=== PATIENT | female | born 1940 | race Caucasian/White ===

== ENCOUNTER 2018-01-19 18:09 | Emergency (ER) | payer MEDICARE, MEDICAID, SELFPAY ==
[2018-01-19 18:11] VITALS: BP 146/46; PULSE 94; RESP 20; TEMP 39.3; O2SAT 91; BMI 27.8
[2018-01-19 19:09] VITALS: TEMP 38.7
[2018-01-19 19:36] LABS: Microscopic, Urine URINE MICROSCOPIC (MICROSCOPIC)
[2018-01-19 19:40] LABS: Appearance,Urine CLEAR (Clear); Bilirubin,Urine Negative (Negative); Blood, Urine Negative (Negative); Color,Urine YELLOW (Yellow); Glucose,Urine (UA) Negative (Negative); Ketones,Urine Negative (Negative); Leukocyte Esterase,Urine 2+ (Negative); Nitrate,Urine Negative (Negative); Protein,Urine Negative (Negative); Urobilinogen,Urine 0.2 EU/dl (0.2)
[2018-01-19 19:50] VITALS: BP 121/64; PULSE 68; RESP 18; TEMP 37.6; O2SAT 96
[2018-01-19 19:53] LABS: Bacteria,Urine 3+ /lpf; Hyaline Casts,Urine Occasional #/lpf (0); Squamous Epithelial Cell,Urine 20-50 #/hpf (0-5); WBC,Urine 20-50 #/hpf (0-3)
--- NOTE | 2018-01-19 19:57 | HMH.EDFEV ---
ED Disposition Clinical Impression: Acute bronchitis, Breast cancer, HTN (hypertension), CAD (coronary artery disease) Disposition: Home, Self-Care Condition on Discharge: Fair Additional Instructions: 1- drink plenty of gotrade. 2- temp check po bid. 3- start abx 4- return if not better in 2 days. Prescriptions: Azithromycin [Zithromax 250mg tab] 250 mg PO DIRECTED #4 tab cefUROXime axetil [Ceftin 250mg Tablet] 250 mg PO BID #20 tab - Critical Care Critical Care Time: No Attestation: On 01/19/18, the high probability of a clinically significant, sudden or life threatening deterioration of the following system(s) required my full and direct attention, intervention and personal management. The time I documented below is in addition to time spent performing reported procedures but includes the following listed in this critical care notation. Medical Decision Making - Medical Records Medical records reviewed: Yes: I reviewed the patient's medical records. Vital Signs: 01/19/18 18:11 01/19/18 19:09 01/19/18 19:50 Temperature 102.8 F H 101.6 F H 99.6 F Temperature Source Oral Oral Oral Pulse Rate [Left Radial] 94 H 68 Respiratory Rate 20 18 Blood Pressure [Right Arm] 146/46 121/64 Blood Pressure Mean [Right Arm] 79 83 Blood Pressure Source [Right Arm] Automatic Cuff Automatic Cuff Blood Pressure Position [Right Arm] Sitting Sitting 02 Sat by Pulse Oximetry 91 L 96 Oxygen Delivery Method Room Air Room Air - Lab Data Lab results reviewed: Yes: I reviewed the patient's lab results. Lab Results 01/19/18 18:15: Influenza Type A Ag Negative, Influenza Type B Ag Negative 01/19/18 19:10: Urine Color Yellow, Urine Appearance Clear, Urine pH 5.0, Ur Specific [place] 1.020, Urine Protein Negative, Urine Glucose (UA) Negative, Urine Ketones Negative, Urine Blood Negative, Urine Nitrate Negative, Urine Bilirubin Negative, Urine Urobilinogen 0.2, Ur Leukocyte Esterase 2+ A, Urine RBC None, Urine WBC 20-50, Ur Squamous Epith Cells 20-50, Ur Transition Epith Cell 3-5, Urine Bacteria 3+, Hyaline Casts Occasional Orders (Tests/Meds): ORDERS Category Date Time Status Urine Culture Stat Micro 03/01/18 19:10 Received - Bryn Inquiry Pt receiving controlled substance: No Bryn was queried for this patient: No Medical Decision Making Narrative: I discussed with the patient starting abx and check temp bid x 2 days, drink plenty of fluids and alternat motrin and tylenol, she is to return if not better. Fever HPI - General Chief Complaint: Fever Stated Complaint: fever, body aches Mode of Arrival: Wheelchair Limitations: No Limitations Description of Symptoms (Recalled from ER Triage Doc. by RN): Fever, chills - History of Present Illness HPI Narrative: This is a 77 years old wf with hx of CAD, HTN and breast cancer survival, she was cleaning two days ago when she developed unproductive cough and fever, she called her pcp but was unable to make it on time so she came to the ED. she had 101 temp and underwent negative influenza screen. MD complaint: fever Onset (ago): day(s) (one day) Temperature Source: oral Associated symptoms: cough Relieving factors: acetaminophen Exacerbating factors: nothing Treatments prior to arrival fever: none - Related Data Home Medications Medication Instructions Recorded Confirmed Aspirin [Aspir 81] 81 mg PO DAILY 01/19/18 01/19/18 Miscellaneous [Unknown Home 0 each NOTAPPLIC CONSULT PHARMACY 01/19/18 01/19/18 Medication] Miscellaneous [Unknown Home 1 each PO DAILY 01/19/18 01/19/18 Medication] Previous Rx's Medication Instructions Recorded Azithromycin [Zithromax 250mg 250 mg PO DIRECTED #4 tab 01/19/18 tab] cefUROXime axetil [Ceftin 250mg 250 mg PO BID #20 tab 01/19/18 Tablet] Allergies Allergy/AdvReac Type Severity Reaction Status Date / Time aspirin [ASPIRIN] Allergy Unknown NA-NAUSEA
--- NOTE | 2018-01-19 20:00 | ED_ITS ---
ED Disposition Clinical Impression: Acute bronchitis, Breast cancer, HTN (hypertension), CAD (coronary artery disease) Disposition: Home, Self-Care Condition on Discharge: Fair Additional Instructions: 1- drink plenty of gotrade. 2- temp check po bid. 3- start abx 4- return if not better in 2 days. Prescriptions: Azithromycin [Zithromax 250mg tab] 250 mg PO DIRECTED #4 tab cefUROXime axetil [Ceftin 250mg Tablet] 250 mg PO BID #20 tab - Critical Care Critical Care Time: No Attestation: On 01/19/18, the high probability of a clinically significant, sudden or life threatening deterioration of the following system(s) required my full and direct attention, intervention and personal management. The time I documented below is in addition to time spent performing reported procedures but includes the following listed in this critical care notation. Medical Decision Making - Medical Records Medical records reviewed: Yes: I reviewed the patient's medical records. Vital Signs: 01/19/18 18:11 01/19/18 19:09 01/19/18 19:50 Temperature 102.8 F H 101.6 F H 99.6 F Temperature Source Oral Oral Oral Pulse Rate [Left Radial] 94 H 68 Respiratory Rate 20 18 Blood Pressure [Right Arm] 146/46 121/64 Blood Pressure Mean [Right Arm] 79 83 Blood Pressure Source [Right Arm] Automatic Cuff Automatic Cuff Blood Pressure Position [Right Arm] Sitting Sitting 02 Sat by Pulse Oximetry 91 L 96 Oxygen Delivery Method Room Air Room Air - Lab Data Lab results reviewed: Yes: I reviewed the patient's lab results. Lab Results 01/19/18 18:15: Influenza Type A Ag Negative, Influenza Type B Ag Negative 01/19/18 19:10: Urine Color Yellow, Urine Appearance Clear, Urine pH 5.0, Ur Specific [place] 1.020, Urine Protein Negative, Urine Glucose (UA) Negative, Urine Ketones Negative, Urine Blood Negative, Urine Nitrate Negative, Urine Bilirubin Negative, Urine Urobilinogen 0.2, Ur Leukocyte Esterase 2+ A, Urine RBC None, Urine WBC 20-50, Ur Squamous Epith Cells 20-50, Ur Transition Epith Cell 3-5, Urine Bacteria 3+, Hyaline Casts Occasional Orders (Tests/Meds): ORDERS Category Date Time Status Urine Culture Stat Micro 03/01/18 19:10 Received - Bryn Inquiry Pt receiving controlled substance: No Bryn was queried for this patient: No Medical Decision Making Narrative: I discussed with the patient starting abx and check temp bid x 2 days, drink plenty of fluids and alternat motrin and tylenol, she is to return if not better. Fever HPI - General Chief Complaint: Fever Stated Complaint: fever, body aches Mode of Arrival: Wheelchair Limitations: No Limitations Description of Symptoms (Recalled from ER Triage Doc. by RN): Fever, chills - History of Present Illness HPI Narrative: This is a 77 years old wf with hx of CAD, HTN and breast cancer survival, she was cleaning two days ago when she developed unproductive cough and fever, she called her pcp but was unable to make it on time so she came to the ED. she had 101 temp and underwent negative influenza screen. complaint: fever Onset (ago): day(s) (one day) Temperature Source: oral Associated symptoms: cough Relieving factors: acetaminophen Exacerbating factors: nothing Treatments prior to arrival fever: none - Related Data Home Medications
[2018-01-19 20:16] VITALS: BP 125/50; PULSE 68; RESP 20; TEMP 37.1; O2SAT 99
== END 2018-01-19 20:19 | disposition home or self-care (01) ==
PROVIDERS: Emergency Provider Emergency Medicine
DX: J20.9 Acute bronchitis, unspecified (principal); I10 Essential (primary) hypertension; I25.10 Atherosclerotic heart disease of native coronary artery without angina pectoris; Z88.1 Allergy status to other antibiotic agents; Z87.891 Personal history of nicotine dependence
CPT/HCPCS: 81001; 87086; 87275; 87276; 99283

== ENCOUNTER 2018-01-22 21:17 | Inpatient (IN) | payer MEDICARE, MEDICAID, SELFPAY ==
[2018-01-22 21:24] VITALS: BP 138/70; PULSE 124; RESP 20; TEMP 37.2; O2SAT 97; BMI 28.3
--- NOTE | 2018-01-22 21:32 | XR_ITS ---
XR chest 2V HISTORY: ITS.REASON: dyspnea ORDERING PHYSICIAN: Cristian Blake MD PATIENT AGE: 77 years COMPARISON: 09/18/2017 FINDINGS: Mild cardiomegaly without failure. Suture line is present in the right suprahilar region. There is emphysema with chronic change. There is pneumonia in the left lower lobe. Patchy density is present in the right midlung and may be due to pneumonia as well. IMPRESSION: Postsurgical change with COPD/emphysema. Left lower lobe and right midlung pneumonia.
[2018-01-22 22:31] LABS: Basophils % 0.2 % (0.1-2.0); Eosinophils # 0.1 K/mm3 (0.0-0.4); Eosinophils % 1.4 % (0.1-12.0); Hemoglobin 9.5 g/dL (12.2-16.2); Lymphocytes # 0.8 K/mm3 (0.7-4.5); Lymphocytes % 7.8 K/mm3 (10-50); Mean Corpuscular HGB Conc 32.4 g/dL (31.8-35.4); Mean Corpuscular Hemoglobin 30.3 pg (27.0-31.2); Mean Corpuscular Volume 93.5 fl (81-99); Mean Platelet Volume 8.3 fl (7.4-10.4); Monocytes # 0.6 K/mm3 (0.1-1.0); Monocytes % 5.7 % (1.7-9.3); Neutrophils # 8.5 K/mm3 (1.8-7.8); Neutrophils % 84.9 % (37.0-80.0); Platelet Count 247 K/mm3 (142-424); Red Blood Count 3.13 M/mm3 (4.20-5.40); Red Cell Distribution Width 12.3 % (11.5-17.5)
[2018-01-22 22:51] LABS: Hematocrit 29.3 % (37.0-47.0)
[2018-01-22 23:39] LABS: Alanine Aminotransferase 46 U/L (12-78); Albumin Level 3.1 gm/dL (3.4-5.0); Albumin/Globulin Ratio 0.9 (1.1-1.8); Alkaline Phosphatase 180 U/L (46-116); Anion Gap 15.6 mEq/L (5-15); Aspartate Amino Transferase 34 U/L (15-37); Bilirubin,Total 0.8 mg/dL (0.2-1.0); Blood Urea Nitrogen 19 mg/dL (7-18); Calcium 8.3 mg/dL (8.5-10.1); Carbon Dioxide 25 mmol/L (21.0-32.0); Chloride 95 mmol/L (98-107); Creatinine Clearance Estimated 40 mL/min (0-300); Creatinine,Serum 1.41 mg/dL (0.55-1.02); Estimated Glomerular Filt Rate 36 ml/min (>60); GFR (African American) 44 ML/MIN (>60); Globulin 3.3 gm/dl (1.3-3.2); Glucose 146 mg/dL (74-106); Potassium 3.6 mmoL/L (3.5-5.1); Sodium 132 mmol/L (136-145); Total Protein,Serum 6.4 gm/dL (6.4-8.2)
[2018-01-22 23:42] LABS: CKMB Relative Index 0.5 U/L (0-4.0); Creatine Kinase 91 U/L (26-192); Creatine Kinase MB < 0.5 mg/ml (0.0-3.6); Troponin I < 0.02 ng/ml (0.00-0.06)
--- NOTE | 2018-01-22 23:52 | HMH.EDSOB ---
ED Disposition Clinical Impression: Influenza Pneumonia Qualifiers: Pneumonia type: due to unspecified organism Laterality: bilateral Lung location: unspecified part of lung Qualified Code(s): J18.9 - Pneumonia, unspecified organism Anemia Qualifiers: Anemia type: unspecified type Qualified Code(s): D64.9 - Anemia, unspecified Disposition: Admitted As Inpatient Condition on Discharge: Fair Time of Disposition: 00:01 - Critical Care Critical Care Time: No Attestation: On 01/22/18, the high probability of a clinically significant, sudden or life threatening deterioration of the following system(s) required my full and direct attention, intervention and personal management. The time I documented below is in addition to time spent performing reported procedures but includes the following listed in this critical care notation. Medical Decision Making - Medical Records Medical records reviewed: Yes: I reviewed the patient's medical records. Vital Signs: 01/22/18 21:24 01/23/18 00:15 Temperature 99.0 F 99.2 F Temperature Source Tympanic Oral Pulse Rate 68 Pulse Rate [Right Radial] 124 H Respiratory Rate 20 20 Blood Pressure 134/70 Blood Pressure [Right Arm] 138/70 Blood Pressure Mean [Right Arm] 92 02 Sat by Pulse Oximetry 97 Oxygen Delivery Method Nasal Cannula - Lab Data Lab results reviewed: Yes: I reviewed the patient's lab results. Lab Results 01/22/18 22:15: WBC 10.0, RBC 3.13 L, Hgb 9.5 L, Hct 29.3 L, MCV 93.5, MCH 30.3, MCHC 32.4, RDW 12.3, Plt Count 247, MPV 8.3, Neut % (Auto) 84.9 H, Lymph % (Auto) 7.8 L, [place] % (Auto) 5.7, Eos % (Auto) 1.4, Baso % (Auto) 0.2, Neut # (Auto) 8.5 H, Lymph # (Auto) 0.8, [place] # (Auto) 0.6, Eos # (Auto) 0.1, Baso # (Auto) 0.0 01/22/18 22:15: Sodium 132 L, Potassium 3.6, Chloride 95 L, Carbon Dioxide 25, Anion Gap 15.6 H, BUN 19 H, Creatinine 1.41 H, Estimated Creat Clear 40, Estimated GFR 36 L, Est GFR ( Amer) 44 L, Glucose 146 H, Calcium 8.3 L, Total Bilirubin 0.8, AST 34, ALT 46, Alkaline Phosphatase 180 H, Total Protein 6.4, Albumin 3.1 L, Globulin 3.3 H, Albumin/Globulin Ratio 0.9 L 01/22/18 22:15: Total Creatine Kinase 91, CK-MB (CK-2) < 0.5, CK-MB (CK-2) Rel Index 0.5, Troponin I < 0.02 01/22/18 22:15: Lactic Acid 1.0 Result diagrams: 01/22/18 22:15 01/22/18 22:15 Orders (Tests/Meds): ED MEDICATIONS Generic Name Dose Route Start Last Admin Trade Name Freq PRN Reason Stop Dose Admin Albuterol/Ipratropium 3 ml 01/23/18 00:43 Duoneb 3ml Neb 02/22/18 00:28 Q4HP PRN Shortness Of Breath Sodium Chloride 1,000 mls @ 75 mls/hr 01/23/18 00:43 01/23/18 01:29 Sod Chlor 0.9% 1000ml Bag IV 02/22/18 00:29 75 mls/hr .[id number] JOSLYN Administration Azithromycin 500 mg/ Sodium 250 mls @ 250 mls/hr 01/23/18 23:45 Chloride IV 02/05/18 23:44 Q24H JOSLYN Protocol Ceftriaxone Sodium 1 gm/ 50 mls @ 100 mls/hr 01/23/18 23:45 Sodium Chloride IV 02/05/18 23:44 Q24H JOSLYN Oseltamivir Phosphate 75 mg 01/23/18 09:00 Tamiflu 75mg Capsule PO 02/06/18 08:59 BID JOSLYN Sodium Chloride 10 ml 01/23/18 00:43 Saline Flush 10ml Syringe IV 02/22/18 00:28 NEEDED PRN Maintain IV Site Discontinued Medications Generic Name Dose Route Start Last Admin Trade Name Freq PRN Reason Stop Dose Admin Albuterol/Ipratropium 3 ml 01/23/18 00:29 Duoneb 3ml Neb 02/22/18 00:28 Q4HP PRN Shortness Of Breath Ceftriaxone Sodium 1 gm/ 50 mls @ 100 mls/hr 01/22/18 23:45 01/23/18 00:06 Sodium Chloride IV 02/05/18 23:44 100 mls/hr Q24H JOSLYN Administration Azithromycin 500 mg/ Sodium 250 mls @ 250 mls/hr 01/22/18 23:45 01/23/18 01:28 Chloride IV 02/05/18 23:44 250 mls/hr Q24H JOSLYN Administration Protocol Sodium Chloride 1,000 mls @ 75 mls/hr 01/23/18 00:30 Sod Chlor 0.9% 1000ml Bag IV 02/22/18 00:29 .[id number] JOSLYN Sodium Chloride
[2018-01-23] VITALS (17 sets, daily range): BP systolic 105–134; BP diastolic 35–70; PULSE 60–80; RESP 14–20; TEMP 36.7–38.4; O2SAT 2–99; BMI 28.2
--- NOTE | 2018-01-23 05:03 | PC.NURSE ---
PT LYING IN BED RESTING. PT REPORTS THAT SHE HASN'T SLEPT WELL THAT LAST WEEK DUE TO BEING ILL WITH THE FLU. BREATH SOUNDS CLEAR RUL, RML, RLL AND DIMINISHED [place]RY[place], LLL. O2 @ 2L NC IN PLACE, SAT 100%. PT REPORTS SHORTNESS OF BREATH WITH EXERTION AND DRY, NON PRODUCTIVE COUGH. IV SITE PATENT, NO REDNESS OR EDEMA NOTED. DRG SECURE AND INTACT. IV FLUIDS INFUSING ORDERED. NO C/O OF PAIN OR DISCOMFORT. PT HAS BEEN EDUCATED ON POC, MEDICATION AND SIDE EFFECTS, TESTS, EQUIPMENT, DISEASE PROCESS, PAIN AND INTERVENTIONS, SAFETY AND CALL LIGHT.
--- NOTE | 2018-01-23 07:11 | HMH.HP ---
*Admission Date: 01/23/18 *Chief complaint: Shortness of breath and fever *History of present illness: 77-year-old female with COPD and history of carcinoma of the lung ?2 with subsequent lobectomy ?2 presented to the emergency department with continued fevers to 103 and worsening shortness of breath. Patient been seen in the emergency department on January 20 and diagnosed with bronchitis. Follow-up in my office the next day and the patient had persistent fevers to 102 and 103. She was empirically started on Tamiflu. She continued to have fever throughout the weekend with shortness of breath. On Tuesday she presented to the ER. Patient was found to have bilateral pneumonia and was admitted and placed on Rocephin and azithromycin. Since admission she has not had any further fevers. [facility] History Medical History: Reports:: Cancer (lung), Hypertension, Palpitations Denies:: Diabetes Mellitus Type 1, Diabetes Mellitus Type 2, MRSA Other Medical History: Reports: Arthritis Laterality Cases: Left: Other Other Surgeries: Yes: Angiogram, Angioplasty Amputation: No Fractures: No - *Social History Educational Level: Attended High School Smoking Status: Current every day smoker Tobacco Type: e-cigarettes # Packs/Day (cigarettes): 0 Alcohol Intake: never Occupational Status: retired Housing: house Household Members: other - Psychiatric History Expresses thoughts of harming self/others: None Suicide Plan Description: No Plan *Family Hx:: Cancer, Heart Attack, Hypertension Review of Systems - Review of Systems Review of systems:: pertinent systems reviewed and negative unless documented below Meds Home Medications Medication Instructions Recorded Confirmed Type Aspirin [Aspir 81] 81 mg PO DAILY 01/19/18 01/19/18 History Miscellaneous [Unknown Home 0 each NOTAPPLIC CONSULT PHARMACY 01/19/18 01/19/18 History Medication] Miscellaneous [Unknown Home 1 each PO DAILY 01/19/18 01/19/18 History Medication] Oseltamivir Phosphate 75 mg PO BID 01/23/18 01/23/18 History diazePAM [Valium] 0 tab PO HSP PRN 01/23/18 01/23/18 History Allergies Allergy/AdvReac Type Severity Reaction Status Date / Time aspirin [ASPIRIN] Allergy Unknown NA-NAUSEA/VOMITING--- Verified 01/19/18 18:24 STATES COATED PILLS ARE OKAY levofloxacin [From LEVAQUIN] Allergy Unknown MAKES SICK Verified 01/19/18 18:24 tetracycline [TETRACYCLINE] Allergy Unknown SWELLING, Verified 01/19/18 18:24 ITCHING Exam Vital signs and Labs for Last 24 Hours: Temp Pulse Resp BP Pulse Ox 98.1 F 60 20 107/54 99 01/23/18 03:30 01/23/18 04:00 01/23/18 03:30 01/23/18 03:30 01/23/18 03:30 I & O for Last 24 hours: Intake & Output 01/20/18 01/21/18 01/22/18 01/23/18 11:59 11:59 11:59 11:59 Intake Total 1200 / 1200 Balance 1200 / 1200 Weight 164 lb 7 oz Narrative: This morning she does not appear ill. She is resting comfortably in bed with nasal cannula in place. Oropharynx is moist. Neck is without lymphadenopathy or carotid bruits. Lungs have left basilar rales. Heart has a regular rate and rhythm. Abdomen is soft and nontender. Patient can move arms and legs. She is awake, alert and oriented ?3. Assessment and Plan (1) Pneumonia Current visit: Yes Status: Acute Qualifiers: Pneumonia type: due to unspecified organism Laterality: bilateral Lung location: unspecified part of lung Qualified Code(s): J18.9 - Pneumonia, unspecified organism Category: Medical Code(s): J18.9 - Pneumonia, unspecified organism (2) CAD (coronary artery disease) Current visit: No Status: Acute Category: Medical Code(s): I25.10 - Atherosclerotic heart disease of [place] coronary artery without angina pectoris (3) HTN (hypertension) Current visit: No Status: Acute Category: Medical Code(s): I10 - Essential (primary) hypertension - Assessment and plan all Dx Assessment and Plan for all
--- NOTE | 2018-01-23 07:14 | P.HP_ITS ---
*Admission Date: 01/23/18 *Chief complaint: Shortness of breath and fever *History of present illness: 77-year-old female with COPD and history of carcinoma of the lung ?2 with subsequent lobectomy ?2 presented to the emergency department with continued fevers to 103 and worsening shortness of breath. Patient been seen in the emergency department on January 20 and diagnosed with bronchitis. Follow-up in my office the next day and the patient had persistent fevers to 102 and 103. She was empirically started on Tamiflu. She continued to have fever throughout the weekend with shortness of breath. On Tuesday she presented to the ER. Patient was found to have bilateral pneumonia and was admitted and placed on Rocephin and azithromycin. Since admission she has not had any further fevers. [facility] History Medical History: Reports:: Cancer (lung), Hypertension, Palpitations Denies:: Diabetes Mellitus Type 1, Diabetes Mellitus Type 2, MRSA Other Medical History: Reports: Arthritis Laterality Cases: Left: Other Other Surgeries: Yes: Angiogram, Angioplasty Amputation: No Fractures: No - *Social History Educational Level: Attended High School Smoking Status: Current every day smoker Tobacco Type: e-cigarettes # Packs/Day (cigarettes): 0 Alcohol Intake: never Occupational Status: retired Housing: house Household Members: other - Psychiatric History Expresses thoughts of harming self/others: None Suicide Plan Description: No Plan *Family Hx:: Cancer, Heart Attack, Hypertension Review of Systems - Review of Systems Review of systems:: pertinent systems reviewed and negative unless documented below Meds Home Medications Medication Instructions Recorded Confirmed Type Aspirin [Aspir 81] 81 mg PO DAILY 01/19/18 01/19/18 History Miscellaneous [Unknown Home 0 each NOTAPPLIC CONSULT PHARMACY 01/19/18 01/19/18 History Medication] Miscellaneous [Unknown Home 1 each PO DAILY 01/19/18 01/19/18 History Medication] Oseltamivir Phosphate 75 mg PO BID 01/23/18 01/23/18 History diazePAM [Valium] 0 tab PO HSP PRN 01/23/18 01/23/18 History Allergies Allergy/AdvReac Type Severity Reaction Status Date / Time aspirin [ASPIRIN] Allergy Unknown NA-NAUSEA/VOMITING--- Verified 01/19/18 18:24 STATES COATED PILLS ARE OKAY levofloxacin [From LEVAQUIN] Allergy Unknown MAKES SICK Verified 01/19/18 18:24 tetracycline [TETRACYCLINE] Allergy Unknown SWELLING, Verified 01/19/18 18:24 ITCHING Exam Vital signs and Labs for Last 24 Hours: Temp Pulse Resp BP Pulse Ox 98.1 F 60 20 107/54 99 01/23/18 03:30 01/23/18 04:00 01/23/18 03:30 01/23/18 03:30 01/23/18 03:30 I & O for Last 24 hours: Intake & Output 01/20/18 01/21/18 01/22/18 01/23/18 11:59 11:59 11:59 11:59 Intake Total 1200 / 1200 Balance 1200 / 1200 Weight 164 lb 7 oz Narrative: This morning she does not appear ill. She is resting comfortably in bed with nasal cannula in place. Oropharynx is moist. Neck is without lymphadenopathy or carotid bruits. Lungs have left basilar rales. Heart has a regular rate and rhythm. Abdomen is soft and nontender. Patient can move arms and legs. She is awake, alert and oriented ?3. Assessment and Plan (1) Pneumonia Current visit: Yes Status: Acute Qualifiers: Pneumonia type
--- NOTE | 2018-01-23 07:25 | PC.NURSE ---
HANDOFF REPORT GIVEN TO Gal SHANNON RN
--- NOTE | 2018-01-23 07:31 | PC.NURSE ---
REPORT GIVEN TO Valdez GREENE W/C
--- NOTE | 2018-01-23 07:46 | P.CONPHA_ITS ---
[facility] Pharmacy VTE Monitoring - Patient Demographics Admission date: 01/23/18 Report Date: 01/23/18 Time: 07:45 Allergies/Adverse Reactions: Patient Allergies aspirin [ASPIRIN] Allergy (Unknown, Verified 01/19/18 18:24) NA-NAUSEA/VOMITING--- STATES COATED PILLS ARE OKAY levofloxacin [From LEVAQUIN] Allergy (Unknown, Verified 01/19/18 18:24) MAKES SICK tetracycline [TETRACYCLINE] Allergy (Unknown, Verified 01/19/18 18:24) SWELLING, ITCHING Height: 1.63 m Weight: 74.588 kg Patient Problems: Current Active Problems Pneumonia (Acute) Influenza (Acute) Anemia (Acute) - VTE Risk Labs: VTE Related Lab Results Hgb 9.5 g/dL (12.2-16.2) L 01/22/18 22:15 Hct 29.3 % (37.0-47.0) L 01/22/18 22:15 Plt Count 247 K/mm3 (142-424) 01/22/18 22:15 BUN 19 mg/dL (7-18) H 01/22/18 22:15 Creatinine 1.41 mg/dL (0.55-1.02) H 01/22/18 22:15 Estimated Creat Clear 40 mL/min (0-300) 01/22/18 22:15 Was VTE Risk Assessment Performed: Yes VTE Score: 3 VTE Risk Level: Low Risk - Prophylaxis VTE Prophylaxis Ordered?: Yes Types of VTE Prophylaxis: TEDS Knee High Location of Applied Device: Bilateral Lower Extremeties - VTE Diagnosis Confirmed Treatment or plan recommended: Continue Current Treatment
[2018-01-23 08:45] LABS: Adenovirus,PCR Not Detected (NotDetected); Bordetella Pertussis Not Detected (NotDetected); Chlamydophila Pneumoniae, PCR Not Detected (NotDetected); Coronavirus 229E Not Detected (NotDetected); Coronavirus NL63 Not Detected (NotDetected); Coronavirus OC43 Not Detected (NotDetected); Coronovirus HKU1,PCR Not Detected (NotDetected); Human Metapneumovirus Not Detected (NotDetected); Influenza A, PCR Not Detected (NotDetected); Influenza AH1, 2009 Not Detected (NotDetected); Influenza AH1, PCR Not Detected (NotDetected); Influenza AH3,PCR Not Detected (NotDetected); Influenza B, PCR Not Detected (NotDetected); Mycoplasma Pneumoniae, PCR Not Detected (NotDected); Parainfluenza 1, PCR Not Detected (NotDetected); Parainfluenza 2, PCR Not Detected (NotDetected); Parainfluenza 3, PCR Not Detected (NotDetected); Parainfluenza 4, PCR Not Detected (NotDetected); Respiratory Syncytial Virus Not Detected (NotDetected); Rhinovirus/Enterovirus Not Detected (NotDetected)
--- NOTE | 2018-01-23 18:54 | PC.NURSE ---
PATIENT SITTING UP IN BED VISITING WITH FAMILY. LUNGS ARE DIMINISHED T/O. DENIES PAIN AT THIS TIME. PATIENT HAS A PERSISTENT DRY HACKY COUGH WHICH GETS HER SOA AT TIMES. SHE IS ON 2LNC WITH O2 SATS 93-95%. CALL LIGHT WITHIN REACH WILL CONTINUE TO MONITOR
[2018-01-24] VITALS (12 sets, daily range): BP systolic 110–142; BP diastolic 41–63; PULSE 60–83; RESP 16–20; TEMP 36.5–37.3; O2SAT 90–100
--- NOTE | 2018-01-24 02:24 | PC.NURSE ---
Patient laying in bed resting at this time. Has not request any prn meds this shift. A/O x 4. Resp are even and non labored. Lungs are diminished in lower lobes.Denies soa at this time. Has been up to restroom with standby assist, tolerated well. IV is patent. Bed locked in low position, side rails up x 2, call light within reach. Encouraged to notify staff of any needs. Bed locked in low position, side rails up x 2. Call light within reach. Will continue to monitor.
--- NOTE | 2018-01-24 07:17 | HMH.ACPN2 ---
Internal Medicine - PN: Subj *Date: 01/24/18 *Time: 07:17 Interval history: Patient reports frequent cough that has kept her awake most of the night. Cough remains nonproductive. Exam Vital signs and Labs for Last 24 Hours: Temp Pulse Resp BP Pulse Ox 99.2 F 75 20 142/56 96 01/24/18 04:00 01/24/18 05:08 01/24/18 04:00 01/24/18 04:00 01/24/18 05:08 Laboratory Results - last 24 hr 01/23/18 08:30: Chlamy pneumoniae PCR Not detected, Adenovirus (PCR) Not detected, B.parapertussis DNA PCR Not detected, Coronavirus OC43 (PCR) Not detected, Coronavirus HKU1 (PCR) Not detected, Coronavirus 229E (PCR) Not detected, Coronavirus NL63 (PCR) Not detected, Human Metapneumovir PCR Not detected, Influenza A (H1) PCR Not detected, Influ A (H1N1/09) PCR Not detected, Influenza A (H3) PCR Not detected, Influenza Type A (PCR) Not detected, Influenza Type B (PCR) Not detected, M. pneumoniae (PCR) Not detected, Parainfluenza 1 (PCR) Not detected, Parainfluenza 2 (PCR) Not detected, Parainfluenza 3 (PCR) Not detected, Parainfluenza 4 (PCR) Not detected, RSV (PCR) Not detected, Entero/Rhino (PCR) Not detected I & O for Last 24 hours: Intake & Output 01/21/18 01/22/18 01/23/18 01/24/18 11:59 11:59 11:59 11:59 Intake Total 2025 2737 / 2737 Output Total 600 / 600 Balance 2025 2137 / 2137 Weight 164 lb 7 oz Narrative: Lung examination reveals some left-sided rhonchi along with expiratory wheezes heard at the bases posteriorly. Heart has a regular rate and rhythm Assessment and Plan (1) Pneumonia Current visit: Yes Status: Acute Qualifiers: Pneumonia type: due to unspecified organism Laterality: bilateral Lung location: unspecified part of lung Qualified Code(s): J18.9 - Pneumonia, unspecified organism Category: Medical Code(s): J18.9 - Pneumonia, unspecified organism (2) CAD (coronary artery disease) Current visit: Yes Status: Acute Category: Medical Code(s): I25.10 - Atherosclerotic heart disease of [place] coronary artery without angina pectoris (3) HTN (hypertension) Current visit: Yes Status: Acute Category: Medical Code(s): I10 - Essential (primary) hypertension (4) COPD (chronic obstructive pulmonary disease) Current visit: Yes Status: Acute Category: Medical Code(s): J44.9 - Chronic obstructive pulmonary disease, unspecified - Assessment and plan all Dx Assessment and Plan for all problems:: No change to care. Add expectorant. Monitor for fevers.
--- NOTE | 2018-01-24 07:52 | PC.NURSE ---
0715 - Report received from Farida Haile RN
--- NOTE | 2018-01-24 08:32 | PC.NURSE ---
0825 - Sputum specimen obtained and sent to lab.
--- NOTE | 2018-01-24 18:14 | PC.NURSE ---
Pt has remained A&Ox3 this shift in NAD. VSS. Afebrile. O2 @ 2lpm via NC in place. Lungs /c rhonchi throughout LLL. Pt denies c/o this shift. Bed in low position, call lopez within reach. IV (R) AC infusing 0.9%NaCl @ 75ml/hr /s difficulty. Pt refused BLE PAUL hose. Will continue to monitor.
--- NOTE | 2018-01-24 19:22 | PC.NURSE ---
Report given to Farida Haile RN
[2018-01-25] VITALS: PULSE 60
--- NOTE | 2018-01-25 02:30 | PC.NURSE ---
Laying in bed resting at this time. Has slept only a couple hours this shift. Stated also has a hard time sleeping at home. Has been up to bsc without difficulty.Still some soa noted with over exertion.Lungs Diminished in left lobes. Resp even and non labored at this time. Has no needs at this time. IV is patent, bed locked in low position, side rails up x 2, call light within reach. Encouraged to call out if any needs. Will continue to monitor.
[2018-01-25 04:00] VITALS: BP 107/56; PULSE 55; PULSE 59; RESP 20; TEMP 36.6; O2SAT 99
[2018-01-25 05:45] VITALS: PULSE 66; PULSE 72; O2SAT 91
--- NOTE | 2018-01-25 07:35 | HMH.DCSUM ---
General - General Admission date: 01/23/18 Discharge date: 01/25/18 HPI HPI: 77-year-old female with COPD and history of carcinoma of the lung ?2 with subsequent lobectomy ?2 presented to the emergency department with continued fevers to 103 and worsening shortness of breath. Patient been seen in the emergency department on January 20 and diagnosed with bronchitis. Follow-up in my office the next day and the patient had persistent fevers to 102 and 103. She was empirically started on Tamiflu. She continued to have fever throughout the weekend with shortness of breath. On Tuesday she presented to the ER. Patient was found to have bilateral pneumonia and was admitted and placed on Rocephin and azithromycin. Since admission she has not had any further fevers. Hospital Course Hospital Course: She was admitted and diagnosed with left lower lobe and right middle lobe pneumonia. She was placed on Rocephin and azithromycin. Patient had fever on the first day of admission and afterwards fevers resolved. She never developed a oxygen requirement. Her biggest complaint during hospitalization was frequency of cough for which she was given Robitussin. Patient was able to perform ADLs while hospitalized. Once fevers had resolved for over 24 hours and patient was clinically improving with improvement of breath sounds she was discharged home. Patient has multiple medication intolerances and allergies. She will be discharged home on Augmentin and azithromycin. Patient will follow-up in my office in 2 days for reassessment Objective Vital signs: Temp Pulse Resp BP Pulse Ox 97.9 F 72 20 107/56 91 L 01/25/18 04:00 01/25/18 05:45 01/25/18 04:00 01/25/18 04:00 01/25/18 05:45 DS: Diagnosis - Discharge Diagnosis (1) Pneumonia Status: Acute Problem details: Lower lobe and right middle lobe (2) CAD (coronary artery disease) Status: Chronic (3) HTN (hypertension) Status: Chronic (4) COPD (chronic obstructive pulmonary disease) Status: Chronic Discharge Plan - Patient Discharge Instructions ACTIVITY: Continue current activity DIET: continue same diet - Follow up Plan Follow up with: Tacho Lee MD [Primary Care Provider] - 01/27/18 Disposition: Home, Self-Correction Medications: Home Medications Medication Instructions Recorded Confirmed Type Aspirin [Aspir 81] 81 mg PO DAILY 01/19/18 01/23/18 History Albuterol Sulfate [Albuterol HFA 2 puffs IH Q4HP PRN 01/23/18 01/24/18 History Inhaler] Lisinopril [Lisinopril 20mg Tab] 20 mg PO DAILY 01/23/18 01/24/18 History Oseltamivir Phosphate 75 mg PO BID 01/23/18 01/23/18 History diazePAM [Valium] 2 mg PO BIDP PRN 01/23/18 01/23/18 History hydroCHLOROthiazide [HCTZ 25mg 25 mg PO DAILY PRN 01/23/18 01/24/18 History tab] Prescriptions/Medication Reconciliation: New Azithromycin [Z-Christian 250mg Tab] 250 mg PO UD DOSE PK #6 tab predniSONE [Deltasone 20mg tablet] 20 mg PO DAILY #5 tab Amoxicillin/Potassium Clav [Augmentin 875-125 Tablet] 1 tab PO Q12H #14 tab Continue diazePAM [Valium] 2 mg PO BIDP PRN PRN Reason: Sleep Lisinopril [Lisinopril 20mg Tab] 20 mg PO DAILY Albuterol Sulfate [Albuterol HFA Inhaler] 2 puffs IH Q4HP PRN PRN Reason: Shortness Of Breath Or Wheezing Aspirin [Aspir 81] 81 mg PO DAILY hydroCHLOROthiazide [HCTZ 25mg tab] 25 mg PO DAILY PRN PRN Reason: Blood Pressure - High Discontinued Oseltamivir Phosphate 75 mg PO BID
[2018-01-25 08:00] VITALS: BP 129/45; PULSE 77; RESP 18; TEMP 36.5; O2SAT 98
== END 2018-01-25 08:40 | disposition home or self-care (01) | DRG 194 ==
LOC: ER 01-23 00:02 → 2ND 01-23 00:18
PROVIDERS: Admitting Provider Family Medicine; Emergency Provider Emergency Medicine; PCP Family Medicine; Visit Provider Family Medicine
DX: J18.9 Pneumonia, unspecified organism (principal); C34.90 Malignant neoplasm of unspecified part of unspecified bronchus or lung; J44.9 Chronic obstructive pulmonary disease, unspecified; I10 Essential (primary) hypertension; Z72.0 Tobacco use; I25.10 Atherosclerotic heart disease of native coronary artery without angina pectoris; Z90.2 Acquired absence of lung [part of]
CPT/HCPCS: 71046; 80053; 82550; 82553; 83605; 84484; 85025; 87040; 87070; 87205; 87486; 87581; 87633; 87798; 93005; 94640; 94761; 96374; 99284; J0456

== ENCOUNTER 2018-01-27 08:26 | Inpatient (IN) | payer MEDICARE, MEDICAID, SELFPAY ==
[2018-01-27] VITALS (24 sets, daily range): BP systolic 101–151; BP diastolic 37–86; PULSE 50–83; RESP 16–21; TEMP 36.5–37; O2SAT 87–99; BMI 28.3
--- NOTE | 2018-01-27 | IR_ITS ---
CARDIAC CATHETERIZATION DATE OF CATHETERIZATION:01/27/2018 2:13 PM PROCEDURES: 1. Left heart catheterization 2. Left ventriculogram 3. Selective coronary angiogram 4. Drug-eluting stent deployment to the ostial proximal left main artery INDICATION FOR TEST: 1. Acute coronary syndrome/non-ST elevation myocardial infarction 2. Coronary artery disease 3. Systolic congestive heart failure Informed consent was obtained prior to the procedure. COMPLICATIONS: None ESTIMATED BLOOD LOSS: Less than 10 ml. TECHNIQUE: One percent lidocaine used to anesthetize the right anterior aspect of the wrist. The right radial artery was accessed via the Seldinger technique. A 6 Cameroonian sheath was placed in the right radial artery. 2.5 mg of verapamil, 800 mcg of nitroglycerin and 5000 U Heparin were given through the arterial sheath. The trap catheter was also used to perform left heart catheterization left ventriculogram and selective coronary angiogram. At the end of the procedure an additional 3000 units of heparin was administered intravenously and Brilinta 180 mg orally was given. An Room left guide catheter was used intubate the left main artery and a BMW wire was placed in the LAD. A 4 mm x 12 mm resolute Yvon stent was deployed at 20 kanika reducing the severe stenosis to 0% excellent angiographic results were obtained before and after the procedure with BETH-3 flow before and after the procedure. The ACT 293 seconds therefore an additional 1000 units of heparin was administered. At the end of the procedure the apparatus was removed the sheath was removed good hemostasis was achieved using TR banding patient was transferred to the postop holding area in stable condition. ANGIOGRAPHIC RESULTS: 1. The left main artery has an ostial 70% stenosis with significant dampening and ventricularization upon guide catheter insertion 2. The left anterior descending artery has proximal 10-20% stenoses with remaining vessel normal 3. The circumflex artery is nondominant yet still large and has proximal mid vessel 20% stenoses 4. The right coronary artery is a dominant vessel and has proximal 30% stenoses mid vessel 20-30% stenoses and distal 20% stenoses 5. The RIDLEY ventriculogram reveals moderate left ventricular dilatation anterior apical hypokinesis with an estimated ejection fraction 20% 6. The left ventricular end-diastolic pressure 25 mmHg IMPRESSION: 1. Severe ostial left main disease 2. Successful drug-eluting stenting of the ostial left main severe disease reduced to 0% with 1 drug-eluting stent 3. Severely reduced ejection fraction which is hopefully stunned 4. Moderately elevated LVEDP PLAN: 1. Brilinta and aspirin for one year 2. Standard therapy for systolic heart failure 3. LDL less than 55 4. Avoidance of tobacco products 5. Cardiac rehabilitation 6. A should must go home with a lifevest due to her severely reduced ejection fraction
--- NOTE | 2018-01-27 08:38 | HMH.EDGENADL ---
ED Disposition Clinical Impression: Chest pain, precordial, Palpitations, Elevated troponin Disposition: Still a Patient Condition on Discharge: Good Referrals: Tacho Lee MD [Primary Care Provider] - - Critical Care Critical Care Time: No Attestation: On 01/27/18, the high probability of a clinically significant, sudden or life threatening deterioration of the following system(s) required my full and direct attention, intervention and personal management. The time I documented below is in addition to time spent performing reported procedures but includes the following listed in this critical care notation. Medical Decision Making Vital Signs: 01/27/18 08:29 01/27/18 08:56 01/27/18 09:56 Temperature 98.1 F 98.3 F 98.4 F Temperature Source Oral Oral Oral Pulse Rate [Right Brachial] 75 73 73 Respiratory Rate 18 18 16 Blood Pressure [Right Arm] 141/83 131/67 137/67 Blood Pressure Mean [Right Arm] 102 88 90 Blood Pressure Source [Right Arm] Automatic Cuff Automatic Cuff Automatic Cuff Blood Pressure Position [Right Arm] Supine Sitting Sitting 02 Sat by Pulse Oximetry 87 L 97 98 Oxygen Delivery Method Room Air Nasal Cannula Nasal Cannula Oxygen Flow Rate (LPM) 2 3 - Lab Data Lab Results 01/27/18 08:45: WBC 8.3, RBC 3.23 L, Hgb 9.7 L, Hct 30.6 L, MCV 95.0, MCH 30.2, MCHC 31.8, RDW 12.5, Plt Count 436 H, MPV 7.2 L, Neut % (Auto) 77.9, Lymph % (Auto) 16.9, [place] % (Auto) 3.5, Eos % (Auto) 1.2, Baso % (Auto) 0.4, Neut # (Auto) 6.4, Lymph # (Auto) 1.4, [place] # (Auto) 0.3, Eos # (Auto) 0.1, Baso # (Auto) 0.0 01/27/18 08:45: Sodium 139, Potassium 3.8, Chloride 104, Carbon Dioxide 29, Anion Gap 9.8, BUN 9, Creatinine 1.10 H, Estimated Creat Clear 51, Estimated GFR 48 L, Est GFR ( Amer) 58 L, Glucose 131 H, Calcium 9.1, Total Bilirubin 0.2, AST 40 H, ALT 85 H, Alkaline Phosphatase 158 H, Total Creatine Kinase 74, CK-MB (CK-2) 1.2 D, CK-MB (CK-2) Rel Index 1.6, Troponin I 0.10 H, Total Protein 6.8, Albumin 3.0 L, Globulin 3.8 H, Albumin/Globulin Ratio 0.8 L 01/27/18 08:45: Lactic Acid 1.2 Result diagrams: 01/27/18 08:45 01/27/18 08:45 Orders (Tests/Meds): ORDERS Category Date Time Status Blood Culture Stat Micro 01/27/18 08:40 Received 12-lead EKG Request [ECG Request by /Dmitry] Stat Y 01/27/18 08:39 Ordered - ECG Data Tracing #1 EKG interpreted by Ryland Paniagua MD: Rhythm: sinus Rate: 87 [place]: normal Ectopy: none Conduction: normal ST Segment Changes: none T Wave Changes: none Q Waves: none No evidence of acute ischemia or injury Baseline artifact and wander present, but I consider the EKG adequate for accurate interpretation. - Bryn Inquiry Pt receiving controlled substance: No Medical Decision Making Narrative: 9:48 AM: I have discussed the case with Dr. Lee who agrees to admit the patient to the hospital. We discussed the patient's clinical information, including history, exam, laboratory and radiology results and ED course. Per hospital procedure, I will write temporary bridge inpatient orders on the patient. Specific orders requested by the admitting physician: Echocardiogram, cardiology consult 10:05 AM: Case discussed with ANGELICA Banuelos, for Dr. Hollingsworth. He will see the patient. General Adult HPI - General Chief complaint: Chest Pain Stated complaint: cp Mode of Arrival: EMS Limitations: No Limitations Description of Symptoms (Recalled from ER Triage Doc. by RN): Reports CP and fluttering . EMS EKG showed Afib. Hx of afib, reports being taken off all meds about a year ago. Pt dc from hospital on Tuesday with pneumonia - History of Present Illness HPI narrative: The patient is brought in by ambulance for chest pain and rapid heartbeat, trouble breathing. She was released from this hospital 2 days ago, treated for pneumonia. She says that she thought she could walk from the bedroom to the bathroom this morning but when doing so she felt
--- NOTE | 2018-01-27 08:39 | XR_ITS ---
XR chest portable COMPARISON: PA and lateral chest 01/22/2018 HISTORY: Chest pain TECHNIQUE: Portable upright chest FINDINGS: The lung nunes are well expanded. Patchy ill-defined opacities again seen in the left perihilar region partially silhouetting the left heart border. The questionable infiltrate seen in right perihilar region on the previous study has resolved. Right lung field is clear and the left upper lung field are clear. Cardiac size is normal and the vascularity is normal. Again noted are surgical clips projecting over both marilee. IMPRESSION: Persistent lingular pneumonia versus post inflammatory scarring or combination of the 2.
[2018-01-27 09:04] LABS: Basophils % 0.4 % (0.1-2.0); Eosinophils # 0.1 K/mm3 (0.0-0.4); Eosinophils % 1.2 % (0.1-12.0); Hematocrit 30.6 % (37.0-47.0); Hemoglobin 9.7 g/dL (12.2-16.2); Lymphocytes # 1.4 K/mm3 (0.7-4.5); Lymphocytes % 16.9 K/mm3 (10-50); Mean Corpuscular HGB Conc 31.8 g/dL (31.8-35.4); Mean Corpuscular Hemoglobin 30.2 pg (27.0-31.2); Mean Platelet Volume 7.2 fl (7.4-10.4); Monocytes # 0.3 K/mm3 (0.1-1.0); Monocytes % 3.5 % (1.7-9.3); Neutrophils # 6.4 K/mm3 (1.8-7.8); Neutrophils % 77.9 % (37.0-80.0); Platelet Count 436 K/mm3 (142-424); Red Blood Count 3.23 M/mm3 (4.20-5.40); Red Cell Distribution Width 12.5 % (11.5-17.5); White Blood Count 8.3 K/mm3 (4.8-10.8)
[2018-01-27 09:27] LABS: Lactic Acid 1.2 mmol/L (0.4-2.0)
[2018-01-27 09:35] LABS: Alanine Aminotransferase 85 U/L (12-78); Albumin/Globulin Ratio 0.8 (1.1-1.8); Alkaline Phosphatase 158 U/L (46-116); Anion Gap 9.8 mEq/L (5-15); Aspartate Amino Transferase 40 U/L (15-37); Bilirubin,Total 0.2 mg/dL (0.2-1.0); Blood Urea Nitrogen 9 mg/dL (7-18); CKMB Relative Index 1.6 U/L (0-4.0); Calcium 9.1 mg/dL (8.5-10.1); Carbon Dioxide 29 mmol/L (21.0-32.0); Chloride 104 mmol/L (98-107); Creatine Kinase 74 U/L (26-192); Creatine Kinase MB 1.2 mg/ml (0.0-3.6); Creatinine Clearance Estimated 51 mL/min (0-300); Estimated Glomerular Filt Rate 48 ml/min (>60); GFR (African American) 58 ML/MIN (>60); Globulin 3.8 gm/dl (1.3-3.2); Glucose 131 mg/dL (74-106); Potassium 3.8 mmoL/L (3.5-5.1); Sodium 139 mmol/L (136-145); Total Protein,Serum 6.8 gm/dL (6.4-8.2)
--- NOTE | 2018-01-27 09:43 | PC.NURSE ---
0845 - pt received 324 mg asa and 0.4mg sl nitro in route to hospital from [facility]
--- NOTE | 2018-01-27 09:47 | PC.NURSE ---
speaking with dr wong at this time
--- NOTE | 2018-01-27 09:49 | PC.NURSE ---
dr pedraza paged at this time
--- NOTE | 2018-01-27 09:55 | PC.NURSE ---
speaking with patient at this time regarding lab work
--- NOTE | 2018-01-27 10:03 | PC.NURSE ---
speaking with Primo Cardoso at this time
--- NOTE | 2018-01-27 10:05 | PC.NURSE ---
Primo Cardoso stated he would come down to ED and assess patient
--- NOTE | 2018-01-27 10:23 | PC.NURSE ---
Cardiology at bedside at this time
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
--- NOTE | 2018-01-27 10:43 | CA_ITS ---
PROCEDURE: 2-D M-mode and color Doppler study INDICATIONS FOR THE TEST: Chest pain X COPDX Heart Murmur Tobacco Smoking Palpitations Fatigue Syncope Edema HypertensionXDiabetes Mellitus Rheumatic Fever SOBXDOE ObesityXHyperlipidemia Family History HD Additional History ELEVATED TROP PATIENT INFORMATION HEIGHT: 64 WEIGHT:165 GENDER: Female B/P:145/80 2-D/M-MODE INTERPRETATION: 2-D MEASUREMENTS OBSERVED VALUES IN CMS Right Ventricular Dimension (RVDd) 3.0 Interventricular Septum (Thickness)(IVsd) 1.0 Left Ventricular Internal Dimensions(LVIDd) 5.6 Left Ventricular Posterior Wall (Thickness)(LVPWd) .9 Aortic Root 3.3 Aortic Cusp Separation 2.0 Left Atrial Dimensions (LAD) 3.6 2D 1. Left atrium is mildly enlarged, left ventricle is normal size, visually estimated ejection fraction approximately 40-45%, there appears to be moderate hypokinesis involving mid to distal septum and inferior wall. 2. The right atrium and right ventricle are mildly enlarged with normal contractility. 3. The aortic valve is minimally thickened and fibrosed. 4. The mitral and tricuspid valve leaflets are minimally thickened 5. The pulmonic valve is poorly visualized 6. No significant pericardial effusion noted. DOPPLER INTERROGATION: Doppler interrogation of the aortic, mitral and tricuspid valve reveals presence of mild mitral and tricuspid regurgitation, tricuspid and jet velocity insufficient for calculation of the right ventricular systolic pressure, diastolic parameters are inconclusive. CONCLUSION: 1. Mildly enlarged left atrium, normal left ventricular size, visually estimated ejection fraction of 40-45% with multiple segmental wall motion abnormalities as described above 2. Mildly enlarged right atrium and right ventricle, contractility of the right ventricle is normal 3. Mild mitral and tricuspid regurgitation 4. No significant pericardial effusion noted.
--- NOTE | 2018-01-27 10:45 | PC.NURSE ---
Samantha called to say they were going to come down to ed to do the echo prior to patient being admitted
[2018-01-27 11:34] LABS: Troponin I 0.86 ng/ml (0.00-0.06)
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
[2018-01-27 14:30] LABS: Troponin I 1.66 ng/ml (0.00-0.06)
[2018-01-27 14:54] LABS: CATHL Activated Clotting Time 293 SEC (74-125)
[2018-01-27 17:41] LABS: Troponin I 2.99 ng/ml (0.00-0.06)
[2018-01-27 23:20] LABS: Troponin I 1.38 ng/ml (0.00-0.06)
[2018-01-28] VITALS (14 sets, daily range): BP systolic 92–144; BP diastolic 47–77; PULSE 56–82; RESP 18–22; TEMP 36.5–36.8; O2SAT 94–97
--- NOTE | 2018-01-28 04:20 | PC.NURSE ---
PT HAS RESTED WELL THIS SHIFT. C/O DISCOMFORT TO CHEST EARLY IN SHIFT. 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 CATH SITE TO (R) RADIAL. DSG OF 2X2 AND TEGADERM IS C/D/I. NO HEMATOMA NOTED TO AREA. SOME DRIED BLOOD NOTED TO SKIN UNDER TEGADERM. PT HAS BEEN NSR AND SINUS FABRICIO ON TELEMETRY WITH INVERTED T WAVES. PT AMBULATED TO BATHROOM AND BECAME SOA UPON RETURNING TO BED. PT RECOVERED WITHOUT DIFFICULTY. SHE REMAINS ON 2L NC @ THIS TIME. VSS @ THIS TIME. MEDICATION ADMIN PER JAN. NO OTHER CONCERNS AT THIS TIME. WILL CONTINUE TO MONITOR.
--- NOTE | 2018-01-28 07:07 | HMH.ACPN2 ---
Internal Medicine - PN: Subj *Date: 01/28/18 *Time: 07:07 Interval history: Patient is awake and alert this morning and admits to shortness of breath with activity. Nursing staff confirms this. At rest patient's O2 sats remained in the mid to high 90s. With ambulation O2 sats will decrease and patient will become short of breath. This includes a distance of walking from the bed to the bathroom and back. Left heart catheterization resulted in a single cardiac stent for which dual antiplatelet therapy will be required. Patient's EF on catheterization was estimated at 20% and LifeVest has been recommended. EF on echocardiogram was estimated at 40%. Patient has been started on carvedilol and was already taking lisinopril. Heart rate yesterday evening did decrease down to 50. Exam Vital signs and Labs for Last 24 Hours: Temp Pulse Resp BP Pulse Ox 98.0 F 73 22 119/62 94 L 01/28/18 04:32 01/28/18 06:01 01/28/18 06:01 01/28/18 06:01 01/28/18 06:01 Laboratory Results - last 24 hr 01/27/18 13:30: Troponin I 1.66 H 01/27/18 14:20: Activated Clotting Time 293 H* 01/27/18 16:35: Troponin I 2.99 H 01/27/18 22:25: Troponin I 1.38 H I & O for Last 24 hours: Intake & Output 01/25/18 01/26/18 01/27/18 01/28/18 11:59 11:59 11:59 11:59 Intake Total 240 / 240 Output Total 400 / 400 Balance -160 / -160 Weight 168 lb 5 oz 168 lb 8 oz Narrative: She sitting up in bed and pleasant. Oropharynx is moist. Neck is without lymphadenopathy. Lungs have left basilar rales. Heart has a regular rate and rhythm. Abdomen is soft and nontender. Assessment and Plan (1) Non-ST elevation [place] (NSTEMI) Current visit: Yes Status: Acute Category: Medical Code(s): I21.4 - Non-ST elevation (NSTEMI) myocardial infarction (2) Paroxysmal atrial fibrillation Current visit: Yes Status: Acute Category: Medical Code(s): I48.0 - Paroxysmal atrial fibrillation (3) Pneumonia Problem details: Lower lobe and right middle lobe Current visit: No Status: Acute Qualifiers: Pneumonia type: due to unspecified organism Laterality: bilateral Lung location: unspecified part of lung Qualified Code(s): J18.9 - Pneumonia, unspecified organism Category: Medical Code(s): J18.9 - Pneumonia, unspecified organism (4) CAD (coronary artery disease) Current visit: No Status: Chronic Category: Medical Code(s): I25.10 - Atherosclerotic heart disease of [place] coronary artery without angina pectoris (5) COPD (chronic obstructive pulmonary disease) Current visit: No Status: Chronic Category: Medical Code(s): J44.9 - Chronic obstructive pulmonary disease, unspecified (6) HTN (hypertension) Current visit: No Status: Chronic Category: Medical Code(s): I10 - Essential (primary) hypertension (7) Acute systolic heart failure Current visit: Yes Status: Acute Category: Medical Code(s): I50.21 - Acute systolic (congestive) heart failure - Assessment and plan all Dx Assessment and Plan for all problems:: 1. Low dose of IV Lasix, 20 mg today. Monitor I's and O's 2. Continue carvedilol and lisinopril. Increased dose of carvedilol to 6.25 mg twice daily with close monitoring of pulse
--- NOTE | 2018-01-28 07:11 | P.PN_ITS ---
Internal Medicine - PN: Subj *Date: 01/28/18 *Time: 07:07 Interval history: Patient is awake and alert this morning and admits to shortness of breath with activity. Nursing staff confirms this. At rest patient's O2 sats remained in the mid to high 90s. With ambulation O2 sats will decrease and patient will become short of breath. This includes a distance of walking from the bed to the bathroom and back. Left heart catheterization resulted in a single cardiac stent for which dual antiplatelet therapy will be required. Patient's EF on catheterization was estimated at 20% and LifeVest has been recommended. EF on echocardiogram was estimated at 40%. Patient has been started on carvedilol and was already taking lisinopril. Heart rate yesterday evening did decrease down to 50. Exam Vital signs and Labs for Last 24 Hours: Temp Pulse Resp BP Pulse Ox 98.0 F 73 22 119/62 94 L 01/28/18 04:32 01/28/18 06:01 01/28/18 06:01 01/28/18 06:01 01/28/18 06:01 Laboratory Results - last 24 hr 01/27/18 13:30: Troponin I 1.66 H 01/27/18 14:20: Activated Clotting Time 293 H* 01/27/18 16:35: Troponin I 2.99 H 01/27/18 22:25: Troponin I 1.38 H I & O for Last 24 hours: Intake & Output 01/25/18 01/26/18 01/27/18 01/28/18 11:59 11:59 11:59 11:59 Intake Total 240 / 240 Output Total 400 / 400 Balance -160 / -160 Weight 168 lb 5 oz 168 lb 8 oz Narrative: She sitting up in bed and pleasant. Oropharynx is moist. Neck is without lymphadenopathy. Lungs have left basilar rales. Heart has a regular rate and rhythm. Abdomen is soft and nontender. Assessment and Plan (1) Non-ST elevation [place] (NSTEMI) Current visit: Yes Status: Acute Category: Medical Code(s): I21.4 - Non- ST elevation (NSTEMI) myocardial infarction (2) Paroxysmal atrial fibrillation Current visit: Yes Status: Acute Category: Medical Code(s): I48.0 - Paroxysmal atrial fibrillation (3) Pneumonia Problem details: Lower lobe and right middle lobe Current visit: No Status: Acute Qualifiers: Pneumonia type: due to unspecified organism Laterality: bilateral Lung location: unspecified part of lung Qualified Code(s): J18.9 - Pneumonia, unspecified organism Category: Medical Code(s): J18.9 - Pneumonia, unspecified organism (4) CAD (coronary artery disease) Current visit: No Status: Chronic Category: Medical Code(s): I25.10 - Atherosclerotic heart disease of [place] coronary artery without angina pectoris (5) COPD (chronic obstructive pulmonary disease) Current visit: No Status: Chronic Category: Medical Code(s): J44.9 - Chronic obstructive pulmonary disease, unspecified (6) HTN (hypertension) Current visit: No Status: Chronic Category: Medical Code(s): I10 - Essential (primary) hypertension (7) Acute systolic heart failure Current visit: Yes Status: Acute Category: Medical Code(s): I50.21 - Acute systolic (congestive) heart failure - Assessment and plan all Dx Assessment and Plan for all problems:: 1. Low dose of IV Lasix, 20 mg today. Monitor I's and O's 2. Continue carvedilol and lisinopril. Increased dose of carvedilol to 6.25 mg twice daily with close monitoring of pulse
[2018-01-28 07:43] LABS: Basophils % 0.4 % (0.1-2.0); Eosinophils # 0.2 K/mm3 (0.0-0.4); Hemoglobin 9.9 g/dL (12.2-16.2); Lymphocytes # 2.4 K/mm3 (0.7-4.5); Lymphocytes % 23.6 K/mm3 (10-50); Mean Corpuscular HGB Conc 31.8 g/dL (31.8-35.4); Mean Corpuscular Hemoglobin 30.1 pg (27.0-31.2); Mean Corpuscular Volume 94.6 fl (81-99); Mean Platelet Volume 7.2 fl (7.4-10.4); Monocytes # 0.4 K/mm3 (0.1-1.0); Monocytes % 3.9 % (1.7-9.3); Neutrophils # 7.2 K/mm3 (1.8-7.8); Neutrophils % 70.1 % (37.0-80.0); Platelet Count 470 K/mm3 (142-424); Red Blood Count 3.27 M/mm3 (4.20-5.40); Red Cell Distribution Width 12.7 % (11.5-17.5); White Blood Count 10.3 K/mm3 (4.8-10.8)
[2018-01-28 07:48] LABS: Anion Gap 10.1 mEq/L (5-15); Blood Urea Nitrogen 14 mg/dL (7-18); Carbon Dioxide 29 mmol/L (21.0-32.0); Chloride 105 mmol/L (98-107); Creatinine Clearance Estimated 56 mL/min (0-300); Creatinine,Serum 1.03 mg/dL (0.55-1.02); Estimated Glomerular Filt Rate 52 ml/min (>60); GFR (African American) 63 ML/MIN (>60); Glucose 92 mg/dL (74-106); Potassium 4.1 mmoL/L (3.5-5.1); Sodium 140 mmol/L (136-145)
--- NOTE | 2018-01-28 11:45 | P.CONPHA_ITS ---
[facility] Pharmacy VTE Monitoring - Patient Demographics Admission date: 01/27/18 Report Date: 01/28/18 Time: 11:45 Allergies/Adverse Reactions: Patient Allergies aspirin [ASPIRIN] Allergy (Unknown, Verified 01/19/18 18:24) NA-NAUSEA/VOMITING--- STATES COATED PILLS ARE OKAY levofloxacin [From LEVAQUIN] Allergy (Unknown, Verified 01/19/18 18:24) MAKES SICK tetracycline [TETRACYCLINE] Allergy (Unknown, Verified 01/19/18 18:24) SWELLING, ITCHING Height: 1.63 m Weight: 76.43 kg Patient Problems: Current Active Problems Chest pain, precordial (Acute) Palpitations (Acute) Elevated troponin (Acute) Non-ST elevation [place] (NSTEMI) (Acute) Paroxysmal atrial fibrillation (Acute) Acute systolic heart failure (Acute) - VTE Risk Labs: VTE Related Lab Results Hgb 9.9 g/dL (12.2-16.2) L 01/28/18 07:28 Hct 31.0 % (37.0-47.0) L 01/28/18 07:28 Plt Count 470 K/mm3 (142-424) H 01/28/18 07:28 BUN 14 mg/dL (7-18) D 01/28/18 07:28 Creatinine 1.03 mg/dL (0.55-1.02) H 01/28/18 07:28 Estimated Creat Clear 56 mL/min (0-300) 01/28/18 07:28 Was VTE Risk Assessment Performed: Yes VTE Score: 2 VTE Risk Level: Very Low Risk - Prophylaxis VTE Prophylaxis Ordered?: Yes Types of VTE Prophylaxis: TEDS Knee High Location of Applied Device: Bilateral Lower Extremeties
[2018-01-29] VITALS (12 sets, daily range): BP systolic 106–134; BP diastolic 55–90; PULSE 50–81; RESP 18–20; TEMP 36.5–36.9; O2SAT 89–99; BMI 28.7
--- NOTE | 2018-01-29 05:12 | PC.NURSE ---
0200 PT CHECK IS CHARTED UNDER 0300, D/T TIME CHANGE. Kelly PAN, SRNA
--- NOTE | 2018-01-29 05:44 | PC.NURSE ---
PT HAS RESTED WELL THIS SHIFT. SHE IS CURRENTLY ON 2L NC. LUNGS NOTED TO HAVE FINE CRACKLES IN BILATERAL BASES. TOTAL URINE OUTPUT IS 1150. V/S HAVE REMAINED STABLE. PT IS NSR WITH INVERTED T WAVES WITH PERIODS OF BRADYCARDIA. PT HAS DENIED ANY DISCOMFORT THIS SHIFT. (R) RADIAL CATH SITE. DRESSING C/D/I. NO HEMATOMA NOTED. NO OTHER CONCERNS AT THIS TIME. WILL CONTINUE TO MONITOR.
[2018-01-29 06:18] LABS: Anion Gap 8.8 mEq/L (5-15); Blood Urea Nitrogen 15 mg/dL (7-18); Carbon Dioxide 31 mmol/L (21.0-32.0); Chloride 104 mmol/L (98-107); Creatinine Clearance Estimated 54 mL/min (0-300); Creatinine,Serum 1.07 mg/dL (0.55-1.02); Estimated Glomerular Filt Rate 50 ml/min (>60); GFR (African American) 60 ML/MIN (>60); Glucose 92 mg/dL (74-106); Potassium 3.8 mmoL/L (3.5-5.1); Sodium 140 mmol/L (136-145)
--- NOTE | 2018-01-29 09:01 | P.PN_ITS ---
Internal Medicine - PN: Subj *Date: 01/29/18 *Time: 09:01 Interval history: Patient ate a good breakfast, and appears comfortable but notes that she is short of air with activity and has some wheezing. Exam Vital signs and Labs for Last 24 Hours: Temp Pulse Resp BP Pulse Ox 98.3 F 76 18 134/90 96 01/29/18 07:35 01/29/18 07:35 01/29/18 07:35 01/29/18 07:35 01/29/18 07:35 Laboratory Results - last 24 hr 01/29/18 05:36: Sodium 140, Potassium 3.8, Chloride 104, Carbon Dioxide 31, Anion Gap 8.8, BUN 15, Creatinine 1.07 H, Estimated Creat Clear 54, Estimated GFR 50 L, Est GFR ( Amer) 60, Glucose 92 I & O for Last 24 hours: Intake & Output 01/26/18 01/27/18 01/28/18 01/29/18 11:59 11:59 11:59 12:59 Intake Total 240 / 240 1160 / 1160 Output Total 400 / 400 400 / 400 Balance -160 / -160 760 / 760 Weight 168 lb 8 oz Narrative: Patient is sitting in bed. Some expiratory wheezing in both lower lung nunes and some rhonchi. Heart rate regular. Heart rate noted. No edema noted. Abdomen soft. Assessment and Plan (1) Non-ST elevation [place] (NSTEMI) Current visit: Yes Status: Acute Category: Medical Code(s): I21.4 - Non- ST elevation (NSTEMI) myocardial infarction (2) Paroxysmal atrial fibrillation Current visit: Yes Status: Acute Category: Medical Code(s): I48.0 - Paroxysmal atrial fibrillation (3) Pneumonia Problem details: Lower lobe and right middle lobe Current visit: No Status: Acute Qualifiers: Pneumonia type: due to unspecified organism Laterality: bilateral Lung location: unspecified part of lung Qualified Code(s): J18.9 - Pneumonia, unspecified organism Category: Medical Code(s): J18.9 - Pneumonia, unspecified organism (4) CAD (coronary artery disease) Current visit: No Status: Chronic Category: Medical Code(s): I25.10 - Atherosclerotic heart disease of [place] coronary artery without angina pectoris (5) COPD (chronic obstructive pulmonary disease) Current visit: No Status: Chronic Category: Medical Code(s): J44.9 - Chronic obstructive pulmonary disease, unspecified (6) HTN (hypertension) Current visit: No Status: Chronic Category: Medical Code(s): I10 - Essential (primary) hypertension (7) Acute systolic heart failure Current visit: Yes Status: Acute Category: Medical Code(s): I50.21 - Acute systolic (congestive) heart failure - Assessment and plan all Dx Assessment and Plan for all problems:: Continue current blood pressure medications, await LifeVest placement. Add Xopenex today for wheezing. Patient has been using albuterol inhaler without much effectiveness.
[2018-01-29 18:00] LABS: Adenovirus F 40/41, stool Not Detected (NotDetected); Astrovirus Not Detected (NotDetected); Campylobacter Not Detected (NotDetected); Clostridium Difficile A/B, PCR Not Detected (NotDetected); Cryptosporidium Not Detected (NotDetected); Cyclospora Cayetanesis Not Detected (NotDetected); Entamoeba histolytica Not Detected (NotDetected); Enteroaggregative E coli Not Detected (NotDetected); Enteropathogenic E coli Not Detected (NotDetected); Enterotoxigenic E coli Not Detected (NotDetected); Giardia lamblia Not Detected (NotDetected); Norovirus Not Detected (NotDetected); Plesimonas Shigalloides, PCR Not Detected (NotDetected); Rotavirus A Not Detected (NotDetected); Salmonella, PCR Not Detected (NotDetected); Sapovirus Not Detected (NotDetected); Shiga-like toxin E coli Not Detected (NotDetected); Shigella Enterovasive E coli Not Detected (NotDetected); Vibrio Cholerae Not Detected (NotDetected); Vibrio, PCR Not Detected (NotDetected); Yersinia Entercolitica, PCR Not Detected (NotDetected)
[2018-01-30] VITALS (10 sets, daily range): BP systolic 108–126; BP diastolic 48–72; PULSE 60–90; RESP 16–20; TEMP 36.4–36.8; O2SAT 86–98
--- NOTE | 2018-01-30 04:38 | PC.NURSE ---
PT SLEPT WELL THIS SHIFT. PT RAN NS WITH INVERTED T WAVES ON BLADE OPERATOR. NO C/O OF PAIN. MEDS ADMIN PER JAN. NO OTHER CONCERNS AT THIS TIME. WILL CONT. TO MONITOR.
[2018-01-30 05:42] LABS: Basophils % 0.2 % (0.1-2.0); Eosinophils # 0.1 K/mm3 (0.0-0.4); Eosinophils % 0.9 % (0.1-12.0); Hemoglobin 9.2 g/dL (12.2-16.2); Lymphocytes # 2.4 K/mm3 (0.7-4.5); Mean Corpuscular HGB Conc 31.4 g/dL (31.8-35.4); Mean Corpuscular Volume 95.7 fl (81-99); Mean Platelet Volume 6.9 fl (7.4-10.4); Monocytes # 0.4 K/mm3 (0.1-1.0); Monocytes % 3.8 % (1.7-9.3); Neutrophils # 8.5 K/mm3 (1.8-7.8); Neutrophils % 74.1 % (37.0-80.0); Platelet Count 449 K/mm3 (142-424); Red Blood Count 3.08 M/mm3 (4.20-5.40); White Blood Count 11.5 K/mm3 (4.8-10.8)
[2018-01-30 05:48] LABS: Hematocrit 29.4 % (37.0-47.0)
[2018-01-30 05:54] LABS: Anion Gap 11.1 mEq/L (5-15); Blood Urea Nitrogen 17 mg/dL (7-18); Carbon Dioxide 30 mmol/L (21.0-32.0); Chloride 106 mmol/L (98-107); Creatinine Clearance Estimated 54 mL/min (0-300); Creatinine,Serum 1.06 mg/dL (0.55-1.02); Estimated Glomerular Filt Rate 50 ml/min (>60); GFR (African American) 61 ML/MIN (>60); Glucose 83 mg/dL (74-106); Potassium 4.1 mmoL/L (3.5-5.1); Sodium 143 mmol/L (136-145)
--- NOTE | 2018-01-30 07:16 | HMH.ACPN2 ---
Internal Medicine - PN: Subj *Date: 01/30/18 *Time: 07:16 Interval history: Patient has no complaints today. She tells me she was unable to tolerate wearing the LifeVest due to pain. She continues to have dyspnea on exertion. She has also developed diarrhea. Stool sample was sent for testing. Exam Vital signs and Labs for Last 24 Hours: Temp Pulse Resp BP Pulse Ox 97.6 F 71 18 118/57 95 01/30/18 04:00 01/30/18 06:01 01/30/18 04:00 01/30/18 04:00 01/30/18 06:01 Laboratory Results - last 24 hr 01/29/18 17:30: Stl Aeromonas (PCR) Not detected, Stl C. cayetanensis PCR Not detected, Stool Rotavirus (PCR) Not detected, Stl Adenov F 40/41 PCR Not detected, Stool Astrovirus (PCR) Not detected, Stool Campylobacter PCR Not detected, Stl C.difficile Tox PCR Not detected, Stool Cryptosporidium PCR Not detected, Stl E.coli Shiga Tox PCR Not detected, Stool E coli O157 PCR Not detected, Stl Enterotoxigenic E PCR Not detected, Stool EPEC (PCR) Not detected, Stool EAEC (PCR) Not detected, Stl E. histolytica PCR Not detected, Stool Giardia Lamblia PCR Not detected, Stool Salmonella PCR Not detected, Stool Sapovirus (PCR) Not detected, Stl P. shigelloides PCR Not detected, Stl Shigella/EIEC PCR Not detected, St Y.enterocolitica PCR Not detected, Stool Vibrio (PCR) Not detected, Stl Vibrio cholerae PCR Not detected, Stl Norovirus GI/GII PCR Not detected 01/30/18 05:00: WBC 11.5 H, RBC 3.08 L, Hgb 9.2 L, Hct 29.4 L, MCV 95.7, MCH 30.0, MCHC 31.4 L, RDW 13.0, Plt Count 449 H, MPV 6.9 L, Neut % (Auto) 74.1, Lymph % (Auto) 21.0, [place] % (Auto) 3.8, Eos % (Auto) 0.9, Baso % (Auto) 0.2, Neut # (Auto) 8.5 H, Lymph # (Auto) 2.4, [place] # (Auto) 0.4, Eos # (Auto) 0.1, Baso # (Auto) 0.0 01/30/18 05:00: Sodium 143, Potassium 4.1, Chloride 106, Carbon Dioxide 30, Anion Gap 11.1, BUN 17, Creatinine 1.06 H, Estimated Creat Clear 54, Estimated GFR 50 L, Est GFR ( Amer) 61, Glucose 83 I & O for Last 24 hours: Intake & Output 01/27/18 01/28/18 01/29/18 01/30/18 10:59 10:59 11:59 11:59 Intake Total 1200 / 1200 Output Total 1650 / 1650 Balance -450 / -450 Weight 168 lb 4.814 oz Narrative: She appears comfortable and is awake and alert. Lung examination reveals left basilar rales. Heart has a regular rate and rhythm. Abdomen is soft. Extremities are without edema. Assessment and Plan (1) Non-ST elevation [place] (NSTEMI) Current visit: Yes Status: Acute Category: Medical Code(s): I21.4 - Non-ST elevation (NSTEMI) myocardial infarction (2) Paroxysmal atrial fibrillation Current visit: Yes Status: Acute Category: Medical Code(s): I48.0 - Paroxysmal atrial fibrillation (3) Pneumonia Problem details: Lower lobe and right middle lobe Current visit: No Status: Acute Qualifiers: Pneumonia type: due to unspecified organism Laterality: bilateral Lung location: unspecified part of lung Qualified Code(s): J18.9 - Pneumonia, unspecified organism Category: Medical Code(s): J18.9 - Pneumonia, unspecified organism (4) CAD (coronary artery disease) Current visit: No Status: Chronic Category: Medical Code(s): I25.10 - Atherosclerotic heart disease of [place] coronary artery without angina pectoris (5) COPD (chronic obstructive pulmonary disease) Current visit: No Status: Chronic Category: Medical Code(s): J44.9 - Chronic obstructive pulmonary disease, unspecified (6) HTN (hypertension) Current visit: No Status: Chronic Category: Medical Code(s): I10 - Essential (primary) hypertension (7) Acute systolic heart failure Current visit: Yes Status: Acute Category: Medical Code(s): I50.21 - Acute systolic (congestive) heart failure - Assessment and plan all Dx Assessment and Plan for all problems:: 1. Increase carvedilol to 12.5 mg twice daily and monitor for bradycardia patient has not had any bradycardia in the last 24 hours 2. Discontinue lisinopril and will sta
--- NOTE | 2018-01-30 07:19 | P.PN_ITS ---
Internal Medicine - PN: Subj *Date: 01/30/18 *Time: 07:16 Interval history: Patient has no complaints today. She tells me she was unable to tolerate wearing the LifeVest due to pain. She continues to have dyspnea on exertion. She has also developed diarrhea. Stool sample was sent for testing. Exam Vital signs and Labs for Last 24 Hours: Temp Pulse Resp BP Pulse Ox 97.6 F 71 18 118/57 95 01/30/18 04:00 01/30/18 06:01 01/30/18 04:00 01/30/18 04:00 01/30/18 06:01 Laboratory Results - last 24 hr 01/29/18 17:30: Stl Aeromonas (PCR) Not detected, Stl C. cayetanensis PCR Not detected, Stool Rotavirus (PCR) Not detected, Stl Adenov F 40/41 PCR Not detected, Stool Astrovirus (PCR) Not detected, Stool Campylobacter PCR Not detected, Stl C.difficile Tox PCR Not detected, Stool Cryptosporidium PCR Not detected, Stl E.coli Shiga Tox PCR Not detected, Stool E coli O157 PCR Not detected, Stl Enterotoxigenic E PCR Not detected, Stool EPEC (PCR) Not detected , Stool EAEC (PCR) Not detected, Stl E. histolytica PCR Not detected, Stool Giardia Lamblia PCR Not detected, Stool Salmonella PCR Not detected, Stool Sapovirus (PCR) Not detected, Stl P. shigelloides PCR Not detected, Stl Shigella /EIEC PCR Not detected, St Y.enterocolitica PCR Not detected, Stool Vibrio (PCR ) Not detected, Stl Vibrio cholerae PCR Not detected, Stl Norovirus GI/GII PCR Not detected 01/30/18 05:00: WBC 11.5 H, RBC 3.08 L, Hgb 9.2 L, Hct 29.4 L, MCV 95.7, MCH 30.0, MCHC 31.4 L, RDW 13.0, Plt Count 449 H, MPV 6.9 L, Neut % (Auto) 74.1, Lymph % (Auto) 21.0, [place] % (Auto) 3.8, Eos % (Auto) 0.9, Baso % (Auto) 0.2, Neut # (Auto) 8.5 H, Lymph # (Auto) 2.4, [place] # (Auto) 0.4, Eos # (Auto) 0.1, Baso # (Auto) 0.0 01/30/18 05:00: Sodium 143, Potassium 4.1, Chloride 106, Carbon Dioxide 30, Anion Gap 11.1, BUN 17, Creatinine 1.06 H, Estimated Creat Clear 54, Estimated GFR 50 L, Est GFR ( Amer) 61, Glucose 83 I & O for Last 24 hours: Intake & Output 01/27/18 01/28/18 01/29/18 01/30/18 10:59 10:59 11:59 11:59 Intake Total 1200 / 1200 Output Total 1650 / 1650 Balance -450 / -450 Weight 168 lb 4.814 oz Narrative: She appears comfortable and is awake and alert. Lung examination reveals left basilar rales. Heart has a regular rate and rhythm. Abdomen is soft. Extremities are without edema. Assessment and Plan (1) Non-ST elevation [place] (NSTEMI) Current visit: Yes Status: Acute Category: Medical Code(s): I21.4 - Non- ST elevation (NSTEMI) myocardial infarction (2) Paroxysmal atrial fibrillation Current visit: Yes Status: Acute Category: Medical Code(s): I48.0 - Paroxysmal atrial fibrillation (3) Pneumonia Problem details: Lower lobe and right middle lobe Current visit: No Status: Acute Qualifiers: Pneumonia type: due to unspecified organism Laterality: bilateral Lung location: unspecified part of lung Qualified Code(s): J18.9 - Pneumonia, unspecified organism Category: Medical Code(s): J18.9 - Pneumonia, unspecified organism (4) CAD (coronary artery disease) Current visit: No Status: Chronic Category: Medical Code(s): I25.10 - Atherosclerotic heart disease of [place] coronary artery without angina pectoris (5) COPD (chronic obstructive pulmonary disease) Current visit: No Status: Chronic Category: Medical Code(s): J44.9 - Chronic obstructive pulmonary disease, unspecified (6) HTN (hypertension) Current visit: No Status: Chronic Category: Medical Code(s): I10 - E
--- NOTE | 2018-01-30 07:24 | PC.NURSE ---
REPORT GIVEN TO Donte DARNELL RN
--- NOTE | 2018-01-30 08:24 | HMH.PNCARD ---
Subjective Date: 01/30/18 Time: 08:25 Principal diagnosis: CAD, CM Interval history: No chest pain over the weekend. Patient has had some diarrhea with check for Clostridium difficile has returned negative. She is anxious to go home. At the time of the cardiac catheterization her left ventricular ejection fraction on LV gram was thought to be about 20%. LifeVest was ordered however due to patient's history of surgery for her lung cancer she was unable to tolerate wearing the vest. Echocardiogram performed showed ejection fraction in the 40-45% range. Blood pressures controlled on current medications. Telemetry shows no arrhythmias. She feels that she is ready to go home. Exam Vital signs and Labs for Last 24 Hours: Temp Pulse Resp BP Pulse Ox 97.6 F 71 18 118/57 95 01/30/18 04:00 01/30/18 06:01 01/30/18 04:00 01/30/18 04:00 01/30/18 06:01 Laboratory Results - last 24 hr 01/29/18 17:30: Stl Aeromonas (PCR) Not detected, Stl C. cayetanensis PCR Not detected, Stool Rotavirus (PCR) Not detected, Stl Adenov F 40/41 PCR Not detected, Stool Astrovirus (PCR) Not detected, Stool Campylobacter PCR Not detected, Stl C.difficile Tox PCR Not detected, Stool Cryptosporidium PCR Not detected, Stl E.coli Shiga Tox PCR Not detected, Stool E coli O157 PCR Not detected, Stl Enterotoxigenic E PCR Not detected, Stool EPEC (PCR) Not detected, Stool EAEC (PCR) Not detected, Stl E. histolytica PCR Not detected, Stool Giardia Lamblia PCR Not detected, Stool Salmonella PCR Not detected, Stool Sapovirus (PCR) Not detected, Stl P. shigelloides PCR Not detected, Stl Shigella/EIEC PCR Not detected, St Y.enterocolitica PCR Not detected, Stool Vibrio (PCR) Not detected, Stl Vibrio cholerae PCR Not detected, Stl Norovirus GI/GII PCR Not detected 01/30/18 05:00: WBC 11.5 H, RBC 3.08 L, Hgb 9.2 L, Hct 29.4 L, MCV 95.7, MCH 30.0, MCHC 31.4 L, RDW 13.0, Plt Count 449 H, MPV 6.9 L, Neut % (Auto) 74.1, Lymph % (Auto) 21.0, [place] % (Auto) 3.8, Eos % (Auto) 0.9, Baso % (Auto) 0.2, Neut # (Auto) 8.5 H, Lymph # (Auto) 2.4, [place] # (Auto) 0.4, Eos # (Auto) 0.1, Baso # (Auto) 0.0 01/30/18 05:00: Sodium 143, Potassium 4.1, Chloride 106, Carbon Dioxide 30, Anion Gap 11.1, BUN 17, Creatinine 1.06 H, Estimated Creat Clear 54, Estimated GFR 50 L, Est GFR ( Amer) 61, Glucose 83 I & O for Last 24 hours: Intake & Output 01/27/18 01/28/18 01/29/18 01/30/18 10:59 10:59 11:59 11:59 Intake Total 1200 / 1200 Output Total 1950 / 1950 Balance -750 / -750 Weight 168 lb 4.814 oz - *Routine Respiratory Exam Present: rales - *Routine Cardiovascular Exam Present: RRR Progress Note: A&P (1) Non-ST elevation IN (NSTEMI) Status: Acute Assessment and plan: Uli post coronary artery stenting of the left main. Patient will go home on Brilinta therapy she has been taken off of aspirin in the past due to recurrent GI bleed. Okay from cardiology standpoint for discharge home without LifeVest as echocardiogram shows ejection fraction greater than 40%. We would like to see her back in 1 week for follow-up. Current Visit: Yes (2) Paroxysmal atrial fibrillation Status: Acute Assessment and plan: Maintaining sinus rhythm at this time. She has previously been on Xarelto but due to recurrent GI bleeds this has been discontinued. Was referred to for evaluation for the watchman device and the left atrial appendage occluder patient declined the device and was not a candidate for the occluder. Current Visit: Yes (3) Pneumonia Problem details: Lower lobe and right middle lobe Status: Acute Current Visit: No (4) CAD (coronary artery disease) Status: Chronic Current Visit: No (5) COPD (chronic obstructive pulmonary disease) Status: Chronic Current Visit: No (6) HTN (hypertension) Status: Chronic Current Visit: No
--- NOTE | 2018-01-30 08:28 | P.PN_ITS ---
Subjective Date: 01/30/18 Time: 08:25 Principal diagnosis: CAD, CM Interval history: No chest pain over the weekend. Patient has had some diarrhea with check for Clostridium difficile has returned negative. She is anxious to go home. At the time of the cardiac catheterization her left ventricular ejection fraction on LV gram was thought to be about 20%. LifeVest was ordered however due to patient's history of surgery for her lung cancer she was unable to tolerate wearing the vest. Echocardiogram performed showed ejection fraction in the 40- 45% range. Blood pressures controlled on current medications. Telemetry shows no arrhythmias. She feels that she is ready to go home. Exam Vital signs and Labs for Last 24 Hours: Temp Pulse Resp BP Pulse Ox 97.6 F 71 18 118/57 95 01/30/18 04:00 01/30/18 06:01 01/30/18 04:00 01/30/18 04:00 01/30/18 06:01 Laboratory Results - last 24 hr 01/29/18 17:30: Stl Aeromonas (PCR) Not detected, Stl C. cayetanensis PCR Not detected, Stool Rotavirus (PCR) Not detected, Stl Adenov F 40/41 PCR Not detected, Stool Astrovirus (PCR) Not detected, Stool Campylobacter PCR Not detected, Stl C.difficile Tox PCR Not detected, Stool Cryptosporidium PCR Not detected, Stl E.coli Shiga Tox PCR Not detected, Stool E coli O157 PCR Not detected, Stl Enterotoxigenic E PCR Not detected, Stool EPEC (PCR) Not detected , Stool EAEC (PCR) Not detected, Stl E. histolytica PCR Not detected, Stool Giardia Lamblia PCR Not detected, Stool Salmonella PCR Not detected, Stool Sapovirus (PCR) Not detected, Stl P. shigelloides PCR Not detected, Stl Shigella /EIEC PCR Not detected, St Y.enterocolitica PCR Not detected, Stool Vibrio (PCR ) Not detected, Stl Vibrio cholerae PCR Not detected, Stl Norovirus GI/GII PCR Not detected 01/30/18 05:00: WBC 11.5 H, RBC 3.08 L, Hgb 9.2 L, Hct 29.4 L, MCV 95.7, MCH 30.0, MCHC 31.4 L, RDW 13.0, Plt Count 449 H, MPV 6.9 L, Neut % (Auto) 74.1, Lymph % (Auto) 21.0, [place] % (Auto) 3.8, Eos % (Auto) 0.9, Baso % (Auto) 0.2, Neut # (Auto) 8.5 H, Lymph # (Auto) 2.4, [place] # (Auto) 0.4, Eos # (Auto) 0.1, Baso # (Auto) 0.0 01/30/18 05:00: Sodium 143, Potassium 4.1, Chloride 106, Carbon Dioxide 30, Anion Gap 11.1, BUN 17, Creatinine 1.06 H, Estimated Creat Clear 54, Estimated GFR 50 L, Est GFR ( Amer) 61, Glucose 83 I & O for Last 24 hours: Intake & Output 01/27/18 01/28/18 01/29/18 01/30/18 10:59 10:59 11:59 11:59 Intake Total 1200 / 1200 Output Total 1950 / 1950 Balance -750 / -750 Weight 168 lb 4.814 oz - *Routine Respiratory Exam Present: rales - *Routine Cardiovascular Exam Present: RRR Progress Note: A&P (1) Non-ST elevation [place] (NSTEMI) Status: Acute Assessment and plan: Uli post coronary artery stenting of the left main. Patient will go home on Brilinta therapy she has been taken off of aspirin in the past due to recurrent GI bleed. Okay from cardiology standpoint for discharge home without LifeVest as echocardiogram shows ejection fraction greater than 40%. We would like to see her back in 1 week for follow-up. Current Visit: Yes (2) Paroxysmal atrial fibrillation Status: Acute Assessment and plan: Maintaining sinus rhythm at this time. She has previously been on Xarelto but due to recurrent GI bleeds this has been discontinued. Was referred to [facility] for evaluation for the watchman device and the left atrial appendage occluder patient declined the device and was not a candidate for the occluder. Current Visit: Yes (3) Pneumonia Problem det
--- NOTE | 2018-01-30 09:38 | HMH.ACPN ---
Internal Medicine - PN: Subj *Date: 01/30/18 *Time: 09:38 Exam Vital signs and Labs for Last 24 Hours: Temp Pulse Resp BP Pulse Ox 97.9 F 75 18 118/48 97 01/30/18 08:00 01/30/18 08:00 01/30/18 08:00 01/30/18 08:00 01/30/18 08:00 Laboratory Results - last 24 hr 01/29/18 17:30: Stl Aeromonas (PCR) Not detected, Stl C. cayetanensis PCR Not detected, Stool Rotavirus (PCR) Not detected, Stl Adenov F 40/41 PCR Not detected, Stool Astrovirus (PCR) Not detected, Stool Campylobacter PCR Not detected, Stl C.difficile Tox PCR Not detected, Stool Cryptosporidium PCR Not detected, Stl E.coli Shiga Tox PCR Not detected, Stool E coli O157 PCR Not detected, Stl Enterotoxigenic E PCR Not detected, Stool EPEC (PCR) Not detected, Stool EAEC (PCR) Not detected, Stl E. histolytica PCR Not detected, Stool Giardia Lamblia PCR Not detected, Stool Salmonella PCR Not detected, Stool Sapovirus (PCR) Not detected, Stl P. shigelloides PCR Not detected, Stl Shigella/EIEC PCR Not detected, St Y.enterocolitica PCR Not detected, Stool Vibrio (PCR) Not detected, Stl Vibrio cholerae PCR Not detected, Stl Norovirus GI/GII PCR Not detected 01/30/18 05:00: WBC 11.5 H, RBC 3.08 L, Hgb 9.2 L, Hct 29.4 L, MCV 95.7, MCH 30.0, MCHC 31.4 L, RDW 13.0, Plt Count 449 H, MPV 6.9 L, Neut % (Auto) 74.1, Lymph % (Auto) 21.0, [place] % (Auto) 3.8, Eos % (Auto) 0.9, Baso % (Auto) 0.2, Neut # (Auto) 8.5 H, Lymph # (Auto) 2.4, [place] # (Auto) 0.4, Eos # (Auto) 0.1, Baso # (Auto) 0.0 01/30/18 05:00: Sodium 143, Potassium 4.1, Chloride 106, Carbon Dioxide 30, Anion Gap 11.1, BUN 17, Creatinine 1.06 H, Estimated Creat Clear 54, Estimated GFR 50 L, Est GFR ( Amer) 61, Glucose 83 I & O for Last 24 hours: Intake & Output 01/27/18 01/28/18 01/29/18 01/30/18 22:59 22:59 23:59 23:59 Intake Total 240 / 240 Output Total 600 / 600 Balance -360 / -360 Weight Assessment and Plan (1) Non-ST elevation IN (NSTEMI) Current visit: Yes Status: Acute Category: Medical Code(s): I21.4 - Non-ST elevation (NSTEMI) myocardial infarction (2) Paroxysmal atrial fibrillation Current visit: Yes Status: Acute Category: Medical Code(s): I48.0 - Paroxysmal atrial fibrillation (3) Pneumonia Problem details: Lower lobe and right middle lobe Current visit: No Status: Acute Qualifiers: Pneumonia type: due to unspecified organism Laterality: bilateral Lung location: unspecified part of lung Qualified Code(s): J18.9 - Pneumonia, unspecified organism Category: Medical Code(s): J18.9 - Pneumonia, unspecified organism (4) CAD (coronary artery disease) Current visit: No Status: Chronic Category: Medical Code(s): I25.10 - Atherosclerotic heart disease of [place] coronary artery without angina pectoris (5) COPD (chronic obstructive pulmonary disease) Current visit: No Status: Chronic Category: Medical Code(s): J44.9 - Chronic obstructive pulmonary disease, unspecified (6) HTN (hypertension) Current visit: No Status: Chronic Category: Medical Code(s): I10 - Essential (primary) hypertension (7) Acute systolic heart failure Current visit: Yes Status: Acute Category: Medical Code(s): I50.21 - Acute systolic (congestive) heart failure The patient's infection will respond to the chosen ABx?: Yes Is the patient receiving the right drug, dose, and route?: Yes Could a more targeted ABx be ordered?: No
--- NOTE | 2018-01-30 10:12 | SW/DCPLANNER ---
RECEIVED REFERRAL FOR HOME 02 FOR THIS PATIENT: PATIENT HAD AN 02 SAT THAT QUALIFIED HER FOR OXYGEN..... SPOKE WITH PATIENT AND SHE REQUESTED HOME 02 WITH [facility].. PATIENT MAY DISCHARGE HOME LATER TODAY ONCE SHE GETS FITTED FOR HER LIFEVEST.... A PORTABLE TANK WILL BE DELIVERED TO HER ROOM PRIOR TO HER DISCHARGING...
--- NOTE | 2018-01-30 10:24 | PC.NURSE ---
ROOM AIR SATURATION WAS OBTAINED AT THIS TIME PATIENT WAS UP TO THE BEDSIDE COMMODE, GO VERY SHORT OF BREATH, AND LIGHTHEADED, ROOM AIR SATURATION WAS 86% AT THIS TIME, O2 WAS REAPPLIED AND SATS IMMEDIATELY CAME BACK UP TO 93% ON 2l/NC. AND SOB SYMPTOMS SUBSIDED.
--- NOTE | 2018-01-30 15:14 | PC.NURSE ---
PUT A CALL INTO DR. GREWAL OFFICE. PATIENT ASKING WHEN SHE WILL BE DISCHARGED TO HOME, STEPHANIE HAS BROUGHT HER PORTABLE O2 TANK AND NOW SHE IS READY TO GO HOME. WILL SEE WHAT HE WANTS TO DO, I EXPLAINED TO THE PATIENT THAT THERE WASNT A NOTE IN THE CO[facility]PUTER FOR HER DISCHARGE.
--- NOTE | 2018-01-30 16:26 | HMH.DCSUM ---
General - General Admission date: 01/27/18 Discharge date: 01/30/18 HPI HPI: 37-year-old female with recent hospitalization at this facility for pneumonia with discharge on 01/25/2018 return to the emergency department this morning after an episode of dyspnea with exertion and onset of chest tightness with sensation of racing heart. Patient tells me she has been having brief episodes similar to what led to her visit to the ER since discharge from the hospital. O2 sat was 88% when she arrived in the emergency department. In route an EKG had been performed which apparently showed atrial fibrillation. By the time she arrived to the emergency department she was in a sinus rhythm. Initial troponin was indeterminate with high suspicion of acute coronary syndrome and patient has been admitted. Since admission she has been evaluated by cardiology service and will undergo left heart catheterization today. Echocardiogram is also been performed with results pending. Oddly enough when patient was hospitalized with pneumonia she did not have any hypoxia during her 3 day hospital stay. Patient was discharged home on azithromycin and Augmentin. Patient has a history of atrial fibrillation in the past which occurred one day postoperatively after lobectomy of the lung for cancer. Patient returned to sinus rhythm after that bout of atrial fibrillation and was placed on Xarelto. For a period of time she was on triple antiplatelet/anticoagulant therapy with aspirin, Plavix, Xarelto. She developed GI bleeding and consideration was given to implantation of the watchman device. Patient was evaluated at [facility] for this procedure and declined and claims she was told that she did not need to do anything further. She currently takes an aspirin a day Hospital Course Hospital Course: Patient was admitted due to high suspicion of acute coronary syndrome. Patient ruled in for non-ST elevation CA. Cardiology was consulted and patient was taken to the [facility] where she underwent left heart catheterization with subsequent placement of a single stent as indicated below: 1. Severe ostial left main disease 2. Successful drug-eluting stenting of the ostial left main severe disease reduced to 0% with 1 drug-eluting stent 3. Severely reduced ejection fraction which is hopefully stunned 4. Moderately elevated LVEDP Patient ejection fraction on echocardiogram was 40-45%. Patient was monitored over several days and given diuretics as needed with careful up titration of her carvedilol. Because of the patient's impaired systolic function prior to discharge her lisinopril was held for 36 hours and patient was started on Entresto. Patient will follow-up in the office in 3 days. Objective Vital signs: Temp Pulse Resp BP Pulse Ox 98.2 F 64 18 126/70 98 01/30/18 16:00 01/30/18 16:00 01/30/18 16:00 01/30/18 16:00 01/30/18 16:00 Results Labs on day of discharge: Labs from last 24 hours 01/30/18 01/30/18 01/29/18 05:00 05:00 17:30 WBC 11.5 H RBC 3.08 L Hgb 9.2 L Hct 29.4 L MCV 95.7 MCH 30.0 MCHC 31.4 L RDW 13.0 Plt Count 449 H MPV 6.9 L Neut % (Auto) 74.1 Lymph % (Auto) 21.0 [place] % (Auto) 3.8 Eos % (Auto) 0.9 Baso % (Auto) 0.2 Neut # (Auto) 8.5 H Lymph # (Auto) 2.4 [place] # (Auto) 0.4 Eos # (Auto) 0.1 Baso # (Auto) 0.0 Sodium 143 Potassium 4.1 Chloride 106 Carbon Dioxide 30 Anion Gap 11.1 BUN 17 Creatinine 1.06 H Estimated Creat Clear 54 Estimated GFR 50 L Est GFR ( Amer) 61 Glucose 83 Stl Aeromonas (PCR) Not detected Stl C. cayetanensis PCR Not detected Stool Rotavirus (PCR) Not detected Stl Adenov F 40/41 PCR Not detected Stool Astrovirus (PCR) Not detected Stool Campylobacter PCR Not detected Stl C.difficile Tox PCR Not detected Stool Cryptosporidium PCR Not detected Stl E.co
== END 2018-01-30 17:30 | disposition home or self-care (01) | DRG 246 ==
LOC: ER 10:07 → 2ND 10:29
PROVIDERS: Internal Medicine; Internal Medicine Adolescent Medicine; Admitting Provider Family Medicine; Emergency Provider Emergency Medicine; PCP Family Medicine; Visit Provider Family Medicine
DX: I21.4 Non-ST elevation (NSTEMI) myocardial infarction (principal); I50.21 Acute systolic (congestive) heart failure; I25.10 Atherosclerotic heart disease of native coronary artery without angina pectoris; J44.9 Chronic obstructive pulmonary disease, unspecified; I10 Essential (primary) hypertension; Z72.0 Tobacco use; I48.0 Paroxysmal atrial fibrillation; Z85.118 Personal history of other malignant neoplasm of bronchus and lung; Z90.2 Acquired absence of lung [part of]
CPT/HCPCS: 36415; 71045; 80048; 80053; 82550; 82553; 83605; 84484; 85025; 85347; 87040; 87507; 92928; 93005; 93041; 93306; 93458; 94640; 94761; 99152; 99285; C1725; C1769; C1876; C9600; J1644; Q9967

== ENCOUNTER → 2018-02-09 11:38 | Outpatient (CLI) | payer MEDICARE, MEDICAID, SELFPAY ==
[2018-02-09 12:20] LABS: Anion Gap 10.4 mEq/L (5-15); Blood Urea Nitrogen 11 mg/dL (7-18); Carbon Dioxide 29 mmol/L (21.0-32.0); Chloride 108 mmol/L (98-107); Creatinine,Serum 1.02 mg/dL (0.55-1.02); Estimated Glomerular Filt Rate 53 ml/min (>60); GFR (African American) 64 ML/MIN (>60); Glucose 126 mg/dL (74-106); Potassium 4.4 mmoL/L (3.5-5.1); Sodium 143 mmol/L (136-145)
== END ==
PROVIDERS: Visit Provider Internal Medicine
DX: R06.02 Shortness of breath (principal); J44.9 Chronic obstructive pulmonary disease, unspecified; I25.10 Atherosclerotic heart disease of native coronary artery without angina pectoris; I42.9 Cardiomyopathy, unspecified
CPT/HCPCS: 36415; 80048; 83880

== ENCOUNTER 2018-02-23 07:54 | Outpatient (RCR) | payer MEDICARE, MEDICAID, SELFPAY | END 2018-04-20 15:00 | disposition home or self-care (01) | LOC: PT 07:54 | PROVIDERS: Visit Provider Internal Medicine | DX: Z95.5 Presence of coronary angioplasty implant and graft (principal) | CPT/HCPCS: 93798 ==

== ENCOUNTER → 2018-02-27 14:01 | Outpatient (CLI) | payer MEDICARE, MEDICAID, SELFPAY ==
--- NOTE | 2018-02-27 14:08 | CA_ITS ---
PROCEDURE: 2-D M-mode and color Doppler study INDICATIONS FOR THE TEST: Chest pain COPD Heart Murmur Tobacco Smoking Palpitations Fatigue Syncope Edema Hypertension Diabetes Mellitus Rheumatic Fever SOB GOMEZ Obesity Hyperlipidemia Family History HD Additional History ABN EKG/SOA WHILE IN CARDIAC REHAB ECHO TO CHECK EF EF ON 01/27/18 40-45% PATIENT INFORMATION HEIGHT: 64 WEIGHT:165 GENDER: Female B/P:145/80 2-D/M-MODE INTERPRETATION: 2-D MEASUREMENTS OBSERVED VALUES IN CMS Right Ventricular Dimension (RVDd) 2.2 Interventricular Septum (Thickness)(IVsd) .8 Left Ventricular Internal Dimensions(LVIDd) 5.0 Left Ventricular Posterior Wall (Thickness)(LVPWd) .8 Aortic Root 3.8 Aortic Cusp Separation 1.9 Left Atrial Dimensions (LAD) 3.0 2D 1. Left atrium is qualitatively mildly enlarged, left ventricle is normal size, visually estimated ejection fraction is 45% with no obvious regional wall motion abnormality. 2. The right atrium and right ventricle are normal size and contractility. 3. The aortic valve is minimally thickened and fibrosed. 4. The mitral and tricuspid valve leaflets are minimally thickened. 5. The pulmonic valve is poorly visualized. 6. No significant pericardial effusion noted. DOPPLER INTERROGATION: Doppler interrogation of the aortic, mitral and tricuspid valvular presence of mild mitral and tricuspid regurgitation, tricuspid and jet velocity insufficient for calculation of the right ventricular systolic pressure, diastolic parameters are inconclusive. CONCLUSION: 1. Mildly enlarged left atrium, left ventricular size, visually estimated ejection fraction 45% with no obvious regional wall motion abnormality. 2. Mild mitral and tricuspid addition 3. No significant pericardial effusion noted.
== END ==
PROVIDERS: PCP Family Medicine; Visit Provider Physician Assistant
DX: R06.02 Shortness of breath (principal); R94.31 Abnormal electrocardiogram [ECG] [EKG]; R53.1 Weakness
CPT/HCPCS: 93005; 93308

== ENCOUNTER 2018-04-30 14:15 | Observation (INO) ==
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
[2018-04-30 14:44] LABS: Basophils % 0.5 % (0.1-2.0); Eosinophils # 0.1 K/mm3 (0.0-0.4); Eosinophils % 1.5 % (0.1-12.0); Hematocrit 29.6 % (37.0-47.0); Hemoglobin 10.4 g/dL (12.2-16.2); Lymphocytes # 1.8 K/mm3 (0.7-4.5); Lymphocytes % 32.1 K/mm3 (10-50); Mean Corpuscular Hemoglobin 33.1 pg (27.0-31.2); Mean Corpuscular Volume 94.4 fl (81-99); Mean Platelet Volume 7.4 fl (7.4-10.4); Monocytes # 0.3 K/mm3 (0.1-1.0); Monocytes % 5.3 % (1.7-9.3); Neutrophils # 3.4 K/mm3 (1.8-7.8); Neutrophils % 60.6 % (37.0-80.0); Platelet Count 219 K/mm3 (142-424); Red Blood Count 3.14 M/mm3 (4.20-5.40); Red Cell Distribution Width 13.7 % (11.5-17.5); White Blood Count 5.6 K/mm3 (4.8-10.8)
[2018-04-30 14:59] LABS: Alanine Aminotransferase 19 U/L (12-78); Albumin/Globulin Ratio 1.3 (1.1-1.8); Alkaline Phosphatase 89 U/L (46-116); Anion Gap 8.7 mEq/L (5-15); Aspartate Amino Transferase 17 U/L (15-37); Bilirubin,Total 0.5 mg/dL (0.2-1.0); Blood Urea Nitrogen 21 mg/dL (7-18); Carbon Dioxide 27 mmol/L (21.0-32.0); Chloride 105 mmol/L (98-107); Creatine Kinase 91 U/L (26-192); Glucose 137 mg/dL (74-106); Potassium 4.2 mmoL/L (3.5-5.1); Sodium 141 mmol/L (136-145)
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
--- NOTE | 2018-05-01 07:22 | Pharmacy Consult Notes ---
[facility] VTE Monitoring - Patient Demographics Admission date: 04/30/18 Report Date: 05/01/18 Time: 07:22 Allergies/Adverse Reactions: Patient Allergies levofloxacin [From LEVAQUIN] Allergy (Unknown, Verified 04/30/18 14:20) MAKES SICK tetracycline [TETRACYCLINE] Allergy (Unknown, Verified 04/30/18 14:20) SWELLING, ITCHING Height: 1.63 m Weight: 73.142 kg Patient Problems: Current Active Problems Diaphoresis (Acute) Chest pain (Acute) - VTE Risk Labs: VTE Related Lab Results Hgb 10.4 g/dL (12.2-16.2) L 04/30/18 14:20 Hct 29.6 % (37.0-47.0) L 04/30/18 14:20 Plt Count 219 K/mm3 (142-424) 04/30/18 14:20 BUN 21 mg/dL (7-18) H 04/30/18 14:20 Creatinine 1.09 mg/dL (0.55-1.02) H 04/30/18 14:20 Estimated Creat Clear 50 mL/min (0-300) 04/30/18 14:20 Was VTE Risk Assessment Performed: Yes VTE Score: 5 VTE Risk Level: Low Risk - Prophylaxis VTE Prophylaxis Ordered?: Yes Types of VTE Prophylaxis: TEDS Knee High, Pharmacological Location of Applied Device: Bilateral Lower Extremeties Pharmacologic Type: Other (BRILINTA) - VTE Diagnosis Confirmed Treatment or plan recommended: Continue Current Treatment
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
[2018-05-01 08:46] LABS: Basophils % 0.3 % (0.1-2.0); Eosinophils # 0.1 K/mm3 (0.0-0.4); Eosinophils % 2.2 % (0.1-12.0); Hemoglobin 9.9 g/dL (12.2-16.2); Lymphocytes # 1.4 K/mm3 (0.7-4.5); Lymphocytes % 30.3 K/mm3 (10-50); Mean Corpuscular HGB Conc 30.9 g/dL (31.8-35.4); Mean Corpuscular Hemoglobin 29.1 pg (27.0-31.2); Mean Corpuscular Volume 94.1 fl (81-99); Mean Platelet Volume 7.5 fl (7.4-10.4); Monocytes # 0.3 K/mm3 (0.1-1.0); Monocytes % 6.2 % (1.7-9.3); Neutrophils # 2.7 K/mm3 (1.8-7.8); Platelet Count 239 K/mm3 (142-424); Red Cell Distribution Width 13.6 % (11.5-17.5); White Blood Count 4.5 K/mm3 (4.8-10.8)
[2018-05-01 08:51] LABS: Anion Gap 10.2 mEq/L (5-15); Potassium 4.2 mmoL/L (3.5-5.1)
--- NOTE | 2018-05-01 13:16 | Discharge Summary ---
General - General Admission date:: 04/30/18 Discharge date: 05/01/18 HPI HPI: 77-year-old female presented to the emergency department after a prolonged diaphoretic episode that occurred after she had been working in her garden. She had an associated "less than a second" episode of left sided chest pain while diaphoretic. She had recently seen Dr. Hollingsworth who had planned for stress testing as an outpatient and she became concerned because of these symptoms. She presented to the ER. Initial troponin was negative. ER physician spoke with Dr. Hollingsworth who recommended admission and repeat left heart catheterization. Hospital Course Hospital Course: Pat[place] was admitted and ruled out for DE. Patient underwent LHC by which showed patent stents, normal EF and vascularization. After routine post- cath monitoring period patient was discharged to home. Objective Vital signs: Temp Pulse Resp BP Pulse Ox 97.8 F 40 L 20 115/52 100 05/01/18 07:28 05/01/18 12:45 05/01/18 12:45 05/01/18 12:45 05/01/18 12:45 Results Labs on day of discharge: Labs from last 24 hours 05/01/18 05/01/18 04/30/18 08:30 08:30 22:00 WBC 4.5 L RBC 3.40 L Hgb 9.9 L Hct 32.0 L MCV 94.1 MCH 29.1 MCHC 30.9 L RDW 13.6 Plt Count 239 MPV 7.5 Neut % (Auto) 61.0 Lymph % (Auto) 30.3 [place] % (Auto) 6.2 Eos % (Auto) 2.2 Baso % (Auto) 0.3 Neut # (Auto) 2.7 Lymph # (Auto) 1.4 [place] # (Auto) 0.3 Eos # (Auto) 0.1 Baso # (Auto) 0.0 Sodium 142 Potassium 4.2 Chloride 108 H Carbon Dioxide 28 Anion Gap 10.2 BUN 17 Creatinine 0.94 Estimated Creat Clear 55 Estimated GFR 58 L Est GFR ( Amer) 70 Glucose 95 D Calcium 9.0 Total Bilirubin AST ALT Alkaline Phosphatase Total Creatine Kinase CK-MB (CK-2) CK-MB (CK-2) Rel Index Troponin I < 0.02 Total Protein Albumin Globulin Albumin/Globulin Ratio 04/30/18 04/30/18 04/30/18 19:40 16:20 14:20 WBC RBC Hgb Hct MCV MCH MCHC RDW Plt Count MPV Neut % (Auto) Lymph % (Auto) [place] % (Auto) Eos % (Auto) Baso % (Auto) Neut # (Auto) Lymph # (Auto) [place] # (Auto) Eos # (Auto) Baso # (Auto) Sodium 141 Potassium 4.2 Chloride 105 Carbon Dioxide 27 Anion Gap 8.7 BUN 21 H Creatinine 1.09 H Estimated Creat Clear 50 Estimated GFR 49 L Est GFR ( Amer) 59 Glucose 137 H Calcium 9.0 Total Bilirubin 0.5 AST 17 ALT 19 Alkaline Phosphatase 89 Total Creatine Kinase 91 CK-MB (CK-2) 0.9 CK-MB (CK-2) Rel Index 1.0 Troponin I < 0.02 < 0.02 < 0.02 Total Protein 7.0 Albumin 4.0 Globulin 3.0 Albumin/Globulin Ratio 1.3 04/30/18 14:20 WBC 5.6 RBC 3.14 L Hgb 10.4 L Hct 29.6 L MCV 94.4 MCH 33.1 H MCHC 35.0 RDW 13.7 Plt Count 219 MPV 7.4 Neut % (Auto) 60.6 Lymph % (Auto) 32.1 [place] % (Auto) 5.3 Eos % (Auto) 1.5 Baso % (Auto) 0.5 Neut # (Auto) 3.4 Lymph # (Auto) 1.8 [place] # (Auto) 0.3 Eos # (Auto) 0.1 Baso # (Auto) 0.0 Sodium Potassium Chloride Carbon Dioxide Anion Gap BUN Creatinine Estimated Creat Clear Estimated GFR Est GFR ( Amer) Glucose Calcium Total Bilirubin AST ALT Alkaline Phosphatase Total Creatine Kinase CK-MB (CK-2) CK-MB (CK-2) Rel Index Troponin I Total Protein Albumin Globulin Albumin/Globulin Ratio DS: Diagnosis - Discharge Diagnosis (1) Chest pain Status: Acute (2) Diaphoresis Status: Acute (3) Ischemic cardiomyopathy Status: Acute (4) Paroxysmal atrial fibrillation Status: Acute (5) CAD (coronary artery disease) Status: Chronic (6) HTN (hypertension) Status: Chronic (7) Anemia Status: Acute Discharge Plan - Patient Discharge Instructions ACTIVITY: Continue current activity DIET: continue same diet - Follow up Plan Follow up with: Tacho Lee MD [Primary Care Provider] - 08/18/18 Disposition: Home, Self-Fpc Medications: Home Medications Medication Instructions Recorded Confirmed Type Aspirin [Aspir 81] 81 mg PO DAILY 01/19/18 04/30/18 History Albuterol Sulfate [Albuterol HFA 2 puffs IH Q4HP PRN 01/23/18 04/30/18 History Inhaler] diazePAM [Valium] 2 mg PO BIDP PRN 01/23/18 04/30/18 History sacubitril 97 mg-valsartan 103 mg 1 tab PO BID 02/23/18 04/30/18 History tablet Carvedilol [Carvedilol 25mg Tab] 25 mg PO BID 04/30/18 04/30/18 History Ticagrelor [Brilinta 90mg Tablet] 90 mg PO BID 04/30/18 04/30/18 History Prescriptions/Medication Reconciliation: Continue sacubitril 97 mg-valsartan 103 mg tablet 1 tab PO BID diazePAM [Valium] 2 mg PO BIDP PRN PRN Reason: ANXIETY/SLEEP Albuterol Sulfate [Albuterol HFA Inhaler] 2 puffs IH Q4HP PRN PRN Reason: Shortness Of Breath Or Wheezing Carvedilol [Carvedilol 25mg Tab] 25 mg PO BID Aspirin [Aspir 81] 81 mg PO DAILY Ticagrelor [Brilinta 90mg Tablet] 90 mg PO BID
== END 2018-05-01 21:21 | disposition home or self-care (01) ==
LOC: 2ND 14:15 → ER 14:15 → 2ND 16:28
PROVIDERS: ADMIT Family Medicine; ATTEND Family Medicine

== ENCOUNTER → 2018-08-07 12:37 | Outpatient (CLI) | payer MEDICARE, MEDICAID, SELFPAY ==
--- NOTE | 2018-08-07 13:06 | CT_ITS ---
CT chest wo con HISTORY: ITS.REASON: CHRONIC PNEUMONIA, HX LUNG CA, ABNORMAL CXR ORDERING PHYSICIAN: Tacho Lee MD PATIENT AGE: 78 years COMPARISON: 09/18/2017 Technique: Axial images obtained with sagittal and coronal reformats. All CT scans at the facility use one or more dose reduction, viz: automated exposure control, ma/kV adjustment per patient size (including targeted exams where dose is matched to indication, i.e. head), or iterative reconstruction technique. FINDINGS: There is heterogeneous enlargement of the right lobe of the thyroid gland similar to the previous exam. No mediastinal or hilar mass or adenopathy. There is extensive coronary artery calcification with stents with calcific plaque noted at the ostia of the left main coronary artery. Normal heart size. There is a small hiatal hernia. There are centrilobular emphysematous changes. There is been a prior right upper and right middle lobectomy with hyperexpansion of the right lower lobe. There are fibrotic changes in the right midlung laterally and right midlung anteriorly as well as the right lung base laterally appears stable. Clips are present in the right mid upper lung zone posteriorly as before. No new lesions are evident. Prominent pericardial fat pad is present on the left and there are mild fibrotic changes in the left lung base. There are postsurgical changes on the left as well with clips in the left hilum. There is a small hiatal hernia. There are old left-sided rib fractures. There is mild wedge compression changes of T12 which appear chronic. IMPRESSION: 1. Overall stable CT appearance of the chest. No evidence of recurrent neoplasm. 2. There are bilateral postsurgical changes with centrilobular emphysema and scattered areas of fibrosis. 3. Coronary artery disease
[2018-08-07 13:11] LABS: Blood Urea Nitrogen 25 mg/dL (7-18); Creatinine,Serum 1.12 mg/dL (0.55-1.02); Estimated Glomerular Filt Rate 47 ml/min (>60); GFR (African American) 57 ML/MIN (>60)
== END ==
PROVIDERS: PCP Family Medicine; Visit Provider Family Medicine
DX: R93.8 Abnormal findings on diagnostic imaging of other specified body structures (principal); J18.9 Pneumonia, unspecified organism; Z85.118 Personal history of other malignant neoplasm of bronchus and lung
CPT/HCPCS: 36415; 71250; 82565; 84520

== ENCOUNTER → 2018-09-12 09:43 | Outpatient (CLI) | payer MEDICARE, MEDICAID, SELFPAY ==
[2018-09-12 12:02] LABS: Alanine Aminotransferase 17 U/L (12-78); Albumin Level 3.7 gm/dL (3.4-5.0); Alkaline Phosphatase 78 U/L (46-116); Anion Gap 11.4 mEq/L (5-15); Aspartate Amino Transferase 14 U/L (15-37); Bilirubin,Direct 0.1 mg/dL (0.0-0.2); Bilirubin,Indirect 0.4 mg/dL (0.0-0.9); Bilirubin,Total 0.5 mg/dL (0.2-1.0); Blood Urea Nitrogen 17 mg/dL (7-18); Calcium 8.6 mg/dL (8.5-10.1); Carbon Dioxide 29 mmol/L (21.0-32.0); Chloride 108 mmol/L (98-107); Chol/HDL Ratio 2.4 (1-3.5); Cholesterol 188 mg/dL (140-200); Creatinine,Serum 0.85 mg/dL (0.55-1.02); Estimated Glomerular Filt Rate 65 ml/min (>60); GFR (African American) 78 ML/MIN (>60); Glucose 111 mg/dL (74-106); HDL Cholesterol 79 mg/dL (29-89); LDL Cholesterol 100 mg/dL (0-130); Potassium 4.4 mmoL/L (3.5-5.1); Sodium 144 mmol/L (136-145); Total Protein,Serum 6.3 gm/dL (6.4-8.2); Triglycerides 45 mg/dL (30-200); VLDL Cholesterol 9 mg/dL (0-40)
== END ==
PROVIDERS: PCP Family Medicine; Visit Provider Physician Assistant
DX: I10 Essential (primary) hypertension (principal); C50.919 Malignant neoplasm of unspecified site of unspecified female breast; I25.10 Atherosclerotic heart disease of native coronary artery without angina pectoris; I25.5 Ischemic cardiomyopathy; R94.31 Abnormal electrocardiogram [ECG] [EKG]; Z95.5 Presence of coronary angioplasty implant and graft
CPT/HCPCS: 36415; 80048; 80061; 80076

== ENCOUNTER 2018-11-06 20:26 | Observation (INO) ==
[2018-11-06 20:45] LABS: Basophils % 0.6 % (0.1-2.0); Eosinophils # 0.2 K/mm3 (0.0-0.4); Eosinophils % 3.1 % (0.1-12.0); Hematocrit 32.5 % (37.0-47.0); Hemoglobin 10.2 g/dL (12.2-16.2); Lymphocytes # 1.8 K/mm3 (0.7-4.5); Lymphocytes % 29.5 % (10-50); Mean Corpuscular HGB Conc 31.4 g/dL (31.8-35.4); Mean Corpuscular Hemoglobin 29.5 pg (27.0-31.2); Mean Corpuscular Volume 93.9 fl (81-99); Mean Platelet Volume 7.3 fl (7.4-10.4); Monocytes # 0.4 K/mm3 (0.1-1.0); Monocytes % 6.9 % (1.7-9.3); Neutrophils # 3.7 K/mm3 (1.8-7.8); Neutrophils % 59.9 % (37.0-80.0); Platelet Count 273 K/mm3 (142-424); Red Blood Count 3.47 M/mm3 (4.20-5.40); Red Cell Distribution Width 13.5 % (11.5-17.5); White Blood Count 6.1 K/mm3 (4.8-10.8)
[2018-11-06 20:57] LABS: Anion Gap 12.5 mEq/L (5-15); Blood Urea Nitrogen 23 mg/dL (7-18); Calcium 8.7 mg/dL (8.5-10.1); Carbon Dioxide 27 mmol/L (21.0-32.0); Chloride 106 mmol/L (98-107); Glucose 129 mg/dL (74-106); Potassium 3.5 mmoL/L (3.5-5.1); Sodium 142 mmol/L (136-145)
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
[2018-11-07 07:20] LABS: Anion Gap 13.7 mEq/L (5-15); Blood Urea Nitrogen 17 mg/dL (7-18); Calcium 8.3 mg/dL (8.5-10.1); Carbon Dioxide 25 mmol/L (21.0-32.0); Chloride 109 mmol/L (98-107); Chol/HDL Ratio 2.5 (1-3.5); Cholesterol 158 mg/dL (140-200); Glucose 95 mg/dL (74-106); HDL Cholesterol 63 mg/dL (29-89); LDL Cholesterol 85 mg/dL (0-130); Potassium 3.7 mmoL/L (3.5-5.1); Sodium 144 mmol/L (136-145); Triglycerides 52 mg/dL (30-200); VLDL Cholesterol 10 mg/dL (0-40)
[2018-11-07 07:26] LABS: Basophils % 0.5 % (0.1-2.0); Eosinophils # 0.2 K/mm3 (0.0-0.4); Eosinophils % 3.4 % (0.1-12.0); Hematocrit 28.4 % (37.0-47.0); Hemoglobin 9.6 g/dL (12.2-16.2); Lymphocytes # 1.8 K/mm3 (0.7-4.5); Lymphocytes % 30.9 % (10-50); Mean Corpuscular HGB Conc 33.9 g/dL (31.8-35.4); Mean Corpuscular Hemoglobin 31.1 pg (27.0-31.2); Mean Platelet Volume 7.3 fl (7.4-10.4); Monocytes # 0.4 K/mm3 (0.1-1.0); Monocytes % 6.1 % (1.7-9.3); Neutrophils # 3.4 K/mm3 (1.8-7.8); Neutrophils % 59.1 % (37.0-80.0); Platelet Count 237 K/mm3 (142-424); Red Blood Count 3.09 M/mm3 (4.20-5.40); Red Cell Distribution Width 13.5 % (11.5-17.5); White Blood Count 5.8 K/mm3 (4.8-10.8)
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
--- NOTE | 2018-11-07 07:29 | Discharge Summary ---
General - General Admission date:: 11/07/18 Discharge date: 11/07/18 HPI HPI: 78-year-old female that presented to the emergency department late yesterday evening with complaint of left-sided chest pain primarily in the pectoral area that occurred while she was playing bingo. She has a difficult time describing the pain but at least is able to communicate that it does not feel similar to her prior anginal pain. She denied a change in her baseline level of dyspnea from COPD. Discomfort was nonradiating. He had a tendency to come and go before resolving completely. Patient was admitted for rule out of [place] just like she was 6 months ago. Echocardiogram is in process. 6 months ago but was admitted for a similar presentation and underwent cardiac catheterization which showed patent stents and recommendation by cardiology service for searching for a noncardiac source of chest pain. So far troponins are negative. Hospital Course Hospital Course: Is admitted. She ruled out for [place] with serial troponins. Echocardiogram was performed the next morning which at the time of this dictation preliminary interpretation was an ejection fraction of 45% which is consistent with patient's last echocardiogram January. Patient was discharged home. Objective Vital signs: Temp Pulse Resp BP Pulse Ox 98.4 F 58 L 18 116/45 L 94 L 11/07/18 04:00 11/07/18 04:00 11/07/18 04:00 11/07/18 04:00 11/07/18 04:00 Results Labs on day of discharge: Labs from last 24 hours 11/07/18 11/07/18 11/06/18 06:45 03:20 20:30 WBC RBC Hgb Hct MCV MCH MCHC RDW Plt Count MPV Neut % (Auto) Lymph % (Auto) [place] % (Auto) Eos % (Auto) Baso % (Auto) Neut # (Auto) Lymph # (Auto) [place] # (Auto) Eos # (Auto) Baso # (Auto) Sodium 144 142 Potassium 3.7 3.5 Chloride 109 H 106 Carbon Dioxide 25 27 Anion Gap 13.7 12.5 BUN 17 D 23 H Creatinine 0.99 D 1.29 H Estimated Creat Clear 57 43 Estimated GFR 54 L 40 L Est GFR ( Amer) 66 D 48 L Glucose 95 D 129 H Calcium 8.3 L 8.7 Magnesium 2.0 Troponin I < 0.02 < 0.02 < 0.02 Triglycerides 52 Cholesterol 158 LDL Cholesterol 85 VLDL Cholesterol 10 HDL Cholesterol 63 Cholesterol/HDL Ratio 2.5 11/06/18 20:30 WBC 6.1 RBC 3.47 L Hgb 10.2 L Hct 32.5 L MCV 93.9 MCH 29.5 MCHC 31.4 L RDW 13.5 Plt Count 273 MPV 7.3 L Neut % (Auto) 59.9 Lymph % (Auto) 29.5 [place] % (Auto) 6.9 Eos % (Auto) 3.1 Baso % (Auto) 0.6 Neut # (Auto) 3.7 Lymph # (Auto) 1.8 [place] # (Auto) 0.4 Eos # (Auto) 0.2 Baso # (Auto) 0.0 Sodium Potassium Chloride Carbon Dioxide Anion Gap BUN Creatinine Estimated Creat Clear Estimated GFR Est GFR ( Amer) Glucose Calcium Magnesium Troponin I Triglycerides Cholesterol LDL Cholesterol VLDL Cholesterol HDL Cholesterol Cholesterol/HDL Ratio DS: Diagnosis - Discharge Diagnosis (1) Atypical chest pain Status: Acute (2) Anemia Status: Chronic Discharge Plan - Patient Discharge Instructions ACTIVITY: Continue current activity DIET: continue same diet - Follow up Plan Disposition: Home, Self-Retirement Medications: Home Medications Medication Instructions Recorded Confirmed Type Aspirin [Aspir 81] 81 mg PO DAILY 01/19/18 11/06/18 History Albuterol Sulfate [Albuterol HFA 2 puffs IH Q4HP PRN 01/23/18 11/06/18 History Inhaler] diazePAM [Valium] 2 mg PO BIDP PRN 01/23/18 11/06/18 History sacubitril 97 mg-valsartan 103 mg 1 tab PO BID 02/23/18 11/06/18 History tablet Carvedilol [Carvedilol 25mg Tab] 25 mg PO BID 04/30/18 11/06/18 History Ticagrelor [Brilinta 90mg Tablet] 90 mg PO BID 04/30/18 11/06/18 History Amlodipine Besylate [Norvasc 5mg 5 mg PO DAILY 11/06/18 11/06/18 History tablet] Prescriptions/Medication Reconciliation: Continue sacubitril 97 mg-valsartan 103 mg tablet 1 tab PO BID diazePAM [Valium] 2 mg PO BIDP PRN PRN Reason: ANXIETY/SLEEP Albuterol Sulfate [Albuterol HFA Inhaler] 2 puffs IH Q4HP PRN PRN Reason: Shortness Of Breath Or Wheezing Carvedilol [Carvedilol 25mg Tab] 25 mg PO BID Amlodipine Besylate [Norvasc 5mg tablet] 5 mg PO DAILY Aspirin [Aspir 81] 81 mg PO DAILY Ticagrelor [Brilinta 90mg Tablet] 90 mg PO BID
--- NOTE | 2018-11-07 07:37 | Pharmacy Consult Notes ---
[facility] Pharmacy VTE Monitoring - Patient Demographics Admission date: 11/07/18 Report Date: 11/07/18 Time: 07:37 Allergies/Adverse Reactions: Patient Allergies levofloxacin [From LEVAQUIN] Allergy (Unknown, Verified 08/29/18 10:10) MAKES SICK tetracycline [TETRACYCLINE] Allergy (Unknown, Verified 08/29/18 10:10) SWELLING, ITCHING aspirin Adverse Reaction (Intermediate, Verified 08/29/18 10:11) Height: 1.63 m Weight: 77.196 kg Patient Problems: Current Active Problems Renal insufficiency (Acute) Angina at rest (Acute) Atypical chest pain (Acute) Anemia (Chronic) - VTE Risk Labs: VTE Related Lab Results Hgb 9.6 g/dL (12.2-16.2) L 11/07/18 06:45 Hct 28.4 % (37.0-47.0) L 11/07/18 06:45 Plt Count 237 K/mm3 (142-424) 11/07/18 06:45 BUN 17 mg/dL (7-18) D 11/07/18 06:45 Creatinine 0.99 mg/dL (0.55-1.02) D 11/07/18 06:45 Estimated Creat Clear 57 mL/min (50-200) 11/07/18 06:45 Was VTE Risk Assessment Performed: Yes VTE Score: 7 VTE Risk Level: Moderate Risk - Prophylaxis VTE Prophylaxis Ordered?: Yes Types of VTE Prophylaxis: TEDS Knee High, Pharmacological Location of Applied Device: Bilateral Lower Extremeties Pharmacologic Type: Other ([place]IL[place]) - VTE Diagnosis Confirmed Treatment or plan recommended: Continue Current Treatment
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
== END 2018-11-07 08:45 | disposition home or self-care (01) ==
LOC: ER 20:26 → 2ND 20:26
PROVIDERS: ADMIT Internal Medicine Adolescent Medicine; ATTEND Family Medicine
CPT/HCPCS: 36415; 71020; 71046; 80048; 80061; 83735; 84484; 85025; 93005; 93306; 99284; G0378

== ENCOUNTER → 2018-12-12 09:48 | Outpatient (CLI) | payer MEDICARE, MEDICAID, SELFPAY ==
[2018-12-12 10:29] LABS: Basophils % 0.4 % (0.1-2.0); Eosinophils # 0.2 K/mm3 (0.0-0.4); Eosinophils % 2.1 % (0.1-12.0); Hematocrit 32.4 % (37.0-47.0); Hemoglobin 10.2 g/dL (12.2-16.2); Mean Corpuscular HGB Conc 31.7 g/dL (31.8-35.4); Mean Corpuscular Hemoglobin 29.8 pg (27.0-31.2); Mean Corpuscular Volume 94.2 fl (81-99); Mean Platelet Volume 6.8 fl (7.4-10.4); Monocytes # 0.4 K/mm3 (0.1-1.0); Monocytes % 4.7 % (1.7-9.3); Neutrophils # 4.8 K/mm3 (1.8-7.8); Neutrophils % 65.8 % (37.0-80.0); Platelet Count 229 K/mm3 (142-424); Red Blood Count 3.44 M/mm3 (4.20-5.40); White Blood Count 7.3 K/mm3 (4.8-10.8)
[2018-12-12 14:01] LABS: Anion Gap 11.6 mEq/L (5-15); Blood Urea Nitrogen 20 mg/dL (7-18); Calcium 8.6 mg/dL (8.5-10.1); Carbon Dioxide 28 mmol/L (21.0-32.0); Chloride 108 mmol/L (98-107); Creatinine,Serum 0.89 mg/dL (0.55-1.02); Estimated Glomerular Filt Rate 62 ml/min (>60); Free T4 (Free Thyroxine) 1.18 ng/dl (0.76-1.46); GFR (African American) 74 ML/MIN (>60); Glucose 105 mg/dL (74-106); Potassium 4.6 mmoL/L (3.5-5.1); Sodium 143 mmol/L (136-145); Thyroid Stimulating Hormone 0.29 uIU/ml (0.358-3.740)
== END ==
PROVIDERS: Visit Provider Nurse Practitioner Family
DX: J42 Unspecified chronic bronchitis (principal); I10 Essential (primary) hypertension; I25.10 Atherosclerotic heart disease of native coronary artery without angina pectoris; I25.5 Ischemic cardiomyopathy; I48.0 Paroxysmal atrial fibrillation; R00.1 Bradycardia, unspecified; Z95.5 Presence of coronary angioplasty implant and graft
CPT/HCPCS: 36415; 80048; 84439; 84443; 85025

== ENCOUNTER → 2019-01-01 12:35 | Outpatient (CLI) | payer MEDICARE, MEDICAID, SELFPAY ==
--- NOTE | 2019-01-01 13:00 | US_ITS ---
US thyroid HISTORY: ITS.REASON: THYROIDITIS ORDERING PHYSICIAN: Tacho Lee MD PATIENT AGE: 78 years Comparison: None FINDINGS: The right lobe is 4.4 x 2 x 1.3 cm. There is a dominant 2.8 x 2 cm spongiform-appearing nodule in the lower pole on the right. A 1.4 x 0.9 cm mixed cystic and solid nodule noted in the upper pole. The left lobe is 3.5 x 1.6 x 2 cm. There are 2 small cysts in the upper pole medially. A hypoechoic 5 mm nodule present in the interpolar region. A 5 mm cysts present in the mid polar region. A complex cystic lesion is present in the lower pole posteriorly at 13 x 11 mm. The isthmus has an unremarkable appearance. IMPRESSION: Multiple bilateral mostly cystic thyroid nodules largest the in the lower pole on the right at 2.8 x 2 cm having spongiform appearance. Ultrasound-guided fine-needle aspiration may be of further value for the dominant nodule
== END ==
PROVIDERS: PCP Family Medicine; Visit Provider Family Medicine
DX: E06.9 Thyroiditis, unspecified (principal)
CPT/HCPCS: 76536

== ENCOUNTER → 2019-06-28 13:05 | Outpatient (CLI) | payer MEDICARE, MEDICAID, SELFPAY ==
--- NOTE | 2019-06-28 13:07 | US_ITS ---
US thyroid HISTORY: Follow-up thyroid nodules ITS.REASON: MULTIPLE THYROID NODULES ORDERING PHYSICIAN: Tacho Lee MD PATIENT AGE: 79 years Comparison: 01/01/2019 FINDINGS: Right lobe is 4.4 x 2.0 x 2.0 cm. A complex cystic and solid nodules present in the upper pole at 1.6 x 1 cm not significant changed. An additional complex cystic and solid nodule present in the midpole at 3 x 2 cm unchanged The left lobe is 3.3 x 1.9 x 1.1 cm. 5 x 2 mm isoechoic nodule is present in the upper pole not significant change. Small cyst is present in the upper pole at 3 mm. A mixed nodule is present in the lower pole at 1.3 x 0.9 cm unchanged. The isthmus is slightly thickened at 4 mm. IMPRESSION: Stable bilateral thyroid nodules
== END ==
PROVIDERS: PCP Family Medicine; Visit Provider Family Medicine
DX: E04.2 Nontoxic multinodular goiter (principal)
CPT/HCPCS: 76536

== ENCOUNTER 2019-08-28 16:01 | Observation (INO) ==
[2019-08-28 16:44] LABS: Basophils % 0.4 % (0.1-2.0); Eosinophils # 0.1 K/mm3 (0.0-0.4); Eosinophils % 2.2 % (0.1-12.0); Hematocrit 35.7 % (37.0-47.0); Hemoglobin 10.9 g/dL (12.2-16.2); Lymphocytes # 1.6 K/mm3 (0.7-4.5); Mean Corpuscular HGB Conc 30.5 g/dL (31.8-35.4); Mean Corpuscular Volume 97.1 fl (81-99); Mean Platelet Volume 8.8 fl (7.4-10.4); Monocytes # 0.3 K/mm3 (0.1-1.0); Monocytes % 5.5 % (1.7-9.3); Neutrophils # 3.3 K/mm3 (1.8-7.8); Neutrophils % 61.9 % (37.0-80.0); Platelet Count 234 K/mm3 (142-424); Red Blood Count 3.68 M/mm3 (4.20-5.40); Red Cell Distribution Width 14.4 % (11.5-17.5); White Blood Count 5.3 K/mm3 (4.8-10.8)
[2019-08-28 17:15] LABS: Albumin Level 3.8 gm/dL (3.4-5.0); Albumin/Globulin Ratio 1.2 (1.1-1.8); Anion Gap 10.9 mEq/L (5-15); Bilirubin,Total 0.5 mg/dL (0.2-1.0); Calcium 8.7 mg/dL (8.5-10.1); Globulin 3.2 gm/dl (1.3-3.2)
--- NOTE | 2019-08-28 18:31 | Electrocardiograph Report ---
APPROVED REPORT Exam: Resting ECG HR:55 bpm ECG Measurements Heart Rate 55 AXES IL 190 P 83 QRSd 88 QRS 31 QT 480 T60 QTc 459 <Conclusion> Sinus bradycardia,Incomplete RBBB Otherwise normal ECG Electronically signed by : Ismael Jack, 08/28/2019 18:30:16
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
--- NOTE | 2019-08-29 07:33 | Pharmacy Consult Notes ---
[facility] Pharmacy VTE Monitoring - Patient Demographics Admission date: 08/29/19 Report Date: 08/29/19 Time: 07:33 Allergies/Adverse Reactions: Patient Allergies levofloxacin [From LEVAQUIN] Allergy (Unknown, Verified 08/28/19 20:24) MAKES SICK tetracycline [TETRACYCLINE] Allergy (Unknown, Verified 08/28/19 20:24) SWELLING, ITCHING aspirin Adverse Reaction (Intermediate, Verified 08/28/19 20:24) Height: 1.63 m Weight: 77.763 kg Patient Problems: Current Active Problems COPD (chronic obstructive pulmonary disease) (Chronic) Chest tightness (Acute) CAD (coronary artery disease) (Chronic) - VTE Risk Labs: VTE Related Lab Results Hgb 10.9 g/dL (12.2-16.2) L 08/28/19 16:33 Hct 35.7 % (37.0-47.0) L 08/28/19 16:33 Plt Count 234 K/mm3 (142-424) 08/28/19 16:33 BUN 21 mg/dL (7-18) H 08/28/19 16:33 Creatinine 1.15 mg/dL (0.55-1.02) H 08/28/19 16:33 Estimated Creat Clear 49 mL/min (50-200) 08/28/19 16:33 Was VTE Risk Assessment Performed: Yes VTE Score: 7 VTE Risk Level: Moderate Risk Clinical Trial Participant: No - Prophylaxis VTE Prophylaxis Ordered?: Yes Types of VTE Prophylaxis: TEDS Knee High
--- NOTE | 2019-08-29 07:51 | H&P/Discharge Summary ---
General - General Admission date:: 08/28/19 Discharge date: 08/29/19 *Admission Date: 08/28/19 *Chief complaint: Chest tightness *History of present illness: 79-year-old female with history of coronary artery disease, ischemic cardiomyopathy, atrial fibrillation status post left atrial appendage ligation, COPD and lung cancer presented to the emergency department with chest heaviness that began yesterday afternoon. Chest heaviness was in the middle of the chest and nonradiating. She denies associated shortness of breath. Patient decided to come to the emergency department for evaluation but admits this morning she did not believe she was having a cardiac event. Her pain resolved in the ER although she is not sure if this was due to nitroglycerin or a DuoNeb. ER physician was concerned because of her history of left main disease with stenting and she was admitted for observation with serial enzymes. Patient ruled out for NE overnight. Her chest pain had resolved while she was in the emergency department. Her EKG did not show any ischemic changes but did show sinus bradycardia [facility] History I have reviewed the patient's past medical history: Yes Medical History: Reports:: Arrhythmia, Atrial Fibrillation, Cancer (lung cancer), Chronic Obstructive Pulmonary Disease (COPD), Coronary Artery Disease, Hypertension, Myocardial Infarction, Palpitations Denies:: Diabetes Mellitus Type 1, Diabetes Mellitus Type 2, Internal Pacemaker, MRSA *Have you ever received a pneumonia vaccine?: Yes *Have you received a flu vaccine this season?: Yes Other Medical History: Reports: Anemia, Arthritis Laterality Cases: Left: Other Other Surgeries: Yes: Angiogram, Angioplasty, Cardiac Catheterization, Cholecystectomy. No: Pacemaker Amputation: No Fractures: Yes (accident years ago - right sided fx, plate in left wrist) - *Social History Educational Level: Attended High School Smoking Status: Former smoker Tobacco Type: cigarettes # Packs/Day (cigarettes): 0 #Yrs smoked (if former smoker): 30 Smoking End Date: 2015 Alcohol Intake: never Alcohol Intake Frequency:: holidays/special occasions only Substance Use Type: denies use *Occupational Status:: retired Housing: house Household Members: significant other, other *Travel in the last 8 weeks: None Family Hx:: Asthma, Heart Attack, Hypertension Review of Systems - Review of Systems Review of systems:: pertinent systems reviewed and negative unless documented below - Constitutional Denies body ache(s), Denies chills, Denies lack of energy - *Cardiovascular Denies chest pain, Denies chest pain with activity, Denies shortness of breath, Denies shortness of breath with activity, Denies generalized swelling, Denies leg swelling, Denies lightheadedness, Denies shortness of breath causing sudden awakening, Denies radiating jaw, neck or arm pain, Denies fast heart rate - *Respiratory Reports chest congestion, Denies change in phlegm color, Denies shortness of breath, Denies shortness of breath with activity - *Gastrointestinal Denies abdominal pain, Denies belching, Denies bloating Exam Vital signs and Labs for Last 24 Hours: Temp Pulse Resp BP Pulse Ox 97.7 F 52 L 17 126/55 L 100 08/29/19 04:00 08/29/19 05:41 08/29/19 04:00 08/29/19 04:00 08/29/19 04:00 Laboratory Results - last 24 hr 08/28/19 16:33: WBC 5.3, RBC 3.68 L, Hgb 10.9 L, Hct 35.7 L, MCV 97.1, MCH 29.7, MCHC 30.5 L, RDW 14.4, Plt Count 234, MPV 8.8, Neut % (Auto) 61.9, Lymph % (Auto) 30.0, [place] % (Auto) 5.5, Eos % (Auto) 2.2, Baso % (Auto) 0.4, Neut # (Auto) 3.3, Lymph # (Auto) 1.6, [place] # (Auto) 0.3, Eos # (Auto) 0.1, Baso # (Auto) 0.0 08/28/19 16:33: Sodium 142, Potassium 3.9, Chloride 107, Carbon Dioxide 28, Anion Gap 10.9, BUN 21 H, Creatinine 1.15 H, Estimated Creat Clear 49, Estimated GFR 46 L, Est GFR ( Amer) 55 L, Glucose 103, Calcium 8.7, Total Bilirubin 0.5, AST 11 L, ALT 12, Alkaline Phosphatase 82, Total Protein 7.0, Albumin 3.8, Globulin 3.2, Albumin/Globulin Ratio 1.2 08/28/19 16:33: Troponin I < 0.02 08/28/19 22:00: Troponin I < 0.02 08/29/19 00:48: Troponin I < 0.02 I & O for Last 24 hours: Intake & Output 08/26/19 08/27/19 08/28/19 08/29/19 11:59 11:59 11:59 11:59 Intake Total 447 / 447 Balance 447 / 447 Weight 171 lb 7 oz Narrative: Patient is awake and alert sitting up in bed and appears in her usual state of health. ENT exam is grossly normal. Oropharynx is moist. Neck has no carotid bruits. Lungs are distant but clear without wheezes, rhonchi, rales. Heart has a regular rate and rhythm. Abdomen is soft. Extremities have no edema. Hospital Course Hospital Course: Patient was admitted and ruled out for NE. The following morning echocardiogram was performed which showed slight increase in patient's ejection fraction. Cardiology was consulted to maintain continuity. Patient was given duo nebs as well as Solu-Medrol during her brief hospitalization for apparent wheezing heard in the emergency department. This had resolved by the morning of August 29. Patient was discharged home later in the day. Results Labs on day of discharge: Labs from last 24 hours 08/29/19 08/28/19 08/28/19 00:48 22:00 16:33 WBC RBC Hgb Hct MCV MCH MCHC RDW Plt Count MPV Neut % (Auto) Lymph % (Auto) [place] % (Auto) Eos % (Auto) Baso % (Auto) Neut # (Auto) Lymph # (Auto) [place] # (Auto) Eos # (Auto) Baso # (Auto) Sodium Potassium Chloride Carbon Dioxide Anion Gap BUN Creatinine Estimated Creat Clear Estimated GFR Est GFR ( Amer) Glucose Calcium Total Bilirubin AST ALT Alkaline Phosphatase Troponin I < 0.02 < 0.02 < 0.02 Total Protein Albumin Globulin Albumin/Globulin Ratio 08/28/19 08/28/19 16:33 16:33 WBC 5.3 RBC 3.68 L Hgb 10.9 L Hct 35.7 L MCV 97.1 MCH 29.7 MCHC 30.5 L RDW 14.4 Plt Count 234 MPV 8.8 Neut % (Auto) 61.9 Lymph % (Auto) 30.0 [place] % (Auto) 5.5 Eos % (Auto) 2.2 Baso % (Auto) 0.4 Neut # (Auto) 3.3 Lymph # (Auto) 1.6 [place] # (Auto) 0.3 Eos # (Auto) 0.1 Baso # (Auto) 0.0 Sodium 142 Potassium 3.9 Chloride 107 Carbon Dioxide 28 Anion Gap 10.9 BUN 21 H Creatinine 1.15 H Estimated Creat Clear 49 Estimated GFR 46 L Est GFR ( Amer) 55 L Glucose 103 Calcium 8.7 Total Bilirubin 0.5 AST 11 L ALT 12 Alkaline Phosphatase 82 Troponin I Total Protein 7.0 Albumin 3.8 Globulin 3.2 Albumin/Globulin Ratio 1.2 DS: Diagnosis - Discharge Diagnosis (1) Chest tightness Status: Acute (2) CAD (coronary artery disease) Status: Chronic (3) COPD (chronic obstructive pulmonary disease) Status: Chronic Discharge Plan - Patient Discharge Instructions ACTIVITY: Continue current activity DIET: continue same diet Patient Instructions: Chronic Obstructive Pulmonary Disease, Coronary Artery Disease, DI for Chronic Obstructive Pulmonary Disease, DI for Coronary Artery Disease - Follow up Plan Follow up with: Tacho Lee MD [Primary Care Provider] - 09/07/19 8:00 am Disposition: Home, Self-Senior Care Medications: Home Medications Medication Instructions Recorded Confirmed Type Amlodipine Besylate [Amlodipine 5 mg PO DAILY 08/28/19 08/28/19 History 5mg tab] Aspirin [Aspir 81] 81 mg PO DAILY 08/28/19 08/28/19 History Carvedilol [Carvedilol 25mg Tab] 25 mg PO BID 08/28/19 08/28/19 History Sacubitril/Valsartan [Entresto 97 1 tab PO BID 08/28/19 08/29/19 History mg-103 mg Tablet] Ticagrelor [Brilinta 90mg Tablet] 90 mg PO BID 08/28/19 08/28/19 History diazePAM [diazePAM 5mg Tablet] 5 mg PO BIDP PRN 08/29/19 08/29/19 History Prescriptions/Medication Reconciliation: Continued Ticagrelor [Brilinta 90mg Tablet] 90 mg PO BID Sacubitril/Valsartan [Entresto 97 mg-103 mg Tablet] 1 tab PO BID Carvedilol [Carvedilol 25mg Tab] 25 mg PO BID Aspirin [Aspir 81] 81 mg PO DAILY Amlodipine Besylate [Amlodipine 5mg tab] 5 mg PO DAILY diazePAM [diazePAM 5mg Tablet] 5 mg PO BIDP PRN PRN Reason: Anxiety - Problem Reconciliation Problems Reviewed?: Yes
--- NOTE | 2019-08-29 10:02 | Consult Report ---
History of Present Illness Consult date: 08/29/19 Requesting physician: Tacho Lee Consult reason: chest pain Chief complaint: Chest pain Additional Medical History:: 1. CAD 2. CHF 3. AFIB 4. HTN 5. COPD History of present illness: This is a 79-year-old white female who was admitted to the hospital with chest pain. She describes it as a heaviness and tightness in the midsternal region of her chest. This did not radiate. It was not associated with shortness of breath, nausea or diaphoresis. The patient states that this was at least moderate in intensity. The patient came into the emergency department because of these complaints. Her pain resolved in the ER with nitroglycerin. At this point the patient's chest pain has resolved. She does have a history of left main stenting in January 2018. In April 2018 her cath showed patent coronary artery disease. She has ruled out for an IA. She denies any chest pain or pressure this morning. She denies any shortness of breath or edema. She denies any fever, chills, nausea, vomiting, diarrhea, PND or orthopnea. [facility] History I have reviewed the patient's past medical history: Yes Medical History: Reports:: Arrhythmia, Atrial Fibrillation, Cancer (lung cancer), Chronic Obstructive Pulmonary Disease (COPD), Coronary Artery Disease, Hypertension, Myocardial Infarction, Palpitations Denies:: Diabetes Mellitus Type 1, Diabetes Mellitus Type 2, Internal Pacemaker, MRSA *Have you ever received a pneumonia vaccine?: Yes *Have you received a flu vaccine this season?: Yes Other Medical History: Reports: Anemia, Arthritis Laterality Cases: Left: Other Other Surgeries: Yes: Angiogram, Angioplasty, Cardiac Catheterization, Cholecystectomy. No: Pacemaker Amputation: No Fractures: Yes (accident years ago - right sided fx, plate in left wrist) - *Social History Educational Level: Attended High School Smoking Status: Former smoker Tobacco Type: cigarettes # Packs/Day (cigarettes): 0 #Yrs smoked (if former smoker): 30 Smoking End Date: 2015 Alcohol Intake: never Alcohol Intake Frequency:: holidays/special occasions only Substance Use Type: denies use *Occupational Status:: retired Housing: house Household Members: significant other, other *Travel in the last 8 weeks: None Family Hx:: Asthma, Heart Attack, Hypertension Meds Home Medications Medication Instructions Recorded Confirmed Type Amlodipine Besylate [Amlodipine 5 mg PO DAILY 08/28/19 08/28/19 History 5mg tab] Aspirin [Aspir 81] 81 mg PO DAILY 08/28/19 08/28/19 History Carvedilol [Carvedilol 25mg Tab] 25 mg PO BID 08/28/19 08/28/19 History Sacubitril/Valsartan [Entresto 97 1 tab PO BID 08/28/19 08/29/19 History mg-103 mg Tablet] Ticagrelor [Brilinta 90mg Tablet] 90 mg PO BID 08/28/19 08/28/19 History diazePAM [diazePAM 5mg Tablet] 5 mg PO BIDP PRN 08/29/19 08/29/19 History Allergies Allergy/AdvReac Type Severity Reaction Status Date / Time levofloxacin [From LEVAQUIN] Allergy Unknown MAKES SICK Verified 08/28/19 20:24 tetracycline [TETRACYCLINE] Allergy Unknown SWELLING, Verified 08/28/19 20:24 ITCHING aspirin AdvReac Intermediate Verified 08/28/19 20:24 Review of Systems - Review of Systems Review of systems:: pertinent systems reviewed and negative unless documented below - *Cardiovascular Reports chest pain, Reports chest pain at rest, Reports chest pain with activity Exam Vital signs and Labs for Last 24 Hours: Temp Pulse Resp BP Pulse Ox 98.4 F 58 L 17 128/54 L 98 08/29/19 08:00 08/29/19 09:12 08/29/19 08:00 08/29/19 08:00 08/29/19 08:00 Laboratory Results - last 24 hr 08/28/19 16:33: WBC 5.3, RBC 3.68 L, Hgb 10.9 L, Hct 35.7 L, MCV 97.1, MCH 29.7, MCHC 30.5 L, RDW 14.4, Plt Count 234, MPV 8.8, Neut % (Auto) 61.9, Lymph % (Auto) 30.0, [place] % (Auto) 5.5, Eos % (Auto) 2.2, Baso % (Auto) 0.4, Neut # (Auto) 3.3, Lymph # (Auto) 1.6, [place] # (Auto) 0.3, Eos # (Auto) 0.1, Baso # (Auto) 0.0 08/28/19 16:33: Sodium 142, Potassium 3.9, Chloride 107, Carbon Dioxide 28, Anion Gap 10.9, BUN 21 H, Creatinine 1.15 H, Estimated Creat Clear 49, Estimated GFR 46 L, Est GFR ( Amer) 55 L, Glucose 103, Calcium 8.7, Total Biliru bin 0.5, AST 11 L, ALT 12, Alkaline Phosphatase 82, Total Protein 7.0, Albumin 3.8, Globulin 3.2, Albumin/Globulin Ratio 1.2 08/28/19 16:33: Troponin I < 0.02 08/28/19 22:00: Troponin I < 0.02 08/29/19 00:48: Troponin I < 0.02 I & O for Last 24 hours: Intake & Output 08/26/19 08/27/19 08/28/19 08/29/19 23:59 23:59 23:59 23:59 Intake Total 447 / 447 Balance 447 / 447 Weight 169 lb 8 oz 171 lb 7 oz Narrative: Her telemetry strip shows sinus rhythm with a rate of 59. - *Routine HEENT Exam Head: Present: normocephalic, atraumatic Eye: Present: EOMI, PERRL ENT: Present: mucous membranes moist - *Routine Neck Exam Present: supple, full ROM, normal carotid upstroke. Absent: JVD, carotid bruit, lymphadenopathy - *Routine Respiratory Exam Present: CTA bilaterally - *Routine Cardiovascular Exam Present: RRR, Normal S1, Normal S2, bradycardia. Absent: murmur - *Routine Abdominal Exam Present: soft, normoactive bowel sounds. Absent: tenderness - *Routine Extremities Exam Present: full ROM, pulses intact, normal capillary refill. Absent: cyanosis, clubbing, edema - *Routine Skin Exam Present: intact, warm. Absent: erythema, rash - *Routine Neurological Exam Present: alert, oriented X3, CN II-XII intact. Absent: sensory deficit, motor deficit - Routine Psychiatric Exam Present: normal affect, normal thought process - Detailed Eye Exam Eyelids: Left normal inspection Assessment and Plan (1) Chest tightness Current visit: Yes Status: Acute Category: Medical Code(s): R07.89 - Other chest pain (2) CAD (coronary artery disease) Current visit: Yes Status: Chronic Qualifiers: Category: Medical Code(s): I25.10 - Atherosclerotic heart disease of [place] coronary artery without angina pectoris (3) COPD (chronic obstructive pulmonary disease) Current visit: Yes Status: Chronic Qualifiers: Category: Medical Code(s): J44.9 - Chronic obstructive pulmonary disease, unspecified (4) Bradycardia Current visit: Yes Status: Acute Category: Medical Code(s): R00.1 - Johnny cardia, unspecified (5) Hypertensive heart disease Current visit: Yes Status: Chronic Category: Medical Code(s): I11.9 - Hypertensive heart disease without heart failure (6) Paroxysmal atrial fibrillation Current visit: No Status: Chronic Category: Medical Code(s): I48.0 - Paroxysmal atrial fibrillation (7) Stented coronary artery Current visit: No Status: Chronic Category: Surgical Code(s): Z95.5 - Presence of coronary angioplasty implant and graft - Assessment and plan all Dx Assessment and Plan for all problems:: Plan: 1. The patient was admitted to the hospital with chest pain and tightness. Her chest pain has resolved at this point with nitroglycerin. She has ruled out for an IA. No plans for invasive cardiac testing at this time. 2. The patient will be started on isosorbide mononitrate 30 mg daily due to her angina. 3. The patient does have a history of coronary artery disease with left main stenting in January 2018. In April 2018 the patient had patent coronary artery disease. As mentioned above we will get her started on isosorbide mononitrate 30 mg daily as an antianginal. 4. The patient will follow-up in our outpatient clinic in 1 week. At that point we can set her up for a Myoview stress testing to rule out ischemia. She has ruled out for an IA so testing does not need to be completed on an inpatient basis at this time and her chest pain has resolved. 5. Her blood pressure is acceptable. 6. Her LDL goal is less than 55. 7. The patient does have paroxysmal atrial fibrillation. She is in sinus rhythm. 8. The patient does have some sinus bradycardia. She states that she is really fatigued and has no energy because her heart rate is so low. We will decrease her carvedilol back down to 12.5 mg twice daily. 9. No further recommendations at this time from a cardiovascular standpoint. The patient is to follow-up in 1 week on an outpatient basis at which time she will be set up for a Myoview stress test. Thank you for the opportunity to help participate in the care of this patient.
--- NOTE | 2019-08-29 20:33 | Cardiology Report ---
APPROVED REPORT EXAM: Comprehensive 2D, Doppler, and color-flow Echocardiogram Composite Technician: Samantha Zhang RDCS Ht: 5 ft 4 in Wt: 168lbs BSA: 1.82 BP: 140/76 mmHg Indications: COPD, CAD, Cardiomyopathy, Hypertension/HDD 2D Dimensions LVOT 2.10 cm (M/F) 1.5-2.5 M-Mode Dimensions RVDd 3.00 cm (0.9-2.6)LA Diam 3.30 cm (1.9-4.0) LVDd 5.60 cm (3.5-5.7)Ao Diam 3.00 cm (2.0-3.7) LVDs 3.70 cm (3.5-5.7)AV Cusp 1.70 cm (1.5-2.6) IVSd 0.90 cm (0.6-1.1)PWd 0.90 cm (0.6-1.1) EF (Teich) 62.30% FS 33.90% EDV (Teich) 154.00 mLESV (Teich) 58.10 mL LV Diastology E/A Ratio 1.2MED E' 6.92 (< 7 cm/sec) E'/MED E' Ratio13.70 (>14)LAT E' 12.80 (<10 cm/sec) E/LAT E' Ratio 7.40 (>14) Mitral Valve MV E Max Hema. 94.80 (40-130 cm/s)MV A Velocity 79.00 (40-130 cm/s) E/A Ratio 1.20 Left Ventricle Left atrium is mildly enlarged, left ventricle is normal size, mild concentric left ventricular hypertrophy, visually estimated ejection fraction 55% with no regional wall motion abnormality. Diastolic parameters are inconclusive. Right Ventricle Right atrium and right ventricle mildly enlarged with normal contractility. Aortic Valve Aortic valve is thickened and calcified leaflet continue to display good mobility, there is no aortic stenosis or aortic insufficiency. Mitral Valve Mitral valve leaflets are minimally thickened, there is mild mitral regurgitation. Tricuspid Valve Tricuspid valve is grossly normal, there is no tricuspid stenosis, there is mild tricuspid regurgitation. Tricuspid regurgitation jet velocity is inadequate for calculation of the right ventricular systolic pressure. Pulmonic Valve Pulmonic valve is poorly visualized. Great Vessels Aortic root is normal size. Pericardium No significant pericardial effusion noted. Conclusion 1. Mild biatrial enlargement, normal left ventricular size, mild concentric left ventricular hypertrophy, visually estimated ejection fraction 55% with no regional wall motion abnormality, diastolic parameters are inconclusive. 2. Thickened and calcified aortic valve without aortic stenosis aortic insufficiency. 3. Mild mitral and tricuspid regurgitation 4. No significant pericardial effusion noted. Electronically signed by : Eben Wiley, 08/29/2019 20:32:31
== END 2019-08-29 14:35 | disposition home or self-care (01) ==
LOC: ER 16:01 → 2ND 16:01
PROVIDERS: ADMIT Family Medicine; ATTEND Family Medicine
CPT/HCPCS: 36415; 71010; 71045; 80053; 84484; 85025; 93005; 93306; 94640; 96374; 99284; G0378

== ENCOUNTER → 2019-09-13 06:06 | Outpatient (CLI) | payer MEDICARE, MEDICAID, SELFPAY | PROVIDERS: PCP Family Medicine; Visit Provider Urology | DX: R06.09 Other forms of dyspnea; R07.9 Chest pain, unspecified ==

== ENCOUNTER → 2019-09-20 06:56 | Outpatient (CLI) | payer MEDICARE, MEDICAID, SELFPAY ==
--- NOTE | 2019-09-20 06:59 | NM_ITS ---
APPROVED REPORT Exam: Nuclear Stress Test Indication: chest pain, fatigue, short of breath Patient Location: Outpatient Stress Tech: Ariadna HERNANDEZ Tech:Arabella CortezAURELIA RT(R)(N) Ht: 5 ft 4 in Wt: 170 lbs Bra Size: 3b b HR: 48 bpm BP: 142/49 mmHg BSA: 1.83 m2 BMI: 29.1 History: chest pain, fatigue, short of breath Procedure: Patient received a 0.4 mg of intravenous Lexiscan, resting heart rate 48 bpm, resting blood pressure 142/49 mmHg, with Lexiscan maximum heart rate achived was 63 bpm which is % of the maximum predicted heart rate and blood pressure was 156/47 mmHg. With Lexiscan, patient denied any complaint of chest pain. Cardiac Stress and Resting SPECT Images: Cardiac Stress and Resting SPECT images were obtained using technetium 99m Myoview 30.0 mCi stress and 10.25 mCi at rest. Normal EF at 61% with no wall motion abnormalities Decrease activity in inferior wall more prominent on delayed images which may be due to diaphragmatic attenuation. No reversible defects. Conclusion: Normal EF at 61% with no wall motion abnormalities Decrease activity in inferior wall more prominent on delayed images which may be due to diaphragmatic attenuation. No reversible defects. Electronically signed by : Thad Lara MD 09/21/2019 17:15:09
--- NOTE | 2019-09-20 06:59 | CA_ITS ---
APPROVED REPORT Exam: Pharmacologic Technologist: Diane Hawkins, Ht: 5 ft 4 in Wt: 170 lbs BSA: 1.83 m2 HR: 48 bpm BP: 142/49 mmHg Rhythm: MARKED SINUS BRADYCARDIA OTHERWISE NORMAL Medical History Medical History: HTN Medications: Amlodipine,,,,, Carvedilol,,,,, BRILINTA,,,,, EnTRESTO,,,,, Isosorb-MONO,,,,, Allergies: No known drug allergies Cardiac Risk Factors: HTN, FHX of CAD Previous Cardiac Procedures: STENT Stress Test Details Test: LEXISCAN HR Resting HR: 52 bpm Max Heart Rate (APMHR): 142 bpm Max HR Achieved: 71 bpm Target HR (85% APMHR): 120 bpm % of APMHR: 50 Recovery HR: 59 bpm BP Resting BP: 142.0/49.0 mmHg Max BP: 156.0/47.0 mmHg Recovery BP: 109.0/44.0 mmHg ECG Resting ECG: MARKED SINUS BRADYCARDIA Clinical Exercise duration: 04:32 min Highest Stage Achieved: Stress ECG Conclusion DURING INFUSION OF LEXISCAN PATIENT HAD MALAISE,SOA AND NAUSEA. NO CHEST PAIN. RARE PVC. NO SIGNIFICANT ST-T CHANGES. UNREMARKABLE LEXISCAN STRESS. MYOVIEW IMAGES REPORTED SEPARATELY. Electronically signed by : Lonnie Hollingsworth, 09/21/2019 14:41:18
== END ==
PROVIDERS: PCP Family Medicine; Visit Provider Urology
DX: I10 Essential (primary) hypertension (principal); I25.10 Atherosclerotic heart disease of native coronary artery without angina pectoris; I25.5 Ischemic cardiomyopathy; R07.2 Precordial pain
CPT/HCPCS: 78452; 93017; A9502; J2785

== ENCOUNTER → 2020-03-28 09:15 | Outpatient (CLI) | payer MEDICARE, MEDICAID, SELFPAY ==
--- NOTE | 2020-03-28 09:16 | CA_ITS ---
APPROVED REPORT Paediatric Surgeon: CT Laterality: Bilateral Indications: dizziness Doppler Spectral Velocity Analysis ECA (R) 101.60/1.10 cm/s ECA (L) 90.50/0.00 cm/s dICA (R) 95.40/29.90 cm/s dICA (L) 60.60/21.00 cm/s Emily (R) 137.90/24.60 cm/s Emily (L) 76.10/21.20 cm/s pICA (R) 81.30/17.10 cm/s pICA (L) 90.50/18.30 cm/s dCCA (R) 79.70/17.10 cm/s dCCA (L) 88.60/20.20 cm/s pCCA (R) 71.10/14.60 cm/s pCCA (L) 102.10/17.30 cm/s Vert (R) 66.00/14.60 cm/s Vert (L) 77.10/21.20 cm/s ICA/CCA 1.70 ICA/CCA 1.00 Conclusion Duplex evaluation demonstrates stenosis of the right proximal internal carotid artery in the range of 20-49% with PSV <140 cm/sec, EDV <100 cm/sec, and IC/CC Ratio <4.0, lower end of scale. Duplex evaluation demonstrates stenosis of the left proximal internal carotid artery in the range of 20-49% with PSV <140 cm/sec, EDV <100 cm/sec, and IC/CC Ratio <4.0, lower end of scale. Duplex evaluation demonstrates antegrade flow of the bilateral Vertebral Arteries. Left thyroid cysts. Electronically signed by : Thad Lara MD 03/28/2020 17:09:14
== END ==
PROVIDERS: PCP Family Medicine; Visit Provider Urology
DX: R42 Dizziness and giddiness (principal); R55 Syncope and collapse
CPT/HCPCS: 93880

== ENCOUNTER 2020-05-07 06:50 | Emergency (ER) | payer MEDICARE, MEDICAID, SELFPAY ==
--- NOTE | 2020-05-07 06:57 | ECG_ITS ---
APPROVED REPORT Exam: Resting ECG HR:112 bpm ECG Measurements Heart Rate 112 AXES QRSd 78 QRS 52 QT 314 T 55 QTc 428 <Conclusion> Atrial fibrillation with rapid ventricular response ST & T wave abnormality, consider anterior ischemia or digitalis effect Abnormal ECG Electronically signed by : Tacho Arreguin, 05/07/2020 17:08:40
[2020-05-07 07:02] VITALS: BP 136/74; PULSE 110; RESP 16; TEMP 36.7; O2SAT 97; BMI 28.6
--- NOTE | 2020-05-07 07:08 | XR_ITS ---
PROCEDURE: XR CHEST 2V CLINICAL HISTORY: new onset A-fib Heart disease, COPD COMPARISON: No exams were available for comparison FINDINGS: Borderline cardiomegaly without failure. COPD with chronic changes and postsurgical changes of the mar[place] on both sides. No lobar consolidation or collapse. There are multiple old left-sided rib fractures. The lungs are clear without infiltrates, suspicious nodules, or pleural effusions. No acute bony abnormalities. IMPRESSION: COPD with chronic changes, no acute finding Dictated by: Thad Lara MD 05/07/2020 08:06 Electronically signed by Thad Lara MD in [place] 05/07/2020 08:06
--- NOTE | 2020-05-07 07:10 | PC.NURSE ---
Dr Renae consulted with Dr Lee
--- NOTE | 2020-05-07 07:12 | HMH.EDARPALP ---
ED Disposition Clinical Impression: Atrial fibrillation Qualifiers: Atrial fibrillation type: paroxysmal Qualified Code(s): I48.0 - Paroxysmal atrial fibrillation Disposition: Home, Self-Care Condition on Discharge: Good Prescriptions: bisoproloL fumarate [Bisoprolol 10mg Tablet] 10 mg PO BID #60 tab Transmission Status: Pending to [facility] Referrals: Tacho Lee MD [Primary Care Provider] - - Critical Care Critical Care Time: No Attestation: On 05/07/20, the high probability of a clinically significant, sudden or life threatening deterioration of the following system(s) required my full and direct attention, intervention and personal management. The time I documented below is in addition to time spent performing reported procedures but includes the following listed in this critical care notation. Medical Decision Making - Medical Records Medical records reviewed: Yes: I reviewed the patient's medical records. - Bryn Inquiry Pt receiving controlled substance: No Vital Signs: 05/07/20 07:02 Temperature 98.1 F Temperature Source Oral Pulse Rate [Right] 110 H Respiratory Rate 16 Blood Pressure [Right Arm] 136/74 Blood Pressure Mean [Right Arm] 94 Blood Pressure Source [Right Arm] Automatic Cuff Blood Pressure Position [Right Arm] Sitting 02 Sat by Pulse Oximetry 97 Oxygen Delivery Method Room Air - Lab Data Lab results reviewed: Yes: I reviewed the patient's lab results. Lab Results 05/07/20 07:06: WBC 6.4, RBC 4.04 L, Hgb 12.8, Hct 39.2, MCV 97.1, MCH 31.6 H, MCHC 32.5, RDW 13.6, Plt Count 220, MPV 7.9, Neut % (Auto) 59.6, Lymph % (Auto) 33.3, Wheeler % (Auto) 5.0, Eos % (Auto) 1.7, Baso % (Auto) 0.5, Neut # (Auto) 3.8, Lymph # (Auto) 2.1, Wheeler # (Auto) 0.3, Eos # (Auto) 0.1, Baso # (Auto) 0.0 05/07/20 07:06: Sodium 142, Potassium 3.9, Chloride 107, Carbon Dioxide 29, Anion Gap 9.9, BUN 18 H, Creatinine 1.00, Estimated Creat Clear 55, Estimated GFR 54 L, Est GFR ( Amer) 65, Glucose 126 H, Calcium 9.6, Troponin I < 0.01 05/07/20 07:06: NT-Pro-B Natriuret Pep 605 H Result diagrams: 05/07/20 07:06 05/07/20 07:06 Orders (Tests/Meds): ORDERS Category Date Time Status Troponin I Q3H Lab 05/07/20 10:15 Ordered Troponin I Q3H Lab 05/07/20 13:15 Ordered - ECG Data Tracing #1 Arrhythmias present: afib Ischemic changes: non-specific ST-T wave changes - Physician Consults Physician Consulted: judith Reason -: Pt condition Additional Consult: milo Reason -: Pt condition - Reevaluation(s) Time: 09:36 Reevaluation #1: converted to nsr Arrhythmia/Palpitations HPI - General Chief Complaint: Arrhythmia/Palpitations Stated Complaint: Rapid heart beat Time Seen by Provider: 05/07/20 07:10 Mode of Arrival: Ambulatory Source of Information: Patient, Spouse, Medical Record Limitations: No Limitations - History of Present Illness HPI narrative: episode of increased hr this am w/o chest pain with hx of a fib -pt has been compliant with meds MD complaint: rapid heart beat Onset (ago): hour(s) Duration: intermittent Severity: moderate Context: occurred during rest Arrhythmia history: atrial fibrillation Associated symptoms: denies other symptoms - Related Data Home Medications Medication Instructions Recorded Confirmed Aspirin [Aspir 81] 81 mg PO DAILY 08/28/19 05/07/20 Sacubitril/Valsartan [Entresto 97 1 tab PO BID 08/28/19 05/07/20 mg-103 mg Tablet] Ticagrelor [Brilinta 90mg 90 mg PO BID 08/28/19 05/07/20 Tablet] diazePAM [diazePAM 5mg Tablet] 5 mg PO BIDP PRN 08/29/19 05/07/20 Isosorbide Mononitrate [Imdur 30mg 30 mg PO DAILY 05/07/20 05/07/20 ER tablet] carvediloL [Carvedilol 12.5mg Tab] 12.5 mg PO BID 05/07/20 05/07/20 Previous Rx's Medication Instructions Recorded bisoproloL fumarate [Bisoprolol 10 mg PO BID #60 tab 05/07/20 10mg Tablet] Allergies Allergy/AdvReac Type Severity Reaction Status Date / Time levo
[2020-05-07 07:19] LABS: Chloride 107 mmol/L (98-107)
[2020-05-07 07:20] LABS: Potassium 3.9 mmoL/L (3.5-5.1); Sodium 142 mmol/L (136-145)
[2020-05-07 07:22] LABS: Blood Urea Nitrogen 18 mg/dl (7-17); Creatinine Clearance Estimated 55 mL/min (50-200); Estimated Glomerular Filt Rate 54 ml/min (>60); GFR (African American) 65 ML/MIN (>60)
[2020-05-07 07:23] LABS: Anion Gap 9.9 mEq/L (5-15); Calcium 9.6 mg/dl (8.4-10.2); Carbon Dioxide 29 mmol/L (22.0-30.0); Glucose 126 mg/dl (74-100)
[2020-05-07 07:27] LABS: Basophils % 0.5 % (0.1-2.0); Eosinophils # 0.1 K/mm3 (0.0-0.4); Eosinophils % 1.7 % (0.1-12.0); Hematocrit 39.2 % (37.0-47.0); Hemoglobin 12.8 g/dL (12.2-16.2); Lymphocytes # 2.1 K/mm3 (0.7-4.5); Lymphocytes % 33.3 % (10-50); Mean Corpuscular HGB Conc 32.5 g/dL (31.8-35.4); Mean Corpuscular Hemoglobin 31.6 pg (27.0-31.2); Mean Corpuscular Volume 97.1 fl (81-99); Mean Platelet Volume 7.9 fl (7.4-10.4); Monocytes # 0.3 K/mm3 (0.1-1.0); Neutrophils # 3.8 K/mm3 (1.8-7.8); Neutrophils % 59.6 % (37.0-80.0); Platelet Count 220 K/mm3 (142-424); Red Blood Count 4.04 M/mm3 (4.20-5.40); Red Cell Distribution Width 13.6 % (11.5-17.5); White Blood Count 6.4 K/mm3 (4.8-10.8)
[2020-05-07 07:38] LABS: Troponin I < 0.01 ng/ml (0.00-0.034)
[2020-05-07 07:42] LABS: NT Pro Brain Natriuretic Pep. 605 pg/mL (0-450)
--- NOTE | 2020-05-07 07:49 | PC.NURSE ---
PT AMBULATING TO BATHROOM WITH STAFF ASSISTANCE AT THIS TIME.
--- NOTE | 2020-05-07 08:54 | PC.NURSE ---
DR NICHOLSON SPOKE WITH CARDIOLOGY AND THEY ARE GOING TO COME TO THE ED AND CONSULT WITH PT
--- NOTE | 2020-05-07 09:42 | PC.NURSE ---
AUBREY SHANKS IS PRESENT AT THIS TIME
--- NOTE | 2020-05-07 10:06 | HMH.CNCARD ---
History of Present Illness Consult date: 05/07/20 Requesting physician: Tacho Lee Consult reason: atrial fibrillation Chief complaint: palpitations Additional Medical History:: 1. Coronary disease A. History of drug-eluting stent placed to RIGHT coronary artery, 03/03/2016, on Brilinta only due to Xarelto for atrial fibrillation (now stopped) and reported allergy to ASA. B. Cardiac cath, 01/27/2018, WOOD to Left Main. On ASA and Brilinta. Mild remaining Prox LAD, mid Cx and diffuse RCA disease. LVEF 20% with LVEDP 25 mm Hg. Recommend LifeVest unless echo shows otherwise. C. Echo, 01/27/2018, LVEF 40-45% D. Echo, 02/27/18, LVEF 45%, mild LAE, mild MR/TR. No effusion. E. Echo 08/29/19, LVEF 55%, mild biatrial enlargement, mild MR/TR F. Myoview 09/20/19, Decrease activity in inferior wall more prominent on delayed images which may be due to diaphragmatic attenuation. No reversible defects. 2. History of paroxysmal atrial fibrillation. A. Referred for Left atrial appendage occluder as outpatient but patient declined. Amiodarone stopped 04/2017. B. Pt declined Watchman's device C. Xarelto stopped due to recurrent GI bleed requiring 4 units of blood, 01/2018, with EGD showing gastritis and duodenitis along with hernia. SBFT negative. 3. Hypertension 4. Hyperlipidemia 5. Lung cancer A. History of LEFT upper lobectomy in the remote past. B. Recurrent cancer with RIGHT upper lobe nodule for which RIGHT upper lobectomy performed 2015. 6. Chronic obstructive pulmonary disease/asthma with history of tobacco use discontinued last year. A. Home oxygen therapy. 7. Chronic anemia A. Xarelto stopped due to recurrent GI bleed requiring 4 units of blood, 01/2018, with EGD showing gastritis and duodenitis along with hernia. SBFT negative. Capsule endoscopy planned. History of present illness: This is a 79-year-old white female who presented to the emergency department with complaints of palpitations and racing of the heart. The patient states that she woke up with her heart racing and checked her heart rate and it was high. She states her heart was racing and nothing was helping to improve her heart rate so she came into the emergency department. The patient was found to be in atrial fibrillation with a rate of 112. She has since converted to sinus bradycardia with a rate of 56. The patient denies any chest pain or pressure. She denies any shortness of breath or edema. She denies any fever, chills, nausea, vomiting, diarrhea, PND or orthopnea. The patient does have a history of paroxysmal atrial fibrillation. She has been referred in the past for left atrial appendage clip/occluder device which she did refuse to have completed. She was also evaluated for a watchman's device and refused to have this procedure completed as well. She has been on Xarelto in the past which did cause her to bleed. [facility] History I have reviewed the patient's past medical history: Yes Medical History: Reports:: Arrhythmia, Atrial Fibrillation, Cancer, Chronic Obstructive Pulmonary Disease (COPD), Coronary Artery Disease, Gastrointestinal Bleed, Hypertension, Myocardial Infarction, Palpitations Denies:: Diabetes Mellitus Type 1, Diabetes Mellitus Type 2, Internal Pacemaker, MRSA *Have you ever received a pneumonia vaccine?: Yes *Have you received a flu vaccine this season?: Yes Other Medical History: Reports: Anemia, Arthritis Laterality Cases: Left: Other Other Surgeries: Yes: Angiogram, Angioplasty, Cardiac Catheterization, Cholecystectomy. No: Pacemaker Amputation: No Fractures: Yes (accident years ago - right sided fx, plate in left wrist) - *Social History Smoking Status: Former smoker Tobacco Type: cigarettes # Packs/Day (cigarettes): 0 #Yrs smoked (if former smoker): 30 Alcohol Intake: former Alcohol Intake Frequency:: holidays/special occasions only Substance Use Type: denies use *Occupational Status:: disabled Housing: house Household Members: si
[2020-05-07 10:20] VITALS: BP 132/76; PULSE 58; RESP 14; TEMP 36.7; O2SAT 98
== END 2020-05-07 10:20 | disposition home or self-care (01) ==
PROVIDERS: Emergency Provider Emergency Medicine; PCP Family Medicine
DX: I48.0 Paroxysmal atrial fibrillation (principal); J44.9 Chronic obstructive pulmonary disease, unspecified; I25.10 Atherosclerotic heart disease of native coronary artery without angina pectoris; I10 Essential (primary) hypertension; I25.2 Old myocardial infarction; Z79.899 Other long term (current) drug therapy; Z87.891 Personal history of nicotine dependence; R06.02 Shortness of breath
CPT/HCPCS: 71046; 80048; 83880; 84484; 85025; 93005; 99283

== ENCOUNTER → 2020-05-20 09:25 | Outpatient (CLI) | payer MEDICARE, MEDICAID, SELFPAY ==
[2020-05-20 09:53] LABS: Basophils % 0.5 % (0.1-2.0); Eosinophils # 0.1 K/mm3 (0.0-0.4); Hematocrit 33.9 % (37.0-47.0); Hemoglobin 10.9 g/dL (12.2-16.2); Lymphocytes # 2.1 K/mm3 (0.7-4.5); Mean Corpuscular HGB Conc 32.2 g/dL (31.8-35.4); Mean Corpuscular Hemoglobin 31.5 pg (27.0-31.2); Mean Corpuscular Volume 98.1 fl (81-99); Mean Platelet Volume 8.4 fl (7.4-10.4); Monocytes # 0.4 K/mm3 (0.1-1.0); Monocytes % 5.7 % (1.7-9.3); Neutrophils % 59.9 % (37.0-80.0); Platelet Count 219 K/mm3 (142-424); Red Blood Count 3.46 M/mm3 (4.20-5.40); Red Cell Distribution Width 13.7 % (11.5-17.5); White Blood Count 6.7 K/mm3 (4.8-10.8)
[2020-05-20 10:22] LABS: Chloride 108 mmol/L (98-107); Potassium 4.7 mmoL/L (3.5-5.1); Sodium 139 mmol/L (136-145)
[2020-05-20 10:25] LABS: Anion Gap 7.7 mEq/L (5-15); Blood Urea Nitrogen 20 mg/dl (7-17); Carbon Dioxide 28 mmol/L (22.0-30.0); Estimated Glomerular Filt Rate 54 ml/min (>60); GFR (African American) 65 ML/MIN (>60)
[2020-05-20 10:26] LABS: Calcium 9.1 mg/dl (8.4-10.2); Glucose 104 mg/dl (74-100)
== END ==
PROVIDERS: Visit Provider Nurse Practitioner Family
DX: D64.9 Anemia, unspecified (principal); I48.91 Unspecified atrial fibrillation; R00.2 Palpitations
CPT/HCPCS: 36415; 80048; 85025

== ENCOUNTER → 2020-05-22 14:45 | Outpatient (CLI) | payer MEDICARE, MEDICAID, SELFPAY | PROVIDERS: PCP Family Medicine; Visit Provider Urology | DX: I10 Essential (primary) hypertension (principal); I11.9 Hypertensive heart disease without heart failure; I25.10 Atherosclerotic heart disease of native coronary artery without angina pectoris; I25.5 Ischemic cardiomyopathy; I48.0 Paroxysmal atrial fibrillation; J44.9 Chronic obstructive pulmonary disease, unspecified; R00.1 Bradycardia, unspecified; R06.00 Dyspnea, unspecified | CPT/HCPCS: 93306 ==

== ENCOUNTER → 2020-08-13 13:28 | Outpatient (CLI) | payer MEDICARE, MEDICAID, SELFPAY ==
--- NOTE | 2020-08-13 13:40 | XR_ITS ---
PROCEDURE: XR KNEE RT 4V CLINICAL INDICATION: right knee pain; weightbearing COMPARISON: CR KNEE3R KNEE-3 VIEWS-RT from 10/27/2015 CR KNEE3L KNEE-3 VIEWS-LT from 05/27/2017 FINDINGS: No fracture or dislocation. No lytic or blastic change. There is normal mineralization. There are moderate to severe osteoarthritic changes of the medial compartment with decrease in joint space osteosclerosis and osteophyte formation. A loose body is present in the interspinous region of the proximal tibia measuring 7 mm. There is mild lateral translation of the tibia by 5 mm. The there are mild degenerative changes at the patellofemoral joint with suprapatellar effusion. There is mild genu varum. There is a 7 mm calcification also noted medial to the medial tibial plateau and could represent an old injury or a loose body. Other findings:None. IMPRESSION: Moderate to severe osteoarthritis of the right knee with genu varum and possible loose body Dictated by: Thad Lara MD 08/13/2020 16:23 Thad Lara MD in OV 08/13/2020 16:23
== END ==
PROVIDERS: PCP Family Medicine; Visit Provider Orthopaedic Surgery
DX: M25.561 Pain in right knee (principal)
CPT/HCPCS: 73564

== ENCOUNTER → 2021-03-20 07:58 | Outpatient (CLI) | payer MEDICARE, MEDICAID, SELFPAY ==
--- NOTE | 2021-03-20 07:59 | CA_ITS ---
APPROVED REPORT Agitator Operator: CT Laterality: Bilateral Indications: wendie Doppler Spectral Velocity Analysis ECA (R) 82.00/ cm/s ECA (L) 100.00/ cm/s dICA (R) 121.10/35.30 cm/s dICA (L) 73.20/26.30 cm/s Emily (R) 104.00/22.20 cm/s Emily (L) 79.00/19.90 cm/s pICA (R) 64.90/12.80 cm/s pICA (L) 86.80/18.00 cm/s dCCA (R) 44.90/13.30 cm/s dCCA (L) 100.30/13.50 cm/s pCCA (R) 65.90/15.40 cm/s pCCA (L) 71.60/16.00 cm/s Vert (R) 54.30/ cm/s Vert (L) 32.10/ cm/s ICA/CCA 2.70 ICA/CCA 0.90 Findings Duplex evaluation demonstrates stenosis of the right proximal internal carotid artery in the range of 20-49% with PSV <140 cm/sec, EDV <100 cm/sec, and IC/CC Ratio <4.0. Duplex evaluation demonstrates stenosis of the left proximal internal carotid artery in the range of 20-49% with PSV <140 cm/sec, EDV <100 cm/sec, and IC/CC Ratio <4.0. Duplex evaluation demonstrates antegrade flow of the bilateral Vertebral Arteries. Electronically signed by : Thad Lara MD 03/20/2021 15:48:22
== END ==
PROVIDERS: PCP Family Medicine; Visit Provider Urology
DX: I11.9 Hypertensive heart disease without heart failure; I25.10 Atherosclerotic heart disease of native coronary artery without angina pectoris; I25.5 Ischemic cardiomyopathy; I48.0 Paroxysmal atrial fibrillation; R42 Dizziness and giddiness; Z95.5 Presence of coronary angioplasty implant and graft; I65.23 Occlusion and stenosis of bilateral carotid arteries
CPT/HCPCS: 93880

== ENCOUNTER 2021-10-11 13:48 | Emergency (ER) | payer MEDICARE, MEDICAID, SELFPAY ==
[2021-10-11] VITALS (7 sets, daily range): BP systolic 110–126; BP diastolic 52–99; PULSE 47–116; RESP 12–22; TEMP 36.8–36.9; O2SAT 93–97
--- NOTE | 2021-10-11 14:04 | ECG_ITS ---
APPROVED REPORT Exam: Resting ECG HR:60 bpm ECG Measurements Heart Rate 60 AXES AK 172 P 86 QRSd 80 QRS 65 QT 438 T 85 QTc 438 Conclusion Normal sinus rhythm Normal ECG Electronically signed by : Tacho Arreguin MD 10/13/2021 12:20:45
--- NOTE | 2021-10-11 14:15 | XR_ITS ---
PROCEDURE INFORMATION: Exam: XR Chest Exam date and time: 10/11/2021 2:15 PM Age: 81 years old Clinical indication: Tachypnea; Additional info: Palpitations TECHNIQUE: Imaging protocol: XR of the chest. Views: 2 views. COMPARISON: CR XR CHEST 2V 05/07/2020 7:24 AM FINDINGS: Lungs: Interstitial prominence within the lung parenchyma. Scarring versus emphysema. No focal consolidation. Pleural spaces: Unremarkable. No pleural effusion. No pneumothorax. Heart/Mediastinum: Unremarkable. No cardiomegaly. Bones/joints: Unremarkable. IMPRESSION: Interstitial prominence within the lung parenchyma. Scarring versus emphysema. No focal consolidation.
[2021-10-11 14:24] LABS: Basophils # 0.1 K/mm3 (0-0.2); Eosinophils # 0.1 K/mm3 (0.0-0.4); Eosinophils % 1.6 % (0.1-12.0); Hematocrit 33.5 % (37.0-47.0); Hemoglobin 10.8 g/dL (12.2-16.2); Lymphocytes # 2.3 K/mm3 (0.7-4.5); Lymphocytes % 31.6 % (10-50); Mean Corpuscular HGB Conc 32.3 g/dL (31.8-35.4); Mean Corpuscular Hemoglobin 30.8 pg (27.0-31.2); Mean Corpuscular Volume 95.2 fl (81-99); Mean Platelet Volume 8.6 fl (7.4-10.4); Monocytes # 0.3 K/mm3 (0.1-1.0); Monocytes % 4.6 % (1.7-9.3); Neutrophils # 4.4 K/mm3 (1.8-7.8); Neutrophils % 61.2 % (37.0-80.0); Platelet Count 309 K/mm3 (142-424); Red Blood Count 3.52 M/mm3 (4.20-5.40); Red Cell Distribution Width 13.5 % (11.5-17.5); White Blood Count 7.2 K/mm3 (4.8-10.8)
[2021-10-11 14:32] LABS: Anion Gap 13.3 mEq/L (5-15); Blood Urea Nitrogen 21 mg/dl (7-17); Calcium 9.5 mg/dl (8.4-10.2); Carbon Dioxide 25 mmol/L (22.0-30.0); Chloride 106 mmol/L (98-107); Creatinine Clearance Estimated 51 mL/min (50-200); Estimated Glomerular Filt Rate 48 ml/min (>60); GFR (African American) 58 ML/MIN (>60); Glucose 134 mg/dl (74-100); Potassium 4.3 mmoL/L (3.5-5.1); Sodium 140 mmol/L (136-145)
[2021-10-11 14:40] LABS: Coronavirus 19, PCR Not Detected (NotDetected); Influenza A, PCR Not Detected (NotDetected); Influenza B, PCR Not Detected (NotDetected)
[2021-10-11 14:41] LABS: NT Pro Brain Natriuretic Pep. 845 pg/mL (0-450)
[2021-10-11 14:46] LABS: Troponin I < 0.01 ng/ml (0.00-0.034)
--- NOTE | 2021-10-11 15:40 | HMH.EDGENADL ---
ED Disposition Clinical Impression: Paroxysmal atrial fibrillation Disposition: Home, Self-Care Condition on Discharge: Good Instructions: DI for Atrial Fibrillation Additional Instructions: Call Dr. Hollingsworth tomorrow and report your episode of atrial fibrillation and arrange follow-up. Return to the emergency department if your symptoms recur. Referrals: Tacho Lee MD [Primary Care Provider] - - Critical Care Critical Care Time: No Attestation: On 10/11/21, the high probability of a clinically significant, sudden or life threatening deterioration of the following system(s) required my full and direct attention, intervention and personal management. The time I documented below is in addition to time spent performing reported procedures but includes the following listed in this critical care notation. Medical Decision Making - Bryn Inquiry Pt receiving controlled substance: No Vital Signs: 10/11/21 14:22 Temperature 98.5 F Temperature Source Oral Pulse Rate [Left Radial] 116 H Respiratory Rate 22 Blood Pressure [Right Arm] 123/99 H Blood Pressure Mean [Right Arm] 107 Blood Pressure Source [Right Arm] Automatic Cuff Blood Pressure Position [Right Arm] Sitting 02 Sat by Pulse Oximetry 93 L Oxygen Delivery Method Room Air - Lab Data Lab Results 10/11/21 14:12: WBC 7.2, RBC 3.52 L, Hgb 10.8 L, Hct 33.5 L, MCV 95.2, MCH 30.8, MCHC 32.3, RDW 13.5, Plt Count 309, MPV 8.6, Neut % (Auto) 61.2, Lymph % (Auto) 31.6, Putnam % (Auto) 4.6, Eos % (Auto) 1.6, Baso % (Auto) 1.0, Neut # (Auto) 4.4, Lymph # (Auto) 2.3, Putnam # (Auto) 0.3, Eos # (Auto) 0.1, Baso # (Auto) 0.1 10/11/21 14:12: Sodium 140, Potassium 4.3, Chloride 106, Carbon Dioxide 25, Anion Gap 13.3, BUN 21 H, Creatinine 1.10 H, Estimated Creat Clear 51, Estimated GFR 48 L, Est GFR ( Amer) 58 L, Glucose 134 H, Calcium 9.5, Troponin I < 0.01 10/11/21 14:12: NT-Pro-B Natriuret Pep 845 H 10/11/21 14:36: SARS-CoV-2 (PCR) Not detected, Influenza A Untype (PCR) Not detected, Influenza Type B (PCR) Not detected Result diagrams: 10/11/21 14:12 10/11/21 14:12 Orders (Tests/Meds): ORDERS Category Date Time Status XR chest 2V Stat Exams 10/11/21 14:15 Taken Troponin I Q3H Lab 10/11/21 17:30 Ordered Troponin I Q3H Lab 10/11/21 20:30 Ordered - ECG Data Tracing #1 EKG interpreted by Ryland Paniagua MD: Rhythm: sinus Rate: 60 Vest: normal Ectopy: none Conduction: normal ST Segment Changes: none T Wave Changes: none Q Waves: none No evidence of acute ischemia or injury Normal electrocardiogram Medical Decision Narrative: Apparent episode of paroxysmal atrial fibrillation which has now resolved. Has a history of same. Advised to call Dr. Hollingsworth tomorrow to arrange follow-up and return if symptoms recur. General Adult HPI - General Chief complaint: Shortness of Breath/Dyspnea Stated complaint: irregular heart beat Time Seen by Provider: 10/11/21 15:41 Mode of Arrival: Ambulatory Limitations: No Limitations Description of Symptoms (Recalled from ER Triage Doc. by RN): pt to ed per pvt car. pt is c/o shortness of breath and palpitations that started around lunch time today while she was watching tv. pt says it feels like her heart is beating out of her chest. pt denies chest pain. pt desnies n/v. - History of Present Illness HPI narrative: States she had an episode of rapid irregular heartbeat that lasted about an hour and a half and went away after she arrived in the emergency room before she was able to get an EKG done here. Currently feels back to her usual baseline status, which is mildly short of breath from previous COPD and 2 lung operations that removed one third of her left lung and a small part of her right lung. She has a prior history of paroxysmal atrial fibrillation and sees Dr. Hollingsworth. - Related Data Home Medications Medication Instructions Recorded Confirmed Sacubitril/Valsartan [Entresto 97
== END 2021-10-11 16:35 | disposition home or self-care (01) ==
PROVIDERS: Emergency Provider Emergency Medicine; PCP Family Medicine
DX: I48.0 Paroxysmal atrial fibrillation (principal); R00.2 Palpitations; Z87.891 Personal history of nicotine dependence; Z20.822 Contact with and (suspected) exposure to COVID-19
CPT/HCPCS: 71046; 80048; 83880; 84484; 85025; 93005; 99283; 99284; C9803; U0003; U0005

== ENCOUNTER 2021-12-26 01:36 | Emergency (ER) | payer MEDICARE, MEDICAID, SELFPAY ==
[2021-12-26] VITALS (11 sets, daily range): BP systolic 106–156; BP diastolic 47–98; PULSE 43–128; RESP 14–22; TEMP 36.7; O2SAT 94–97; BMI 26.6
--- NOTE | 2021-12-26 01:32 | ECG_ITS ---
APPROVED REPORT Exam: Resting ECG HR:122 bpm ECG Measurements Heart Rate 122 AXES QRSd 85 QRS 64 QT 309 T 83 QTc 382 Conclusion ATRIAL FIBRILLATION WITH RAPID VENTRICULAR RESPONSE POSSIBLE RIGHT VENTRICULAR CONDUCTION DELAY [RSR (QR) IN V1/V2] ST DEPRESSION, CONSIDER SUBENDOCARDIAL INJURY [0.1+ mV ST DEPRESSION] ABNORMAL ECG UNCONFIRMED REPORT Electronically signed by : Tacho Arreguin MD 01/06/2022 21:15:53
[2021-12-26 01:42] LABS: Coronavirus 19, PCR Not Detected (NotDetected); Influenza A, PCR Not Detected (NotDetected); Influenza B, PCR Not Detected (NotDetected)
--- NOTE | 2021-12-26 01:46 | XR_ITS ---
PROCEDURE INFORMATION: Exam: XR Chest Exam date and time: 12/26/2021 1:32 AM Age: 81 years old Clinical indication: Other: A fib; Additional info: Afib TECHNIQUE: Imaging protocol: XR of the chest. Views: 2 views. COMPARISON: CR XR CHEST 2V 10/11/2021 2:35 PM FINDINGS: Tubes, catheters and devices: There are metallic clips projecting over the bilateral hilar regions. Lungs: No dawson consolidation. Pleural spaces: Unremarkable. No pleural effusion. No pneumothorax. Heart/Mediastinum: Cardiomegaly. Bones/joints: Osteopenia. There are degenerative changes involving the shoulders and spine. There are chronic left rib fractures. IMPRESSION: No acute process.
[2021-12-26 01:48] LABS: Basophils # 0.1 K/mm3 (0-0.2); Basophils % 0.6 % (0.1-2.0); Eosinophils # 0.1 K/mm3 (0.0-0.4); Eosinophils % 1.5 % (0.1-12.0); Hematocrit 37.2 % (37.0-47.0); Hemoglobin 11.5 g/dL (12.2-16.2); Lymphocytes # 1.9 K/mm3 (0.7-4.5); Lymphocytes % 23.6 % (10-50); Mean Corpuscular HGB Conc 30.9 g/dL (31.8-35.4); Mean Corpuscular Hemoglobin 29.9 pg (27.0-31.2); Mean Corpuscular Volume 96.7 fl (81-99); Mean Platelet Volume 8.5 fl (7.4-10.4); Monocytes # 0.4 K/mm3 (0.1-1.0); Monocytes % 5.3 % (1.7-9.3); Neutrophils # 5.6 K/mm3 (1.8-7.8); Platelet Count 247 K/mm3 (142-424); Red Blood Count 3.84 M/mm3 (4.20-5.40); White Blood Count 8.1 K/mm3 (4.8-10.8)
[2021-12-26 01:52] LABS: Alanine Aminotransferase 18 U/L (12-78); Albumin Level 4.5 g/dl (3.5-5.0); Albumin/Globulin Ratio 1.7 (1.1-1.8); Alkaline Phosphatase 90 U/L (38-126); Anion Gap 12.4 mEq/L (5-15); Aspartate Amino Transferase 29 U/L (14-36); Bilirubin,Total 0.6 mg/dl (0.2-1.3); Blood Urea Nitrogen 20 mg/dl (7-17); Calcium 9.6 mg/dl (8.4-10.2); Carbon Dioxide 24 mmol/L (22.0-30.0); Chloride 109 mmol/L (98-107); Creatinine Clearance Estimated 47 mL/min (50-200); Estimated Glomerular Filt Rate 48 ml/min (>60); GFR (African American) 58 ML/MIN (>60); Globulin 2.7 g/dL (1.3-3.2); Glucose 117 mg/dl (74-100); Magnesium 1.9 mg/dl (1.6-2.3); Potassium 3.4 mmoL/L (3.5-5.1); Sodium 142 mmol/L (136-145); Total Protein,Serum 7.2 g/dl (6.3-8.2)
[2021-12-26 01:57] LABS: C-Reactive Protein 16.4 mg/L (0-4)
[2021-12-26 02:06] LABS: NT Pro Brain Natriuretic Pep. 657 pg/mL (0-450)
[2021-12-26 02:10] LABS: Procalcitonin 0.056 ng/mL (0.0-2.0)
[2021-12-26 02:11] LABS: Troponin I < 0.01 ng/ml (0.00-0.034)
[2021-12-26 02:25] LABS: Thyroid Stimulating Hormone 1.87 uIU/mL (0.465-4.68)
[2021-12-26 02:26] LABS: Erythrocyte Sedimentation Rate 40 mm/hr (0-30)
--- NOTE | 2021-12-26 03:19 | HMH.EDCP ---
ED Disposition Clinical Impression: Atrial fibrillation with RVR, Elevated troponin Disposition: Home, Self-Care Condition on Discharge: Good Instructions: DI for Atrial Fibrillation Additional Instructions: see card tuesday Referrals: Tacho Lee MD [Primary Care Provider] - Lonnie Hollingsworth MD [Staff Physician] - - Critical Care Critical Care Time: No Attestation: On 12/26/21, the high probability of a clinically significant, sudden or life threatening deterioration of the following system(s) required my full and direct attention, intervention and personal management. The time I documented below is in addition to time spent performing reported procedures but includes the following listed in this critical care notation. Medical Decision Making - Medical Records Medical records reviewed: Yes: I reviewed the patient's medical records. - Bryn Inquiry Pt receiving controlled substance: No Vital Signs: 12/26/21 01:29 12/26/21 01:45 12/26/21 02:01 Temperature 98.1 F Temperature Source Oral Pulse Rate 128 H 49 L Pulse Rate [Right] 122 H Respiratory Rate 18 22 Blood Pressure 120/53 L Blood Pressure [Right Radial Artery] 156/98 H Blood Pressure Mean 83 Blood Pressure Mean [Right Radial Artery] 117 02 Sat by Pulse Oximetry 96 96 96 Oxygen Delivery Method Room Air Room Air Room Air 12/26/21 02:09 12/26/21 02:30 12/26/21 03:00 Temperature Temperature Source Pulse Rate 44 L 44 L 43 L Pulse Rate [Right] Respiratory Rate 19 14 15 Blood Pressure 106/47 L 109/51 L 110/50 L Blood Pressure [Right Radial Artery] Blood Pressure Mean 75 84 82 Blood Pressure Mean [Right Radial Artery] 02 Sat by Pulse Oximetry 95 97 Oxygen Delivery Method Room Air Room Air 12/26/21 03:30 12/26/21 04:00 12/26/21 04:31 Temperature Temperature Source Pulse Rate 44 L 47 L 43 L Pulse Rate [Right] Respiratory Rate 17 15 15 Blood Pressure 121/53 L 125/67 114/57 L Blood Pressure [Right Radial Artery] Blood Pressure Mean 90 86 76 Blood Pressure Mean [Right Radial Artery] 02 Sat by Pulse Oximetry 96 95 96 Oxygen Delivery Method Room Air Room Air Room Air 12/26/21 05:00 Temperature Temperature Source Pulse Rate 45 L Pulse Rate [Right] Respiratory Rate 16 Blood Pressure 132/47 L Blood Pressure [Right Radial Artery] Blood Pressure Mean 75 Blood Pressure Mean [Right Radial Artery] 02 Sat by Pulse Oximetry 94 L Oxygen Delivery Method Room Air - Lab Data Lab results reviewed: Yes: I reviewed the patient's lab results. Lab Results 12/26/21 01:34: WBC 8.1, RBC 3.84 L, Hgb 11.5 L, Hct 37.2, MCV 96.7, MCH 29.9, MCHC 30.9 L, RDW 14.0, Plt Count 247, MPV 8.5, Neut % (Auto) 69.0, Lymph % (Auto) 23.6, Door % (Auto) 5.3, Eos % (Auto) 1.5, Baso % (Auto) 0.6, Neut # (Auto) 5.6, Lymph # (Auto) 1.9, Door # (Auto) 0.4, Eos # (Auto) 0.1, Baso # (Auto) 0.1, ESR 40 H 12/26/21 01:34: Sodium 142, Potassium 3.4 L, Chloride 109 H, Carbon Dioxide 24, Anion Gap 12.4, BUN 20 H, Creatinine 1.10 H, Estimated Creat Clear 47, Estimated GFR 48 L, Est GFR ( Amer) 58 L, Glucose 117 H, Calcium 9.6, Magnesium 1.9, Total Bilirubin 0.6, AST 29, ALT 18, Alkaline Phosphatase 90, Troponin I < 0.01, C-Reactive Protein 16.4 H, NT-Pro-B Natriuret Pep 657 H, Total Protein 7.2, Albumin 4.5, Globulin 2.7, Albumin/Globulin Ratio 1.7, Procalcitonin 0.056 12/26/21 01:34: SARS-CoV-2 (PCR) Not detected, Influenza A Untype (PCR) Not detected, Influenza Type B (PCR) Not detected 12/26/21 01:34: TSH 1.87, Thyroxine (T4) 13.0 H 12/26/21 01:34: Amylase 58, Lipase 103 12/26/21 04:30: Troponin I 0.07 H Result diagrams: 12/26/21 01:34 12/26/21 01:34 Orders (Tests/Meds): ED MEDICATIONS Generic Name Dose Route Start Last Admin Trade Name Freq PRN Reason Stop Dose Admin Diltiazem HCl 100 mg/ Sodium 100 mls @ 10 mls/hr 12/26/21 01:45 12/26/21 01:45 Chloride IV 01/25/22 01:44 10 mls/hr .Q10H JOSLYN Ad
[2021-12-26 04:14] LABS: Amylase 58 U/L (30-110); Lipase 103 U/L (23-300)
[2021-12-26 05:29] LABS: Troponin I 0.07 ng/ml (0.00-0.034)
== END 2021-12-26 06:01 | disposition home or self-care (01) ==
PROVIDERS: Emergency Provider Emergency Medicine; PCP Family Medicine
DX: I48.0 Paroxysmal atrial fibrillation (principal); R77.8 Other specified abnormalities of plasma proteins; I25.2 Old myocardial infarction; J44.9 Chronic obstructive pulmonary disease, unspecified; I10 Essential (primary) hypertension; E78.5 Hyperlipidemia, unspecified; Z87.891 Personal history of nicotine dependence; Z79.899 Other long term (current) drug therapy; R06.02 Shortness of breath
CPT/HCPCS: 71045; 80053; 82150; 83690; 83735; 83880; 84145; 84436; 84443; 84484; 85025; 85651; 86140; 93005; 96365; 96375; 99283; C9803; J2405; U0003; U0005

== ENCOUNTER → 2022-01-01 06:36 | Outpatient (CLI) | payer MEDICARE, MEDICAID, SELFPAY ==
--- NOTE | 2022-01-01 06:38 | CA_ITS ---
APPROVED REPORT Exam: Pharmacologic Technologist: Margaret Bañuelos, Ht: 5 ft 4 in Wt: 177 lbs BSA: 1.86 m2 HR: 63 bpm BP: 144/56 mmHg Medical History Medications: Amlodipine,,,,, Ticagrelor,,,,, Albuterol,,,,, ZYRTEC,,,,, BisOPROLOL Fumarate,,,,, DOxepin,,,,, Imdur,,,,, Apixaban,,,,, EnTRESTO,,,,, Stress Test Details Test: LEXISCAN HR Resting HR: 67 bpm Max Heart Rate (APMHR): 140 bpm Max HR Achieved: 78 bpm Target HR (85% APMHR): 119 bpm % of APMHR: 56 Recovery HR: 61 bpm BP Resting BP: 144.0/56.0 mmHg Max BP: 157.0/60.0 mmHg Recovery BP: 135.0/58.0 mmHg ECG Clinical Exercise duration: 04:01 min Highest Stage Achieved: Exercise capacity: 1.0 METs Stress ECG Conclusion Symptoms: SOA with Lexiscan. No CP. Arrhythmias/Ectopy: PVCs noted ST-T Changes: <1.5mm ST depression Conclusion: The EKG portion of the Lexiscan is nondiagnostic. Test Summary REST . . . . . . . Resting REST 27:17 . . 67 . 144/ 56 . . Stage 1 . . . . . . . Cardiolite injected Stage 1 01:00 . . 75 . . . . Stage 2 01:00 . . 74 . . . . Stage 3 01:00 . . 67 . 132/ 55 . . Stage 4 01:00 . . 65 . 131/ 52 . . Stage 4 01:01 . . 65 . 131/ 52 . Stop exercise at 04:01 RECOVERY 01:00 . . 65 . . . . RECOVERY 02:00 . . 61 . 134/ 56 . . RECOVERY 03:00 . . 62 . 134/ 56 . . RECOVERY 03:12 . . 61 . 135/ 58 . . Electronically signed by : Eben Wiley MD 01/01/2022 10:45:16
--- NOTE | 2022-01-01 06:38 | CA_ITS ---
APPROVED REPORT EXAM: Comprehensive 2D, Doppler, and color-flow Echocardiogram Hull Grinder: Gisela Hardy, RCS, RVS Ht: 5 ft 4 in Wt: 177lbs BSA: 1.86 BP: 141/81 mmHg Indications: SOA,A-FIB,CAD,CM,ABN EKG,COPD,PALPS,HTN,HLD 2D Dimensions Aortic Root 2.84 cm F: 2.7 - 3.3 LA Volume 56.90 mL Left Atrium 3.49 cm F: 2.7 - 3.8 LA Volume Index 30.75 mL/m2 (M/F) 16-34 LVOT 1.86 cm (M/F) 1.5-2.5 M-Mode Dimensions RVDd 2.01 cm (0.9-2.6) LA Diam 3.81 cm (1.9-4.0) LVDd 5.31 cm (3.5-5.7) Ao Diam 3.12 cm (2.0-3.7) LVDs 3.62 cm (3.5-5.7) IVSd 1.26 cm (0.6-1.1) PWd 1.00 cm (0.6-1.1) EF (Teich) 59.40% EPSs 0.68 cm FS 31.80% EDV (Teich) 135.90 mL ESV (Teich) 55.20 mL LV Diastology E Decel Time 240.00 (160-240 msec) E/A Ratio 0.95 MED E' 7.30 (< 7 cm/sec) MED A' 7.10 cm/s E'/MED E' Ratio 10.75 (>14) LAT E' 10.10 (<10 cm/sec) LAT A' 7.00 cm/s E/LAT E' Ratio 7.77 (>14) Aortic Valve LVOT Max 106.00 (70-110 cm/s) LVOT VTI 23.08 cm AoV Peak Hema. 123.00 (50-130 cm/s) AO Peak GR. 6.10 mmHg AO Mean GR. 3.00 (<5 mmHg) AO VTI 28.49 (18-25 cm) SRINI (VTI) 2.20 (2.5-4.5 cm2) Mitral Valve MV A Velocity 82.00 (40-130 cm/s) E/A Ratio 0.95 MV Decel. Time 240.00 (160-240 ms) Pulmonary Valve PV Peak Velocity 106.00 (50-150 cm/s) CO End VMAX 142.00 cm/s Tricuspid Valve TR P. Velocity 271.00 cm/s RAP Estimate 10.00 mmHg RVSP 39.50 mmHg Left Ventricle Left atrium is mildly enlarged, left ventricle is normal size, mild concentric left ventricular hypertrophy, visually estimated ejection fraction 55% with no regional wall motion abnormality, diastolic parameters are inconclusive. Right Ventricle Right atrium and right ventricle are mildly enlarged with normal contractility. Aortic Valve Aortic valve is minimally thickened and calcified without aortic stenosis or aortic insufficiency. Mitral Valve Mitral valve is grossly normal, there is trace mitral regurgitation. Tricuspid Valve Tricuspid valve grossly normal, there is trace tricuspid regurgitation, tricuspid regurgitation jet velocity is inadequate for calculation of the right ventricular systolic pressure. Pulmonic Valve Pulmonic valve is poorly visualized. Great Vessels Aortic root is normal size. Inferior vena cava is normal size normal inspiratory collapse. Pericardium No significant pericardial effusion noted. Conclusion 1. Mildly enlarged left atrium, normal left ventricular size, mild concentric left ventricular hypertrophy, visually estimated ejection fraction 55% with no regional wall motion abnormality, diastolic parameters are inconclusive. 2. Trace mitral and tricuspid regurgitation. 3. No significant pericardial effusion noted. 4. Inferior vena cava normal size normal inspiratory collapse. Electronically signed by : Eben Wiley MD 01/01/2022 15:29:26
--- NOTE | 2022-01-01 06:38 | NM_ITS ---
APPROVED REPORT Exam: Nuclear Stress Test Indication: SOB, HTN, ISCHEMIC CARDIOMYOPATHY, PALPITATION, COPD, SYNCOPE, ABN EKG Patient Location: sob, htn, cardiomyopahty, syncope, abn ekg Stress Tech: Margaret Weber NM Tech:Irene Guevara, ARRT RT (R)(N)(M) Ht: 5 ft 4 in Wt: 177 lbs Bra Size: D HR: 63 bpm BP: 144/56 mmHg BSA: 1.86 m2 BMI: 30.3 History: SOB, HTN, ISCHEMIC CARDIOMYOPATHY, PALPITATION, COPD, SYNCOPE, ABN EKG PT COULD NOT LAY ON STOMACH FOR PRONE IMAGES. Procedure: Patient received a 0.4 mg of intravenous Lexiscan, resting heart rate 63 bpm, resting blood pressure 144/56 mmHg, with Lexiscan maximum heart rate achived was 75 bpm which is Less than 85 % of the maximum predicted heart rate and blood pressure was 157/60 mmHg. With Lexiscan, patient denied any complaint of chest pain. SOA Electrocardiogram Resting electrocardiogram shows sinus rhythm right ventricular conduction delay, nonspecific ST-T changes, with Lexiscan there is less than 1.[address] segment depression noted from the baseline EKG. The EKG portion of the Lexiscan is nondiagnostic. Cardiac Stress and Resting SPECT Images: Cardiac Stress and Resting SPECT images were obtained using technetium 99m Myoview 31.7 mCi stress and 10.98 mCi at rest. Gated SPECT for analysis of segmental wall motion and calculation of the ejection fraction also done. Cardiac stress and resting SPECT images show inferoapical fixed defect with normal contractility on gated SPECT is likely secondary to soft tissue attenuation, no reversible ischemia seen, computer derived ejection fraction is 58% with no regional wall motion abnormality, right ventricle is mildly enlarged with normal contractility. Conclusion: 1. The EKG portion of the Lexiscan is nondiagnostic. 2. No scintigraphic evidence of reversible ischemia seen, fixed defect in the inferior apical wall is likely secondary to soft tissue attenuation, computer derived ejection fraction is 58% with no regional wall motion abnormality, right ventricle is mildly enlarged with normal contractility. 3. Likely normal Lexiscan Myoview study. Electronically signed by : Eben Wliey MD 01/01/2022 10:48:05
== END ==
PROVIDERS: PCP Family Medicine; Visit Provider Urology
DX: I10 Essential (primary) hypertension (principal); I25.10 Atherosclerotic heart disease of native coronary artery without angina pectoris; I25.5 Ischemic cardiomyopathy; I48.0 Paroxysmal atrial fibrillation; J44.9 Chronic obstructive pulmonary disease, unspecified; R06.00 Dyspnea, unspecified; R42 Dizziness and giddiness; R94.31 Abnormal electrocardiogram [ECG] [EKG]
CPT/HCPCS: 78452; 93017; 93306; A9502; J2785

== ENCOUNTER 2022-02-08 16:00 | Emergency (ER) | payer MEDICARE, MEDICAID, SELFPAY ==
[2022-02-08 16:02] VITALS: BP 154/75; PULSE 70; RESP 18; TEMP 36.8; O2SAT 94; BMI 29.5
[2022-02-08 16:43] VITALS: BMI 29.1
--- NOTE | 2022-02-08 16:43 | XR_ITS ---
PROCEDURE INFORMATION: Exam: XR Chest Exam date and time: 02/08/2022 4:59 PM Age: 81 years old Clinical indication: Cough with hemorrhage; Prior surgery; Surgery date: 6+ months; Surgery type: History of lung cancer, lung surgery bilaterally; Additional info: Coughing up blood TECHNIQUE: Imaging protocol: XR of the chest. Views: 1 view. COMPARISON: CR (CHEST, CXR AP LANDSCAPE) 12/26/2021 1:42 AM FINDINGS: Lungs: Lungs are mildly hyperexpanded, compatible chronic obstructive pulmonary physiologic changes. Scattered areas of atelectasis or scarring within the left mid and lower lung zone. Surgical changes along the left hilum. New, moderate ground-glass and consolidative opacities throughout the right upper and mid lung zone, possibly multifocal pneumonia. Alternatively, pulmonary hemorrhage or asymmetric pulmonary edema could have this appearance. Pleural spaces: Unremarkable. No pleural effusion. No pneumothorax. Heart/Mediastinum: Normal. Bones/joints: No acute abnormality. IMPRESSION: New, moderate ground-glass and consolidative opacities throughout the right upper and mid lung zone, possibly multifocal pneumonia. Alternatively, pulmonary hemorrhage or asymmetric pulmonary edema could have this appearance. Recommend further evaluation.
[2022-02-08 16:57] LABS: Basophils # 0.1 K/mm3 (0-0.2); Basophils % 0.7 % (0.1-2.0); Eosinophils # 0.1 K/mm3 (0.0-0.4); Eosinophils % 1.4 % (0.1-12.0); Hematocrit 35.4 % (37.0-47.0); Hemoglobin 11.1 g/dL (12.2-16.2); Lymphocytes # 2.3 K/mm3 (0.7-4.5); Lymphocytes % 32.2 % (10-50); Mean Corpuscular HGB Conc 31.4 g/dL (31.8-35.4); Mean Corpuscular Hemoglobin 30.9 pg (27.0-31.2); Mean Corpuscular Volume 98.4 fl (81-99); Mean Platelet Volume 8.6 fl (7.4-10.4); Monocytes # 0.3 K/mm3 (0.1-1.0); Monocytes % 4.5 % (1.7-9.3); Neutrophils # 4.4 K/mm3 (1.8-7.8); Neutrophils % 61.3 % (37.0-80.0); Platelet Count 263 K/mm3 (142-424); Red Blood Count 3.59 M/mm3 (4.20-5.40); Red Cell Distribution Width 14.3 % (11.5-17.5); White Blood Count 7.2 K/mm3 (4.8-10.8)
--- NOTE | 2022-02-08 17:03 | PC.NURSE ---
Radiology at BS for xray
[2022-02-08 17:08] LABS: Alanine Aminotransferase 16 U/L (12-78); Albumin Level 4.5 g/dl (3.5-5.0); Albumin/Globulin Ratio 1.7 (1.1-1.8); Alkaline Phosphatase 87 U/L (38-126); Aspartate Amino Transferase 28 U/L (14-36); Bilirubin,Total 0.5 mg/dl (0.2-1.3); Blood Urea Nitrogen 26 mg/dl (7-17); Calcium 9.1 mg/dl (8.4-10.2); Carbon Dioxide 25 mmol/L (22.0-30.0); Chloride 108 mmol/L (98-107); Creatinine Clearance Estimated 40 mL/min (50-200); Estimated Glomerular Filt Rate 36 ml/min (>60); GFR (African American) 44 ML/MIN (>60); Globulin 2.7 g/dL (1.3-3.2); Glucose 116 mg/dl (74-100); Sodium 142 mmol/L (136-145); Total Protein,Serum 7.2 g/dl (6.3-8.2)
--- NOTE | 2022-02-08 18:17 | PC.NURSE ---
ED MD at for update on POC
--- NOTE | 2022-02-08 18:19 | CT_ITS ---
PROCEDURE INFORMATION: Exam: CTA Chest With Contrast Exam date and time: 02/08/2022 6:33 PM Age: 81 years old Clinical indication: Shortness of breath; Additional info: Hemoptysis TECHNIQUE: Imaging protocol: Computed tomographic angiography of the chest with contrast. 3D rendering (Not supervised by radiologist): MIP and/or 3D reconstructed images were created by the technologist. Radiation optimization: All CT scans at this facility use at least one of these dose optimization techniques: automated exposure control; mA and/or kV adjustment per patient size (includes targeted exams where dose is matched to clinical indication); or iterative reconstruction. Contrast material: ISOVUE; Contrast volume: 70 ml; Contrast route: INTRAVENOUS (IV); COMPARISON: [facility] CTA-CHEST 09/18/2017 2:34 PM FINDINGS: Pulmonary arteries: See Other arteries finding. Aorta: Unremarkable. No aortic aneurysm. No aortic dissection. Other arteries: Regions of atherosclerotic vascular calcification again demonstrated. No evidence of pulmonary embolus. Thyroid: Incomplete visualization of right thyroid nodule this appears larger in comparison to the previous study. This measures approximately 2 cm in maximum dimensions. Lungs: There are extensive ground-glass regions of opacification mixed with confluent regions of consolidation throughout the right lower lobe, as well as in the apical segment of the right upper lobe. Patchy involvement of the right middle lobe is demonstrated. Lucent changes are present with superimposed subtle ground-glass opacities throughout the left lung. Findings compatible with centrilobular emphysema. Pleural spaces: No pleural effusions are demonstrated. Heart: Unremarkable. No cardiomegaly. No pericardial effusion. Lymph nodes: Unremarkable. No enlarged lymph nodes. Diaphragm: Small hiatal hernia. Gallbladder and bile ducts: Gallbladder surgically absent. Incomplete visualization of splenic and hepatic granulomas. Bones/joints: Unremarkable. No acute fracture. Soft tissues: Postoperative changes right lateral chest wall. Clinically correlate. IMPRESSION: 1. No evidence of pulmonary embolus. 2. Extensive ground-glass regions of opacification interspersed with more confluent regions of consolidation throughout the right lower lobe as well as involving the apical segment of the right upper lobe. Patchy middle lobe involvement. Findings nonspecific and may reflect pneumonia related to influenza. Findings can also be seen with Covid- 19 pneumonia. Clinically correlate. 3. Underlying changes of centrilobular emphysema. COMMENTS: Consistent with the [employer]'s Incidental Findings Committee white paper (J Am Payton Radiol 2015): In patients aged 35 years and older with an incidental thyroid nodule equal to or greater than 1.[address], MRI or extrathyroidal US, further evaluation with dedicated thyroid US is recommended for patients with normal life expectancy and without comorbidities. For smaller nodules without suspicious features, no further evaluation or follow up is recommended.
--- NOTE | 2022-02-08 18:34 | PC.NURSE ---
patient to radiology with technical services assistant
--- NOTE | 2022-02-08 18:38 | HMH.EDGENADL ---
ED Disposition Clinical Impression: Hemoptysis Atrial fibrillation Qualifiers: Atrial fibrillation type: longstanding persistent Qualified Code(s): I48.11 - Longstanding persistent atrial fibrillation Disposition: Home, Self-Care Condition on Discharge: Good Instructions: DI for Gastrointestinal Bleeding Additional Instructions: Please hold her Xarelto for 2 days. Return to the ED for any new or worsening symptoms and follow-up with Dr. Lee as soon as possible. Referrals: Lilly Swain APRN [Primary Care Provider] - - Critical Care Critical Care Time: No Attestation: On 02/08/22, the high probability of a clinically significant, sudden or life threatening deterioration of the following system(s) required my full and direct attention, intervention and personal management. The time I documented below is in addition to time spent performing reported procedures but includes the following listed in this critical care notation. Medical Decision Making - Medical Records Medical records reviewed: Yes: I reviewed the patient's medical records. - Bryn Inquiry Pt receiving controlled substance: No Vital Signs: 02/08/22 16:02 02/08/22 20:31 Temperature 98.2 F 98.6 F Temperature Source Oral Pulse Rate 66 Pulse Rate [Left Radial] 70 Respiratory Rate 18 18 Blood Pressure 148/60 H Blood Pressure [Right Arm] 154/75 H Blood Pressure Mean [Right Arm] 101 Blood Pressure Source [Right Arm] Automatic Cuff Blood Pressure Position [Right Arm] Sitting 02 Sat by Pulse Oximetry 94 L Oxygen Delivery Method Room Air Room Air - Lab Data Lab Results 02/08/22 16:30: WBC 7.2, RBC 3.59 L, Hgb 11.1 L, Hct 35.4 L, MCV 98.4, MCH 30.9, MCHC 31.4 L, RDW 14.3, Plt Count 263, MPV 8.6, Neut % (Auto) 61.3, Lymph % (Auto) 32.2, Todd % (Auto) 4.5, Eos % (Auto) 1.4, Baso % (Auto) 0.7, Neut # (Auto) 4.4, Lymph # (Auto) 2.3, Todd # (Auto) 0.3, Eos # (Auto) 0.1, Baso # (Auto) 0.1 02/08/22 16:30: Sodium 142, Potassium 4.0, Chloride 108 H, Carbon Dioxide 25, Anion Gap 13.0, BUN 26 H, Creatinine 1.40 H, Estimated Creat Clear 40, Estimated GFR 36 L, Est GFR ( Amer) 44 L, Glucose 116 H, Calcium 9.1, Total Bilirubin 0.5, AST 28, ALT 16, Alkaline Phosphatase 87, Total Protein 7.2, Albumin 4.5, Globulin 2.7, Albumin/Globulin Ratio 1.7 Result diagrams: 02/08/22 16:30 02/08/22 16:30 Orders (Tests/Meds): ED MEDICATIONS Discontinued Medications Generic Name Dose Route Start Last Admin Trade Name Freq PRN Reason Stop Dose Admin Iopamidol 70 ml 02/08/22 18:42 02/08/22 18:43 Iopamidol-370 (76%);100ml Bottle IV 02/08/22 18:43 70 ml ONCE ONE Administration Sodium Chloride 10 ml 02/08/22 16:43 Sodium Chloride 0.9% 10ml Flush Syringe IV 03/10/22 16:42 NEEDED PRN Maintain IV Site Sodium Chloride 50 ml 02/08/22 18:42 02/08/22 18:43 0.9 % Sodium Chloride 50 Ml Vial IV 02/08/22 18:43 50 ml ONCE ONE Administration Sodium Chloride 10 ml 02/08/22 18:42 02/08/22 18:43 Sodium Chloride 0.9% 10ml Syr (Rad Only) IV 02/08/22 18:43 10 ml ONCE ONE Administration ORDERS Category Date Time Status CTA Chest [CT angio chest PE protocol] Stat Cat Scan 02/08/22 18:19 Taken Medical Decision Narrative: Patient is an 81-year-old female presents the ED today for hemoptysis after coughing profusely earlier today, states she has not had the symptoms before in the past, this was associated with coughing today, this leaves him to leave this is likely from the acute trauma of respiratory coughing, although other differentials considered include TB, pulmonary embolism, malignancy. Interviewed our system patient has not had a CT scan with us for several years, patient states that she has been otherwise healthy at home, I have low concern for other etiology of her bleeding other than she popped a small blood vessel while coughing and is on Xarelto. We obtained a chest x-ray which shows evidence of
--- NOTE | 2022-02-08 18:42 | PC.NURSE ---
patient back from radiology with seed laboratory technician
--- NOTE | 2022-02-08 19:51 | PC.NURSE ---
call from radiology, her CT is currently being read
[2022-02-08 20:31] VITALS: BP 148/60; PULSE 66; RESP 18; TEMP 37; O2SAT 98
== END 2022-02-08 20:52 | disposition home or self-care (01) ==
PROVIDERS: Emergency Provider Student in an Organized Health Care Education/Training Program; PCP Nurse Practitioner Family
DX: R04.2 Hemoptysis (principal); I48.11 Longstanding persistent atrial fibrillation; R05.9 Cough, unspecified; I25.10 Atherosclerotic heart disease of native coronary artery without angina pectoris; I10 Essential (primary) hypertension; I25.2 Old myocardial infarction; J44.9 Chronic obstructive pulmonary disease, unspecified; E78.5 Hyperlipidemia, unspecified; Z87.891 Personal history of nicotine dependence; Z79.899 Other long term (current) drug therapy
CPT/HCPCS: 71045; 71275; 80053; 85025; 99284; Q9967

== ENCOUNTER 2022-02-10 14:37 | Observation (INO) | payer MEDICARE, MEDICAID, SELFPAY ==
[2022-02-10] VITALS (16 sets, daily range): BP systolic 110–147; BP diastolic 47–67; PULSE 54–74; RESP 15–18; TEMP 36.6–38.1; O2SAT 94–98; BMI 29.7
--- NOTE | 2022-02-10 15:06 | CT_ITS ---
FINAL REPORT TECHNIQUE: Axial images through the abdomen and pelvis were performed without contrast. This study was performed with techniques to keep radiation doses as low as reasonably achievable, (ALARA). Individualized dose reduction techniques using automated exposure control or adjustment of mA and/or kV according to the patient's size were employed. CLINICAL HISTORY: ABD PAIN FINDINGS: Abdomen: There are patchy ground-glass infiltrates in the right lung base probably due to acute pneumonia. The liver parenchyma is homogeneous. The gallbladder is surgically absent. There are calcified granulomas in the spleen. There is a small sliding-type hiatal hernia. There is fatty infiltration of the pancreas. The adrenal glands are unremarkable. There is a benign-appearing cyst in the posterior left kidney. Pelvis: The urinary bladder is unremarkable. The appendix is normal. There is descending and sigmoid colon diverticulosis. There is no pelvic mass or inflammation. IMPRESSION: Sliding-type hiatal hernia. Probable acute right base pneumonia. Diverticulosis without evidence of diverticulitis. Reviewed, Interpreted and Dictated by Oz Meade MD Transcribed by Russ Barone Authenticated by Oz Meade MD on 02/10/2022 04:23:19 PM [facility]
--- NOTE | 2022-02-10 15:06 | XR_ITS ---
FINAL REPORT CLINICAL HISTORY: cough COMPARISON: February 08, 2022 FINDINGS: The heart is mildly enlarged. The mediastinum is normal. There is abnormal airspace opacity in the right upper lobe that has improved in probably due to resolving pneumonia. There is scarring or atelectasis at the right lung base. There is no pneumothorax. There is no osseous abnormality. IMPRESSION: Resolving right upper lobe pneumonia. Reviewed, Interpreted and Dictated by Oz Meade MD Transcribed by Russ Barone Authenticated by Oz Meade MD on 02/10/2022 04:23:17 PM [facility]
--- NOTE | 2022-02-10 15:15 | PC.NURSE ---
Radiology taking pt to CT
[2022-02-10 16:15] LABS: Chloride 108 mmol/L (98-107); Potassium 3.4 mmoL/L (3.5-5.1); Sodium 139 mmol/L (136-145)
[2022-02-10 16:16] LABS: Basophils % 0.1 % (0.1-2.0); Eosinophils % 0.1 % (0.1-12.0); Hematocrit 29.7 % (37.0-47.0); Hemoglobin 9.5 g/dL (12.2-16.2); Lymphocytes # 1.1 K/mm3 (0.7-4.5); Lymphocytes % 12.6 % (10-50); Mean Corpuscular HGB Conc 32.1 g/dL (31.8-35.4); Mean Corpuscular Hemoglobin 30.8 pg (27.0-31.2); Mean Corpuscular Volume 95.9 fl (81-99); Mean Platelet Volume 8.9 fl (7.4-10.4); Monocytes # 0.5 K/mm3 (0.1-1.0); Monocytes % 6.1 % (1.7-9.3); Neutrophils # 6.9 K/mm3 (1.8-7.8); Platelet Count 231 K/mm3 (142-424); Red Cell Distribution Width 14.1 % (11.5-17.5); White Blood Count 8.5 K/mm3 (4.8-10.8)
[2022-02-10 16:17] LABS: Alanine Aminotransferase 15 U/L (12-78); Aspartate Amino Transferase 25 U/L (14-36); Blood Urea Nitrogen 16 mg/dl (7-17); Creatinine Clearance Estimated 56 mL/min (50-200); Estimated Glomerular Filt Rate 53 ml/min (>60); GFR (African American) 65 ML/MIN (>60)
[2022-02-10 16:18] LABS: Albumin Level 3.9 g/dl (3.5-5.0); Albumin/Globulin Ratio 1.5 (1.1-1.8); Alkaline Phosphatase 83 U/L (38-126); Anion Gap 10.4 mEq/L (5-15); Bilirubin,Total 1.3 mg/dl (0.2-1.3); Calcium 8.3 mg/dl (8.4-10.2); Carbon Dioxide 24 mmol/L (22.0-30.0); Globulin 2.6 g/dL (1.3-3.2); Glucose 118 mg/dl (74-100); Total Protein,Serum 6.5 g/dl (6.3-8.2)
[2022-02-10 16:53] LABS: Coronavirus 19, PCR Not Detected (NotDetected); Influenza A, PCR Not Detected (NotDetected); Influenza B, PCR Not Detected (NotDetected)
--- NOTE | 2022-02-10 18:09 | PC.NURSE ---
Updated pt on POC at this time. No new needs.
--- NOTE | 2022-02-10 18:21 | HMH.EDGENADL ---
ED Disposition Clinical Impression: Community acquired pneumonia Qualifiers: Laterality: right Lung location: unspecified part of lung Qualified Code(s): J18.9 - Pneumonia, unspecified organism Respiratory failure with hypoxia Qualifiers: Chronicity: acute on chronic Qualified Code(s): J96.21 - Acute and chronic respiratory failure with hypoxia Disposition: Admitted As Inpatient Condition on Discharge: Fair Referrals: Lilly Swain APRN [Primary Care Provider] - - Critical Care Critical Care Time: No Attestation: On 02/10/22, the high probability of a clinically significant, sudden or life threatening deterioration of the following system(s) required my full and direct attention, intervention and personal management. The time I documented below is in addition to time spent performing reported procedures but includes the following listed in this critical care notation. Medical Decision Making - Medical Records Medical records reviewed: Yes: I reviewed the patient's medical records. MR Comment: Reviewed emergency department note from 02/08/2022. Seen for hemoptysis. Quanah to have ruptured a bronchial blood vessel. Was not treated with antibiotics. - Bryn Inquiry Pt receiving controlled substance: No Vital Signs: 02/10/22 14:47 02/10/22 17:07 02/10/22 17:45 Temperature 100.6 F H Temperature Source Oral Pulse Rate 68 65 Pulse Rate [Left Radial] 57 L Respiratory Rate 17 Blood Pressure 121/60 132/59 L Blood Pressure [Right Arm] 134/56 L Blood Pressure Mean [Right Arm] 82 02 Sat by Pulse Oximetry 95 96 96 Oxygen Delivery Method Room Air - Lab Data Lab Results 02/10/22 15:56: WBC 8.5, RBC 3.10 L, Hgb 9.5 L, Hct 29.7 L, MCV 95.9, MCH 30.8, MCHC 32.1, RDW 14.1, Plt Count 231, MPV 8.9, Neut % (Auto) 81.0 H, Lymph % (Auto) 12.6, Bonner % (Auto) 6.1, Eos % (Auto) 0.1, Baso % (Auto) 0.1, Neut # (Auto) 6.9, Lymph # (Auto) 1.1, Bonner # (Auto) 0.5, Eos # (Auto) 0.0, Baso # (Auto) 0.0 02/10/22 15:56: Sodium 139, Potassium 3.4 L, Chloride 108 H, Carbon Dioxide 24, Anion Gap 10.4, BUN 16 D, Creatinine 1.00 D, Estimated Creat Clear 56, Estimated GFR 53 L, Est GFR ( Amer) 65 D, Glucose 118 H, Calcium 8.3 L, Total Bilirubin 1.3, AST 25, ALT 15, Alkaline Phosphatase 83, Total Protein 6.5, Albumin 3.9, Globulin 2.6, Albumin/Globulin Ratio 1.5 02/10/22 16:45: SARS-CoV-2 (PCR) Not detected, Influenza A Untype (PCR) Not detected, Influenza Type B (PCR) Not detected Result diagrams: 02/10/22 15:56 02/10/22 15:56 Orders (Tests/Meds): ED MEDICATIONS Generic Name Dose Route Start Last Admin Trade Name Freq PRN Reason Stop Dose Admin Albuterol/Ipratropium 3 ml 02/10/22 20:00 Ipratropium/Albuterol 3 Ml Neb IH 03/12/22 19:59 QIDRT JOSLYN Ceftriaxone Sodium 1 gm/ 50 mls @ 100 mls/hr 02/10/22 18:45 Sodium Chloride IV 02/24/22 18:44 Q24H JSOLYN Azithromycin 500 mg/ Sodium 250 mls @ 250 mls/hr 02/10/22 18:45 Chloride IV 02/24/22 18:44 Q24H JOSLYN Methylprednisolone Sodium Succinate 80 mg 02/10/22 18:45 Methylprednisolone Sod Succ 125mg Vial IV 03/12/22 18:44 Q8H JOSLYN Sodium Chloride 10 ml 02/10/22 15:06 Sodium Chloride 0.9% 10ml Flush Syringe IV 03/12/22 15:05 NEEDED PRN Maintain IV Site ORDERS Category Date Time Status Urinalysis and Microscopic Stat Lab 02/10/22 15:06 Ordered - Radiology Data #1 Image(s): Chest Image Reviewed: Yes I reviewed the patient's radiology image, Yes I have reviewed radiologist's interpretation Procedure(s): XR chest portable Accession Number(s): [id number] cc: Lilly Swain APRN; Oz Meade MD~ FINAL REPORT CLINICAL HISTORY: cough COMPARISON: February 08, 2022 FINDINGS: The heart is mildly enlarged. The mediastinum is normal. There is abnormal airspace opacity in the right upper lobe that has improved in probably due to resolving pneumonia. There is scarring or atelectasi
--- NOTE | 2022-02-10 18:32 | PC.NURSE ---
Dr. Kallie bernardo
--- NOTE | 2022-02-10 18:35 | PC.NURSE ---
speaking with Dr. Arreguin
[2022-02-10 19:21] LABS: Lactic Acid 0.6 mmol/L (0.7-2.1)
--- NOTE | 2022-02-10 21:00 | PC.NURSE ---
Called respiratory to notify need for duo-neb tx. She will be down after rounds on .
--- NOTE | 2022-02-10 21:15 | PC.NURSE ---
Pt will be admitted to room 205, when it is cleaned they will call. Stat cleaning requested to EVS staff by word processing supervisor.
--- NOTE | 2022-02-10 23:13 | PC.NURSE ---
Called report to Elvira PERRIN
--- NOTE | 2022-02-10 23:16 | PC.NURSE ---
RT here for duo-laz tx
--- NOTE | 2022-02-10 23:31 | PC.NURSE ---
patient up to the floor via stretcher at this time .
[2022-02-11 00:05] VITALS: O2SAT 95
[2022-02-11 04:46] VITALS: BP 113/54; PULSE 45; RESP 14; TEMP 36.9; O2SAT 91; BMI 29.3
[2022-02-11 06:05] VITALS: PULSE 50; O2SAT 96
--- NOTE | 2022-02-11 07:08 | HMH.PHAVTE ---
[facility] Pharmacy VTE Monitoring - Patient Demographics Admission date: 02/10/22 Report Date: 02/11/22 Time: 07:08 Allergies/Adverse Reactions: Patient Allergies levofloxacin [From LEVAQUIN] Allergy (Unknown, Verified 02/02/22 08:56) MAKES SICK tetracycline [TETRACYCLINE] Allergy (Unknown, Verified 02/02/22 08:56) SWELLING, ITCHING aspirin Adverse Reaction (Intermediate, Verified 02/02/22 08:56) Height: 1.63 m Weight: 78.018 kg Patient Problems: Current Active Problems Community acquired pneumonia (Acute) Respiratory failure with hypoxia (Acute) - VTE Risk Labs: VTE Related Lab Results Hgb 9.5 g/dL (12.2-16.2) L 02/10/22 15:56 Hct 29.7 % (37.0-47.0) L 02/10/22 15:56 Plt Count 231 K/mm3 (142-424) 02/10/22 15:56 BUN 16 mg/dl (7-17) D 02/10/22 15:56 Creatinine 1.00 mg/dl (0.52-1.04) D 02/10/22 15:56 Estimated Creat Clear 56 mL/min (50-200) 02/10/22 15:56 - Prophylaxis VTE Prophylaxis Ordered?: Yes Types of VTE Prophylaxis: TEDS Knee High, Pharmacological Location of Applied Device: Bilateral Lower Extremeties Pharmacologic Type: Other (ELIQUIS)
--- NOTE | 2022-02-11 07:12 | HMH.PHAINT ---
MEDICATION RECONCILIATION COMPLETED ON PATIENT USING EXTERNAL FILL HISTORY FROM PHARMACY. -VINCENT ALEXANDRE, BOBBID
[2022-02-11 08:00] VITALS: BP 109/51; PULSE 71; RESP 18; TEMP 36.6; O2SAT 94
--- NOTE | 2022-02-11 08:09 | HMH.HPDC ---
General - General Admission date:: 02/10/22 Discharge date: 02/11/22 *Admission Date: 02/10/22 *Chief complaint: Cough/dyspnea *History of present illness: 81-year-old white female with history of lung cancer in the remote past status post 2 resections, who apparently achieved cure and has not followed up with any oncology folks for the past several years, who has emphysema and wears oxygen at night. She is also on blood thinners for chronic A. fib. 3 days ago she took a nebulizer treatment at home and coughed and had some hemoptysis. Came to the emergency department where CT scanning and x-rays were really unrevealing except for a possible resolving ruptured blood vessel in a bronchus and she was discharged home with supportive care but no antibiotics were prescribed. Over the next couple of days she felt a little worse, with coughing and congestion and fevers, came back to the emergency department. Chest x-ray showed improving lung infiltrate but given her failure to improve and high likelihood of emphysema exacerbation she was admitted for IV fluids, IV antibiotics and further evaluation. [facility] History I have reviewed the patient's past medical history: Yes Medical History: Reports:: Arrhythmia, Atrial Fibrillation, Cancer, Carotid Stenosis, Congestive Heart Failure, Chronic Obstructive Pulmonary Disease (COPD), Coronary Artery Disease, Gastrointestinal Bleed, Hyperlipidemia, Hypertension, Myocardial Infarction, Palpitations Denies:: Diabetes Mellitus Type 1, Diabetes Mellitus Type 2, Internal Pacemaker, MRSA *Have you ever received a pneumonia vaccine?: No *Have you received a flu vaccine this season?: Yes Other Medical History: Reports: Anemia, Arthritis Laterality Cases: Left: Other Other Surgeries: Yes: Angiogram, Angioplasty, Cardiac Catheterization, Cholecystectomy, Coronary Stent. No: Pacemaker Amputation: No Fractures: Yes (accident years ago - right sided fx, plate in left wrist) - *Social History Smoking Status: Former smoker Tobacco Type: cigarettes # Packs/Day (cigarettes): 1 #Yrs smoked (if former smoker): 30 Alcohol Intake: never Alcohol Intake Frequency:: holidays/special occasions only Substance Use Type: denies use *Occupational Status:: retired Housing: house Household Members: other *Travel in the last 8 weeks: None Family Hx:: Asthma, Heart Attack, Hypertension Review of Systems - Review of Systems Review of systems:: pertinent systems reviewed and negative unless documented below Exam Vital signs and Labs for Last 24 Hours: Temp Pulse Resp BP Pulse Ox 98.5 F 50 L 14 113/54 L 96 02/11/22 04:46 02/11/22 06:05 02/11/22 04:46 02/11/22 04:46 02/11/22 06:05 Laboratory Results - last 24 hr 02/10/22 15:56: WBC 8.5, RBC 3.10 L, Hgb 9.5 L, Hct 29.7 L, MCV 95.9, MCH 30.8, MCHC 32.1, RDW 14.1, Plt Count 231, MPV 8.9, Neut % (Auto) 81.0 H, Lymph % (Auto) 12.6, Rowan % (Auto) 6.1, Eos % (Auto) 0.1, Baso % (Auto) 0.1, Neut # (Auto) 6.9, Lymph # (Auto) 1.1, Rowan # (Auto) 0.5, Eos # (Auto) 0.0, Baso # (Auto) 0.0 02/10/22 15:56: Sodium 139, Potassium 3.4 L, Chloride 108 H, Carbon Dioxide 24, Anion Gap 10.4, BUN 16 D, Creatinine 1.00 D, Estimated Creat Clear 56, Estimated GFR 53 L, Est GFR ( Amer) 65 D, Glucose 118 H, Calcium 8.3 L, Total Bilirubin 1.3, AST 25, ALT 15, Alkaline Phosphatase 83, Total Protein 6.5, Albumin 3.9, Globulin 2.6, Albumin/Globulin Ratio 1.5 02/10/22 16:45: SARS-CoV-2 (PCR) Not detected, Influenza A Untype (PCR) Not detected, Influenza Type B (PCR) Not detected 02/10/22 18:47: Lactate 0.6 L I & O for Last 24 hours: Intake & Output 02/08/22 02/09/22 02/10/22 02/11/22 11:59 11:59 11:59 11:59 Output Total Balance - Weight 172 lb - Constitutional no acute distress - *Routine HEENT Exam Head: Present: normocephalic Eye: Present: EOMI, PERRL ENT: Present: mucous membranes moist - *Routine Neck Exam Present: supple. Absent: lymphade
--- NOTE | 2022-02-11 09:17 | HMH.PHAINT ---
I spoke with Mrs. Alejo today about her medication list. I went over the new medications she is going to take, which pharmacy she can pick those new medications up at, and medications she was to continue taking. When we spoke, she did not have any questions or concerns. Patient was provided with a copy of the medication list for her records.
--- NOTE | 2022-02-12 13:53 | CARE MANAGER ---
Contacted patient related to hospital discharge follow up. She reports that she is taking her antibiotics and steroids. She did have questions if she can take medications at the same time each night. She reports no worsening of symptoms. Denies other questions or concerns. MARYCHUY Suarez
== END 2022-02-11 10:30 | disposition home or self-care (01) ==
LOC: ER 18:50 → 2ND 21:20
PROVIDERS: Admitting Provider Internal Medicine Adolescent Medicine; Emergency Provider Emergency Medicine; PCP Nurse Practitioner Family; Visit Provider Internal Medicine Adolescent Medicine
DX: J18.9 Pneumonia, unspecified organism (principal); J96.21 Acute and chronic respiratory failure with hypoxia; I48.91 Unspecified atrial fibrillation; J44.9 Chronic obstructive pulmonary disease, unspecified; Z20.822 Contact with and (suspected) exposure to COVID-19; Z79.02 Long term (current) use of antithrombotics/antiplatelets; Z79.01 Long term (current) use of anticoagulants; I65.29 Occlusion and stenosis of unspecified carotid artery; I25.10 Atherosclerotic heart disease of native coronary artery without angina pectoris; I25.2 Old myocardial infarction; Z95.5 Presence of coronary angioplasty implant and graft; Z87.891 Personal history of nicotine dependence; I11.0 Hypertensive heart disease with heart failure; I50.9 Heart failure, unspecified
CPT/HCPCS: G0378; 71045; 74176; 80053; 83605; 85025; 87040; 87077; 87186; 94640; 96365; 96375; 99285; C9803; J0456; J0696; J2405; U0003; U0005

== ENCOUNTER 2022-06-19 12:35 | Emergency (ER) | payer MEDICARE, MEDICAID, SELFPAY ==
[2022-06-19 12:36] VITALS: BP 125/49; PULSE 54; RESP 20; TEMP 37.6; O2SAT 94
--- NOTE | 2022-06-19 13:01 | XR_ITS ---
PROCEDURE INFORMATION: Exam: XR Chest Exam date and time: 06/19/2022 1:24 PM Age: 82 years old Clinical indication: Cough TECHNIQUE: Imaging protocol: Radiologic exam of the chest. Views: 1 view. COMPARISON: CR XR CHEST PORTABLE 02/10/2022 3:22 PM FINDINGS: Lungs: Hyperexpanded lung nunes consistent with COPD. Mild opacities in the lung bases may represent atelectasis or pneumonia. Pleural spaces: Unremarkable. No pleural effusion. No pneumothorax. Heart/Mediastinum: Cardiomegaly Bones/joints: Unremarkable. IMPRESSION: Mild opacities in the lung bases may represent atelectasis or pneumonia.
[2022-06-19 13:06] LABS: Influenza A, PCR Not Detected (NotDetected); Influenza B, PCR Not Detected (NotDetected); Microscopic, Urine URINE MICROSCOPIC (MICROSCOPIC)
[2022-06-19 13:10] LABS: Appearance,Urine CLEAR (Clear); Bilirubin,Urine Negative (Negative); Blood, Urine Negative (Negative); Color,Urine YELLOW (Yellow); Glucose,Urine (UA) Negative (Negative); Ketones,Urine Negative (Negative); Leukocyte Esterase,Urine TRACE (Negative); Nitrate,Urine POSITIVE (Negative); PH,Urine 5.5 (5.0-8.5); Protein,Urine Negative (Negative); Specific Gravity, Urine 1.025 (1.005-1.030); Urobilinogen,Urine 0.2 EU/dl (0.2)
[2022-06-19 13:25] LABS: Bacteria,Urine 3+ /lpf
[2022-06-19 13:26] LABS: Mucus,Urine 1+ /lpf
[2022-06-19 13:50] LABS: Coronavirus 19, PCR Detected (NotDetected)
[2022-06-19 14:06] LABS: Basophils % 0.5 % (0.1-2.0); Eosinophils # 0.1 K/mm3 (0.0-0.4); Eosinophils % 1.1 % (0.1-12.0); Hematocrit 33.9 % (37.0-47.0); Lymphocytes # 0.9 K/mm3 (0.7-4.5); Lymphocytes % 13.2 % (10-50); Mean Corpuscular HGB Conc 32.3 g/dL (31.8-35.4); Mean Corpuscular Hemoglobin 30.5 pg (27.0-31.2); Mean Corpuscular Volume 94.3 fl (81-99); Mean Platelet Volume 7.6 fl (7.4-10.4); Monocytes # 0.3 K/mm3 (0.1-1.0); Monocytes % 4.4 % (1.7-9.3); Neutrophils # 5.5 K/mm3 (1.8-7.8); Neutrophils % 80.8 % (37.0-80.0); Platelet Count 207 K/mm3 (142-424); Red Blood Count 3.59 M/mm3 (4.20-5.40); Red Cell Distribution Width 13.2 % (11.5-17.5); White Blood Count 6.8 K/mm3 (4.8-10.8)
--- NOTE | 2022-06-19 14:06 | PC.NURSE ---
ED MD AT BEDSIDE FOR EVALUATION
[2022-06-19 14:08] LABS: Alanine Aminotransferase 15 U/L (12-78); Albumin Level 4.2 g/dl (3.5-5.0); Albumin/Globulin Ratio 1.6 (1.1-1.8); Alkaline Phosphatase 93 U/L (38-126); Anion Gap 10.3 mEq/L (5-15); Aspartate Amino Transferase 30 U/L (14-36); Bilirubin,Total 0.5 mg/dl (0.2-1.3); Blood Urea Nitrogen 25 mg/dl (7-17); Calcium 9.4 mg/dl (8.4-10.2); Carbon Dioxide 26 mmol/L (22.0-30.0); Chloride 106 mmol/L (98-107); Creatinine Clearance Estimated 50 mL/min (50-200); Estimated Glomerular Filt Rate 48 ml/min (>60); GFR (African American) 58 ML/MIN (>60); Globulin 2.6 g/dL (1.3-3.2); Glucose 120 mg/dl (74-100); Potassium 4.3 mmoL/L (3.5-5.1); Sodium 138 mmol/L (136-145); Total Protein,Serum 6.8 g/dl (6.3-8.2)
--- NOTE | 2022-06-19 14:08 | HMH.EDGENADL ---
ED Disposition Clinical Impression: COVID, Acute infective cystitis Disposition: Home, Self-Care Condition on Discharge: Good Additional Instructions: Please return with any new or worsening symptoms. There is evidence of a UTI so we have sent you in an antibiotic. Prescriptions: methocarbamoL [Methocarbamol] 750 mg PO Q6 PRN #30 tab PRN Reason: Muscle Spasm Transmission Status: Received by [facility] Cefdinir [Omnicef 300mg Capsule] 300 mg PO BID 5 Days #10 cap Transmission Status: Received by [facility] Referrals: Jai Pierre MD [Primary Care Provider] - - Critical Care Critical Care Time: No Attestation: On 06/19/22, the high probability of a clinically significant, sudden or life threatening deterioration of the following system(s) required my full and direct attention, intervention and personal management. The time I documented below is in addition to time spent performing reported procedures but includes the following listed in this critical care notation. Medical Decision Making - Bryn Inquiry Pt receiving controlled substance: No Bryn was queried for this patient: No Vital Signs: 06/19/22 12:36 06/19/22 14:33 06/19/22 15:42 Temperature 99.6 F 100 F H Temperature Source Oral Oral Pulse Rate 88 Pulse Rate [Radial] 54 L Respiratory Rate 20 16 Blood Pressure 130/45 L 130/46 L Blood Pressure [Right Arm] 125/49 L Blood Pressure Mean [Right Arm] 74 Blood Pressure Position Sitting Blood Pressure Position [Right Arm] Sitting 02 Sat by Pulse Oximetry 94 L Oxygen Delivery Method Room Air Room Air - Lab Data Lab Results 06/19/22 12:15: SARS-CoV-2 (PCR) Detected A, Influenza A Untype (PCR) Not detected, Influenza Type B (PCR) Not detected 06/19/22 12:15: Urine Color Yellow, Urine Appearance Clear, Urine pH 5.5, Ur Specific [place] 1.025, Urine Protein Negative, Urine Glucose (UA) Negative, Urine Ketones Negative, Urine Blood Negative, Urine Nitrate Positive, Urine Bilirubin Negative, Urine Urobilinogen 0.2, Ur Leukocyte Esterase Trace, Urine WBC 5-10, Ur Squamous Epith Cells 5-10, Urine Bacteria 3+, Urine Mucus 1+ 06/19/22 12:40: WBC 6.8, RBC 3.59 L, Hgb 11.0 L, Hct 33.9 L, MCV 94.3, MCH 30.5, MCHC 32.3, RDW 13.2, Plt Count 207, MPV 7.6, Neut % (Auto) 80.8 H, Lymph % (Auto) 13.2, Bay % (Auto) 4.4, Eos % (Auto) 1.1, Baso % (Auto) 0.5, Neut # (Auto) 5.5, Lymph # (Auto) 0.9, Bay # (Auto) 0.3, Eos # (Auto) 0.1, Baso # (Auto) 0.0 06/19/22 12:40: Sodium 138, Potassium 4.3, Chloride 106, Carbon Dioxide 26, Anion Gap 10.3, BUN 25 H, Creatinine 1.10 H, Estimated Creat Clear 50, Estimated GFR 48 L, Est GFR ( Amer) 58 L, Glucose 120 H, Calcium 9.4, Total Bilirubin 0.5, AST 30, ALT 15, Alkaline Phosphatase 93, Total Protein 6.8, Albumin 4.2, Globulin 2.6, Albumin/Globulin Ratio 1.6 06/19/22 12:40: Lactate 0.9 Result diagrams: 06/19/22 12:40 06/19/22 12:40 Orders (Tests/Meds): ED MEDICATIONS Discontinued Medications Generic Name Dose Route Start Last Admin Trade Name Cheo PRN Reason Stop Dose Admin Acetaminophen 500 mg 06/19/22 14:29 06/19/22 14:29 Acetaminophen 500mg Tab PO 06/19/22 14:30 500 mg ONCE ONE Administration Ceftriaxone Sodium 1 gm/ 50 mls @ 100 mls/hr 06/19/22 14:30 06/19/22 14:28 Sodium Chloride IV 07/03/22 14:29 100 mls/hr Q24H JOSLYN Administration ORDERS Category Date Time Status Blood Culture Stat Micro 06/19/22 12:40 Received Urine Culture Stat Micro 06/19/22 12:15 Received Medical Decision Narrative: This is a 82-year-old female who presents with multiple complaints. Hemodynamically stable and nontoxic-appearing upon arrival. Patient's symptoms are most likely consistent with likely underlying COVID infection. Will check basic laboratory studies as well as a chest x-ray and a urine to evaluate for any abnormalities. Her COVID did come back positive. Chest x-ray showed concern for atelectasis versus
[2022-06-19 14:09] LABS: Lactic Acid 0.9 mmol/L (0.7-2.1)
[2022-06-19 14:33] VITALS: BP 130/45
--- NOTE | 2022-06-19 15:30 | PC.NURSE ---
MD speaking with pt
[2022-06-19 15:42] VITALS: BP 130/46; PULSE 88; RESP 16; TEMP 37.7; O2SAT 98
== END 2022-06-19 15:43 | disposition home or self-care (01) ==
PROVIDERS: Emergency Provider Student in an Organized Health Care Education/Training Program; PCP Family Medicine
DX: U07.1 COVID-19 (principal); N30.90 Cystitis, unspecified without hematuria; B97.89 Other viral agents as the cause of diseases classified elsewhere
CPT/HCPCS: 71045; 80053; 81001; 83605; 85025; 87040; 87086; 87088; 87186; 96365; 99284; C9803; J0696; U0003; U0005

== ENCOUNTER 2022-08-18 08:23 | Inpatient (IN) | payer MEDICARE, MEDICAID, SELFPAY ==
[2022-08-18] VITALS (14 sets, daily range): BP systolic 74–146; BP diastolic 39–64; PULSE 40–53; RESP 15–18; TEMP 36.6–36.8; O2SAT 94–98; BMI 29.5; BMI 28.7
--- NOTE | 2022-08-18 08:25 | EXP.UTC ---
Discharge Plan Disposition Patient Disposition: Admitted As Inpatient Condition: Fair Clinical Impressions Clinical Impression: Sinus bradycardia, Near syncope Discharge ED Provider: Ryland Hamilton [facility] HPI General Chief complaint: Arrhythmia/Palpitations Stated complaint: pain in back, congestion Mode of Arrival: Family Vehicle Source of Information: Patient Limitations: No Limitations Time Seen by Provider: 08/18/22 08:25 History of Present Illness Provider Complaint: This is a 82-year-old female presented to the emergency department with chest pain, nausea and vomiting. Patient states that it occurred this morning. She started having some dull chest pain that stayed localized in her chest. She came to the emergency department and proceeded to vomit. She was having some nausea since then. The patient does have extensive cardiac history. She denies any headache or change in vision. No focal weakness. No fevers or chills. No abdominal pain. No fevers or chills. Related Data Home Medications Medication Instructions Recorded Confirmed albuterol sulfate 90 mcg/actuation 2 puff inhalation Q6HP PRN 05/20/20 08/18/22 aerosol inhaler Shortness Of Breath doxepin 10 mg capsule 10 mg PO DAILY mood 02/11/22 08/18/22 amlodipine 10 mg tablet (Norvasc) 10 mg PO DAILY Blood pressure 08/18/22 08/18/22 apixaban 5 mg tablet (Eliquis) 5 mg PO BID Blood thinner/atrial 08/18/22 08/18/22 fib bisoprolol fumarate 10 mg tablet 10 mg PO DAILY High blood pressure 08/18/22 08/18/22 isosorbide mononitrate 30 mg 30 mg PO DAILY High blood pressure 08/18/22 08/18/22 tablet,extended release 24 hr sacubitril 97 mg-valsartan 103 mg 1 tab PO BID blood pressure 08/18/22 08/18/22 tablet (Entresto) Previous Rx's Medication Instructions Recorded methocarbamol 750 mg tablet 750 mg PO Q6 PRN Muscle Spasm #30 06/19/22 tabs Allergies Allergy/AdvReac Type Severity Reaction Status Date / Time levofloxacin [From LEVAQUIN] Allergy Unknown MAKES SICK Verified 05/04/22 09:00 tetracycline [TETRACYCLINE] Allergy Unknown SWELLING, Verified 05/04/22 09:00 ITCHING aspirin AdvReac Intermediate Verified 05/04/22 09:00 [facility] Medical History Abnormal electrocardiography Atrial fibrillation Dizziness Dyspnea Gallbladder disease History of lung cancer Ischemic cardiomyopathy Near syncope Sick sinus syndrome Surgical History History of cholecystectomy Hx of pneumonectomy Stented coronary artery Family History Other Family history of myocardial infarction Lung cancer Social History Smoking Status: Former smoker pack-years: 30 second hand exposure: No alcohol intake: never substance use type: denies use current occupational status: retired Travel in the last 8 weeks: Inside the [place] household members: other housing: house lives independently: No marital status: current occupational exposures/hazards: No 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) ROS Obtained: Yes All systems reviewed & no additional complaints except as documented Constitutional Constitutional: Reports fatigue and Denies headache(s) ENT Ears, Nose, Mouth, and Throat: Denies headache(s) Cardiovascular Cardiovascular: Reports chest pain and Denies dyspnea Respiratory Respiratory: Denies dyspnea Gastrointestinal Gastrointestingal: Reports nausea and vomiting Musculoskeletal Musculoskeletal: Denies arthralgias Integumentary/Breasts Skin/Breast: Denies rash Neurologic Neurologic: Denies headache(s) Endocrine Endocrine: Reports fatigue Physical Exam General General appearance: alert and in no apparent distress Eye Eye exam: Present PERRL and EOMI Chest Chest inspection: Present normal inspection and symmet
--- NOTE | 2022-08-18 08:42 | XR_ITS ---
FINAL REPORT CLINICAL HISTORY: pain, heart palpitations, nausea, hx of bilateral lung nodule removals COMPARISON: 06/19/2022 FINDINGS: There are underlying emphysematous changes. There is chronic scarring. No acute pulmonary density is present. No significant pleural effusion. There is no pneumothorax. The heart is normal in size. The mediastinum is unremarkable. IMPRESSION: Emphysema without acute process. Reviewed, Interpreted and Dictated by Donte Gallo MD Transcribed by Russ Barone Authenticated and [facility]
--- NOTE | 2022-08-18 08:50 | PC.NURSE ---
Pt to Rad
--- NOTE | 2022-08-18 08:59 | PC.NURSE ---
Pt being sent to ED for further eval
--- NOTE | 2022-08-18 09:09 | ECG_ITS ---
APPROVED REPORT Exam: Resting ECG HR:44 bpm ECG Measurements Heart Rate 44 AXES IA 166 P 158 QRSd 89 QRS -2 QT 462 T 133 QTc 414 Conclusion SINUS BRADYCARDIA SEPTAL MYOCARDIAL INFARCTION , OF INDETERMINATE AGE [40+ ms Q WAVE IN V1/V2] ABNORMAL ECG UNCONFIRMED REPORT Electronically signed by : Tacho Arreguin MD 08/19/2022 15:57:42
--- NOTE | 2022-08-18 09:15 | PC.NURSE ---
ED MD AT BEDSIDE FOR EVALUATION
[2022-08-18 09:31] LABS: Basophils # 0.1 K/mm3 (0-0.2); Eosinophils # 0.1 K/mm3 (0.0-0.4); Eosinophils % 1.1 % (0.1-12.0); Hematocrit 36.6 % (37.0-47.0); Lymphocytes # 2.4 K/mm3 (0.7-4.5); Lymphocytes % 31.5 % (10-50); Mean Corpuscular HGB Conc 32.8 g/dL (31.8-35.4); Mean Corpuscular Hemoglobin 32.2 pg (27.0-31.2); Mean Corpuscular Volume 98.1 fl (81-99); Mean Platelet Volume 7.9 fl (7.4-10.4); Monocytes # 0.4 K/mm3 (0.1-1.0); Monocytes % 5.4 % (1.7-9.3); Neutrophils # 4.7 K/mm3 (1.8-7.8); Neutrophils % 61.1 % (37.0-80.0); Platelet Count 315 K/mm3 (142-424); Red Blood Count 3.73 M/mm3 (4.20-5.40); Red Cell Distribution Width 14.1 % (11.5-17.5); White Blood Count 7.7 K/mm3 (4.8-10.8)
--- NOTE | 2022-08-18 09:32 | PC.NURSE ---
Rounded on pt HR was a little low. Pt was AAOX3. Stated she felt fine. asked if she needed anything and pt asked for a warm blanket. went and got her a blanket asked if she needed anything else. pt stated she was good at this time
[2022-08-18 09:40] LABS: Alanine Aminotransferase 18 U/L (12-78); Albumin/Globulin Ratio 1.6 (1.1-1.8); Alkaline Phosphatase 84 U/L (38-126); Anion Gap 12.1 mEq/L (5-15); Aspartate Amino Transferase 24 U/L (14-36); Bilirubin,Total 0.5 mg/dl (0.2-1.3); Blood Urea Nitrogen 28 mg/dl (7-17); Carbon Dioxide 28 mmol/L (22.0-30.0); Chloride 106 mmol/L (98-107); Creatinine Clearance Estimated 42 mL/min (50-200); Estimated Glomerular Filt Rate 39 ml/min (>60); GFR (African American) 48 ML/MIN (>60); Globulin 2.5 g/dL (1.3-3.2); Glucose 127 mg/dl (74-100); Potassium 4.1 mmoL/L (3.5-5.1); Sodium 142 mmol/L (136-145); Total Protein,Serum 6.5 g/dl (6.3-8.2)
[2022-08-18 09:52] LABS: NT Pro Brain Natriuretic Pep. 1420 pg/mL (0-450)
[2022-08-18 10:02] LABS: Influenza A, PCR Not Detected (NotDetected); Influenza B, PCR Not Detected (NotDetected)
[2022-08-18 10:06] LABS: Troponin I < 0.01 ng/ml (0.00-0.034)
--- NOTE | 2022-08-18 10:10 | PC.NURSE ---
PT CONTINUES TO HAVE HR 34-45. ED MD MADE AWARE. PT ASYMPTOMATIC. ORDERS RECEIVED AT THIS TIME
--- NOTE | 2022-08-18 10:50 | PC.NURSE ---
ROUNDED ON PT AT THIS TIME. WARM BLANKET PROVIDED. PT TALKING WITH . NO NEEDS AT THIS TIME
[2022-08-18 11:06] LABS: Coronavirus 19, PCR Detected (NotDetected)
--- NOTE | 2022-08-18 11:11 | PC.NURSE ---
paged service doctor for
--- NOTE | 2022-08-18 11:45 | PC.NURSE ---
PT RESTING WITH EYES CLOSED. AWAKENS EASILY. DENIES NEEDS AT THIS TIME. AT BEDSIDE
--- NOTE | 2022-08-18 11:55 | PC.NURSE ---
contacting dr. dejesus office r/t he is the service md tongue presser.
--- NOTE | 2022-08-18 11:58 | PC.NURSE ---
per office staff dr. velasco is service md marketing manager health communications but he is off today, dr. rodgers is at a meeting at the hospital so they stated to have him paged. Requested brusher operator page dr. rodgers at this time.
--- NOTE | 2022-08-18 12:00 | PC.NURSE ---
JAGRUTI ISRAEL speaking with Dr. Hargrove
--- NOTE | 2022-08-18 12:02 | PC.NURSE ---
notified supervisor malt house about admission, as care management was unavailable.
--- NOTE | 2022-08-18 12:04 | PC.NURSE ---
per warehouse engineer pt assigned to room 212
--- NOTE | 2022-08-18 12:14 | PC.NURSE ---
JIN JONES PA-C FROM CARDIOLOGY AT BEDSIDE
--- NOTE | 2022-08-18 12:38 | PC.NURSE ---
REPORT GIVEN TO Kelly ZAVALETA RN
--- NOTE | 2022-08-18 12:43 | PC.NURSE ---
pt requesting lunch, offered pt a tray notified her second floor should be down soon to transport her to assigned room. Pt states okay to eat when she gets to assigned room. Contacted dietary and asked them to send a cardiac try to room 212 on second floor for pt.
--- NOTE | 2022-08-18 12:55 | PC.NURSE ---
pt arrived to floor via wheel chair
[2022-08-18 13:03] LABS: Troponin I < 0.01 ng/ml (0.00-0.034)
--- NOTE | 2022-08-18 13:35 | EXP.HP ---
History of Present Illness *Admission Date: 08/18/22 *Reason for visit:: Symptomatic palpitations *History of present illness: Ms. Alejo is an 82-year-old female patient with a history of lung cancer in the remote past status post 2 resections who apparently achieved cure. She has not been followed by oncology for the last several years. She has emphysema and wears oxygen at night, takes blood thinners for atrial chronic atrial fib. She also has hypertension, coronary artery disease with previous stent placement, tachybradycardia syndrome, and is followed by cardiology at [facility]. She describes her heart racing and then beating very slowly this a.m. This was associated with nausea. She denies having chest pain and shortness of breath during this period of time. She thus presented to the emergency room. She did state in the ER that she had some dull chest pain. With evaluation in the emergency room EKG showed a bradycardia at a rate of 44/min. She remained bradycardic in the ER. She is noted to be on beta-malu. Cardiology did see her while in the ER. She was admitted for possible pacemaker intervention. At the time of this exam patient is sitting up in the bed and eating lunch. She appears most comfortable. She denies chest pain and shortness of breath.. [facility] Medical History (Updated 08/18/22 @ 13:47 by Debra Diallo APRN) Abnormal electrocardiography Atrial fibrillation Dizziness Dyspnea Gallbladder disease History of lung cancer Ischemic cardiomyopathy Near syncope Surgical History (Updated 08/18/22 @ 13:40 by Debra Diallo APRN) History of cholecystectomy Hx of pneumonectomy Stented coronary artery Family History Family history of myocardial infarction Lung cancer Social History Smoking Status: Former smoker pack-years: 30 second hand exposure: No alcohol intake: never substance use type: denies use current occupational status: retired Travel in the last 8 weeks: [place] the [place] household members: other housing: house lives independently: No marital status: current occupational exposures/hazards: No 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) Review of Systems Constitutional Constitutional: Denies fatigue, Denies fever(s), Denies frequent falls and Denies headache(s) Eyes Eyes: Denies change in vision ENT Ears, Nose, Mouth, and Throat: Denies dizziness, Denies dysphagia, Denies otalgia, Denies headache(s), Reports nasal congestion, Reports nasal discharge and Denies sore throat *Cardiovascular Cardiovascular: Reports chest pain, Denies dyspnea, Reports irregular heart rhythm, Reports palpitations, Reports rapid heart rate, Reports slow heart rate and Denies syncope *Respiratory Respiratory: Denies cough, Denies dyspnea and Denies hemoptysis *Gastrointestinal Gastrointestinal: Denies abdominal pain, Denies diarrhea, Reports dyspepsia, Denies dysphagia, Reports nausea and Reports vomiting *Genitourinary Genitourinary: Denies difficulty voiding *Musculoskeletal Musculoskeletal: Reports arthralgias, Reports back pain and Reports myalgias *Neurologic Neurologic: Denies dizziness, Denies frequent falls, Denies headache(s) and Denies syncope Endocrine Endocrine: Denies fatigue and Reports palpitations Meds Home Medications and Allergies Home Medications Medication Instructions Recorded Confirmed Type sacubitril 97 mg-valsartan 103 mg 1 tab PO BID CHF 08/28/19 08/18/22 History tablet albuterol sulfate 90 mcg/actuation 2 puff inhalation Q6HP PRN 05/20/20 08/18/22 History aerosol inhaler Shortness Of Breath doxepin 10 mg capsule 10 mg PO DAILY MOOD 02/11/22 08/18/22 History methocarbamol 750 mg tablet 750 mg PO Q6 PRN Muscle Spasm #30 06/19/22 08/18/22 Rx tabs amlodipine 10 mg tablet (Norvasc) 10 mg PO DAILY Heart disease 08/18/22
--- NOTE | 2022-08-18 13:53 | EXP.CARD.CON ---
History of Present Illness History of Present Illness Consult date: 08/18/22 Requesting physician: Donte Hargrove Chief complaint: bradycardia, palpitations Additional Medical History:: 1. Coronary disease A. WOOD to RCA, 03/03/2016, reported allergy to ASA. B. WOOD to Left Main in setting of ACS/NSTEMI, 01/27/2018, Mild disease remaining in prox LAD, mid Cx and RCA disease. LVEF 20% with LVEDP 25 mm Hg. C. History of ischemic cardiomyopathy (in the setting of ACS, 2017), resolved with medical therapy D. Lexiscan Myoview, 12/2021, no ischemia with EF 58%. Fixed inferior defect likely secondary to soft tissue attenuation. 2. History of paroxysmal atrial fibrillation. A. Referred for Left atrial appendage occluder as outpatient but patient declined. Amiodarone stopped 04/2017. B. Pt declined Watchman's device C. Xarelto stopped due to recurrent GI bleed requiring 4 units of blood, 01/2018, with EGD showing gastritis and duodenitis along with? hernia. SBFT negative. D. Eliquis started 04/2020 3. Hypertension A.. Echo, 01/01/2022, mild LAE, normal LV size, mild concentric LVH with EF 55%. No regional WMA. Trace MR/TR. 4. Hyperlipidemia 5. Lung cancer A. History of? LEFT upper lobectomy in the remote past. B. Recurrent cancer with RIGHT upper lobectomy performed 2015. 6. Chronic obstructive pulmonary disease/asthma with history of tobacco use discontinued 2018. A. Home oxygen therapy. B. Chest CTA, 02/08/2022, groundglass opacities in the right lung possibly related to pneumonia. Centrilobular emphysema noted. 7.? Chronic anemia A. Xarelto stopped due to recurrent GI bleed requiring 4 units of blood, 01/2018, with EGD showing gastritis and duodenitis along with hernia. SBFT negative. Capsule endoscopy planned. 8. MARIANNE A. CNI, 04/2020 and February 2021, RAMSES 20-49%, LICA, 20-49% 9. Osteoarthritis with chronic pain in the right knee 10. COVID infection 05/2022 with repeat positive COVID test 08/18/2020 11. CKD, stage III, 08/18/2022, creatinine 1.3 with GFR 39 12. Sliding-type hiatal hernia, abdominal pelvis CT 01/2022 13. Diverticulosis without diverticulitis, abdominal/pelvis CT, 02/10/2022 History of present illness: Ms. Alejo is an 82-year-old female patient with a history of lung cancer in the remote past status post 2 resections who apparently achieved cure.? She has not been followed by oncology for the last several years.? She has emphysema and wears oxygen at night, takes blood thinners for atrial chronic atrial fib.? She also has hypertension, coronary artery disease? with previous stent placement, tachybradycardia syndrome, and is followed by cardiology at [facility]. She describes her heart racing and then beating very slowly this a.m.? This was associated with nausea.? She denies having chest pain and shortness of breath during this period of time.? She thus presented to the emergency room.? She did state in the ER that she had some dull chest pain.? With evaluation in the emergency room EKG showed a bradycardia at a rate of 44/min.? She remained bradycardic in the ER.? She is noted to be on beta-malu.? Cardiology did see her while in the ER.? She was admitted for possible pacemaker intervention. At the time of this exam patient is sitting up in the bed and eating lunch.? She appears most comfortable.? She denies chest pain and shortness of breath. The above per Debra Diallo APRN, for Dr. Hargrove Patient was seen in the ER for sinus bradycardia in the high 30s low 40s beats per minute range. Patient describes heart rate racing this morning and then feeling extreme fatigue. Patient has known history of atrial fibrillation and bradycardia from beta-malu therapy related to treatment for her A. fib. We have discussed pacemaker placement for sick sinus syndrome multiple times over the last year and she continually has declined to proceed with this. At this time her bradycardia s
--- NOTE | 2022-08-18 14:07 | HMH.PHAINT1 ---
Pharmacy Intervention Comments: HOME MEDICATION RECONCILIATION WAS COMPLETED USING OUTPATIENT PHARMACY LIST.
--- NOTE | 2022-08-18 14:32 | CA_ITS ---
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 Limited echocardiogram was performed to evaluate left ventricular systolic function. 2. Normal left ventricular size, estimated ejection fraction from different views is 55% with no regional wall motion abnormality. 3. No significant pericardial effusion noted. Electronically signed by : Eben Wiley MD 08/19/2022 05:58:12
--- NOTE | 2022-08-18 14:45 | INFXCTL.NOTE ---
Discussed patient with primary nurse, Cassidy Marin RN, and patient was positive for Covid 60 days ago and has tested positive for this admission. Patient does not need to be in covid isolation precautions. Standard precautions will be used.
[2022-08-18 16:22] LABS: Troponin I < 0.01 ng/ml (0.00-0.034)
--- NOTE | 2022-08-18 18:48 | PC.NURSE ---
Pt is A/Ox4. She has been in the bed watching her stories on the tv. She has a cardiac diet and has tolerated it well. She is RA. There is a consent form that needs to be signed she stated that she will not sign till she sees milo tomorrow.
--- NOTE | 2022-08-18 20:36 | PC.NURSE ---
Addendum entered by Tena Benjamin RN 08/18/22 20:39: HOME MEDS NOW LOCKED UP, MAGNET ON DOOR, AND SHEET FILLED OUT. Original Note: BEFORE THIS NURSE CAME INTO THE ROOM PT HAD TAKEN HER HOME MED ENTRESTO AND ELIQUIS.
[2022-08-19] VITALS (17 sets, daily range): BP systolic 108–142; BP diastolic 51–79; PULSE 50–74; RESP 14–20; TEMP 36.6–37; O2SAT 93–99
--- NOTE | 2022-08-19 | IR_ITS ---
APPROVED REPORT Patient Location: Inpatient Conservation Assistant: AURELIA Villarreal RT (R) PROCEDURES 1. Pocket formation for Permanent Pacemaker Placement. 2. Placement of an atrial sensing and pacing coil into the right atrial appendage. 3. Placement of a ventricular sensing and pacing coil in the right ventricular apex. 4. Permanent Pacemaker Placement. INDICATION SSS/ FABRICIO TACHY Informed consent was obtained prior to the procedure. COMPLICATIONS None Estimated Blood Loss: Less than 10 mls TECHNIQUE 1% Lidocaine with epinephrine used to anesthetized the left anterior aspect of the chest. Scalpel was used to make the initial cutaneous incision while electrocautery was used to dissect down tinto the fascia. The fascia was lifted off the pectoralis muscle and digitally manipulated creating a pocket for the pacemaker. The patient was then placed in Trendelenburg position and the subclavian vein was accessed twice via the Selinger technique, there are two wires in the vein. A 6 [place]gas[place] sheath was placed under fluoroscopic guidance into the subclavian vein over one of the wires while keeping the other wire in place within the subclavian vein. The dilator was removed from the sheath. Using fluoroscopic guidance, the ventricular lead was placed into the right ventricular apex, screwed and secured into place. Electronic interrogation proved acceptable thresholds and voltage within the lead. Using 3-0 silk, the ventricular lead was then secured into place. Lead was secured to the facia using the 3-0 silk. Following this, the sheath was pealed away. An additional 6 [place] fresh sheath and dilator was placed over the existing wire. Using fluoroscopic guidance, the atrial lead was the placed into the right atrial appendage and screwed and secured in place. Electrical interrogation demonstrated acceptable thresholds and voltage number. The atrial lead was then secured into place using 3-0 silk. 1 gram of Ancef was used to flush the pocket. Following the pacemaker generator being secured to the fascia and in place, Monocryl was used to close the subcutaneous layers while sondra were used to close the cutaneous layer. A pressure dressing was placed and the patient was transferred to the postop holding area in stable condition for postoperative care. INTERROGATION Generator Model number: [id number] Generator Serial number: [id number] Atrial lead model number: 7840 Atrial lead serial number: [id number] P-wave: 4.0 MV Impedence: 808 OHMS Threshold: 1.1 V Right Ventricular lead model number: 7841 Right Ventricular lead serial number: [id number] R-wave: 9.0 MV Impedence: 731 OHMS Threshold: 0.4 V Pacing Parameters: Mode: DDDR Base/Max Track:60 ppm / 130 ppm No diaphragmatic stimulation at 10 volts. IMPRESSION 1. Successful pocket formation for Permanent Pacemaker Placement. 2. Successful placement of an atrial sensing and pacing coil into the right atrial appendage. 3. Successful placement of a ventricular sensing and pacing coil in the right ventricular apex. 4. Successful permanent Pacemaker Placement. PLAN 1. Post op wound care, follow up office visit Electronically signed by : Lonnie Hollingsworth MD 08/19/2022 14:01:18
--- NOTE | 2022-08-19 04:56 | PC.NURSE ---
PT REMAINS ALERT AND ORIENTED X4. LUNG SOUNDS ARE CLEAR BILATERALLY. REMAINS ON ROOM AIR AIR AND IS TOLERATING WELL. REMAINS NSR TO SINUS FABRICIO ON TELE. NO C/O OF CHEST PAIN OR SHORTNESS OF BREATH. VSS. AT 2034 WHEN THIS NURSE WHEN TO PASS PT'S EVENING MEDS PT HAD STATED THAT SHE HAD ALREADY TAKEN HER NIGHT TIME MEDICATIONS. UPON FURTHER QUESTIONING PT STATED THAT SHE TOO HER ENTRESTO AND HER ELIQUIS. SHE STATED THAT SHE TOOK BOTH MEDS AT 6PM LIKE SHE NORMALLY DOES AT HOME. PT EDUCATED ON WHY SHE COULD NOT TAKE HER HOME MEDS WHILE AT THE HOSPITAL. MEDICATIONS WERE LOCKED UP IN MED DRAWER AND MED PAPER FILLED OUT AND HOME MED MAGNET WAS STUCK ON PT'S DOOR. CHARGE NURSE AND FELLER SEAM OPERATOR WERE NOTIFIED.
[2022-08-19 06:34] LABS: Basophils % 0.7 % (0.1-2.0); Eosinophils # 0.1 K/mm3 (0.0-0.4); Eosinophils % 1.4 % (0.1-12.0); Hematocrit 32.5 % (37.0-47.0); Lymphocytes # 1.7 K/mm3 (0.7-4.5); Lymphocytes % 32.3 % (10-50); Mean Corpuscular HGB Conc 31.9 g/dL (31.8-35.4); Mean Corpuscular Hemoglobin 31.5 pg (27.0-31.2); Mean Corpuscular Volume 98.8 fl (81-99); Mean Platelet Volume 8.4 fl (7.4-10.4); Monocytes # 0.3 K/mm3 (0.1-1.0); Monocytes % 5.6 % (1.7-9.3); Neutrophils # 3.2 K/mm3 (1.8-7.8); Neutrophils % 59.9 % (37.0-80.0); Platelet Count 228 K/mm3 (142-424); Red Blood Count 3.29 M/mm3 (4.20-5.40); Red Cell Distribution Width 13.9 % (11.5-17.5); White Blood Count 5.3 K/mm3 (4.8-10.8)
[2022-08-19 06:47] LABS: Anion Gap 9.1 mEq/L (5-15); Blood Urea Nitrogen 25 mg/dl (7-17); Calcium 8.3 mg/dl (8.4-10.2); Carbon Dioxide 25 mmol/L (22.0-30.0); Chloride 109 mmol/L (98-107); Creatinine Clearance Estimated 53 mL/min (50-200); Estimated Glomerular Filt Rate 53 ml/min (>60); GFR (African American) 64 ML/MIN (>60); Glucose 88 mg/dl (74-100); Potassium 4.1 mmoL/L (3.5-5.1); Sodium 139 mmol/L (136-145)
[2022-08-19 06:57] LABS: Hemoglobin 10.4 g/dL (12.2-16.2)
--- NOTE | 2022-08-19 07:27 | EXP.PHA.VTE ---
[facility] Pharmacy VTE Monitoring Patient Demographics Admission date: 08/18/22 Report Date: 08/19/22 Time: 07:27 Patient Allergies levofloxacin [From LEVAQUIN] Allergy (Unknown, Verified 05/04/22 09:00) MAKES SICK tetracycline [TETRACYCLINE] Allergy (Unknown, Verified 05/04/22 09:00) SWELLING, ITCHING aspirin Adverse Reaction (Intermediate, Verified 05/04/22 09:00) Height: 1.63 m Weight: 75.948 kg Current Active Problems (Updated 08/18/22 @ 13:40 by Debra Dilalo APRN) HTN (hypertension) (Chronic) CAD (coronary artery disease) (Chronic) COPD (chronic obstructive pulmonary disease) (Chronic) Paroxysmal atrial fibrillation (Chronic) Renal insufficiency (Acute) Sinus bradycardia (Chronic) Bradycardia (Acute) Hypertensive heart disease (Chronic) Hyperlipidemia (Chronic) Palpitations (Acute) Carotid artery stenosis (Chronic) COVID (Acute) Abnormal electrocardiography (Acute) Dyspnea (Chronic) Near syncope (Acute) Stented coronary artery (Chronic) VTE Risk Labs: VTE Related Lab Results Hgb 10.4 g/dL (12.2-16.2) L D 08/19/22 06:08 Hct 32.5 % (37.0-47.0) L 08/19/22 06:08 Plt Count 228 K/mm3 (142-424) D 08/19/22 06:08 BUN 25 mg/dl (7-17) H 08/19/22 06:08 Creatinine 1.00 mg/dl (0.52-1.04) D 08/19/22 06:08 Estimated Creat Clear 53 mL/min (50-200) 08/19/22 06:08 Prophylaxis VTE Prophylaxis Ordered?: Yes Types of VTE Prophylaxis: TEDS Knee High Location of Applied Device: Bilateral Lower Extremeties
--- NOTE | 2022-08-19 08:36 | EXP.CARD.PN ---
Subjective Subjective Date: 08/19/22 Time: 08:39 Principal diagnosis: symptomatic bradycardia, SSS Interval history: 82-year-old white female in bed in no acute distress. Patient denies any syncope or near syncope overnight. Telemetry shows heart rate in the 40s and 50s. Patient is agreeable to proceed with the pacemaker today. Exam Data for Last 24 hours Vital signs and Labs for Last 24 Hours: Temp Pulse Resp BP Pulse Ox 98.4 F 53 L 14 134/61 94 L 08/19/22 08:00 08/19/22 08:00 08/19/22 08:00 08/19/22 08:00 08/19/22 08:00 Laboratory Results - last 24 hr 08/18/22 09:15: WBC 7.7, RBC 3.73 L, Hgb 12.0 L, Hct 36.6 L, MCV 98.1, MCH 32.2 H, MCHC 32.8, RDW 14.1, Plt Count 315, MPV 7.9, Neut % (Auto) 61.1, Lymph % (Auto) 31.5, [place] % (Auto) 5.4, Eos % (Auto) 1.1, Baso % (Auto) 1.0, Neut # (Auto) 4.7, Lymph # (Auto) 2.4, [place] # (Auto) 0.4, Eos # (Auto) 0.1, Baso # (Auto) 0.1 08/18/22 09:15: Sodium 142, Potassium 4.1, Chloride 106, Carbon Dioxide 28, Anion Gap 12.1, BUN 28 H, Creatinine 1.30 H, Estimated Creat Clear 42, Estimated GFR 39 L, Est GFR ( Amer) 48 L, Glucose 127 H, Calcium 9.0, Total Bilirubin 0.5, AST 24, ALT 18, Alkaline Phosphatase 84, Troponin I < 0.01, NT-Pro-B Natriuret Pep 1420 H, Total Protein 6.5, Albumin 4.0, Globulin 2.5, Albumin/Globulin Ratio 1.6, TSH 2.40 08/18/22 09:43: SARS-CoV-2 (PCR) Detected A, Influenza A Untype (PCR) Not detected, Influenza Type B (PCR) Not detected 08/18/22 12:30: Troponin I < 0.01 08/18/22 15:40: Troponin I < 0.01 08/19/22 06:08: WBC 5.3 D, RBC 3.29 L, Hgb 10.4 L D, Hct 32.5 L, MCV 98.8, MCH 31.5 H, MCHC 31.9, RDW 13.9, Plt Count 228 D, MPV 8.4, Neut % (Auto) 59.9, Lymph % (Auto) 32.3, [place] % (Auto) 5.6, Eos % (Auto) 1.4, Baso % (Auto) 0.7, Neut # (Auto) 3.2, Lymph # (Auto) 1.7, [place] # (Auto) 0.3, Eos # (Auto) 0.1, Baso # (Auto) 0.0 08/19/22 06:08: Sodium 139, Potassium 4.1, Chloride 109 H, Carbon Dioxide 25, Anion Gap 9.1, BUN 25 H, Creatinine 1.00 D, Estimated Creat Clear 53, Estimated GFR 53 L, Est GFR ( Amer) 64 D, Glucose 88 D, Calcium 8.3 L I & O for Last 24 hours: Intake & Output 08/16/22 08/17/22 08/18/22 08/19/22 11:59 11:59 11:59 11:59 Intake Total 2001 Output Total 0 / 0 Balance 2001 Weight 172 lb 167 lb 7 oz Constitutional Constitutional: no acute distress *Routine Respiratory Exam Respiratory: Present CTA bilaterally *Routine Cardiovascular Exam Cardiovascular: Present RRR *Routine Extremities Exam Extremities: Absent edema *Routine Neurological Exam Neurological: Present alert and oriented X3 Progress Note: A&P Assessment and plan (1) Bradycardia: Status: Acute (2) Paroxysmal atrial fibrillation: Status: Chronic (3) Renal insufficiency: Status: Acute (4) Abnormal electrocardiography: Status: Acute (5) COPD (chronic obstructive pulmonary disease): Status: Chronic (6) CAD (coronary artery disease): Status: Chronic (7) HTN (hypertension): Status: Chronic (8) Stented coronary artery: Status: Chronic (9) Dyspnea: Status: Chronic (10) Carotid artery stenosis: Status: Chronic (11) Palpitations: Status: Acute (12) Hyperlipidemia: Status: Chronic (13) Sick sinus syndrome: Status: Acute Assessment and Plan Assessment and Plan for All Diagnoses:: 1. Symptomatic bradycardia with sick sinus syndrome and history of atrial fibrillation with a rapid ventricular response. Plan to proceed with dual-chamber pacemaker in implantation today. Patient is agreeable. 2. History of paroxysmal atrial fibrillation, on chronic anticoagulation therapy which is being held today 3. History of hypertension, controlled 4. History of ischemic cardiomyopathy, resolved on medical therapy with limited echo this admission showing EF 55%. 5. History of CAD with prior coronary stenting. Clinically stable.
--- NOTE | 2022-08-19 09:05 | EXP.ACUTE.PN ---
Subjective *Date: 08/19/22 *Time: 09:05 Interval history: Patient states he is feeling well this morning other than being hungry. She denies any chest pain or shortness of breath. She has been up in the room without difficulty. She has had no near syncopal episodes. Her heart rate has remained in the 40s and 50s. Medical Exam Vital signs and Labs for Last 24 Hours: Temp Pulse Resp BP Pulse Ox 98.4 F 53 L 14 134/61 94 L 08/19/22 08:00 08/19/22 08:00 08/19/22 08:00 08/19/22 08:00 08/19/22 08:00 Laboratory Results - last 24 hr 08/18/22 09:15: WBC 7.7, RBC 3.73 L, Hgb 12.0 L, Hct 36.6 L, MCV 98.1, MCH 32.2 H, MCHC 32.8, RDW 14.1, Plt Count 315, MPV 7.9, Neut % (Auto) 61.1, Lymph % (Auto) 31.5, [place] % (Auto) 5.4, Eos % (Auto) 1.1, Baso % (Auto) 1.0, Neut # (Auto) 4.7, Lymph # (Auto) 2.4, [place] # (Auto) 0.4, Eos # (Auto) 0.1, Baso # (Auto) 0.1 08/18/22 09:15: Sodium 142, Potassium 4.1, Chloride 106, Carbon Dioxide 28, Anion Gap 12.1, BUN 28 H, Creatinine 1.30 H, Estimated Creat Clear 42, Estimated GFR 39 L, Est GFR ( Amer) 48 L, Glucose 127 H, Calcium 9.0, Total Bilirubin 0.5, AST 24, ALT 18, Alkaline Phosphatase 84, Troponin I < 0.01, NT-Pro-B Natriuret Pep 1420 H, Total Protein 6.5, Albumin 4.0, Globulin 2.5, Albumin/Globulin Ratio 1.6, TSH 2.40 08/18/22 09:43: SARS-CoV-2 (PCR) Detected A, Influenza A Untype (PCR) Not detected, Influenza Type B (PCR) Not detected 08/18/22 12:30: Troponin I < 0.01 08/18/22 15:40: Troponin I < 0.01 08/19/22 06:08: WBC 5.3 D, RBC 3.29 L, Hgb 10.4 L D, Hct 32.5 L, MCV 98.8, MCH 31.5 H, MCHC 31.9, RDW 13.9, Plt Count 228 D, MPV 8.4, Neut % (Auto) 59.9, Lymph % (Auto) 32.3, [place] % (Auto) 5.6, Eos % (Auto) 1.4, Baso % (Auto) 0.7, Neut # (Auto) 3.2, Lymph # (Auto) 1.7, [place] # (Auto) 0.3, Eos # (Auto) 0.1, Baso # (Auto) 0.0 08/19/22 06:08: Sodium 139, Potassium 4.1, Chloride 109 H, Carbon Dioxide 25, Anion Gap 9.1, BUN 25 H, Creatinine 1.00 D, Estimated Creat Clear 53, Estimated GFR 53 L, Est GFR ( Amer) 64 D, Glucose 88 D, Calcium 8.3 L I & O for Labs for Last 24 Hours: Intake & Output 08/16/22 08/17/22 08/18/22 08/19/22 11:59 11:59 11:59 11:59 Intake Total 2001 Output Total 0 / 0 Balance 2001 Weight 172 lb 167 lb 7 oz Constitutional: Present no acute distress Respiratory: Present CTA bilaterally Cardiac: Present Reg Rate and Rhythm and Bradycardia GI: Present soft and normal bowel sounds; Absent distention or tenderness Extremities: Absent edema, clubbing or cyanosis Skin: Present intact Neuro: Present alert and awake Assessment and Plan *Assessment and plan (1) Bradycardia: Status: Acute Category: Medical Code(s): R00.1 - Bradycardia, unspecified (2) Paroxysmal atrial fibrillation: Status: Chronic Category: Medical Code(s): I48.0 - Paroxysmal atrial fibrillation (3) Renal insufficiency: Status: Acute Category: Medical Code(s): N28.9 - Disorder of kidney and ureter, unspecified (4) Abnormal electrocardiography: Status: Acute Category: Medical Code(s): R94.31 - Abnormal electrocardiogram [ECG] [EKG] (5) COPD (chronic obstructive pulmonary disease): Status: Chronic Qualifiers: COPD type: unspecified COPD Qualified Code(s): J44.9 - Chronic obstructive pulmonary disease, unspecified Category: Medical Code(s): J44.9 - Chronic obstructive pulmonary disease, unspecified (6) CAD (coronary artery disease): Status: Chronic Qualifiers: Associated angina: without angina Coronary Disease-Associated Artery/Lesion type: [place] artery [place] vs. transplanted heart: [place] heart Qualified Code(s): I25.10 - Atherosclerotic heart disease of [place] coronary artery without angina pectoris Category: Medical Code(s): I25.10 - Atherosclerotic heart disease of [place] coronary artery without angina pectoris (7) HTN (hypert
--- NOTE | 2022-08-19 12:14 | EXP.ANES.CKL ---
[facility] Medical History (Updated 08/19/22 @ 08:40 by ANGELICA Nunez) Abnormal electrocardiography Atrial fibrillation Dizziness Dyspnea Gallbladder disease History of lung cancer Ischemic cardiomyopathy Near syncope Sick sinus syndrome Surgical History (Updated 08/18/22 @ 13:40 by Debra Diallo APRN) History of cholecystectomy Hx of pneumonectomy Stented coronary artery Family History Other Family history of myocardial infarction Lung cancer Social History Smoking Status: Former smoker pack-years: 30 second hand exposure: No alcohol intake: never substance use type: denies use current occupational status: retired Travel in the last 8 weeks: Inside the [place] household members: other housing: house lives independently: No marital status: current occupational exposures/hazards: No 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) [facility] Anesthesia Checklist Patient Identification Patient Identification: Arm Band Structural Data Admitted From: Inpatient Planned Operative Procedure/s: Dual Chamber Pacemaker Consent for Planned Operative Procedure(s) Verified: Yes Verified Documents: Surgical Consent and History and Physical NPO Status Verified Time NPO: 00:00 Additional verifications Anesthesia Reactions: No Airway Assessment C-Spine Mobility Assessed: Yes TMJ Mobility Assessed: Yes Dentition: Poor Dentition Neurological Assessment Level of Consciousness: Awake and Alert Anesthesia Plan Anesthesia Risk discussed: Yes Anesthesia Plan: Verified ASA Class: III Anesthesia Type: MAC
--- NOTE | 2022-08-19 13:33 | XR_ITS ---
FINAL REPORT CLINICAL HISTORY: post pacemaker placement COMPARISON: August 18, 2022 FINDINGS: Interval placement of dual lead left subclavian pacemaker. The heart size is normal. The mediastinum is within normal limits. Emphysematous changes. Scarring in the right lung base. There is no pleural effusion. There is no pneumothorax. The bony thorax is intact. IMPRESSION: No pneumothorax post pacemaker placement. Reviewed, Interpreted and Dictated by Donte Gallo MD Transcribed by Russ Barone Authenticated and [facility]
--- NOTE | 2022-08-19 17:00 | PC.NURSE ---
Patient VSS, B/L lungs dminished & clear to auscultation, had pacemaker placed today, c/o pain x 1 gave tylenol which helped. Patient HR low 70's. Patient has shown no s/s of acute distress, call light is within reach, bed at lowest level for safety.
[2022-08-20] VITALS: PULSE 70
[2022-08-20 04:00] VITALS: BP 131/56; PULSE 70; PULSE 71; RESP 18; TEMP 37.1; O2SAT 93
--- NOTE | 2022-08-20 06:22 | PC.NURSE ---
PT HAS RESTED WEL THIS SHIFT. PACEMAKER PLACED YESTERDAY 08/19. SITE IS BRUISED AND TENDER TO TOUCH. PT HAS C/O PAIN X1 THIS SHIFT AND WAS MEDICATED PER JAN. PT HAS REMANED PACED ON TELE. ON TELE PT HR APPEARED TO DROP INTO THE 30'S ON THE MONITOR BUT PRINTED STRIPS WERE NORMAL PACED AT APPROXIMATELY 70BPM. PT HAS NOT C/O CHEST PAIN OR SHORTNESS OF BREATH. VSS.
[2022-08-20 08:00] VITALS: BP 141/62; PULSE 71; RESP 16; TEMP 36.9; O2SAT 93
--- NOTE | 2022-08-20 08:38 | EXP.ACUTE.PN ---
Subjective *Date: 08/20/22 *Time: 12:22 Interval history: Patient states she is feeling well this morning. She had a pacemaker placed yesterday and denies any significant pain. She slept well and is eating and wants to go home. Medical Exam Vital signs and Labs for Last 24 Hours: Temp Pulse Resp BP Pulse Ox 98.8 F 71 18 131/56 L 93 L 08/20/22 04:00 08/20/22 04:00 08/20/22 04:00 08/20/22 04:00 08/20/22 04:00 I & O for Labs for Last 24 Hours: Intake & Output 08/17/22 08/18/22 08/19/22 08/20/22 11:59 11:59 11:59 11:59 Intake Total 2001 Output Total 0 / 0 0 / 0 Balance 2001 Weight 172 lb 167 lb 7 oz Constitutional: Present no acute distress Respiratory: Present CTA bilaterally Cardiac: Present Reg Rate and Rhythm GI: Present soft and normal bowel sounds; Absent distention or tenderness Extremities: Absent edema, clubbing or cyanosis Skin: Present intact and ecchymosis (Around the site of pacemaker placement) Neuro: Present alert and awake Assessment and Plan *Assessment and plan (1) Bradycardia: Status: Acute Category: Medical Code(s): R00.1 - Bradycardia, unspecified (2) Paroxysmal atrial fibrillation: Status: Chronic Category: Medical Code(s): I48.0 - Paroxysmal atrial fibrillation (3) Renal insufficiency: Status: Acute Category: Medical Code(s): N28.9 - Disorder of kidney and ureter, unspecified (4) Status post placement of cardiac pacemaker: Status: Acute Category: Surgical Code(s): Z95.0 - Presence of cardiac pacemaker (5) Abnormal electrocardiography: Status: Acute Category: Medical Code(s): R94.31 - Abnormal electrocardiogram [ECG] [EKG] (6) COPD (chronic obstructive pulmonary disease): Status: Chronic Qualifiers: COPD type: unspecified COPD Qualified Code(s): J44.9 - Chronic obstructive pulmonary disease, unspecified Category: Medical Code(s): J44.9 - Chronic obstructive pulmonary disease, unspecified (7) CAD (coronary artery disease): Status: Chronic Qualifiers: Associated angina: without angina Coronary Disease-Associated Artery/Lesion type: [place] artery [place] vs. transplanted heart: [place] heart Qualified Code(s): I25.10 - Atherosclerotic heart disease of [place] coronary artery without angina pectoris Category: Medical Code(s): I25.10 - Atherosclerotic heart disease of [place] coronary artery without angina pectoris (8) HTN (hypertension): Status: Chronic Qualifiers: Hypertension type: essential hypertension Qualified Code(s): I10 - Essential (primary) hypertension Category: Medical Code(s): I10 - Essential (primary) hypertension (9) Stented coronary artery: Status: Chronic Category: Surgical Code(s): Z95.5 - Presence of coronary angioplasty implant and graft (10) Dyspnea: Status: Chronic Qualifiers: Dyspnea type: dyspnea on exertion Qualified Code(s): R06.00 - Dyspnea, unspecified Category: Medical Code(s): R06.00 - Dyspnea, unspecified (11) Carotid artery stenosis: Status: Chronic Qualifiers: Laterality: unspecified laterality Qualified Code(s): I65.29 - Occlusion and stenosis of unspecified carotid artery Category: Medical Code(s): I65.29 - Occlusion and stenosis of unspecified carotid artery (12) Palpitations: Status: Acute Category: Medical Code(s): R00.2 - Palpitations (13) Hyperlipidemia: Status: Chronic Qualifiers: Hyperlipidemia type: mixed hyperlipidemia Qualified Code(s): E78.2 - Mixed hyperlipidemia Category: Medical Code(s): E78.5 - Hyperlipidemia, unspecified Plan Cardiology feels patient can be discharged today. Patient seen and examined. SHe is eager to go home and has been cl
--- NOTE | 2022-08-20 08:51 | PC.NURSE ---
one unmeasured void
--- NOTE | 2022-08-20 09:13 | PC.NURSE ---
All care and documentation by Gal SWANSON was completed under my direct supervision.
--- NOTE | 2022-08-20 09:22 | EXP.CARD.PN ---
Subjective Subjective Date: 08/20/22 Time: : Principal diagnosis: symptomatic bradycardia, SSS Interval history: 82-year-old white female in bed in no acute distress. Pacer insertion site dressing intact. Slight bruising noted below the gauze. No significant hematoma is identified. Telemetry shows pacing at 70 bpm. Exam Data for Last 24 hours Vital signs and Labs for Last 24 Hours: Temp Pulse Resp BP Pulse Ox 98.4 F 71 16 141/62 H 93 L 08/20/22 08:00 08/20/22 08:00 08/20/22 08:00 08/20/22 08:00 08/20/22 08:00 I & O for Last 24 hours: Intake & Output 08/17/22 08/18/22 08/19/22 08/20/22 11:59 11:59 11:59 11:59 Intake Total 2001 Output Total 0 / 0 0 / 0 Balance 2001 Weight 172 lb 167 lb 7 oz Constitutional Constitutional: no acute distress *Routine Respiratory Exam Respiratory: Present CTA bilaterally *Routine Cardiovascular Exam Cardiovascular: Present RRR *Routine Extremities Exam Extremities: Absent edema Progress Note: A&P Assessment and plan (1) Bradycardia: Status: Acute (2) Paroxysmal atrial fibrillation: Status: Chronic (3) Renal insufficiency: Status: Acute (4) Status post placement of cardiac pacemaker: Status: Acute (5) Abnormal electrocardiography: Status: Acute (6) COPD (chronic obstructive pulmonary disease): Status: Chronic (7) CAD (coronary artery disease): Status: Chronic (8) HTN (hypertension): Status: Chronic (9) Stented coronary artery: Status: Chronic (10) Dyspnea: Status: Chronic (11) Carotid artery stenosis: Status: Chronic (12) Palpitations: Status: Acute (13) Hyperlipidemia: Status: Chronic (14) Sick sinus syndrome: Status: Acute Assessment and Plan Assessment and Plan for All Diagnoses:: 1. Symptomatic bradycardia with sick sinus syndrome and history of atrial fibrillation with a rapid ventricular response. Status post dual-chamber pacemaker. No complications. Patient is stable for discharge. 2. History of paroxysmal atrial fibrillation, on chronic anticoagulation therapy 3. History of hypertension, controlled 4. History of ischemic cardiomyopathy, resolved on medical therapy with limited echo this admission showing EF 55%. 5. History of CAD with prior coronary stenting. Clinically stable. Stable from a cardiac standpoint for discharge home. Resume home medications of amlodipine 10 mg daily, apixaban 5 mg twice daily, bisoprolol 10 mg daily, Entresto 24/ 4 tablets twice daily and isosorbide 30 mg daily. Follow-up in our office in 1 week
--- NOTE | 2022-08-22 23:00 | EXP.DC.SUM ---
General Admission date:: 08/18/22 Discharge date: 08/20/22 HPI HPI HPI: Ms. Alejo is an 82-year-old female patient with a history of lung cancer in the remote past status post 2 resections who apparently achieved cure. She has not been followed by oncology for the last several years. She has emphysema and wears oxygen at night, takes blood thinners for atrial chronic atrial fib. She also has hypertension, coronary artery disease with previous stent placement, tachybradycardia syndrome, and is followed by cardiology at [facility]. She describes her heart racing and then beating very slowly this a.m. This was associated with nausea. She denies having chest pain and shortness of breath during this period of time. She thus presented to the emergency room. She did state in the ER that she had some dull chest pain. With evaluation in the emergency room EKG showed a bradycardia at a rate of 44/min. She remained bradycardic in the ER. She is noted to be on beta-malu. Cardiology did see her while in the ER. She was admitted for possible pacemaker intervention. At the time of this exam patient is sitting up in the bed and eating lunch. She appears most comfortable. She denies chest pain and shortness of breath.. Hospital Course Hospital Course Hospital Course: The patient was admitted and cardiology was consulted. They wanted to place a pacemaker. Infectious disease had seen the patient and felt her positive COVID-19 PCR indicated she was not shedding replicative virus and therefore she was not placed in customary isolation. The patient did agree to pacemaker placement. She had a limited echo showing an EF of percent no pericardial effusion. She had a pacemaker placed and tolerated the procedure well. By 08/20/2022, she was feeling well and wanted to go home. Cardiology felt she could discharge on her normal home medications and follow-up with them in 1 week and her PCP in 2 weeks. Exam Data for Last 24 hours Vital signs and Labs for Last 24 Hours: Temp Pulse Resp BP Pulse Ox 98.4 F 71 16 141/62 H 93 L 08/20/22 08:00 08/20/22 08:00 08/20/22 08:00 08/20/22 08:00 08/20/22 08:00 I & O for Last 24 hours: Intake & Output 08/20/22 08/21/22 08/22/22 08/23/22 11:59 11:59 11:59 11:59 Intake Total 2281 Output Total 0 / 0 Balance 2281 Narrative: Constitutional: Present no acute distress Respiratory: Present CTA bilaterally Cardiac: Present Reg Rate and Rhythm GI: Present soft and normal bowel sounds; Absent distention or tenderness Extremities: Absent edema, clubbing or cyanosis Skin: Present intact and ecchymosis (Around the site of pacemaker placement) Neuro: Present alert and awake DS: Diagnosis Discharge Diagnosis (1) Bradycardia: Status: Acute (2) Paroxysmal atrial fibrillation: Status: Chronic (3) Renal insufficiency: Status: Acute (4) Status post placement of cardiac pacemaker: Status: Acute (5) Abnormal electrocardiography: Status: Acute (6) COPD (chronic obstructive pulmonary disease): Status: Chronic (7) CAD (coronary artery disease): Status: Chronic (8) HTN (hypertension): Status: Chronic (9) Stented coronary artery: Status: Chronic (10) Dyspnea: Status: Chronic (11) Carotid artery stenosis: Status: Chronic (12) Palpitations: Status: Acute (13) Hyperlipidemia: Status: Chronic Meds Home Medications and Allergies Home Medications Medication Instructions Recorded Confirmed Type albuterol sulfate 90 mcg/actuation 2 puff inhalation Q6HP PRN 05/20/20 08/18/22 History aerosol inhaler Shortness Of Breath doxepin 10 mg capsule 10 mg PO DAILY mood 02/11/22 08/18/22 History methocarbamol 750 mg tablet 750 mg PO Q6 PRN Muscle Spasm #30 06/19/22 08/18/22 Rx tabs amlodipine 10 mg tablet (Norvasc) 10 mg PO DAILY Blood pressure 08/18/22 08/18/22
--- NOTE | 2022-08-23 13:16 | CARE MANAGER ---
Contacted patient related to hospital discharge. She states she is feeling well. She had no medication changes and is aware of follow up appointments. Denies questions or concerns. MARYCHUY Suarez
== END 2022-08-20 10:20 | disposition home or self-care (01) | DRG 242 ==
LOC: UTC 08:28 → ER 09:07 → 2ND 12:16
PROVIDERS: Internal Medicine; Admitting Provider Family Medicine; Emergency Provider Emergency Medicine; PCP Family Medicine; Visit Provider Family Medicine
PROC: 0JH606Z Insertion of Pacemaker, Dual Chamber into Chest Subcutaneous Tissue and Fascia, Open Approach (ICD-10-PCS; principal; 2022-08-19 11:45)
DX: U07.1 COVID-19 (principal); I25.10 Atherosclerotic heart disease of native coronary artery without angina pectoris; I10 Essential (primary) hypertension; J44.9 Chronic obstructive pulmonary disease, unspecified; I48.0 Paroxysmal atrial fibrillation; I11.9 Hypertensive heart disease without heart failure; Z95.5 Presence of coronary angioplasty implant and graft; I65.23 Occlusion and stenosis of bilateral carotid arteries; Z85.118 Personal history of other malignant neoplasm of bronchus and lung; I49.5 Sick sinus syndrome; I25.5 Ischemic cardiomyopathy; I65.29 Occlusion and stenosis of unspecified carotid artery
CPT/HCPCS: 33208; 36415; 71045; 71046; 80048; 80053; 83880; 84443; 84484; 85025; 93005; 93308; 94640; C1785; C1898; C9803; U0003; U0005

== ENCOUNTER 2022-09-09 14:21 | Emergency (ER) | payer MEDICARE, MEDICAID, SELFPAY ==
[2022-09-09 14:33] VITALS: BP 122/60; PULSE 76; RESP 19; TEMP 36.7; O2SAT 98
--- NOTE | 2022-09-09 14:41 | EXP.UTC ---
Discharge Plan Disposition Patient Disposition: Home, Self-Care Condition: Good Prescriptions Prescriptions: New cefdinir 300 mg capsule 300 mg PO BID 7 Days Qty: 14 0RF No Action albuterol sulfate 90 mcg/actuation HFA aerosol inhaler 2 puff IH Q6HP PRN (Reason: Shortness Of Breath) doxepin 10 MG capsule 10 mg PO DAILY methocarbamol 750 MG tablet 750 mg PO Q6 PRN (Reason: Muscle Spasm) Qty: 30 0RF isosorbide mononitrate 30 mg tablet extended release 24 hr 30 mg PO DAILY bisoprolol fumarate 10 mg tablet 10 mg PO DAILY amlodipine [Norvasc] 10 mg tablet 10 mg PO DAILY Eliquis 5 mg tablet 5 mg PO BID Entresto 97-103 mg tablet 1 tab PO BID Referrals Follow up/Referrals: Jai Pierre MD [Primary Care Provider] - See instructions Activity Restrictions/Add. Instructions Additional Instructions/Restrictions: *Monitor Temp, Over the counter Motrin or Tylenol as directed/as needed Tylenol every 4 hours and Motrin every 6 hours (as long as your family doctor has told you that you can take it) for fever or pain. and straight to ER if unable to lower temp less than 101.0 after medication given *Warm salt water gargles may help to soothe the throat *Throat Lozenges? *Warm fluids like tea with honey may help to soothe the throat? *Sleep elevated *Humidifier/Vaporizer Your throat swab was sent for culture. Those results are typically sent to your primary care. Be sure to follow up in 2-3 days with your family doctor/primary care physician if no improvement so they can review those result and treat if necessary. If you don?t have a primary care doctor, I recommend you get one but in the mean time, you will have to return to a walk in clinic Follow up IMMEDIATELY for new or worsening symptoms or no Noticeable improvement over the next 48-72 hours. 911 for difficulty breathing or swallowing You were tested for today for COVID19 your test result should be back in the next 24-48 hours, you may check your results on the [facility] virtual [employer] [facility] Portal Clinical Impressions Clinical Impression: Sinusitis Qualifiers: Sinusitis location: unspecified location Chronicity: unspecified Qualified Code(s): J32.9 - Chronic sinusitis, unspecified Instructions Patient Instructions: Sinusitis, DI for Sinusitis Discharge ED Provider: Sarah Traylor [facility] General Stated complaint: Head congestion, Drainage Mode of Arrival: Family Vehicle Source of Information: Patient and Parent(s) Time Seen by Provider: 09/09/22 14:43 Description of Symptoms (Recalled from Triage Doc. by RN): pt states that she visited her family doctor yesterday due to having a productive cough, sinus pressure, and a sinus headache and they only checked her for the flu and she states she wants an antibiotic for a sinus infection HEENT Symptoms (Recalled from RN notes): No Resp Symptoms (Recalled from RN notes): Yes Skin Symptoms (Recalled from RN notes): No MS Symptoms (Recalled from RN notes): No Functional Status (Recalled from RN notes): wnl History of Present Illness Provider Complaint: Patient states that she has been sick over a week with sinus congestion and pressure Having drainage in the back of her throat that has her throat sore and sometimes she will cough it up but doesnt think it is in her lungs yet States that she is having pressure behind her eyes like she gets with sinus infection States that she went to the PCP yesterday and they checked her for flu and it was negative States that she feels like it is a sinus infection and it keeps getting worse so she came in to get checked again to see if she antibiotics where it has been going on so long States that also she had pacemaker placed 2 weeks ago but has been doing well from that Related Data Home Medications Medication Instructions Recorded Confirmed albuterol sulfate 90 mcg/actuation 2 puff inhalation Q6HP PRN 05/20/20 08/25/22 aerosol i
[2022-09-09 14:56] LABS: UTC Strep Screen (Rapid) Negative (Negative)
[2022-09-09 15:05] VITALS: BP 122/60; PULSE 76; RESP 19; TEMP 36.7
== END 2022-09-09 15:10 | disposition home or self-care (01) ==
PROVIDERS: Emergency Provider Nurse Practitioner; PCP Family Medicine
DX: J32.9 Chronic sinusitis, unspecified (principal)
CPT/HCPCS: 87880; 99212; C9803; G0463; U0003; U0005

== ENCOUNTER 2022-10-16 13:06 | Emergency (ER) | payer MEDICARE, MEDICAID, SELFPAY ==
[2022-10-16] VITALS (7 sets, daily range): BP systolic 102–124; BP diastolic 45–63; PULSE 67–70; RESP 14–18; TEMP 36.6–36.7; O2SAT 95–98
--- NOTE | 2022-10-16 13:04 | ECG_ITS ---
APPROVED REPORT Exam: Resting ECG HR:70 bpm ECG Measurements Heart Rate 70 AXES MA 235 P 243 QRSd 89 QRS 68 QT 395 T 78 QTc 415 Conclusion ELECTRONIC ATRIAL PACEMAKER LOW QRS VOLTAGE IN PRECORDIAL LEADS [QRS DEFLECTION < 1.0 mV IN CHEST LEADS] ABNORMAL RHYTHM ECG UNCONFIRMED REPORT Electronically signed by : Tacho Arreguin MD 10/18/2022 21:13:01
--- NOTE | 2022-10-16 13:18 | XR_ITS ---
PROCEDURE INFORMATION: Exam: XR Chest Exam date and time: 10/16/2022 1:35 PM Age: 82 years old Clinical indication: Pain; Other: Palpatations; Additional info: Palpitations TECHNIQUE: Imaging protocol: Radiologic exam of the chest. Views: 1 view. COMPARISON: CR XR CHEST PORTABLE 08/19/2022 1:40 PM FINDINGS: Tubes, catheters and devices: Overlying air sampling and monitoring electrodes. Lungs: Pulmonary hyperinflation. Chronic bilateral lower pulmonary interstitial prominence. Increased hazy left retrocardiac/lower lobe opacity compared with the prior exam, and increased hazy airspace opacity in the left lingula partially obscuring the left heart border, which could be pneumonia or less likely asymmetric edema. Chronic emphysematous changes in the upper lungs. Calcified right hilar lymph nodes. Pleural spaces: Likely mild pleural scarring and calcifications. No pleural effusion. No pneumothorax. Heart/Mediastinum: Mild cardiomegaly. Dual lead left subclavian cardiac pacer. Mediastinal surgical changes. Vasculature: Calcified plaques in the aortic arch. Bones/joints: Osteopenia/osteoporosis.There are spinal degenerative changes, with multilevel disc narrrowing and spondylosis. Multiple old posterior upper left rib fracture deformities, chronic compared with 08/19/2022. IMPRESSION: 1. There is increased hazy airspace opacity in the lower left chest and lingula compared with the prior exam, which could be pneumonia or less likely asymmetric edema. 2. Chronic interstitial lung disease and emphysematous changes, correlate for COPD. 3. Mild cardiomegaly. Cardiac pacer. Mediastinal surgical changes. 4. Additional nonemergency and chronic findings as above.
[2022-10-16 13:30] LABS: Basophils % 0.3 % (0.1-2.0); Eosinophils # 0.1 K/mm3 (0.0-0.4); Eosinophils % 2.1 % (0.1-12.0); Hematocrit 34.4 % (37.0-47.0); Hemoglobin 10.7 g/dL (12.2-16.2); Lymphocytes # 2.2 K/mm3 (0.7-4.5); Lymphocytes % 32.4 % (10-50); Mean Corpuscular HGB Conc 31.2 g/dL (31.8-35.4); Mean Corpuscular Hemoglobin 30.7 pg (27.0-31.2); Mean Corpuscular Volume 98.5 fl (81-99); Mean Platelet Volume 7.3 fl (7.4-10.4); Monocytes # 0.4 K/mm3 (0.1-1.0); Monocytes % 5.9 % (1.7-9.3); Neutrophils # 4.1 K/mm3 (1.8-7.8); Neutrophils % 59.4 % (37.0-80.0); Platelet Count 269 K/mm3 (142-424); Red Blood Count 3.49 M/mm3 (4.20-5.40); Red Cell Distribution Width 12.9 % (11.5-17.5); White Blood Count 6.8 K/mm3 (4.8-10.8)
[2022-10-16 13:31] LABS: Chloride 106 mmol/L (98-107); Potassium 3.9 mmoL/L (3.5-5.1); Sodium 142 mmol/L (136-145)
[2022-10-16 13:34] LABS: Blood Urea Nitrogen 25 mg/dl (7-17); Creatinine Clearance Estimated 43 mL/min (50-200); Estimated Glomerular Filt Rate 39 ml/min (>60); GFR (African American) 48 ML/MIN (>60)
[2022-10-16 13:35] LABS: Anion Gap 10.9 mEq/L (5-15); Calcium 9.4 mg/dl (8.4-10.2); Carbon Dioxide 29 mmol/L (22.0-30.0); Glucose 117 mg/dl (74-100)
[2022-10-16 13:59] LABS: Troponin I < 0.01 ng/ml (0.00-0.034)
--- NOTE | 2022-10-16 15:00 | HMH.EDGENADL ---
Discharge Plan Disposition Patient Disposition: Home, Self-Care Condition: Good Prescriptions Prescriptions: No Action albuterol sulfate 90 mcg/actuation HFA aerosol inhaler 2 puff IH Q6HP PRN (Reason: Shortness Of Breath) isosorbide mononitrate 30 mg tablet extended release 24 hr 30 mg PO DAILY Qty: 30 5RF doxepin 10 MG capsule 10 mg PO DAILY methocarbamol 750 MG tablet 750 mg PO Q6 PRN (Reason: Muscle Spasm) Qty: 30 0RF bisoprolol fumarate 10 mg tablet 10 mg PO DAILY amlodipine [Norvasc] 10 mg tablet 10 mg PO DAILY Eliquis 5 mg tablet 5 mg PO BID Entresto 97-103 mg tablet 1 tab PO BID cefdinir 300 mg capsule 300 mg PO BID 7 Days Qty: 14 0RF Referrals Follow up/Referrals: Jai Pierre MD [Primary Care Provider] - See instructions Activity Restrictions/Add. Instructions Additional Instructions/Restrictions: Follow-up with Dr. Hollingsworth/cardiology. Call Tuesday to make appointment. Clinical Impressions Clinical Impression: Atrial contractions, premature, Palpitations Instructions Patient Instructions: DI for Palpitations Discharge ED Provider: Ryland Paniagua General Adult HPI General Chief complaint: Arrhythmia/Palpitations Stated complaint: Irregular HR Time Seen by Provider: 10/16/22 15:25 Mode of Arrival: Ambulatory Source of Information: Patient Limitations: No Limitations Description of Symptoms (Recalled from ER Triage Doc. by RN): Pt reports having been having palpitations since . Pt reports she has been been feeling her pulse and she can feel a pause. Pt reports has noted this happening several times daily. Pt states no chest pain or SOA. Pt reports had a pacemaker placed a couple of weeks ago. History of Present Illness HPI narrative: Patient states that she has had an irregular heartbeat since 2 days ago. She says that she was seen in the cardiology office for pacemaker check on Tuesday, 5 days ago. She says that she never had any problems until the akira pulled with my pacemaker at that visit. She describes the irregular heartbeat as pauses or skips. Denies chest pain or shortness of breath. No illness currently. No cough or fever. No vomiting or diarrhea. Related Data Home Medications Medication Instructions Recorded Confirmed albuterol sulfate 90 mcg/actuation 2 puff inhalation Q6HP PRN 05/20/20 08/25/22 aerosol inhaler Shortness Of Breath doxepin 10 mg capsule 10 mg PO DAILY mood 02/11/22 08/25/22 amlodipine 10 mg tablet (Norvasc) 10 mg PO DAILY Blood pressure 08/18/22 08/25/22 apixaban 5 mg tablet (Eliquis) 5 mg PO BID Blood thinner/atrial 08/18/22 08/25/22 fib bisoprolol fumarate 10 mg tablet 10 mg PO DAILY High blood pressure 08/18/22 08/25/22 sacubitril 97 mg-valsartan 103 mg 1 tab PO BID blood pressure 08/18/22 08/25/22 tablet (Entresto) Previous Rx's Medication Instructions Recorded methocarbamol 750 mg tablet 750 mg PO Q6 PRN Muscle Spasm #30 06/19/22 tabs cefdinir 300 mg capsule 300 mg PO BID 7 days #14 caps 09/09/22 isosorbide mononitrate 30 mg 30 mg PO DAILY High blood pressure 09/27/22 tablet,extended release 24 hr #30 tabs Allergies Allergy/AdvReac Type Severity Reaction Status Date / Time levofloxacin [From LEVAQUIN] Allergy Unknown MAKES SICK Verified 08/25/22 14:22 tetracycline [TETRACYCLINE] Allergy Unknown SWELLING, Verified 08/25/22 14: ITCHING aspirin AdvReac Intermediate Verified 08/25/22 14:22 [facility] Medical History (Updated 10/16/22 @ 15:45 by Ryland Paniagua MD) Acute infective cystitis Atrial fibrillation Community acquired pneumonia COVID Gallbladder disease History of lung cancer Influenza Ischemic cardiomyopathy Non-ST elevation RI (NSTEMI) Paroxysmal atrial fibrillation Pneumonia Respiratory failure with hypoxia Sick sinus syndrome Typical angina Surgical History History of cho
== END 2022-10-16 16:17 | disposition home or self-care (01) ==
PROVIDERS: Emergency Provider Emergency Medicine; PCP Family Medicine
DX: R00.2 Palpitations (principal); I49.1 Atrial premature depolarization; Z79.899 Other long term (current) drug therapy; Z88.1 Allergy status to other antibiotic agents; Z88.6 Allergy status to analgesic agent; I48.91 Unspecified atrial fibrillation; Z95.0 Presence of cardiac pacemaker; I10 Essential (primary) hypertension; J44.9 Chronic obstructive pulmonary disease, unspecified; I65.29 Occlusion and stenosis of unspecified carotid artery; I25.5 Ischemic cardiomyopathy; Z85.3 Personal history of malignant neoplasm of breast
CPT/HCPCS: 71045; 80048; 84484; 85025; 93005; 99284

== ENCOUNTER 2022-11-24 17:28 | Inpatient (IN) | payer MEDICARE, MEDICAID, SELFPAY ==
[2022-11-24 17:34] VITALS: BP 131/54; PULSE 71; RESP 20; TEMP 37.1; O2SAT 98; BMI 25.7
--- NOTE | 2022-11-24 17:46 | CT_ITS ---
PROCEDURE INFORMATION: Exam: CT Pelvis Without Contrast; Skeletal Exam date and time: 11/24/2022 6:27 PM Age: 82 years old Clinical indication: Injury or trauma; Fall; Blunt trauma (contusions or hematomas); Left; Hip; Additional info: Fall, trauma TECHNIQUE: Imaging protocol: Computed tomography of the pelvis without contrast. Exam focused on the skeleton. Radiation optimization: All CT scans at this facility use at least one of these dose optimization techniques: automated exposure control; mA and/or kV adjustment per patient size (includes targeted exams where dose is matched to clinical indication); or iterative reconstruction. COMPARISON: CT ABDOMEN PELVIS WO CON 02/10/2022 3:16 PM FINDINGS: Stomach and bowel: A large amount of stool is noted throughout the colon. Mild diverticulosis is present in the distal colon. Vasculature: The vasculature demonstrates diffuse mild atherosclerotic calcification. Bones/joints: Fracture of the left femoral neck with slight impaction and increased varus angulation. There is no evidence of joint malalignment or dislocation. Sclerotic densities present within the pelvis and left hip. Soft tissues: Left lateral soft tissue swelling. IMPRESSION: 1. Fracture of the left femoral neck with slight impaction and increased varus angulation. 2. Left lateral soft tissue swelling. 3. No evidence of acute dislocation. 4. A large amount of stool is noted throughout the colon. 5. Mild diverticulosis is present in the distal colon.
--- NOTE | 2022-11-24 17:46 | XR_ITS ---
PROCEDURE INFORMATION: Exam: XR Chest Exam date and time: 11/24/2022 6:49 PM Age: 82 years old Clinical indication: Injury or trauma; Fall; Blunt trauma (contusions or hematomas); Additional info: Fall, trauma TECHNIQUE: Imaging protocol: Radiologic exam of the chest. Views: 1 view. COMPARISON: CR XR CHEST PORTABLE 10/16/2022 1:35 PM FINDINGS: Tubes, catheters and devices: A pacemaker device is present, and its leads are in appropriate position. Lungs: Bilateral hyperinflation is present. Lung apices not included on the examination. Pleural spaces: Trace bilateral pleural effusions. Heart/Mediastinum: Heart demonstrates mild diffuse enlargement. Surgical clips noted within the mediastinum. Vasculature: The vasculature demonstrates diffuse moderate atherosclerotic calcification. Bones/joints: Unremarkable. IMPRESSION: 1. Bilateral hyperinflation is present. 2. Mild cardiomegaly. 3. Trace bilateral pleural effusions.
--- NOTE | 2022-11-24 17:46 | XR_ITS ---
PROCEDURE INFORMATION: Exam: XR Left Knee Exam date and time: 11/24/2022 6:49 PM Age: 82 years old Clinical indication: Injury or trauma; Fall; Blunt trauma; Knee; Left; Additional info: Fall, trauma TECHNIQUE: Imaging protocol: Radiologic exam of the Left knee. Views: 1 or 2 views. COMPARISON: CT HIP LT WO CON 11/24/2022 6:30 PM FINDINGS: Bones/joints: There is no evidence of acute fracture. There is no evidence of joint malalignment or dislocation. Soft tissues: No focal soft tissue swelling. IMPRESSION: 1. No evidence of acute fracture. 2. No evidence of acute dislocation.
--- NOTE | 2022-11-24 17:46 | XR_ITS ---
PROCEDURE INFORMATION: Exam: XR Left Hip Exam date and time: 11/24/2022 6:49 PM Age: 82 years old Clinical indication: Injury or trauma; Fall; Blunt trauma (contusions or hematomas); Left; Hip; Additional info: Fall, trauma TECHNIQUE: Imaging protocol: Radiologic exam of the Left hip. Views: 2 or 3 views hip with pelvis when performed. COMPARISON: CT HIP LT WO CON 11/24/2022 6:30 PM FINDINGS: Bones/joints: Fracture of the left femoral neck with increased varus angulation and slight impaction. There are mild degenerative changes in the left hip joint. There is no evidence of joint malalignment or dislocation. Soft tissues: Lateral soft tissue swelling. IMPRESSION: 1. Fracture of the left femoral neck with increased varus angulation and slight impaction. 2. There are mild degenerative changes in the left hip joint. 3. No evidence of acute dislocation. 4. Lateral soft tissue swelling.
--- NOTE | 2022-11-24 17:46 | CT_ITS ---
PROCEDURE INFORMATION: Exam: CT Cervical Spine Without Contrast Exam date and time: 11/24/2022 6:17 PM Age: 82 years old Clinical indication: Injury or trauma; Fall; Blunt trauma; Additional info: Fall, trauma TECHNIQUE: Imaging protocol: Computed tomography of the cervical spine without contrast. Radiation optimization: All CT scans at this facility use at least one of these dose optimization techniques: automated exposure control; mA and/or kV adjustment per patient size (includes targeted exams where dose is matched to clinical indication); or iterative reconstruction. COMPARISON: CT HEAD/BRAIN WO CON 11/24/2022 6:07 PM FINDINGS: Bones/joints: Nonspecific straightening. Grade 1 anterolisthesis of C2 on C3, C3 on C4, C4 on C5 and C5 on C6. Vertebral body heights are preserved. Mild degenerative change about the dens. Mild to moderate prevertebral osteophytosis. There are facet joint degenerative changes bilaterally. No acute cervical spine fracture. Lungs: Lung apices are normal. Pleural spaces: No visible pneumothorax. Thyroid: There are few thyroid nodules measuring up to 1.6 cm on the right. New para emphysema. Vasculature: Vascular calcification. Soft tissues: Unremarkable. IMPRESSION: No acute cervical spine fracture. COMMENTS: Consistent with the [employer]'s Incidental Findings Committee white paper (J Am Payton Radiol 2015): In patients aged 35 years and older with an incidental thyroid nodule equal to or greater than 1.[address], MRI or extrathyroidal US, further evaluation with dedicated thyroid US is recommended for patients with normal life expectancy and without comorbidities. For smaller nodules without suspicious features, no further evaluation or follow up is recommended.
--- NOTE | 2022-11-24 17:46 | CT_ITS ---
PROCEDURE INFORMATION: Exam: CT Lumbar Spine Without Contrast Exam date and time: 11/24/2022 6:23 PM Age: 82 years old Clinical indication: Injury or trauma; Fall; Blunt trauma (contusions or hematomas); Additional info: Fall, trauma TECHNIQUE: Imaging protocol: Computed tomography of the lumbar spine without contrast. Radiation optimization: All CT scans at this facility use at least one of these dose optimization techniques: automated exposure control; mA and/or kV adjustment per patient size (includes targeted exams where dose is matched to clinical indication); or iterative reconstruction. COMPARISON: SPLUMBWO CT lumbar spine wo con 07/08/2018 9:35 AM FINDINGS: Bones/joints: Mild compression deformity of T12 is present, similar to the prior studies. Grade 1 spondylolisthesis of L5 on S1. The lumbar spine demonstrates mild degenerative changes at multiple levels. Disc space narrowing and bilateral neural foraminal narrowing noted L4-L5 and L5-S1. Vasculature: The vasculature demonstrates diffuse mild atherosclerotic calcification. Soft tissues: Unremarkable. IMPRESSION: 1. Mild compression deformity of T12 is present, similar to the prior studies. 2. Grade 1 spondylolisthesis of L5 on S1. 3. The lumbar spine demonstrates mild degenerative changes at multiple levels.
--- NOTE | 2022-11-24 17:46 | CT_ITS ---
PROCEDURE INFORMATION: Exam: CT Thoracic Spine Without Contrast Exam date and time: 11/24/2022 6:20 PM Age: 82 years old Clinical indication: Injury or trauma; Fall; Blunt trauma (contusions or hematomas); Additional info: Fall, trauma TECHNIQUE: Imaging protocol: Computed tomography of the thoracic spine without contrast. Radiation optimization: All CT scans at this facility use at least one of these dose optimization techniques: automated exposure control; mA and/or kV adjustment per patient size (includes targeted exams where dose is matched to clinical indication); or iterative reconstruction. COMPARISON: CT CERVICAL SPINE WO CON 11/24/2022 6:17 PM FINDINGS: Bones/joints: Mild compression deformity of T12 is present, similar to the prior studies. The thoracic spine demonstrates mild degenerative changes at multiple levels. The facet joints demonstrate mild degenerative hypertrophy and sclerosis. Soft tissues: Unremarkable. IMPRESSION: 1. Mild compression deformity of T12 is present, similar to the prior studies. 2. The thoracic spine demonstrates mild degenerative changes at multiple levels.
--- NOTE | 2022-11-24 17:46 | XR_ITS ---
PROCEDURE INFORMATION: Exam: XR Left Femur Exam date and time: 11/24/2022 6:49 PM Age: 82 years old Clinical indication: Injury or trauma; Fall; Blunt trauma; Thigh or upper leg; Left; Additional info: Fall, trauma TECHNIQUE: Imaging protocol: Radiologic exam of the Left femur. Views: 2 views. COMPARISON: CT HIP LT WO CON 11/24/2022 6:30 PM FINDINGS: Bones/joints: Fracture of the left femoral neck with slight impaction. Increased varus angulation of the left femoral fracture. There is no evidence of joint malalignment or dislocation. Soft tissues: Lateral soft tissue swelling. IMPRESSION: 1. Fracture of the left femoral neck with slight impaction. 2. Increased varus angulation of the left femoral fracture. 3. Lateral soft tissue swelling. 4. No evidence of acute dislocation.
--- NOTE | 2022-11-24 17:46 | CT_ITS ---
PROCEDURE INFORMATION: Exam: CT Head Without Contrast Exam date and time: 11/24/2022 6:07 PM Age: 82 years old Clinical indication: Injury or trauma; Fall; Blunt trauma (contusions or hematomas); Additional info: Fall, trauma TECHNIQUE: Imaging protocol: Computed tomography of the head without contrast. Radiation optimization: All CT scans at this facility use at least one of these dose optimization techniques: automated exposure control; mA and/or kV adjustment per patient size (includes targeted exams where dose is matched to clinical indication); or iterative reconstruction. COMPARISON: US CA CAROTID DUPLEX BI 03/20/2021 8:15 AM FINDINGS: Brain: Age-related volume loss. Mild decreased attenuation of the supratentorial white matter is likely secondary to chronic microvascular ischemia. No acute intracranial hemorrhage, midline shift or intracranial mass effect. Cerebral ventricles: Ventriculomegaly is commensurate for degree of volume loss. Paranasal sinuses: Visualized sinuses are unremarkable. No fluid levels. Mastoid air cells: Visualized mastoid air cells are well aerated. Bones/joints: Unremarkable. No acute fracture. Soft tissues: Unremarkable. IMPRESSION: No acute intracranial abnormality.
--- NOTE | 2022-11-24 17:50 | PC.NURSE ---
Patient cleaned up from soiled lines. ER at to assess injury while we changed her.
[2022-11-24 18:01] VITALS: BP 110/43; PULSE 71; O2SAT 91
--- NOTE | 2022-11-24 18:07 | HMH.EDGENADL ---
Discharge Plan Disposition Chief Complaint: PAIN Prescriptions Prescriptions: No Action albuterol sulfate 90 mcg/actuation HFA aerosol inhaler 2 puff IH Q6HP PRN (Reason: Shortness Of Breath) isosorbide mononitrate 30 mg tablet extended release 24 hr 30 mg PO DAILY Qty: 30 5RF bisoprolol fumarate 10 mg tablet 10 mg PO BID Qty: 180 2RF amlodipine 10 mg tablet See Rx Instructions .ROUTE .COMPLEX Qty: 30 1RF Dose Instruction: TAKE 1 TABLET BY MOUTH ONCE DAILY Rx Instructions: TAKE 1 TABLET BY MOUTH ONCE DAILY doxepin 10 MG capsule 10 mg PO DAILY methocarbamol 750 MG tablet 750 mg PO Q6 PRN (Reason: Muscle Spasm) Qty: 30 0RF Eliquis 5 mg tablet 5 mg PO BID Entresto 97-103 mg tablet 1 tab PO BID cefdinir 300 mg capsule 300 mg PO BID 7 Days Qty: 14 0RF Referrals Follow up/Referrals: Jai Pierre MD [Primary Care Provider] - See instructions Discharge ED Provider: Malini Dunaway General Adult HPI General Chief complaint: PAIN Stated complaint: Fall Time Seen by Provider: 11/24/22 17:37 Mode of Arrival: EMS Source of Information: Patient Limitations: No Limitations Description of Symptoms (Recalled from ER Triage Doc. by RN): pt to ed c/o fall. pt states she was walking through the kitchen, slipped and fell on her left side. pt is c/o hip pain. History of Present Illness HPI narrative: This patient is an 82 yo female with a history of atrial fibrillation on Eliquis presenting to the emergency department for evaluation after a ground-level fall. She reports that she slipped in the kitchen, landing on her left hip. She not hit her head or lose consciousness. She felt immediate left hip pain and has since not been able to bear weight. No other concerns noted at this time. Her last dose of Eliquis was this morning. She denies any numbness, tingling, chest pain, abdominal pain, or other issues. Her hip pain is severe, constant, and any sort of movement makes it worse. Related Data Home Medications Medication Instructions Recorded Confirmed albuterol sulfate 90 mcg/actuation 2 puff inhalation Q6HP PRN 05/20/20 10/25/22 aerosol inhaler Shortness Of Breath doxepin 10 mg capsule 10 mg PO DAILY mood 02/11/22 10/25/22 apixaban 5 mg tablet (Eliquis) 5 mg PO BID Blood thinner/atrial 08/18/22 10/25/22 fib sacubitril 97 mg-valsartan 103 mg 1 tab PO BID blood pressure 08/18/22 10/25/22 tablet (Entresto) Previous Rx's Medication Instructions Recorded methocarbamol 750 mg tablet 750 mg PO Q6 PRN Muscle Spasm #30 06/19/22 tabs cefdinir 300 mg capsule 300 mg PO BID 7 days #14 caps 09/09/22 isosorbide mononitrate 30 mg 30 mg PO DAILY High blood pressure 09/27/22 tablet,extended release 24 hr #30 tabs bisoprolol fumarate 10 mg tablet 10 mg PO BID High blood pressure 10/22/22 #180 tabs amlodipine 10 mg tablet See Rx Instructions .Route 10/28/22 .COMPLEX #30 tabs Allergies Allergy/AdvReac Type Severity Reaction Status Date / Time levofloxacin [From LEVAQUIN] Allergy Unknown MAKES SICK Verified 10/25/22 09:08 tetracycline [TETRACYCLINE] Allergy Unknown SWELLING, Verified 10/25/22 09:08 ITCHING aspirin AdvReac Intermediate Verified 10/25/22 09:08 [facility] Disclaimer: The information contained in this section may have been updated after the patient was seen, as this information can be updated by other users. Medical History Acute infective cystitis Atrial fibrillation Community acquired pneumonia COVID Gallbladder disease History of lung cancer Influenza Ischemic cardiomyopathy Non-ST elevation [place] (NSTEMI) Paroxysmal atrial fibrillation Pneumonia Respiratory failure with hypoxia Sick sinus syndrome Typical angina Surgical History History of cholecystectomy Hx of pneumonectomy Stented coronary artery Family History (Re
--- NOTE | 2022-11-24 18:17 | PC.NURSE ---
Pt in radiology at this time
--- NOTE | 2022-11-24 18:26 | CT_ITS ---
PROCEDURE INFORMATION: Exam: CT Left Lower Extremity Without Contrast, Hip Exam date and time: 11/24/2022 6:30 PM Age: 82 years old Clinical indication: Injury or trauma; Fall; Blunt trauma; Patient HX: Patient fell, left hip pain. TECHNIQUE: Imaging protocol: CT of the Left lower extremity without contrast was performed. Exam focused on the hip. 3D rendering (Not supervised by radiologist): MIP and/or 3D reconstructed images were created by the technologist. Radiation optimization: All CT scans at this facility use at least one of these dose optimization techniques: automated exposure control; mA and/or kV adjustment per patient size (includes targeted exams where dose is matched to clinical indication); or iterative reconstruction. COMPARISON: CT BONY PELVIS 11/24/2022 6:27 PM FINDINGS: Bones/joints: Fracture of the left femoral neck with impaction and increased varus angulation. There is no evidence of joint malalignment or dislocation. Punctate densities noted within the acetabulum. Soft tissues: Lateral soft tissue swelling. IMPRESSION: 1. Fracture of the left femoral neck with impaction and increased varus angulation. 2. Lateral soft tissue swelling. 3. No evidence of acute dislocation.
--- NOTE | 2022-11-24 18:45 | PC.NURSE ---
pt returned from CT via stretcher with microbiology lab technician
--- NOTE | 2022-11-24 18:49 | PC.NURSE ---
Firmware Developer paging Ortho for ER
--- NOTE | 2022-11-24 18:49 | PC.NURSE ---
JAGRUTI ISRAEL speaking with Anastasia Duron MD at this time
[2022-11-24 19:16] LABS: Basophils % 0.3 % (0.1-2.0); Eosinophils # 0.2 K/mm3 (0.0-0.4); Eosinophils % 1.5 % (0.1-12.0); Hematocrit 31.5 % (37.0-47.0); Hemoglobin 10.2 g/dL (12.2-16.2); Lymphocytes # 1.9 K/mm3 (0.7-4.5); Lymphocytes % 14.9 % (10-50); Mean Corpuscular HGB Conc 32.3 g/dL (31.8-35.4); Mean Corpuscular Hemoglobin 30.9 pg (27.0-31.2); Mean Corpuscular Volume 95.7 fl (81-99); Mean Platelet Volume 8.6 fl (7.4-10.4); Monocytes # 0.3 K/mm3 (0.1-1.0); Monocytes % 2.5 % (1.7-9.3); Neutrophils # 10.3 K/mm3 (1.8-7.8); Neutrophils % 80.8 % (37.0-80.0); Platelet Count 257 K/mm3 (142-424); Red Blood Count 3.29 M/mm3 (4.20-5.40); Red Cell Distribution Width 13.4 % (11.5-17.5); White Blood Count 12.8 K/mm3 (4.8-10.8)
[2022-11-24 19:27] LABS: Chloride 112 mmol/L (98-107); Potassium 4.2 mmoL/L (3.5-5.1); Sodium 142 mmol/L (136-145)
[2022-11-24 19:28] LABS: Activated Partial Thrombo Time 26.8 seconds (22.8-30.6); INR 1.01 (0.9-1.1); Prothrombin Time 10.9 seconds (10.1-12.5)
[2022-11-24 19:30] LABS: Alanine Aminotransferase 28 U/L (12-78); Albumin Level 4.1 g/dl (3.5-5.0); Albumin/Globulin Ratio 1.6 (1.1-1.8); Alkaline Phosphatase 108 U/L (38-126); Anion Gap 13.2 mEq/L (5-15); Aspartate Amino Transferase 45 U/L (14-36); Bilirubin,Total 0.6 mg/dl (0.2-1.3); Blood Urea Nitrogen 34 mg/dl (7-17); Calcium 8.5 mg/dl (8.4-10.2); Carbon Dioxide 21 mmol/L (22.0-30.0); Creatinine Clearance Estimated 36 mL/min (50-200); Estimated Glomerular Filt Rate 39 ml/min (>60); GFR (African American) 48 ML/MIN (>60); Globulin 2.6 g/dL (1.3-3.2); Glucose 143 mg/dl (74-100); Total Protein,Serum 6.7 g/dl (6.3-8.2)
[2022-11-24 19:32] LABS: Coronavirus 19, PCR Not Detected (NotDetected); Influenza A, PCR Not Detected (NotDetected); Influenza B, PCR Not Detected (NotDetected)
--- NOTE | 2022-11-24 20:05 | PC.NURSE ---
pt lying in bed, in room, still having some pain
--- NOTE | 2022-11-24 21:31 | PC.NURSE ---
Pt vomited on herself. Pt cleaned up. pt advises she is still in pain. RN notified.
--- NOTE | 2022-11-24 21:45 | EXP.HP ---
History of Present Illness *Admission Date: 11/24/22 *Reason for visit:: Fall with injury *History of present illness: Ms. Alejo is a 82-year-old female with a past medical history that is positive for CHF, Atrial Fibrillation on chronic anticoagulation, h/o Lung Cancer s/p Pneumonectomy, Chronic Hypoxic Respiratory Failure, wears home oxygen at 2L at night, SSS s/p PPM. She presents to [facility] due to a fall at ground level that occurred approximately 1 hour prior to presentation. She reports that she was walking with socks in her kitchen and the floor was slick, she reports that she fell from ground level and lost her footing. She denies hitting her head. She reports that she fell on her left side that immediately resulted in pain in the left hip/left upper leg with the inability to bear weight. She reports that her called 911 and she was brought in by EMS to the ER. In the ER, the patient underwent multiple imaging that showed a left femoral neck fracture. CT of the head showed no acute findings. CBC showed no acute findings. CMP showed a slight increase in creatinine at 1.30, but this appears consistent with prior lab values. The patient will be admitted with initial impression: Left Femoral neck Fracture Orthopaedics was consulted from the ER. The patient is on a DOAC due to chronic atrial fibrillation, it will be held for 48 hours with plan for surgical intervention, the patient was informed of the risks versus the benefits of stopping the DOAC in the ER and wished to proceed with holding the DOAC for surgical intervention. [facility] Disclaimer: The information contained in this section may have been updated after the patient was seen, as this information can be updated by other users. Medical History Acute infective cystitis Atrial fibrillation Community acquired pneumonia COVID Gallbladder disease History of lung cancer Influenza Ischemic cardiomyopathy Non-ST elevation [place] (NSTEMI) Paroxysmal atrial fibrillation Pneumonia Respiratory failure with hypoxia Sick sinus syndrome Typical angina Surgical History History of cholecystectomy Hx of pneumonectomy Stented coronary artery Family History Other Family history of myocardial infarction Lung cancer Social History (Reviewed 11/24/22 @ 21:52 by ELIDA Thompson Smoking Status: Never smoker second hand exposure: No alcohol intake: never substance use type: denies use current occupational status: retired Travel in the last 8 weeks: Inside the [place] household members: other housing: house lives independently: No marital status: current occupational exposures/hazards: No 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) Review of Systems Review of Systems Review of systems:: pertinent systems reviewed and negative unless documented below Constitutional Constitutional: Reports system reviewed and no additional complaints, except as documented Eyes Eyes: Reports system reviewed and no additional complaints, except as documented ENT Ears, Nose, Mouth, and Throat: Reports system reviewed and no additional complaints, except as documented *Cardiovascular Cardiovascular: Reports system reviewed and no additional complaints, except as documented *Respiratory Respiratory: Reports system reviewed and no additional complaints, except as documented *Gastrointestinal Gastrointestinal: Reports system reviewed and no additional complaints, except as documented *Genitourinary Genitourinary: Reports system reviewed and no additional complaints, except as documented *Musculoskeletal Comments: Left Thigh Pain Integumentary/Breasts Skin/Breast: Reports system reviewed and no additional complaints, except as documented *Neurologic Neurologic: Reports system re
[2022-11-25] VITALS (8 sets, daily range): BP systolic 103–124; BP diastolic 41–53; PULSE 70–75; RESP 16–22; TEMP 36.6–37.6; O2SAT 91–99; BMI 29.0
--- NOTE | 2022-11-25 01:29 | PC.NURSE ---
patient arrived to the floor via stretcher from the ed and admitted to room 206. npo after MN. Possibly surgery in the AM for fractured left femur.
--- NOTE | 2022-11-25 03:41 | PC.NURSE ---
PATIENT REMAINS NPO FOR POSSIBLE LEFT HIP REPAIR DUE TO FRACTURE, PATIENT RECEIVED BATH LAST NIGHT UPON ADMISSION. HAS CONTACT LENSES IN HER ETES.
--- NOTE | 2022-11-25 07:34 | CA_ITS ---
APPROVED REPORT EXAM: Comprehensive 2D, Doppler, and color-flow Echocardiogram Orthopedic Tech: Jacquelyn Petit, RT(R) Ht: 5 ft 4 in Wt: 170lbs BSA: 1.83 BP: 110/43 mmHg Indications: CHF, HTN, family history of HD, fall with left femur fracture, AFIB, hx of COVID, history of lung cance. Patient is supine on back due to fractured hip, limited windows and scanning. 2D Dimensions LVOT 2.06 cm (M/F) 1.5-2.5 M-Mode Dimensions RVDd 2.70 cm (0.9-2.6) LA Diam 3.28 cm (1.9-4.0) LVDd 4.29 cm (3.5-5.7) Ao Diam 2.90 cm (2.0-3.7) LVDs 3.50 cm (3.5-5.7) IVSd 0.91 cm (0.6-1.1) PWd 1.06 cm (0.6-1.1) EF (Teich) 38.40% FS 18.40% EDV (Teich) 82.60 mL ESV (Teich) 50.90 mL Tricuspid Valve TR P. Velocity 395.00 cm/s RAP Estimate 15.00 mmHg RVSP 77.50 mmHg Left Ventricle Left atrium is mildly enlarged, left ventricle is normal size mild concentric left ventricular hypertrophy, estimated ejection fraction 55% with no regional wall motion abnormality, diastolic parameters are inconclusive. Right Ventricle Right atrium and right ventricle are mildly enlarged with normal contractility. Aortic Valve Aortic valve is thickened and calcified without aortic stenosis or aortic insufficiency. Mitral Valve Mitral valve has mitral calcification, there is no mitral stenosis, there is mild mitral regurgitation. Tricuspid Valve Tricuspid valve grossly normal, there is mild tricuspid regurgitation, calculated right ventricular systolic pressure 77 mmHg. Pulmonic Valve Pulmonic valve is poorly visualized. Great Vessels Aortic root is normal size. Inferior vena cava is poorly visualized. Pericardium No significant pericardial effusion noted. Conclusion 1. Biatrial enlargement, normal left ventricular size, mild concentric left ventricular hypertrophy, estimated ejection fraction 55% with no regional wall motion abnormality, diastolic parameters are inconclusive. 2. Mildly enlarged right ventricle with normal contractility. 3. Mild mitral and tricuspid regurgitation, calculated right ventricular systolic pressure 77 mmHg. 4. No significant pericardial effusion noted. 5. Inferior vena cava is poorly visualized. Electronically signed by : Eben Wiley MD 11/26/2022 15:18:44
--- NOTE | 2022-11-25 07:35 | HMH.PHAINT1 ---
Pharmacy Intervention Comments: Home medication list verified via patient interview and external fill history. -Sylvia Bey, PharmD Candidate 2022
--- NOTE | 2022-11-25 10:06 | EXP.ORTH.CON ---
Documented by User: ANGELICA Newberry 11/25/22 11:38 History of Present Illness *Admission Date: 11/24/22 *Reason for visit:: Left hip fracture *History of present illness: Ms. Alejo is an 82 year old female patient admitted to the inpatient service following a mechanical ground level fall in her home yesterday 11/24/2022. She reports that she was walking in her kitchen wearing socks when she slipped and fell, causing her to injure her left hip. She states that she was unable to get up and walk so she was brought to the [facility] emergency department where subsequent evaluation with x-ray and CT demonstrated a left subcapital femoral neck fracture. This morning the patient is lying comfortably in bed and her and children are at the bedside. She reports left hip pain as to be expected but states it is well controlled with as needed pain medication and rest. She denies pain anywhere else or any other injuries. No history of any distal tingling/numbness. At baseline she lives alone in her own home with her and ambulates without the use of any assistive devices. She has not had any prior surgeries to the left hip. She is independent for her activities of daily living. Her past medical history significant for atrial fibrillation on chronic anticoagulation with Eliquis, CHF, lung cancer status postpneumonectomy, and chronic hypoxic respiratory failure. At baseline she wears 2 L of supplemental oxygen only at night. She last took her Eliquis yesterday morning 11/24/2022. She denies any other symptoms or concerns at this time. [facility] Disclaimer: The information contained in this section may have been updated after the patient was seen, as this information can be updated by other users. Medical History (Updated 11/25/22 @ 13:59 by Birgit Cavanaugh APRN) Acute infective cystitis Atrial fibrillation Community acquired pneumonia COVID Gallbladder disease History of lung cancer Influenza Ischemic cardiomyopathy Lung cancer Non-ST elevation [place] (NSTEMI) Paroxysmal atrial fibrillation Pneumonia Respiratory failure with hypoxia Sick sinus syndrome Typical angina Surgical History History of cholecystectomy Hx of pneumonectomy Stented coronary artery Family History Other Family history of myocardial infarction Lung cancer Social History Smoking Status: Never smoker second hand exposure: No alcohol intake: never substance use type: denies use current occupational status: retired Travel in the last 8 weeks: [place] the [place] household members: other housing: house lives independently: No marital status: current occupational exposures/hazards: No 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) Review of Systems *Neurologic Neurologic: Reports system reviewed and no additional complaints, except as documented Meds Home Medications and Allergies Home Medications Medication Instructions Recorded Confirmed Type albuterol sulfate 90 mcg/actuation 2 puff inhalation Q6HP PRN 05/20/20 11/25/22 History aerosol inhaler Shortness Of Breath doxepin 10 mg capsule 10 mg PO DAILY mood/sleep 02/11/22 11/25/22 History apixaban 5 mg tablet (Eliquis) 5 mg PO BID Blood thinner/atrial 08/18/22 11/25/22 History fib sacubitril 97 mg-valsartan 103 mg 1 tab PO BID Heart failure 08/18/22 11/25/22 History tablet (Entresto) amlodipine 10 mg tablet 10 mg PO DAILY Hypertension 11/25/22 11/25/22 History bisoprolol fumarate 10 mg tablet 10 mg PO BID Hypertension 11/25/22 11/25/22 History isosorbide mononitrate 30 mg 30 mg PO DAILY Hypertension 11/25/22 11/25/22 History tablet,extended release 24 hr New Prescriptions to Start Prescriptions: Allergies Allergy/AdvReac Type Severity Reaction Status Date / Time
--- NOTE | 2022-11-25 10:15 | SW/DCPLANNER ---
Addendum entered by Lavern Mcgrath 11/29/22 11:50: The plan for this patient is to discharge to [place] today SNF level of care. COVID swab will be ordered prior to discharge. Addendum entered by Lavern Mcgrath 11/29/22 07:59: Updated patient information has been faxed to Svetlana perez/ [facility] this AM. Addendum entered by Lavern Mcgrath 11/25/22 13:03: [facility] will evaluate this patient onsite today. Original Note: I spoke with this patient regarding plans once medically stable for discharge. Patient is admitted and plans to have surgery tomorrow for femur fracture. Patient stated that she has been to [facility] in the past and would prefer to return there if SNF level of care is needed at time of discharge. Patient information has been faxed to [facility]. I will continue to follow up with MD, patient/family and [facility].
[2022-11-25 11:42] LABS: Microscopic, Urine URINE MICROSCOPIC (MICROSCOPIC)
[2022-11-25 11:56] LABS: Appearance,Urine CLEAR (Clear); Blood, Urine Negative (Negative); Color,Urine YELLOW (Yellow); Glucose,Urine (UA) Negative (Negative); Ketones,Urine Negative (Negative); Leukocyte Esterase,Urine Negative (Negative); Nitrate,Urine Negative (Negative); PH,Urine 5.5 (5.0-8.5); Protein,Urine TRACE (Negative); Specific Gravity, Urine >= 1.030 (1.005-1.030); Urobilinogen,Urine 0.2 EU/dl (0.2)
[2022-11-25 12:14] LABS: Bilirubin,Urine 1+ (Negative)
[2022-11-25 12:24] LABS: Bacteria,Urine Trace /lpf; RBC,Urine Occasional #/hpf (0-3); WBC,Urine Occasional #/hpf (0-3)
--- NOTE | 2022-11-25 13:23 | PC.NURSE ---
4 mg morphine IVP administered early per Dr. Hiram Hollingsworth at bedside
--- NOTE | 2022-11-25 13:51 | EXP.CARD.CON ---
History of Present Illness History of Present Illness Consult date: 11/25/22 Requesting physician: Valdez Hollingsworth Chief complaint: Fall Additional Medical History:: Significant past medical history Coronary artery disease?WOOD placed to left main in setting of ACS with ischemic cardiomyopathy and an EF of 20%, 01/27/2018 PPM implant, July 2022, sick sinus syndrome Proximal A. fib, AC on Eliquis Hypertension Ischemic cardiomyopathy, resolved on medical therapy with limited echo showing an EF of 55 Hyperlipidemia Carotid disease History of present illness: Ms. Alejo is a 82-year-old female with a past medical history that is positive for CHF, Atrial Fibrillation on chronic anticoagulation, h/o Lung Cancer s/p Pneumonectomy, Chronic Hypoxic Respiratory Failure, wears home oxygen at 2L at night, SSS s/p PPM. She presents to [facility] due to a fall at ground level that occurred approximately 1 hour prior to presentation.? She reports that she was walking with socks in her kitchen and the floor was slick, she reports that she fell from ground level and lost her footing.? She denies hitting her head.? She reports that she fell on her left side that immediately resulted in pain in the left hip/left upper leg with the inability to bear weight.? She reports that her called 911 and she was brought in by EMS to the ER. In the ER, the patient underwent multiple imaging that showed a left femoral neck fracture.? CT of the head showed no acute findings.? CBC showed no acute findings.? CMP showed a slight increase in creatinine at 1.30, but this appears consistent with prior lab values. The patient will be admitted with initial impression:? Left Femoral neck Fracture Orthopaedics was consulted from the ER.? The patient is on a DOAC due to chronic atrial fibrillation, it will be held for 48 hours with plan for surgical intervention, the patient was informed of the risks versus the benefits of stopping the DOAC in the ER and wished to proceed with holding the DOAC for surgical intervention.? Cardiology asked to evaluate for surgical clearance [facility] Disclaimer: The information contained in this section may have been updated after the patient was seen, as this information can be updated by other users. Medical History (Updated 11/25/22 @ 13:59 by Birgit Cavanaugh APRN) Acute infective cystitis Atrial fibrillation Community acquired pneumonia COVID Gallbladder disease History of lung cancer Influenza Ischemic cardiomyopathy Lung cancer Non-ST elevation [place] (NSTEMI) Paroxysmal atrial fibrillation Pneumonia Respiratory failure with hypoxia Sick sinus syndrome Typical angina Surgical History History of cholecystectomy Hx of pneumonectomy Stented coronary artery Family History Other Family history of myocardial infarction Lung cancer Social History Smoking Status: Never smoker second hand exposure: No alcohol intake: never substance use type: denies use current occupational status: retired Travel in the last 8 weeks: [place] the [place] household members: other housing: house lives independently: No marital status: current occupational exposures/hazards: No 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
--- NOTE | 2022-11-25 14:10 | ECG_ITS ---
APPROVED REPORT Exam: Resting ECG HR:73 bpm ECG Measurements Heart Rate 73 AXES TX 213 P 160 QRSd 106 QRS 51 QT 401 T 74 QTc 426 Conclusion ELECTRONIC ATRIAL PACEMAKER NONSPECIFIC T-WAVE ABNORMALITY ABNORMAL RHYTHM ECG UNCONFIRMED REPORT Electronically signed by : Tacho Arreguin MD 11/26/2022 21:16:48
--- NOTE | 2022-11-25 14:34 | PC.NURSE ---
Patient reassessed for nausea after zofran adminstration. Patient states she is feeling much better, pain is tolerable and she is going to attempt to eat
--- NOTE | 2022-11-25 17:29 | EXP.ACUTE.PN ---
Subjective *Date: 11/25/22 *Time: 17:29 Interval history: Overnight pain was well controlled. This morning having some nausea after morphine. Otherwise discussed plan for OR tomorrow. Patient has no concerns or complaints at this time Medical Exam Vital signs and Labs for Last 24 Hours: Vital Signs Temp Pulse Pulse Pulse Resp BP BP 11/25/22 15:31 99.6 F 71 18 104/42 L 11/25/22 14:25 75 116/46 L 11/25/22 08:00 11/25/22 08:00 98.7 F 75 16 124/53 L 11/25/22 04:00 98.8 F 74 20 116/44 L 11/25/22 00:00 97.9 F 71 22 103/47 L 11/25/22 01:36 11/25/22 00:34 98 F 70 18 110/45 L 11/24/22 18:01 71 110/43 L 11/24/22 17:34 98.7 F 71 20 131/54 L Pulse Ox 11/25/22 15:31 93 L 11/25/22 14:25 11/25/22 08:00 91 L 11/25/22 08:00 91 L 11/25/22 04:00 91 L 11/25/22 00:00 92 L 11/25/22 01:36 92 L 11/25/22 00:34 11/24/22 18:01 91 L 11/24/22 17:34 98 Intake and Output 11/25/22 11/25/22 11/25/22 07:59 15:59 23:59 Intake Total 120 / 220 100 / 220 Output Total 300 / 500 200 / 500 Balance -180 / -280 -100 / -280 Intake: Intake, Oral Amount 120 / 220 100 / 220 Output: Output, Urine Amount 300 / 300 0 / 300 Output, Emesis Amount 200 / 200 Other: Number of Unmeasured Voids 0 0 Number of Urine Attends/Diapers 1 Weight 77.111 kg Patient Weight 11/25/22 23:59 Weight 77.111 kg Laboratory Results - last 24 hr 11/24/22 19:03: WBC 12.8 H, RBC 3.29 L, Hgb 10.2 L, Hct 31.5 L, MCV 95.7, MCH 30.9, MCHC 32.3, RDW 13.4, Plt Count 257, MPV 8.6, Neut % (Auto) 80.8 H, Lymph % (Auto) 14.9, Hardy % (Auto) 2.5, Eos % (Auto) 1.5, Baso % (Auto) 0.3, Neut # (Auto) 10.3 H, Lymph # (Auto) 1.9, Hardy # (Auto) 0.3, Eos # (Auto) 0.2, Baso # (Auto) 0.0 11/24/22 19:03: PT 10.9, INR 1.01, APTT 26.8 11/24/22 19:03: Sodium 142, Potassium 4.2, Chloride 112 H, Carbon Dioxide 21 L, Anion Gap 13.2, BUN 34 H, Creatinine 1.30 H, Estimated Creat Clear 36, Estimated GFR 39 L, Est GFR ( Amer) 48 L, Glucose 143 H, Calcium 8.5, Total Bilirubin 0.6, AST 45 H, ALT 28, Alkaline Phosphatase 108, Total Protein 6.7, Albumin 4.1, Globulin 2.6, Albumin/Globulin Ratio 1.6 11/24/22 19:20: SARS-CoV-2 (PCR) Not detected, Influenza A Untype (PCR) Not detected, Influenza Type B (PCR) Not detected 11/25/22 11:10: Urine Color Yellow, Urine Appearance Clear, Urine pH 5.5, Ur Specific [place] >= 1.030, Urine Protein Trace, Urine Glucose (UA) Negative, Urine Ketones Negative, Urine Blood Negative, Urine Nitrate Negative, Urine Bilirubin 1+ A, Urine Urobilinogen 0.2, Ur Leukocyte Esterase Negative, Urine RBC Occasional, Urine WBC Occasional, Ur Squamous Epith Cells 3-5, Urine Bacteria Trace I & O for Labs for Last 24 Hours: Intake & Output 11/22/22 11/23/22 11/24/22 11/25/22 23:59 23:59 23:59 23:59 Intake Total 220 / 220 Output Total 500 / 500 Balance -280 / -280 Weight 68.039 kg 77.111 kg Constitutional: Present mild distress and cooperative Head: Present atraumatic and normocephalic ENT: Present normal exam Neck: Present normal inspection and full ROM Respiratory: Present accessory muscle use Cardiac: Present Reg Rate and Rhythm and S1/S2 GI: Present soft; Absent tenderness (female): Present deferred Extremities: Present tenderness Comment:: Left lower extremity pain, externally rotated Assessment and Plan *Assessment and plan (1) Fracture of femoral neck, left: Status: Acute Qualifiers: Encounter type: initial encounter Fracture type: closed Qualified Code(s): S72.002A - Fracture of unspecified part of neck of left femur, initial encounter for closed fracture Category: Medical Code(s): S72.002A - Fracture of unspecified part of neck of left femur, initial encounter for closed fracture (2) Atrial fibrillation: Status: Acute Category: Medical Code(s): I48.91 - Unspecified atrial fi
--- NOTE | 2022-11-25 18:21 | PC.NURSE ---
Morphine and [place] for left hip pain. Zofran for nausea. Gallegos catheter placed with 300 ml urine output since admission. Small loose bowel movement. Patient has been sleeping throughout shift with minimal oral intake and vomiting. 500 ml NS bolus administered per Dr. Hiram Hollingsworth. NS infusion to be started after bolus completed with order to discontinue if O2 needs increase. 1 L O2 via nasal cannula throughout day which was increased to 2L per home regimen. Patient is scheduled for left hip hemiarthroplasty Tuesday. Multiple family members at bedside throughout day. Family states understanding that patient's contacts need to be removed for surgery tomorrow so they need to bring contact supplies or new contacts.
[2022-11-26] VITALS (26 sets, daily range): BP systolic 73–121; BP diastolic 42–83; PULSE 69–102; RESP 14–24; TEMP 36.4–43; O2SAT 90–99; BMI 29.9; BMI 29.7
--- NOTE | 2022-11-26 04:12 | PC.NURSE ---
PATIENT HAS BEEN NPO SINCE PA FOR LEFT HIP SURGERY. PATIENT PRACTICED INCENTIVE SPIROMETER AND REACHED 750 ML. MEDICATED ONCE FOR HIP PAIN AT 0213. HAS BEEN RESTING WELL.
[2022-11-26 07:04] LABS: Basophils # 0.1 K/mm3 (0-0.2); Basophils % 0.5 % (0.1-2.0); Eosinophils # 0.3 K/mm3 (0.0-0.4); Eosinophils % 2.3 % (0.1-12.0); Hematocrit 28.6 % (37.0-47.0); Hemoglobin 9.2 g/dL (12.2-16.2); Lymphocytes # 1.5 K/mm3 (0.7-4.5); Lymphocytes % 13.7 % (10-50); Mean Corpuscular HGB Conc 32.3 g/dL (31.8-35.4); Mean Corpuscular Hemoglobin 31.2 pg (27.0-31.2); Mean Corpuscular Volume 96.7 fl (81-99); Mean Platelet Volume 8.3 fl (7.4-10.4); Monocytes # 0.5 K/mm3 (0.1-1.0); Monocytes % 4.4 % (1.7-9.3); Neutrophils # 8.7 K/mm3 (1.8-7.8); Neutrophils % 79.1 % (37.0-80.0); Platelet Count 212 K/mm3 (142-424); Red Blood Count 2.96 M/mm3 (4.20-5.40); Red Cell Distribution Width 13.7 % (11.5-17.5)
[2022-11-26 07:14] LABS: Alanine Aminotransferase 30 U/L (12-78); Albumin Level 3.5 g/dl (3.5-5.0); Albumin/Globulin Ratio 1.5 (1.1-1.8); Alkaline Phosphatase 90 U/L (38-126); Anion Gap 10.9 mEq/L (5-15); Aspartate Amino Transferase 35 U/L (14-36); Bilirubin,Total 0.9 mg/dl (0.2-1.3); Blood Urea Nitrogen 50 mg/dl (7-17); Calcium 8.2 mg/dl (8.4-10.2); Carbon Dioxide 19 mmol/L (22.0-30.0); Chloride 110 mmol/L (98-107); Creatinine Clearance Estimated 35 mL/min (50-200); Estimated Glomerular Filt Rate 31 ml/min (>60); GFR (African American) 37 ML/MIN (>60); Globulin 2.4 g/dL (1.3-3.2); Glucose 99 mg/dl (74-100); Magnesium 1.9 mg/dl (1.6-2.3); Phosphorous 3.6 mg/dl (2.5-4.5); Potassium 3.9 mmoL/L (3.5-5.1); Sodium 136 mmol/L (136-145); Total Protein,Serum 5.9 g/dl (6.3-8.2)
--- NOTE | 2022-11-26 10:32 | XR_ITS ---
FINAL REPORT CLINICAL HISTORY: postop, AP pelvis, 2v hip, AP / cross table COMPARISON: None FINDINGS: LEFT HIP A two view exam demonstrates surgical changes of total left hip arthroplasty. The hardware has a normal appearance. No fracture is identified. IMPRESSION: Surgical changes of total left hip arthroplasty without hardware complication. Reviewed, Interpreted and Dictated by Donte Gallo MD Transcribed by Jennifer Callaway Authenticated and [facility]
--- NOTE | 2022-11-26 10:38 | EXP.OP.NOTE ---
Date of procedure: 11/26/22 Pre-op Diagnosis:: Left femoral neck fracture Post-op Diagnosis:: Same Procedure performed:: 70864: Cemented left hip hemiarthroplasty Surgeon:: Theodore Bridges JR, MD Car Mover(s):: Sharmaine Spears PA-C DIRECTOR OF TRAINING:: Other Anesthesia: GETA Estimated blood loss (mL): 30 Clinical Note:: 82-year-old female with left femoral neck fracture, displaced with varus angulation. I had a discussion with Abigail and her family regarding further management. They had the main goal of restoring her ambulatory status. I had a discussion with him regarding further management, and after discussion of risk, benefits, alternatives, they wish to proceed with cemented left hip hemiarthroplasty. We discussed the risk and benefits of surgery. Risks included but were not limited to pain, bleeding, infection, damage to adjacent structures, need for further surgery, wound healing complications, loss of limb, . Patient expressed verbal consent and written consent was obtained for the above procedure. Operative findings:: Prosthetic was stable through range of motion. [employer]hew size 0 stem, 48 mm bipolar head Operative note:: Patient was identified in preoperative holding. Operative site was marked in indelible ink. History, physical, consent were reviewed and updated. Patient was surrendered to the anesthesia team, taken to the operative suite. Anesthesia was induced. Patient was then placed in the lateral decubitus position on a well-padded operative table. All bony prominences were padded and an axillary roll was placed. The operative extremity was prepped and draped in the usual sterile fashion. The operative team donned sterile gowns and gloves and a timeout was called. All in attendance agreed regarding the patient's identity, procedure, operative site. Weight-based dose of antibiotics was given prior to incision. A skin maker was then used to jessica all bony prominences. Skin incision was then carried out extending from the greater trochanter in a curvilinear fashion posteriorly across the buttocks. I incised the skin with a scalpel, then using a Bovie dissected through tissues. The fascia samantha was incised utilizing Metzenbaum scissors. This was taken down to the bursa, which was removed utilizing a rongeur. Utilizing a periosteal elevator as well as the sponge, the fat was then freed from the short external rotators of the left hip after these were placed and stretched. The sciatic nerve was protected. Bovie was used to remove the short external rotators from the greater trochanter, which revealed the joint capsule. His were tagged for later repair. The capsule was cleared and incised utilizing a T-shape incision. A fracture hematoma was noted upon entering the joint capsule as well as the femoral neck fracture. A cork screw was then used to remove the fractured femoral head, which was given to the certified dialysis technician which was sized on the back table. All bony remnants were then removed from the acetabulum and surrounding soft tissue with a rongeur. Acetabulum was then inspected and found to be clear. Attention was then turned to the proximal femur where a cutting tunnel was used to jessica the femur for the femoral neck cut. A sagittal saw was then used to make the femoral cut. Box osteotome was then used to remove the bone from proximal femur. A femoral neck elevator was utilized. Next, attention was turned to broaching. Initially, a small broach was placed, first making efforts to lateralize the broach then the femoral canal. Next, the trial components were inserted consisting of the above-mentioned size 0 stem. The hip was taken through range of motion and tested to adduction, internal and external rotations as well as with a shuck and a posterior directed force on a flexed hip. It was noted that these size were stable through the range of motion. Next, the trial components were removed and the femoral canal was copiously irrigated and suctione
--- NOTE | 2022-11-26 11:30 | PC.NURSE ---
Report recieved at this time from Felicia PERRIN pacu/post opt nurse, pt will be arriving to the floor via bed shortly.
--- NOTE | 2022-11-26 11:35 | PC.NURSE ---
Pt to room 278 at this time, oxygen applied as stats were in 80s at this time, 3 liters at this time with rebounding stats in upper 90s. Will titrate down as pts alertness improves.
--- NOTE | 2022-11-26 11:45 | PC.NURSE ---
Pts stats are staying in the uppers 90s, pt is much more alert and orientated at this time, oxygen decreased to 2 liters via nasal canula.
--- NOTE | 2022-11-26 12:03 | EXP.ANES.CKL ---
[facility] Disclaimer: The information contained in this section may have been updated after the patient was seen, as this information can be updated by other users. Medical History (Updated 11/25/22 @ 13:59 by Birgit Cavanaugh APRN) Acute infective cystitis Atrial fibrillation Community acquired pneumonia COVID Gallbladder disease History of lung cancer Influenza Ischemic cardiomyopathy Lung cancer Non-ST elevation ME (NSTEMI) Paroxysmal atrial fibrillation Pneumonia Respiratory failure with hypoxia Sick sinus syndrome Typical angina Surgical History History of cholecystectomy Hx of pneumonectomy Stented coronary artery Family History Other Family history of myocardial infarction Lung cancer Social History Smoking Status: Never smoker second hand exposure: No alcohol intake: never substance use type: denies use current occupational status: retired Travel in the last 8 weeks: [place] household members: other housing: house lives independently: No marital status: current occupational exposures/hazards: No 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) [facility] Anesthesia Checklist Patient Identification Patient Identification: Arm Band and Family Structural Data Admitted From: Inpatient Planned Operative Procedure/s: Left Hip Hemiarthrookastt Verified Documents: Surgical Consent and History and Physical NPO Status Verified Time NPO: 00:00 Additional verifications Patient : No Anesthesia Reactions: No Hx Blood Transfusions: No Blood Transfusion Reaction: No Cephalosporin Allergy: No Previous Colonoscopy: No Airway Assessment C-Spine Mobility Assessed: Yes TMJ Mobility Assessed: Yes Dentition: Poor Dentition Anesthesia Plan Anesthesia Risk discussed: Yes ASA Class: III Anesthesia Type: General
--- NOTE | 2022-11-26 12:06 | EXP.ANES.I ---
[facility] Anesthesia Record Part I Anesthesia Record I Intake, IV Amount: 1,700 Estimated blood loss (mL): 50 Urine output (mL): 50 Blood Pressure: 110/73 SaO2: 94 Pulse Rate: 102 Respiratory Rate: 24 Temperature: 98.1 F Patient is:: Drowsy and Stable Stable to PACU at:: 10:35
--- NOTE | 2022-11-26 12:30 | EXP.ANES.II ---
[facility] Anesthesia Record Part II Anesthesia Record Part II Discharge Time: 11:15 Destination: Medical Surgical Department PACU nurse assessment reviewed?: Yes Patient Condition:: Good Anesthesia Complications:: None Swallowing reflex intact?: Yes Cyanosis?: No Blood Pressure: 121/48 Pulse Rate: 93 Temperature: 98.1 F Mental Status: Alert & Oriented Pain level:: 0 Nausea and/or vomitting:: None Intake, IV Amount: 0
--- NOTE | 2022-11-26 13:54 | HMH.PTEV ---
Physical Therapy Evaluation Rehab PT IP Evaluation Start: 11/26/22 10:29 Freq: ONCE Status: Active Protocol: Document 11/26/22 13:50 PHORNE (Rec: 11/26/22 13:54 PHORNE [id number]) Subjective/History History History 82 yowf adm to [facility] after ground level fall at home with resulting L femur fx, now S/P L hip LY. She reports she is generally independent with all mobility without AD, no steps to enter the home, lives with her spouse. Subjective Subjective She reports no c/o pain at rest this pm, mild discomfort with mobility. Rehab PT IP Eval Objective Appearance Patient Behavior Appropriate Patient Orientation Person,Place,Time Difficulty following instructions none Speech Pattern Clear Ambulation Patient Able to Ambulate Yes Ambulation Observation IP General Gait Pattern Observation Antalgic Gait Ambulation Distance (feet) 2 Ambulation Assistive Device Standard Walker Ambulation Ability Minimal x 1 (25% assist) Balance Ability to Arise Able, uses arms to help Sitting Balance Steady, safe Standing Balance Steady, wide stance Dynamic Sitting Balance Ability Good Dynamic Standing Balance Ability Good Transfers Bed Transfer Ability Minimal x 1 (25% assist) Chair Transfer Ability Minimal x 1 (25% assist) Sit to Stand Bed Transfer Ability Minimal x 1 (25% assist) Sit to Stand Chair Transfer Ability Minimal x 1 (25% assist) Rehab PT IP prob,goals,plan Problems Date of Evaluation: 11/26/22 PT IP Problems Bed Mobility,Transfers,Gait Rehab Potential Rehab Potential Good Equipment Needs Assistive Devices Rolling / Wheeled Walker Plan PT Intervention Plan Bed Mobility,Transfers,Gait, Therapeutic Exercise PT Plan Frequency BID Duration LOS Discharge Goals Bed Transfer Ability Contact Guard/Hand Hold Sit to Stand Chair Transfer Ability Contact Guard/Hand Hold Ambulation Assistive Device Rolling Walker Ambulation Distance (feet) 20 Discharge Plan PT Discharge Plan Pt is currently most appropriate for rehab placement once medically stable for d/c. G -code Required No Eval Complexity Eval Charge Codes 57019 - Moderate Complexity PHYSI
--- NOTE | 2022-11-26 14:15 | PC.NURSE ---
Pt is resting comfortably in the bed at this time, no needs at this time, cb within reach
--- NOTE | 2022-11-26 14:31 | HMH.OTEV ---
OT Inpatient Evaluation Rehab OT IP Evaluation Start: 11/26/22 14:19 Freq: ONCE Status: Active Protocol: Document 11/26/22 14:19 YOUNG (Rec: 11/26/22 14:31 YOUNG [id number]) Rehab OT IP Assessment Subjective History Ms. Alejo is a 82-year- old female with a past medical history that is positive for CHF, Atrial Fibrillation on chronic anticoagulation, h/o Lung Cancer s/p Pneumonectomy, Chronic Hypoxic Respiratory Failure, wears home oxygen at 2L at night, SSS s/p PPM. She presents to [facility] due to a fall at ground level that occurred approximately 1 hour prior to presentation. She reports that she was walking with socks in her kitchen and the floor was slick, she reports that she fell from ground level and lost her footing. She denies hitting her head. She reports that she fell on her left side that immediately resulted in pain in the left hip/left upper leg with the inability to bear weight. She reports that her called 911 and she was brought in by EMS to the ER. In the ER, the patient underwent multiple imaging that showed a left femoral neck fracture. CT of the head showed no acute findings. CBC showed no acute findings. CMP showed a slight increase in creatinine at 1.30, but this appears consistent with prior lab values. The patient will be admitted with initial impression: Left Femoral neck Fracture. Patient underwent a Cemented left hip hemiarthroplasty. on 11/26/21. Patient lives in [address] [place] home with no DAT with .
--- NOTE | 2022-11-26 15:48 | PC.NURSE ---
Verified compability of fluids orderd (ns) with cefazolin with [facility] pharmacy, he verfied is ok to run together
--- NOTE | 2022-11-26 16:01 | PC.NURSE ---
Addendum entered by Traci Rincon RN 11/26/22 16:08: Remains on 2 liters nc at this time. Original Note: Pt laying in bed resting during reassessment, is alert and orientated x3. Reports no pain at all and reports that she feels much better after eating lunch and denies any nausea. Lungs are clear and slightly dimished at bases throughout. Pt does have pacemaker on left side of chest and reports having no issues out of it since placement a few years ago. Immobilizer in place and pt is tolerating well. Surgical site to left hip is dry and intact with no drainage noted. Betadine stained skin to left leg. Bowel sounds active and present in all quadrants. 20gage iv to R ac, is infusing well, no redness noted. FC draining bright yellow urine at this time, output has been 350 at this point. cb within reach.
--- NOTE | 2022-11-26 18:13 | PC.NURSE ---
pt oxygen decreased to 1 liter at this time, pts stats have stayed above 90 percent. pt requested pain medication at this time as well, medicated per mar.
--- NOTE | 2022-11-26 19:41 | EXP.ACUTE.PN ---
Subjective *Date: 11/26/22 *Time: 19:41 Medical Exam Vital signs and Labs for Last 24 Hours: Vital Signs Temp Pulse Pulse Pulse Resp BP BP 11/26/22 18:15 80 17 94/56 L 11/26/22 18:08 16 11/26/22 17:15 97.8 F 73 17 99/48 L 11/26/22 16:15 72 17 88/43 L 11/26/22 15:15 70 17 93/50 L 11/26/22 14:15 97.6 F 70 17 89/49 L 11/26/22 13:45 77 17 98/45 L 11/26/22 13:15 69 16 96/46 L 11/26/22 12:45 69 17 104/49 L 11/26/22 12:30 70 17 107/47 L 11/26/22 12:45 97.6 F 71 16 107/50 L 11/26/22 12:45 11/26/22 12:15 83 17 109/56 L 11/26/22 12:00 98 F 70 17 73/51 L 11/26/22 11:45 76 16 98/43 L 11/26/22 11:35 97.6 F 71 16 107/50 L 11/26/22 11:15 98.1 F 93 H 16 121/48 L 11/26/22 10:55 98.1 F 93 H 16 106/42 L 11/26/22 10:45 98.1 F 95 H 20 110/83 11/26/22 11:05 98.1 F 93 H 16 109/48 L 11/26/22 10:35 98.1 F 94 H 14 110/43 L 11/26/22 09:10 16 11/26/22 04:00 98.7 F 72 18 110/50 L 11/25/22 20:00 11/25/22 20:00 99.3 F 70 18 118/41 L 11/26/22 12:31 98.1 F 93 H 121/48 L 11/26/22 12:08 98.1 F 102 H 24 110/73 Pulse Ox 11/26/22 18:15 90 L 11/26/22 18:08 11/26/22 17:15 94 L 11/26/22 16:15 96 11/26/22 15:15 95 11/26/22 14:15 92 L 11/26/22 13:45 94 L 11/26/22 13:15 98 11/26/22 12:45 93 L 11/26/22 12:30 95 11/26/22 12:45 93 L 11/26/22 12:45 96 11/26/22 12:15 96 11/26/22 12:00 95 11/26/22 11:45 99 11/26/22 11:35 93 L 11/26/22 11:15 95 11/26/22 10:55 93 L 11/26/22 10:45 97 11/26/22 11:05 93 L 11/26/22 10:35 97 11/26/22 09:10 11/26/22 04:00 93 L 11/25/22 20:00 98 11/25/22 20:00 98 11/26/22 12:31 11/26/22 12:08 Intake and Output 11/26/22 11/26/22 11/26/22 07:59 15:59 23:59 Intake Total 1229 / 3169 1940 / 3169 Output Total 350 / 350 Balance 1229 / 2819 1940 / 2819 -350 / 2819 Intake: Intake, Oral Amount 240 / 240 Intake, Total IV Amount 1229 / 2929 1700 / 2929 0.9 % Sodium Chloride 1,000 ml 729 / 729 @ 100 mls/hr IV .[facility] Rx#: [id number] 0.9 % Sodium Chloride 500 ml @ 500 / 500 500 mls/hr IV ONCE ONE Rx#: [id number] Output: Output, Urine Amount 350 / 350 Other: Number of Unmeasured Voids 1 1 Weight 79.464 kg 79 kg Patient Weight 11/26/22 23:59 Weight 79 kg Laboratory Results - last 24 hr 11/26/22 06:55: WBC 11.0 H, RBC 2.96 L, Hgb 9.2 L, Hct 28.6 L, MCV 96.7, MCH 31.2, MCHC 32.3, RDW 13.7, Plt Count 212, MPV 8.3, Neut % (Auto) 79.1, Lymph % (Auto) 13.7, [place] % (Auto) 4.4, Eos % (Auto) 2.3, Baso % (Auto) 0.5, Neut # (Auto) 8.7 H, Lymph # (Auto) 1.5, [place] # (Auto) 0.5, Eos # (Auto) 0.3, Baso # (Auto) 0.1 11/26/22 06:55: Sodium 136, Potassium 3.9, Chloride 110 H, Carbon Dioxide 19 L, Anion Gap 10.9, BUN 50 H D, Creatinine 1.60 H D, Estimated Creat Clear 35, Estimated GFR 31 L, Est GFR ( Amer) 37 L D, Glucose 99, Calcium 8.2 L, Phosphorus 3.6, Magnesium 1.9, Total Bilirubin 0.9, AST 35, ALT 30, Alkaline Phosphatase 90, Total Protein 5.9 L, Albumin 3.5 D, Globulin 2.4, Albumin/Globulin Ratio 1.5 I & O for Labs for Last 24 Hours: Intake & Output 11/23/22 11/24/22 11/25/22 11/26/22 23:59 23:59 23:59 23:59 Intake Total 280 / 280 3169 / 3169 Output Total 500 / 500 350 / 350 Balance -220 / -220 2819 / 2819 Weight 68.039 kg 77.111 kg 79 kg Microbiology Reports for the Last 24 Hours: Microbiology 11/25/22 11:05 Urine,Catheterized Urine Culture - Preliminary Constitutional: Present mild distress and cooperative Head: Present atraumatic and normocephalic ENT: Present normal exam Neck: Present normal inspection and full ROM Respiratory: Present accessory muscle use Cardiac: Present Reg Rate and Rhythm and S1/S2 GI: Present soft; Absent tenderness (female): Present deferred E
--- NOTE | 2022-11-26 20:05 | PC.NURSE ---
Assumed care of patient, received report from previous shift. Patient is resting in bed at this time. Resp even and nonlabobored. No s/s of distress noted. IV patent with no redness or edema noted to site, infusing well. SCD noted to right leg. Post-op dressing noted to be CDI to left hip. NC in place, O2 titrated up to 1.5L due to patients sats being 90% and below upon assessment. Current sat 95% at this time. Will titrate O2 as ordered. Call light within reach of patient, instructed to notify staff of any needs.
[2022-11-27] VITALS: BP 98/50; PULSE 73; RESP 17; TEMP 36.8; O2SAT 95
--- NOTE | 2022-11-27 03:56 | PC.NURSE ---
Report called to Luís on Med-Surg, to room 205.
[2022-11-27 04:00] VITALS: BMI 31.6
[2022-11-27 04:14] VITALS: BP 102/53; PULSE 97; RESP 18; TEMP 36.4; O2SAT 96
--- NOTE | 2022-11-27 04:22 | PC.NURSE ---
Pt. transferred from OB overflow. Aox 4, 02 1L NC sats in the 90 s, vss, f/c in place scud on right leg, 20g R ac with NS at 100 ml/hr, L hip dressing c/d/i.
--- NOTE | 2022-11-27 04:25 | PC.NURSE ---
Pt arrived to floor via stretcher from OB @ 1983.
[2022-11-27 07:38] VITALS: BP 110/70; PULSE 107; RESP 18; TEMP 36.6; O2SAT 90
--- NOTE | 2022-11-27 07:52 | EXP.ORTH.PN ---
Subjective *Date: 11/27/22 *Time: 07:52 Interval history: Resting comfortably. Ortho Exam (Inpt) Vital signs and Labs for Last 24 Hours: Temp Pulse Resp BP Pulse Ox 97.9 F 107 H 18 110/70 90 L 11/27/22 07:38 11/27/22 07:38 11/27/22 07:38 11/27/22 07:38 11/27/22 07:38 I & O for Labs for Last 24 Hours: Intake & Output 11/24/22 11/25/22 11/26/22 11/27/22 23:59 23:59 23:59 23:59 Intake Total 280 / 280 3169 / 3169 240 / 240 Output Total 500 / 500 350 / 350 1000 / 1000 Balance -220 / -220 2819 / 2819 -760 / -760 Weight 150 lb 170 lb 174 lb 2.643 oz 185 lb 10.067 oz Microbiology Reports for the Last 24 Hours: Microbiology 11/25/22 11:05 Urine,Catheterized Urine Culture - Preliminary Head: Present normocephalic and atraumatic ENT: Present mucous membranes moist Neck: Present normal inspection Respiratory: Present normal respiratory effort and symmetric chest movement; Absent accessory muscle use or respiratory distress Cardiac: Present Reg Rate and Rhythm and radial pulses present GI: Present soft; Absent distention Rectal (female): Present deferred (female): Present deferred Additional Findings:: Leg lengths grossly symmetric. Palpable dorsalis pedis/posterior tibial pulse. Sensation intact to light touch deep peroneal, superficial peroneal, tibial, sural, saphenous nerve distribution. 5/5 motor function intact to extensor hallicus longus, flexor hallicus longus, tibialis anterior, gastroc/soleus, posterior tibialis, foot eversion. Surgical dressing clean, dry, intact. Assessment and Plan *Assessment and plan (1) Closed left hip fracture: Status: Acute Category: Medical Code(s): S72.002A - Fracture of unspecified part of neck of left femur, initial encounter for closed fracture Plan 82-year-old female status post left hip hemiarthroplasty November 26, 2022. Weightbearing as tolerated, posterior hip precautions. 23 hours antibiotics. Okay to resume Eliquis. PT/OT. Postop dressing change prior to discharge. Follow-up in 2 weeks for wound check and x-rays.
[2022-11-27 08:17] LABS: Basophils % 0.1 % (0.1-2.0); Eosinophils % 0.3 % (0.1-12.0); Hematocrit 22.7 % (37.0-47.0); Hemoglobin 7.4 g/dL (12.2-16.2); Lymphocytes # 0.9 K/mm3 (0.7-4.5); Lymphocytes % 10.3 % (10-50); Mean Corpuscular HGB Conc 32.8 g/dL (31.8-35.4); Mean Corpuscular Hemoglobin 32.2 pg (27.0-31.2); Mean Corpuscular Volume 98.2 fl (81-99); Mean Platelet Volume 9.8 fl (7.4-10.4); Monocytes # 0.6 K/mm3 (0.1-1.0); Monocytes % 7.4 % (1.7-9.3); Neutrophils # 7.2 K/mm3 (1.8-7.8); Neutrophils % 81.9 % (37.0-80.0); Platelet Count 146 K/mm3 (142-424); Red Blood Count 2.32 M/mm3 (4.20-5.40); Red Cell Distribution Width 13.8 % (11.5-17.5); White Blood Count 8.7 K/mm3 (4.8-10.8)
[2022-11-27 08:31] LABS: Alanine Aminotransferase 19 U/L (12-78); Albumin Level 2.8 g/dl (3.5-5.0); Albumin/Globulin Ratio 1.2 (1.1-1.8); Alkaline Phosphatase 76 U/L (38-126); Anion Gap 10.8 mEq/L (5-15); Aspartate Amino Transferase 40 U/L (14-36); Bilirubin,Total 0.3 mg/dl (0.2-1.3); Blood Urea Nitrogen 47 mg/dl (7-17); Calcium 7.8 mg/dl (8.4-10.2); Carbon Dioxide 18 mmol/L (22.0-30.0); Chloride 112 mmol/L (98-107); Creatinine Clearance Estimated 42 mL/min (50-200); Estimated Glomerular Filt Rate 36 ml/min (>60); GFR (African American) 44 ML/MIN (>60); Globulin 2.4 g/dL (1.3-3.2); Glucose 124 mg/dl (74-100); Phosphorous 3.2 mg/dl (2.5-4.5); Potassium 3.8 mmoL/L (3.5-5.1); Sodium 137 mmol/L (136-145); Total Protein,Serum 5.2 g/dl (6.3-8.2)
[2022-11-27 11:32] VITALS: BP 110/68; PULSE 111; RESP 17; TEMP 37; O2SAT 93
--- NOTE | 2022-11-27 14:12 | EXP.ACUTE.PN ---
Subjective *Date: 11/27/22 *Time: 14:12 Interval history: Still having some mild pain. Occasional nausea Medical Exam Vital signs and Labs for Last 24 Hours: Vital Signs Temp Pulse Pulse Resp BP Pulse Ox 11/27/22 11:32 98.6 F 111 H 17 110/68 93 L 11/27/22 07:38 97.9 F 107 H 18 110/70 90 L 11/27/22 04:14 97.6 F 97 H 18 102/53 L 96 11/27/22 00:00 98.2 F 73 17 98/50 L 95 11/26/22 20:05 98.0 F 71 17 102/51 L 95 11/26/22 20:04 95 11/26/22 18:15 80 17 94/56 L 90 L 11/26/22 18:08 16 11/26/22 17:15 97.8 F 73 17 99/48 L 94 L 11/26/22 16:15 72 17 88/43 L 96 11/26/22 15:15 70 17 93/50 L 95 11/26/22 14:15 97.6 F 70 17 89/49 L 92 L Intake and Output 11/26/22 11/27/22 11/27/22 23:59 07:59 15:59 Intake Total 240 / 240 0 / 240 Output Total 350 / 350 1000 / 1000 0 / 1000 Balance -350 / 2819 -760 / -760 0 / -760 Intake: Intake, Oral Amount 240 / 240 0 / 240 Output: Output, Urine Amount 350 / 350 1000 / 1000 0 / 1000 Other: Number of Unmeasured Voids 1 0 0 Weight 79 kg 84.2 kg Patient Weight 11/27/22 23:59 Weight 84.2 kg Laboratory Results - last 24 hr 11/27/22 07:34: WBC 8.7, RBC 2.32 L, Hgb 7.4 L, Hct 22.7 L, MCV 98.2, MCH 32.2 H, MCHC 32.8, RDW 13.8, Plt Count 146 D, MPV 9.8, Neut % (Auto) 81.9 H, Lymph % (Auto) 10.3, [place] % (Auto) 7.4, Eos % (Auto) 0.3, Baso % (Auto) 0.1, Neut # (Auto) 7.2, Lymph # (Auto) 0.9, [place] # (Auto) 0.6, Eos # (Auto) 0.0, Baso # (Auto) 0.0 11/27/22 07:34: Sodium 137, Potassium 3.8, Chloride 112 H, Carbon Dioxide 18 L, Anion Gap 10.8, BUN 47 H, Creatinine 1.40 H, Estimated Creat Clear 42, Estimated GFR 36 L, Est GFR ( Amer) 44 L, Glucose 124 H, Calcium 7.8 L, Phosphorus 3.2, Total Bilirubin 0.3, AST 40 H, ALT 19 D, Alkaline Phosphatase 76, Total Protein 5.2 L, Albumin 2.8 L D, Globulin 2.4, Albumin/Globulin Ratio 1.2 I & O for Labs for Last 24 Hours: Intake & Output 11/24/22 11/25/22 11/26/22 11/27/22 23:59 23:59 23:59 23:59 Intake Total 280 / 280 3169 / 3169 240 / 240 Output Total 500 / 500 350 / 350 1000 / 1000 Balance -220 / -220 2819 / 2819 -760 / -760 Weight 68.039 kg 77.111 kg 79 kg 84.2 kg Microbiology Reports for the Last 24 Hours: Microbiology 11/25/22 11:05 Urine,Catheterized Urine Culture - Preliminary Constitutional: Present mild distress and cooperative Head: Present atraumatic and normocephalic ENT: Present normal exam Neck: Present normal inspection and full ROM Respiratory: Present accessory muscle use Cardiac: Present Reg Rate and Rhythm and S1/S2 GI: Present soft; Absent tenderness (female): Present deferred Extremities: Present tenderness Comment:: Left lower extremity pain, externally rotated Assessment and Plan *Assessment and plan (1) Fracture of femoral neck, left: Status: Acute Qualifiers: Encounter type: initial encounter Fracture type: closed Qualified Code(s): S72.002A - Fracture of unspecified part of neck of left femur, initial encounter for closed fracture Category: Medical Code(s): S72.002A - Fracture of unspecified part of neck of left femur, initial encounter for closed fracture (2) Atrial fibrillation: Status: Acute Category: Medical Code(s): I48.91 - Unspecified atrial fibrillation (3) CHF (congestive heart failure): Status: Acute Category: Medical Code(s): I50.9 - Heart failure, unspecified (4) Chronic respiratory failure with hypoxia: Status: Acute Category: Medical Code(s): J96.11 - Chronic respiratory failure with hypoxia (5) Sick sinus syndrome: Status: Acute Category: Medical Code(s): I49.5 - Sick sinus syndrome Plan 82-year-old female with past medical history Atrial Fibrillation on chronic anticoagulation, SSS s/p PPM, CHF, Chronic hypoxic respiratory failure wears 2L at nights presents following a fa
--- NOTE | 2022-11-27 15:55 | PC.NURSE ---
stopped morphine per MD due to pt being overly sedated
--- NOTE | 2022-11-27 18:12 | PC.NURSE ---
notified MD of continued hypotension and drowsiness. 500cc bolus ordered x1
--- NOTE | 2022-11-27 18:36 | PC.NURSE ---
pt has rested well on and off through out the shift. She had one episode of vomiting but reports feeling better. hypotension has improved after bolus. pt is alert and appropriate. f/c patent and draining @ bedside. dressing is c/d/i
[2022-11-27 20:00] VITALS: BP 83/50; PULSE 122; RESP 17; TEMP 37; O2SAT 91
--- NOTE | 2022-11-27 20:09 | PC.NURSE ---
BP 83/50 HR 122. HOSPITALIST ROSITA NOTIFIED. ORDER TO HOLD THE ENTRESTO TONIGHT.
[2022-11-28] VITALS (16 sets, daily range): BP systolic 86–162; BP diastolic 37–77; PULSE 66–125; RESP 16–20; TEMP 36.5–37.2; O2SAT 94–100; BMI 32.4
--- NOTE | 2022-11-28 03:49 | PC.NURSE ---
PATIENT HAS HAD AN UNEVENTFUL NIGHT. ENTRESTO HELD AT 2100 DUE TO LOW BP. PRESSURES HAVE INCREASED SLOWLY. DRSG TO LEFT HIP/THIGH C/D/I. DENIES NUMBNESS, TINGLING OR LOSS OF SENSATION. TOES PINK AND WARM.
--- NOTE | 2022-11-28 05:38 | PC.NURSE ---
PATIENT REFUSES TO TURN AND REPOSITION. PATIENT TEACHING ABOUT BED SORES . PATIENT SAYS SHE WOULD TRY TO DO BETTER TODAY.
--- NOTE | 2022-11-28 07:27 | EXP.ORTH.PN ---
Subjective *Date: 11/28/22 *Time: 07:27 Interval history: Comfortable overnight. Ortho Exam (Inpt) Vital signs and Labs for Last 24 Hours: Temp Pulse Resp BP Pulse Ox 98.2 F 83 16 86/54 L 96 11/28/22 04:00 11/28/22 04:00 11/28/22 04:00 11/28/22 04:00 11/28/22 04:00 Laboratory Results - last 24 hr 11/27/22 07:34: WBC 8.7, RBC 2.32 L, Hgb 7.4 L, Hct 22.7 L, MCV 98.2, MCH 32.2 H, MCHC 32.8, RDW 13.8, Plt Count 146 D, MPV 9.8, Neut % (Auto) 81.9 H, Lymph % (Auto) 10.3, [facility] % (Auto) 7.4, Eos % (Auto) 0.3, Baso % (Auto) 0.1, Neut # (Auto) 7.2, Lymph # (Auto) 0.9, [facility] # (Auto) 0.6, Eos # (Auto) 0.0, Baso # (Auto) 0.0 11/27/22 07:34: Sodium 137, Potassium 3.8, Chloride 112 H, Carbon Dioxide 18 L, Anion Gap 10.8, BUN 47 H, Creatinine 1.40 H, Estimated Creat Clear 42, Estimated GFR 36 L, Est GFR ( Amer) 44 L, Glucose 124 H, Calcium 7.8 L, Phosphorus 3.2, Total Bilirubin 0.3, AST 40 H, ALT 19 D, Alkaline Phosphatase 76, Total Protein 5.2 L, Albumin 2.8 L D, Globulin 2.4, Albumin/Globulin Ratio 1.2 I & O for Labs for Last 24 Hours: Intake & Output 11/25/22 11/26/22 11/27/22 11/28/22 23:59 23:59 23:59 23:59 Intake Total 280 / 280 3169 / 3169 480 / 480 1808 / 1808 Output Total 500 / 500 350 / 350 1300 / 1300 350 / 350 Balance -220 / -220 2819 / 2819 -820 / -820 1458 / 1458 Weight 170 lb 174 lb 2.643 oz 185 lb 10.067 oz 190 lb 1.6 oz Head: Present normocephalic and atraumatic ENT: Present mucous membranes moist Neck: Present normal inspection Respiratory: Present normal respiratory effort and symmetric chest movement; Absent accessory muscle use or respiratory distress Cardiac: Present Reg Rate and Rhythm and radial pulses present GI: Present soft; Absent distention Rectal (female): Present deferred (female): Present deferred Additional Findings:: Left hip wound inspected, Prineo/Dermabond in place, no erythema, drainage, warmth. Palpable dorsalis pedis/posterior tibial pulse. Sensation intact to light touch deep peroneal, superficial peroneal, tibial, sural, saphenous nerve distribution. 5/5 motor function intact to extensor hallicus longus, flexor hallicus longus, tibialis anterior, gastroc/soleus, posterior tibialis, foot eversion. Assessment and Plan *Assessment and plan (1) Closed left hip fracture: Status: Acute Category: Medical Code(s): S72.002A - Fracture of unspecified part of neck of left femur, initial encounter for closed fracture Plan 82-year-old female status post left cemented hip hemiarthroplasty. Weightbearing as tolerated. Posterior hip precautions. PT/OT. 23 hours antibiotics. DVT prophylaxis: Xarelto 10 mg daily for 5 weeks. Follow-up 2 weeks for wound check and radiographs.
--- NOTE | 2022-11-28 09:15 | EXP.ACUTE.PN ---
Subjective *Date: 11/28/22 *Time: 09:15 Interval history: No issues overnight. Seeing physical therapy today. Having some increased pain this morning in her left hip. Does not report blood loss. No other concerns or complaint at this time. Medical Exam Vital signs and Labs for Last 24 Hours: Vital Signs Temp Pulse Resp BP Pulse Ox 11/28/22 07:36 97.7 F 85 18 139/46 L 96 11/28/22 04:00 98.2 F 83 16 86/54 L 96 11/28/22 00:00 98.6 F 125 H 17 103/55 L 94 L 11/27/22 20:00 91 L 11/27/22 20:00 98.6 F 122 H 17 83/50 L 91 L 11/27/22 11:32 98.6 F 111 H 17 110/68 93 L Intake and Output 11/27/22 11/28/22 11/28/22 23:59 07:59 15:59 Intake Total 240 / 480 2048 / 2048 Output Total 0 / 1300 350 / 350 Balance 240 / -820 1698 / 1698 Intake: Intake, Oral Amount 240 / 480 240 / 240 Intake, Total IV Amount 1808 / 1808 0.9 % Sodium Chloride 1,000 ml 1808 / 1808 @ 100 mls/hr IV .Q10H [facility] Rx#: [id number] Output: Output, Urine Amount 0 / 1300 350 / 350 Other: Number of Unmeasured Voids 0 0 Weight 86.228 kg Patient Weight 11/28/22 23:59 Weight 86.228 kg I & O for Labs for Last 24 Hours: Intake & Output 11/25/22 11/26/22 11/27/22 11/28/22 23:59 23:59 23:59 23:59 Intake Total 280 / 280 3169 / 3169 480 / 480 8 / 2048 Output Total 500 / 500 350 / 350 1300 / 1300 350 / 350 Balance -220 / -220 2819 / 2819 -820 / -820 1698 / 1698 Weight 77.111 kg 79 kg 84.2 kg 86.228 kg Head: Present atraumatic and normocephalic Neck: Present normal inspection Respiratory: Present CTA bilaterally; Absent accessory muscle use Cardiac: Present Reg Rate and Rhythm, Regular Rate and S1/S2 GI: Present soft; Absent tenderness Rectal (female): Present deferred (female): Present deferred Extremities: Present normal inspection and tenderness Comment:: Left hip tenderness Skin: Present intact and dry Assessment and Plan *Assessment and plan (1) Fracture of femoral neck, left: Status: Acute Qualifiers: Encounter type: initial encounter Fracture type: closed Qualified Code(s): S72.002A - Fracture of unspecified part of neck of left femur, initial encounter for closed fracture Category: Medical Code(s): S72.002A - Fracture of unspecified part of neck of left femur, initial encounter for closed fracture (2) Atrial fibrillation: Status: Acute Category: Medical Code(s): I48.91 - Unspecified atrial fibrillation (3) CHF (congestive heart failure): Status: Acute Category: Medical Code(s): I50.9 - Heart failure, unspecified (4) Chronic respiratory failure with hypoxia: Status: Acute Category: Medical Code(s): J96.11 - Chronic respiratory failure with hypoxia (5) Sick sinus syndrome: Status: Acute Category: Medical Code(s): I49.5 - Sick sinus syndrome (6) Fall: Status: Acute Category: Medical Code(s): W19.XXXA - Unspecified fall, initial encounter Plan 82-year-old female with past medical history Atrial Fibrillation on chronic anticoagulation, SSS s/p PPM, CHF, Chronic hypoxic respiratory failure wears 2L at nights presents following a fall at ground level status post cemented left hip hemiarthroplasty.? Currently acute blood loss anemia, symptomatic with hypotension will transfuse. Pending PT evaluation and dispositio Symptomatic acute blood loss anemia -Hemoglobin 7.4, hypotensive, orthostatic -We will transfuse 1 unit repeat CBC Hypotension -Secondary to blood loss -We will hold antihypertensives today -With improvement of blood pressure will likely start tomorrow Left Femoral Neck Fracture status post left hip hemiarthroplasty Event occurred just prior to presentation Denies prior history of falls Orthopaedics consulted, appreciate consult Orthopaedics consulted in the ER -Physical therapy consult -We will restart DOAC -S
[2022-11-28 10:34] LABS: Basophils % 0.3 % (0.1-2.0); Eosinophils # 0.4 K/mm3 (0.0-0.4); Hematocrit 24.1 % (37.0-47.0); Hemoglobin 7.7 g/dL (12.2-16.2); Lymphocytes # 1.4 K/mm3 (0.7-4.5); Lymphocytes % 16.2 % (10-50); Mean Corpuscular HGB Conc 32.1 g/dL (31.8-35.4); Mean Corpuscular Hemoglobin 31.5 pg (27.0-31.2); Mean Platelet Volume 9.6 fl (7.4-10.4); Monocytes # 0.5 K/mm3 (0.1-1.0); Monocytes % 5.3 % (1.7-9.3); Neutrophils # 6.5 K/mm3 (1.8-7.8); Neutrophils % 74.2 % (37.0-80.0); Platelet Count 218 K/mm3 (142-424); Red Blood Count 2.46 M/mm3 (4.20-5.40); Red Cell Distribution Width 14.1 % (11.5-17.5); White Blood Count 8.7 K/mm3 (4.8-10.8)
[2022-11-28 10:47] LABS: Alanine Aminotransferase 11 U/L (12-78); Albumin Level 3.2 g/dl (3.5-5.0); Albumin/Globulin Ratio 1.2 (1.1-1.8); Alkaline Phosphatase 87 U/L (38-126); Anion Gap 10.9 mEq/L (5-15); Aspartate Amino Transferase 37 U/L (14-36); Bilirubin,Total 0.3 mg/dl (0.2-1.3); Blood Urea Nitrogen 48 mg/dl (7-17); Calcium 7.8 mg/dl (8.4-10.2); Carbon Dioxide 18 mmol/L (22.0-30.0); Chloride 112 mmol/L (98-107); Creatinine Clearance Estimated 40 mL/min (50-200); Estimated Glomerular Filt Rate 33 ml/min (>60); GFR (African American) 40 ML/MIN (>60); Globulin 2.6 g/dL (1.3-3.2); Glucose 112 mg/dl (74-100); Magnesium 2.3 mg/dl (1.6-2.3); Phosphorous 2.5 mg/dl (2.5-4.5); Potassium 3.9 mmoL/L (3.5-5.1); Sodium 137 mmol/L (136-145); Total Protein,Serum 5.8 g/dl (6.3-8.2)
[2022-11-28 18:24] LABS: Hemoglobin 8.4 g/dL (12.2-16.2)
[2022-11-28 18:25] LABS: Hematocrit 25.9 % (37.0-47.0)
--- NOTE | 2022-11-28 19:11 | PC.NURSE ---
PT IS RESTING IN BED WITH FAMILY AT BEDSIDE. PT HAS BEEN ALERT AND ORIENTED. WILL ANSWER QUESTIONS AND FOLLOW COMMANDS HOWEVER SHE HAS BEEN VERY DROWSY THIS SHIFT. PT TOLERATED BLOOD TRANSFUSION. AFTER TRANSFUSION WAS COMPLETE PT GOT UP TO THE CHAIR FOR DINNER. PT WAS A 2 ASSIST WITH WALKER TO GET OOB. WILL CONTINUE TO MONITOR.
[2022-11-29] VITALS: BP 123/63; PULSE 64; RESP 16; TEMP 36.6; O2SAT 93
--- NOTE | 2022-11-29 02:03 | PC.NURSE ---
Pt. is still confused with his dementia. No other changes noted.
--- NOTE | 2022-11-29 02:05 | PC.NURSE ---
Pt. got pain meds once and is resting. No other changes noted.
[2022-11-29 04:00] VITALS: BP 124/68; PULSE 72; RESP 16; TEMP 36.6; O2SAT 96; BMI 32.4
[2022-11-29 07:14] LABS: Basophils % 0.3 % (0.1-2.0); Eosinophils # 0.4 K/mm3 (0.0-0.4); Eosinophils % 4.7 % (0.1-12.0); Hematocrit 26.3 % (37.0-47.0); Hemoglobin 8.9 g/dL (12.2-16.2); Lymphocytes # 1.4 K/mm3 (0.7-4.5); Lymphocytes % 16.5 % (10-50); Mean Corpuscular HGB Conc 33.8 g/dL (31.8-35.4); Mean Corpuscular Hemoglobin 32.9 pg (27.0-31.2); Mean Corpuscular Volume 97.4 fl (81-99); Mean Platelet Volume 8.6 fl (7.4-10.4); Monocytes # 0.4 K/mm3 (0.1-1.0); Monocytes % 5.2 % (1.7-9.3); Neutrophils % 73.4 % (37.0-80.0); Platelet Count 206 K/mm3 (142-424); Red Cell Distribution Width 13.8 % (11.5-17.5); White Blood Count 8.2 K/mm3 (4.8-10.8)
[2022-11-29 07:22] LABS: Alanine Aminotransferase 10 U/L (12-78); Albumin Level 3.1 g/dl (3.5-5.0); Albumin/Globulin Ratio 1.2 (1.1-1.8); Alkaline Phosphatase 95 U/L (38-126); Anion Gap 9.9 mEq/L (5-15); Aspartate Amino Transferase 37 U/L (14-36); Bilirubin,Total 0.9 mg/dl (0.2-1.3); Blood Urea Nitrogen 31 mg/dl (7-17); Calcium 8.1 mg/dl (8.4-10.2); Carbon Dioxide 20 mmol/L (22.0-30.0); Chloride 112 mmol/L (98-107); Creatinine Clearance Estimated 55 mL/min (50-200); Estimated Glomerular Filt Rate 48 ml/min (>60); GFR (African American) 58 ML/MIN (>60); Globulin 2.5 g/dL (1.3-3.2); Glucose 93 mg/dl (74-100); Magnesium 2.3 mg/dl (1.6-2.3); Phosphorous 2.5 mg/dl (2.5-4.5); Potassium 3.9 mmoL/L (3.5-5.1); Sodium 138 mmol/L (136-145); Total Protein,Serum 5.6 g/dl (6.3-8.2)
[2022-11-29 07:35] VITALS: BP 109/54; PULSE 83; RESP 17; TEMP 37.6; O2SAT 93
--- NOTE | 2022-11-29 09:43 | EXP.ORTH.PN ---
Subjective *Date: 11/29/22 *Time: 09:00 Interval history: Mrs. Alejo is an 82-year-old female patient status post left hip cemented hemiarthroplasty performed by Dr. Bridges. This morning the patient is lying comfortably in bed and her is present at the bedside. She reports some left hip pain as to be expected but states it is well controlled with as needed pain medication and rest. She states that she has ambulated a little over the weekend with the use of a walker and that this is going fairly well. She denies any other symptoms or concerns at this time. Ortho Exam (Inpt) Vital signs and Labs for Last 24 Hours: Temp Pulse Resp BP Pulse Ox 99.6 F 83 17 109/54 L 93 L 11/29/22 07:35 11/29/22 07:35 11/29/22 07:35 11/29/22 07:35 11/29/22 07:35 Laboratory Results - last 24 hr 11/28/22 10:05: WBC 8.7, RBC 2.46 L, Hgb 7.7 L, Hct 24.1 L, MCV 98.0, MCH 31.5 H, MCHC 32.1, RDW 14.1, Plt Count 218 D, MPV 9.6, Neut % (Auto) 74.2, Lymph % (Auto) 16.2, [place] % (Auto) 5.3, Eos % (Auto) 4.0, Baso % (Auto) 0.3, Neut # (Auto) 6.5, Lymph # (Auto) 1.4, [place] # (Auto) 0.5, Eos # (Auto) 0.4, Baso # (Auto) 0.0 11/28/22 10:05: Sodium 137, Potassium 3.9, Chloride 112 H, Carbon Dioxide 18 L, Anion Gap 10.9, BUN 48 H, Creatinine 1.50 H, Estimated Creat Clear 40, Estimated GFR 33 L, Est GFR ( Amer) 40 L, Glucose 112 H, Calcium 7.8 L, Phosphorus 2.5, Magnesium 2.3 D, Total Bilirubin 0.3, AST 37 H, ALT 11 L D, Alkaline Phosphatase 87, Total Protein 5.8 L, Albumin 3.2 L D, Globulin 2.6, Albumin/Globulin Ratio 1.2 11/28/22 10:05: Blood Type O Positive, Antibody Screen Negative, Crossmatch (AHG) See Detail 11/28/22 18:00: Hgb 8.4 L, Hct 25.9 L 11/29/22 07:01: WBC 8.2, RBC 2.70 L, Hgb 8.9 L, Hct 26.3 L, MCV 97.4, MCH 32.9 H, MCHC 33.8, RDW 13.8, Plt Count 206, MPV 8.6, Neut % (Auto) 73.4, Lymph % (Auto) 16.5, [place] % (Auto) 5.2, Eos % (Auto) 4.7, Baso % (Auto) 0.3, Neut # (Auto) 6.0, Lymph # (Auto) 1.4, [place] # (Auto) 0.4, Eos # (Auto) 0.4, Baso # (Auto) 0.0 11/29/22 07:01: Sodium 138, Potassium 3.9, Chloride 112 H, Carbon Dioxide 20 L, Anion Gap 9.9, BUN 31 H D, Creatinine 1.10 H D, Estimated Creat Clear 55, Estimated GFR 48 L, Est GFR ( Amer) 58 L D, Glucose 93, Calcium 8.1 L, Phosphorus 2.5, Magnesium 2.3, Total Bilirubin 0.9, AST 37 H, ALT 10 L, Alkaline Phosphatase 95, Total Protein 5.6 L, Albumin 3.1 L, Globulin 2.5, Albumin/Globulin Ratio 1.2 I & O for Labs for Last 24 Hours: Intake & Output 11/26/22 11/27/22 11/28/22 11/29/22 23:59 23:59 23:59 23:59 Intake Total 3169 / 3169 480 / 480 3641 / 3641 240 / 240 Output Total 350 / 350 1300 / 1300 875 / 875 500 / 500 Balance 2819 / 2819 -820 / -820 2766 / 2766 -260 / -260 Weight 174 lb 2.643 oz 185 lb 10.067 oz 190 lb 1.6 oz 190 lb 1.603 oz Head: Present normocephalic and atraumatic Eyes: Present as per HPI ENT: Present normal exam Neck: Present normal inspection, full ROM and trachea midline; Absent lymphadenopathy Respiratory: Present normal respiratory effort, able to speak in complete sentences and symmetric chest movement; Absent accessory muscle use Cardiac: Present Reg Rate and Rhythm GI: Present soft; Absent tenderness Comment:: Upon examination of the lower extremities: The limb lengths are grossly equal. Dressings present of the left hip are clean, dry, and intact. Attempted movements of the left hip are somewhat painful. Thigh and calf are soft nontender; Homans' sign is negative. No clinical evidence of DVT noted. Posterior tibial pulse 1+; capillary fill is brisk. Sensation to light touch is grossly intact throughout. Patient is active mobilizing the foot, ankle, and toes. Skin: Present intact, warm and normal turgor; Absent cyanosis, erythema, lesions or jaundice Neuro: Present Cranial Nerve 2-12 Intact, Motor Function Intact, Sensory Function Intact, alert, awake, oriented x 3, tone normal and moves all extremities; Absent Numbness or Tingling Assessment and Plan *
[2022-11-29 11:10] VITALS: BP 117/53; PULSE 93; RESP 18; TEMP 36.6; O2SAT 93
[2022-11-29 12:12] LABS: Coronavirus 19, PCR Not Detected (NotDetected); Influenza A, PCR Not Detected (NotDetected); Influenza B, PCR Not Detected (NotDetected)
--- NOTE | 2022-11-29 13:32 | EXP.DC.SUM ---
General Admission date:: 11/24/22 HPI HPI HPI: Ms. Alejo is an 82 year old female patient admitted to the inpatient service following a mechanical ground level fall in her home yesterday 11/24/2022. She reports that she was walking in her kitchen wearing socks when she slipped and fell, causing her to injure her left hip. She states that she was unable to get up and walk so she was brought to the [facility] emergency department where subsequent evaluation with x-ray and CT demonstrated a left subcapital femoral neck fracture. This morning the patient is lying comfortably in bed and her and children are at the bedside. She reports left hip pain as to be expected but states it is well controlled with as needed pain medication and rest. She denies pain anywhere else or any other injuries. No history of any distal tingling/numbness. At baseline she lives alone in her own home with her and ambulates without the use of any assistive devices. She has not had any prior surgeries to the left hip. She is independent for her activities of daily living. Her past medical history significant for atrial fibrillation on chronic anticoagulation with Eliquis, CHF, lung cancer status postpneumonectomy, and chronic hypoxic respiratory failure. At baseline she wears 2 L of supplemental oxygen only at night. She last took her Eliquis yesterday morning 11/24/2022. She denies any other symptoms or concerns at this time. Hospital Course Hospital Course Hospital Course: Patient was admitted for hip fracture. Anticoagulation held prior to the OR, restarted after the procedure. Patient developed symptomatic anemia hemoglobin 7.4. Received 1 unit packed red blood cells with improvement of hypotension. Home medications restarted.? Physical therapy consulted.? Discharge to [place]. Per ortho, Continue PT/OT and standard posterior hip precautions. Weightbearing as tolerated on the left lower extremity. She may resume her normal Eliquis.? We will plan to see her in clinic for her first postoperative follow up in 2 weeks for wound check and radiographs. Continue medical management as per primary care team. Follow up cardiology outpatient. Folow up ortho outpatient. Exam Data for Last 24 hours Vital signs and Labs for Last 24 Hours: Temp Pulse Resp BP Pulse Ox 97.8 F 93 H 18 117/53 L 93 L 11/29/22 11:10 11/29/22 11:10 11/29/22 11:10 11/29/22 11:10 11/29/22 11:10 Laboratory Results - last 24 hr 11/28/22 10:05: Blood Type O Positive, Antibody Screen Negative, Crossmatch (AHG) See Detail 11/28/22 18:00: Hgb 8.4 L, Hct 25.9 L 11/29/22 07:01: WBC 8.2, RBC 2.70 L, Hgb 8.9 L, Hct 26.3 L, MCV 97.4, MCH 32.9 H, MCHC 33.8, RDW 13.8, Plt Count 206, MPV 8.6, Neut % (Auto) 73.4, Lymph % (Auto) 16.5, [place] % (Auto) 5.2, Eos % (Auto) 4.7, Baso % (Auto) 0.3, Neut # (Auto) 6.0, Lymph # (Auto) 1.4, [place] # (Auto) 0.4, Eos # (Auto) 0.4, Baso # (Auto) 0.0 11/29/22 07:01: Sodium 138, Potassium 3.9, Chloride 112 H, Carbon Dioxide 20 L, Anion Gap 9.9, BUN 31 H D, Creatinine 1.10 H D, Estimated Creat Clear 55, Estimated GFR 48 L, Est GFR ( Amer) 58 L D, Glucose 93, Calcium 8.1 L, Phosphorus 2.5, Magnesium 2.3, Total Bilirubin 0.9, AST 37 H, ALT 10 L, Alkaline Phosphatase 95, Total Protein 5.6 L, Albumin 3.1 L, Globulin 2.5, Albumin/Globulin Ratio 1.2 11/29/22 12:03: SARS-CoV-2 (PCR) Not detected, Influenza A Untype (PCR) Not detected, Influenza Type B (PCR) Not detected I & O for Last 24 hours: Intake & Output 11/26/22 11/27/22 11/28/22 11/29/22 23:59 23:59 23:59 23:59 Intake Total 3169 / 3169 480 / 480 3641 / 3641 600 / 600 Output Total 350 / 350 1300 / 1300 875 / 875 500 / 500 Balance 2819 / 2819 -820 / -820 2766 / 2766 100 / 100 Weight 79 kg 84.2 kg 86.228 kg 86.228 kg Constitutional Constitutional: no acute distress and cooperative *Routine HEENT Exam Head: Present normocephalic and atraumatic Eye: Present EOMI ENT: Pr
--- NOTE | 2022-11-30 15:14 | CARE MANAGER ---
Contacted [place] who state patient is doing well. Denies any questions or concerns. MARYCHUY Suarez
== END 2022-11-29 15:05 | DRG 522 ==
LOC: ER 18:49 → 2ND 20:13 → OB 11-26 07:16 → 2ND 11-27 03:49
PROVIDERS: Orthopaedic Surgery; Physician Assistant Surgical; Admitting Provider Student in an Organized Health Care Education/Training Program; Emergency Provider Emergency Medicine; PCP Family Medicine; Visit Provider Student in an Organized Health Care Education/Training Program
PROC: 0SRS0J9 Replacement of Left Hip Joint, Femoral Surface with Synthetic Substitute, Cemented, Open Approach (ICD-10-PCS; principal; 2022-11-26 07:30)
DX: S72.002A Fracture of unspecified part of neck of left femur, initial encounter for closed fracture (principal); J96.11 Chronic respiratory failure with hypoxia; D62 Acute posthemorrhagic anemia; Z79.01 Long term (current) use of anticoagulants; Z85.118 Personal history of other malignant neoplasm of bronchus and lung; I25.5 Ischemic cardiomyopathy; I48.0 Paroxysmal atrial fibrillation; I50.9 Heart failure, unspecified; Z99.81 Dependence on supplemental oxygen; Z95.0 Presence of cardiac pacemaker; W01.0XXA Fall on same level from slipping, tripping and stumbling without subsequent striking against object, initial encounter; I95.9 Hypotension, unspecified; Z95.5 Presence of coronary angioplasty implant and graft; E78.5 Hyperlipidemia, unspecified; I25.10 Atherosclerotic heart disease of native coronary artery without angina pectoris; I11.0 Hypertensive heart disease with heart failure
CPT/HCPCS: 27236; 36415; 70450; 71045; 72125; 72128; 72131; 72192; 73502; 73552; 73560; 73700; 80053; 81001; 83735; 84100; 85014; 85018; 85025; 85610; 85730; 86850; 87086; 93005; 93306; 97110; 97162; 97165; 97530; 99285; C1713; C9803; J2405; J2710; J3370; P9016; U0003; U0005

== ENCOUNTER → 2022-12-07 09:24 | Outpatient (CLI) | payer MEDICARE, MEDICAID, SELFPAY ==
--- NOTE | 2022-12-07 09:32 | XR_ITS ---
FINAL REPORT CLINICAL HISTORY: s/p hip surgery..pain COMPARISON: 11/26/2022 FINDINGS: AP and frog leg views of the left hip with an AP pelvis were obtained. Again seen are changes from left hip arthroplasty. There is no acute fracture or dislocation. There are degenerative changes of the right hip. Soft tissues are within normal limits. IMPRESSION: Again seen changes from left hip arthroplasty. Degenerative changes of the right hip. Reviewed, Interpreted and Dictated by Lisa Gonsales MD Transcribed by Patti Ortiz Authenticated and [facility]
== END ==
PROVIDERS: PCP Family Medicine; Visit Provider Physician Assistant Surgical
DX: S72.002A Fracture of unspecified part of neck of left femur, initial encounter for closed fracture (principal); M25.552 Pain in left hip
CPT/HCPCS: 73502

== ENCOUNTER 2022-12-17 12:21 | Inpatient (IN) | payer MEDICARE, MEDICAID, SELFPAY ==
[2022-12-17 12:36] VITALS: BP 129/56; PULSE 70; RESP 16; TEMP 36.6; O2SAT 94; BMI 29.3
--- NOTE | 2022-12-17 12:39 | PC.NURSE ---
PT ARRIVED TO FLOOR VIA WHEELCHAIR
--- NOTE | 2022-12-17 12:59 | EXP.HP ---
History of Present Illness *Admission Date: 12/17/22 *Reason for visit:: Surgical site infection *History of present illness: 82-year-old female with a past medical history that is positive for CHF, Atrial Fibrillation on chronic anticoagulation, h/o Lung Cancer s/p Pneumonectomy, Chronic Hypoxic Respiratory Failure, wears home oxygen at 2L at night, SSS s/p PPM. She presented earlier this month after a ground-level fall where she sustained a left femoral neck fracture. Underwent left hemiarthroplasty on 11/26. Has been doing well in rehab and [facility]. Has completed a course of oral antibiotics due to concern for infection with incision. Wound was looking better until the past few days, came in for reevaluation today with orthopedics and has findings concerning for cellulitis. Patient denies any fever, chest pain, shortness of breath beyond baseline, nausea or vomiting. Pain in hip is tolerable and she is able to participate with therapy. Redness is only around proximal end of surgical incision, accompanied by edema present since surgery. Orthopedics consulted medicine for admission for treatment of cellulitis and planned washout over the weekend. On arrival to the floor, patient is at baseline level of function and health. Stable on 2 L nasal cannula. Denies cough, fever, rigors. [facility] Disclaimer: The information contained in this section may have been updated after the patient was seen, as this information can be updated by other users. Medical History Acute infective cystitis Atrial fibrillation Community acquired pneumonia COVID Gallbladder disease History of lung cancer Influenza Ischemic cardiomyopathy Lung cancer Non-ST elevation [place] (NSTEMI) Paroxysmal atrial fibrillation Pneumonia Respiratory failure with hypoxia Sick sinus syndrome Typical angina Surgical History History of cholecystectomy History of left hip hemiarthroplasty Hx of pneumonectomy Stented coronary artery Family History Family history of myocardial infarction Lung cancer Social History Smoking Status: Never smoker second hand exposure: No alcohol intake: never substance use type: denies use current occupational status: retired Travel in the last 8 weeks: Inside the [place] household members: other housing: house lives independently: No marital status: current occupational exposures/hazards: No 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) Review of Systems Review of Systems Review of systems (narrative): 14 point review of systems performed, pertinent positives and negatives as per HPI Meds Home Medications and Allergies Home Medications Medication Instructions Recorded Confirmed Type albuterol sulfate 90 mcg/actuation 2 puff inhalation Q6HP PRN 05/20/20 12/17/22 History aerosol inhaler Shortness Of Breath doxepin 10 mg capsule 10 mg PO DAILY mood/sleep 02/11/22 12/17/22 History apixaban 5 mg tablet (Eliquis) 5 mg PO BID Blood thinner/atrial 08/18/22 12/17/22 History fib sacubitril 97 mg-valsartan 103 mg 1 tab PO BID Heart failure 08/18/22 12/17/22 History tablet (Entresto) amlodipine 10 mg tablet 10 mg PO DAILY Hypertension 11/25/22 12/17/22 History bisoprolol fumarate 10 mg tablet 10 mg PO BID Hypertension 11/25/22 12/17/22 History isosorbide mononitrate 30 mg 30 mg PO DAILY Hypertension 11/25/22 12/17/22 History tablet,extended release 24 hr hydrocodone 5 mg-acetaminophen 325 1 tab PO Q6HP PRN MODERATE TO 12/17/22 12/17/22 History mg tablet SEVERE PAIN ondansetron 4 mg disintegrating 4 mg PO Q6HP PRN Nausea And 12/17/22 12/17/22 History tablet Vomiting New Prescriptions to Start Prescriptions: Allergies Allergy/AdvReac Type Severity Reaction Status Date / Ti
[2022-12-17 13:27] LABS: Coronavirus 19, PCR Not Detected (NotDetected); Influenza A, PCR Not Detected (NotDetected); Influenza B, PCR Not Detected (NotDetected)
[2022-12-17 13:31] LABS: Basophils % 0.8 % (0.1-2.0); Eosinophils # 0.2 K/mm3 (0.0-0.4); Hematocrit 32.5 % (37.0-47.0); Hemoglobin 10.2 g/dL (12.2-16.2); Lymphocytes # 1.3 K/mm3 (0.7-4.5); Lymphocytes % 22.8 % (10-50); Mean Corpuscular HGB Conc 31.3 g/dL (31.8-35.4); Mean Corpuscular Volume 95.7 fl (81-99); Mean Platelet Volume 7.1 fl (7.4-10.4); Monocytes # 0.4 K/mm3 (0.1-1.0); Neutrophils # 3.7 K/mm3 (1.8-7.8); Neutrophils % 66.3 % (37.0-80.0); Platelet Count 345 K/mm3 (142-424); Red Blood Count 3.39 M/mm3 (4.20-5.40); Red Cell Distribution Width 13.8 % (11.5-17.5); White Blood Count 5.6 K/mm3 (4.8-10.8)
[2022-12-17 13:35] LABS: Chloride 102 mmol/L (98-107); Potassium 4.2 mmoL/L (3.5-5.1); Sodium 140 mmol/L (136-145)
[2022-12-17 13:38] LABS: Alanine Aminotransferase 17 U/L (12-78); Albumin Level 3.7 g/dl (3.5-5.0); Albumin/Globulin Ratio 1.2 (1.1-1.8); Alkaline Phosphatase 105 U/L (38-126); Anion Gap 8.2 mEq/L (5-15); Aspartate Amino Transferase 30 U/L (14-36); Bilirubin,Total 0.6 mg/dl (0.2-1.3); Blood Urea Nitrogen 21 mg/dl (7-17); Calcium 8.9 mg/dl (8.4-10.2); Carbon Dioxide 34 mmol/L (22.0-30.0); Creatinine Clearance Estimated 54 mL/min (50-200); Estimated Glomerular Filt Rate 53 ml/min (>60); GFR (African American) 64 ML/MIN (>60); Glucose 117 mg/dl (74-100); Total Protein,Serum 6.7 g/dl (6.3-8.2)
[2022-12-17 13:39] LABS: Magnesium 2.1 mg/dl (1.6-2.3)
--- NOTE | 2022-12-17 13:48 | EXP.PHA.CONS ---
Pharmacy Consult Date: 12/17/22 Time: 13:48 Referring provider: DR. TA Reason for Consult:: VANCOMYCIN DOSING Allergies Allergy/AdvReac Type Severity Reaction Status Date / Time levofloxacin [From LEVAQUIN] Allergy Unknown MAKES SICK Verified 12/17/22 11:29 tetracycline [TETRACYCLINE] Allergy Unknown SWELLING, Verified 12/17/22 11:29 ITCHING aspirin AdvReac Intermediate Verified 12/17/22 11:29 Home Medications Medication Instructions Recorded Confirmed Type albuterol sulfate 90 mcg/actuation 2 puff inhalation Q6HP PRN 05/20/20 12/17/22 History aerosol inhaler Shortness Of Breath doxepin 10 mg capsule 10 mg PO DAILY mood/sleep 02/11/22 12/17/22 History apixaban 5 mg tablet (Eliquis) 5 mg PO BID Blood thinner/atrial 08/18/22 12/17/22 History fib sacubitril 97 mg-valsartan 103 mg 1 tab PO BID Heart failure 08/18/22 12/17/22 History tablet (Entresto) amlodipine 10 mg tablet 10 mg PO DAILY Hypertension 11/25/22 12/17/22 History bisoprolol fumarate 10 mg tablet 10 mg PO BID Hypertension 11/25/22 12/17/22 History isosorbide mononitrate 30 mg 30 mg PO DAILY Hypertension 11/25/22 12/17/22 History tablet,extended release 24 hr New Prescriptions to Start Prescriptions: Height: 1.63 m Weight: 77.621 kg Laboratory Results:: Laboratory Results - last 24 hr 12/17/22 13:05: WBC 5.6, RBC 3.39 L, Hgb 10.2 L, Hct 32.5 L, MCV 95.7, MCH 30.0, MCHC 31.3 L, RDW 13.8, Plt Count 345, MPV 7.1 L, Neut % (Auto) 66.3, Lymph % (Auto) 22.8, [place] % (Auto) 7.0, Eos % (Auto) 3.0, Baso % (Auto) 0.8, Neut # (Auto) 3.7, Lymph # (Auto) 1.3, [place] # (Auto) 0.4, Eos # (Auto) 0.2, Baso # (Auto) 0.0 Medical History: Medical History (Updated 12/17/22 @ 11:45 by Theodore Bridges JR, MD) Acute infective cystitis Atrial fibrillation Community acquired pneumonia COVID Gallbladder disease History of lung cancer Influenza Ischemic cardiomyopathy Lung cancer Non-ST elevation [place] (NSTEMI) Paroxysmal atrial fibrillation Pneumonia Respiratory failure with hypoxia Sick sinus syndrome Typical angina Assessment and Plan Assessment and plan all Dx Assessment and Plan for all problems:: Pharmacokinetic dosing service Age: 82 yo Serum creatinine: 1.1 mg/dL Height: 64.0 Inches Weight (kg): 77.6 Assessment: IBW (kg): 54.70 Dosing wt(kg): 77.6 Estimated Creatinine clearance (ml/min): 34.6 CRCL method: Cockcroft and Gault using ibw(default). Drug selected: Vancomycin Loading dose (mg): 0 Vd (liters): 66.0 (factor used: 0.85 L/kg) August (hr-1): 0.033 Half life (hrs): 21.00 Recommended dose: 1250 mg Interval: 24 hrs Infusion time (hrs): 2.0 Predicted peak (mcg/mL): 33.5 Predicted trough (mcg/mL): 16.21 Total body weight is being used for vancomycin dosing. Recommendations: Give Vancomycin 1250 mg q 24 hrs with an expected Cpeak of 33.5 mcg/ml and an expected Ctrough of 16.21 mcg/ml ----Vanco only - ignore for aminoglycosides----- CLvanco= 2.18 L/hr AUC 0-24 /JAMES Data: JAMES 0.5 mcg/mL: AUC/JAMES: 1146.8 JAMES 1.0 mcg/mL: AUC/JAMES: 573.4 --------- JAMES 1.5 mcg/mL: AUC/JAMES: 382.3 JAMES 2.0 mcg/mL: AUC/JAMES: 286.7
[2022-12-17 13:56] LABS: INR 1.07 (0.9-1.1); Prothrombin Time 11.5 seconds (10.1-12.5)
--- NOTE | 2022-12-17 15:15 | CT_ITS ---
FINAL REPORT TECHNIQUE: Axial imaging of the left hip was obtained after the administration of contrast. Low-dose technique was utilized. CLINICAL HISTORY: evaluate for seroma vs abscess left hip, RECENT HIP SURGERY FINDINGS: There are post arthroplasty changes of the left hip. Residual fracture is seen of the greater trochanter. There is a small fluid collection in the soft tissues at the level of the proximal femoral shaft measuring 4.6 x 2.2 x 1.4 cm. There is also an intermuscular fluid collection along the distal trochanteric region measuring 6.8 cm in width by 1.7 cm in thickness by 3.8 cm in height. A 2nd fluid collection is located within the gluteal soft tissues, above the greater trochanter measuring 4.8 x 1.3 x 1.5 cm. There is also a superficial fluid collection in the subcutaneous tissues overlying the gluteal soft tissues measuring 5.6 x 1.8 x 3.1 cm which is not encapsulated. IMPRESSION: Two separate, encapsulated intermuscular fluid collections as above with differential diagnosis of seroma, hematoma or abscess. Two separate, poorly encapsulated fluid collections in the subcutaneous tissues, along the lateral upper thigh and lateral upper gluteal region. Reviewed, Interpreted and Dictated by Donte Gallo MD Transcribed by Maya Ngo Authenticated and [facility]
--- NOTE | 2022-12-17 15:32 | P.PN_ITS ---
Subjective *Date: 12/17/22 *Time: 15:32 Ortho Exam (Inpt) Vital signs and Labs for Last 24 Hours: Temp Pulse Resp BP Pulse Ox 97.9 F 70 16 129/56 L 94 L 12/17/22 12:36 12/17/22 12:36 12/17/22 12:36 12/17/22 12:36 12/17/22 12:36 Laboratory Results - last 24 hr 12/17/22 13:05: WBC 5.6, RBC 3.39 L, Hgb 10.2 L, Hct 32.5 L, MCV 95.7, MCH 30.0, MCHC 31.3 L, RDW 13.8, Plt Count 345, MPV 7.1 L, Neut % (Auto) 66.3, Lymph % (Auto) 22.8, [place] % (Auto) 7.0, Eos % (Auto) 3.0, Baso % (Auto) 0.8, Neut # (Auto) 3.7, Lymph # (Auto) 1.3, [place] # (Auto) 0.4, Eos # (Auto) 0.2, Baso # (Auto) 0.0 12/17/22 13:05: Sodium 140, Potassium 4.2, Chloride 102, Carbon Dioxide 34 H, Anion Gap 8.2, BUN 21 H, Creatinine 1.00, Estimated Creat Clear 54, Estimated GFR 53 L, Est GFR ( Amer) 64, Glucose 117 H, Calcium 8.9, Magnesium 2.1, Total Bilirubin 0.6, AST 30, ALT 17, Alkaline Phosphatase 105, Total Protein 6.7, Albumin 3.7, Globulin 3.0, Albumin/Globulin Ratio 1.2 12/17/22 13:05: SARS-CoV-2 (PCR) Not detected, Influenza A Untype (PCR) Not detected, Influenza Type B (PCR) Not detected 12/17/22 13:25: PT 11.5, INR 1.07 I & O for Labs for Last 24 Hours: Intake & Output 12/14/22 12/15/22 12/16/22 12/17/22 23:59 23:59 23:59 23:59 Weight 171 lb 2 oz Assessment and Plan *Assessment and plan (1) Cellulitis: Status: Acute Category: Medical Code(s): L03.90 - Cellulitis, unspecified Plan Plan for n.p.o. at midnight Tuesday, surgery on Tuesday after Eliquis is held for 48 hours. Follow-up CT results.
[2022-12-17 16:00] VITALS: BP 105/48; PULSE 72; RESP 16; TEMP 36.8; O2SAT 100
[2022-12-17 19:29] VITALS: BP 116/51; PULSE 71; RESP 16; TEMP 37.2; O2SAT 98
[2022-12-17 20:00] VITALS: O2SAT 98
--- NOTE | 2022-12-17 20:00 | PC.NURSE ---
pt was educated on purewick but declined to use at this time, pt also was educated on use of scds for dvt prevention, pt declined scds at this time and sates that she is too tired and will put them on maybe tomorrow.
--- NOTE | 2022-12-17 20:22 | PC.NURSE ---
Rounded on pt at this time. Pt laying in bed watching TV. Voices no complaints or needs at this time. Call light within reach.
[2022-12-17 23:30] VITALS: O2SAT 93
[2022-12-17 23:51] VITALS: BP 110/46; PULSE 70; RESP 16; TEMP 36.9; O2SAT 93
[2022-12-18 03:42] VITALS: BP 118/49; PULSE 70; RESP 16; TEMP 36.8; O2SAT 91; BMI 30.2
--- NOTE | 2022-12-18 05:17 | PC.NURSE ---
pt rested well through the night, vss, no acute distress, left hip dressing cdi, swelling and redness noted around incision site, pt incontinent of bladder, pt is alert and oriented x4, no other issues or concerns at this time.
[2022-12-18 07:00] LABS: Basophils # 0.1 K/mm3 (0-0.2); Eosinophils # 0.3 K/mm3 (0.0-0.4); Eosinophils % 5.4 % (0.1-12.0); Hematocrit 29.7 % (37.0-47.0); Hemoglobin 9.5 g/dL (12.2-16.2); Lymphocytes # 1.2 K/mm3 (0.7-4.5); Lymphocytes % 26.1 % (10-50); Mean Corpuscular HGB Conc 31.9 g/dL (31.8-35.4); Mean Corpuscular Hemoglobin 30.5 pg (27.0-31.2); Mean Corpuscular Volume 95.5 fl (81-99); Mean Platelet Volume 8.1 fl (7.4-10.4); Monocytes # 0.3 K/mm3 (0.1-1.0); Monocytes % 6.5 % (1.7-9.3); Neutrophils # 2.8 K/mm3 (1.8-7.8); Platelet Count 312 K/mm3 (142-424); Red Blood Count 3.11 M/mm3 (4.20-5.40); White Blood Count 4.6 K/mm3 (4.8-10.8)
[2022-12-18 07:08] VITALS: BP 115/54; PULSE 70; RESP 17; TEMP 36.5; O2SAT 98
[2022-12-18 07:08] LABS: Alanine Aminotransferase 13 U/L (12-78); Albumin Level 3.2 g/dl (3.5-5.0); Albumin/Globulin Ratio 1.3 (1.1-1.8); Alkaline Phosphatase 89 U/L (38-126); Aspartate Amino Transferase 21 U/L (14-36); Bilirubin,Total 0.4 mg/dl (0.2-1.3); Blood Urea Nitrogen 16 mg/dl (7-17); Calcium 8.5 mg/dl (8.4-10.2); Carbon Dioxide 31 mmol/L (22.0-30.0); Chloride 105 mmol/L (98-107); Creatinine Clearance Estimated 56 mL/min (50-200); Estimated Glomerular Filt Rate 60 ml/min (>60); GFR (African American) 73 ML/MIN (>60); Globulin 2.5 g/dL (1.3-3.2); Glucose 94 mg/dl (74-100); Total Protein,Serum 5.7 g/dl (6.3-8.2)
[2022-12-18 07:09] LABS: Potassium 4.1 mmoL/L (3.5-5.1)
[2022-12-18 07:20] LABS: Anion Gap 6.1 mEq/L (5-15); Sodium 138 mmol/L (136-145)
--- NOTE | 2022-12-18 12:46 | PC.NURSE ---
I spoke with Dr Bridges who states he is taking patient to the OR at 0700 tomorrow ([place], Dec 19) for an I & D with wound vac placement. OR team was paged. Ryan Barnett, and Alexander all returned call and was notified.
--- NOTE | 2022-12-18 12:49 | PC.NURSE ---
I spoke with Dr Hill who states he is planning on taking patient for an EGD in the am. OR team paged. Alexander, Ryan and Ericka all returned call and were notified.
--- NOTE | 2022-12-18 12:52 | EXP.ACUTE.PN ---
Subjective *Date: 12/18/22 *Time: 14:36 Interval history: Hemodynamically stable night. No shortness of breath beyond baseline. No chest pain, nausea, cough, vomiting. No increased pain or swelling at left hip. No fever or chills. Tolerating p.o. intake. Medical Exam Vital signs and Labs for Last 24 Hours: Vital Signs Temp Pulse Resp BP Pulse Ox 12/18/22 07:08 97.7 F 70 17 115/54 L 98 12/17/22 23:30 93 L 12/18/22 03:42 98.3 F 70 16 118/49 L 91 L 12/17/22 23:51 98.4 F 70 16 110/46 L 93 L 12/17/22 20:00 98 12/17/22 19:29 98.9 F 71 16 116/51 L 98 12/17/22 16:00 98.3 F 72 16 105/48 L 100 Intake and Output 12/17/22 12/18/22 12/18/22 23:59 07:59 15:59 Intake Total 240 / 240 350 / 350 Output Total 0 / 0 0 / 0 0 / 0 Balance 240 / 240 350 / 350 0 / 350 Intake: Intake, Oral Amount 240 / 240 300 / 300 Intake, Total IV Amount 50 / 50 Cefepime HCl 1 gm In 0.9 % 50 / 50 Sodium Chloride 50 ml @ 100 mls /hr IV 0900,2100 [facility] Rx#: [id number] Output: Output, Urine Amount 0 / 0 0 / 0 0 / 0 Other: Number of Unmeasured Voids 0 1 1 Weight 80.484 kg Patient Weight 12/18/22 23:59 Weight 80.484 kg Laboratory Results - last 24 hr 12/17/22 13:05: WBC 5.6, RBC 3.39 L, Hgb 10.2 L, Hct 32.5 L, MCV 95.7, MCH 30.0, MCHC 31.3 L, RDW 13.8, Plt Count 345, MPV 7.1 L, Neut % (Auto) 66.3, Lymph % (Auto) 22.8, [place] % (Auto) 7.0, Eos % (Auto) 3.0, Baso % (Auto) 0.8, Neut # (Auto) 3.7, Lymph # (Auto) 1.3, [place] # (Auto) 0.4, Eos # (Auto) 0.2, Baso # (Auto) 0.0 12/17/22 13:05: Sodium 140, Potassium 4.2, Chloride 102, Carbon Dioxide 34 H, Anion Gap 8.2, BUN 21 H, Creatinine 1.00, Estimated Creat Clear 54, Estimated GFR 53 L, Est GFR ( Amer) 64, Glucose 117 H, Calcium 8.9, Magnesium 2.1, Total Bilirubin 0.6, AST 30, ALT 17, Alkaline Phosphatase 105, Total Protein 6.7, Albumin 3.7, Globulin 3.0, Albumin/Globulin Ratio 1.2 12/17/22 13:05: SARS-CoV-2 (PCR) Not detected, Influenza A Untype (PCR) Not detected, Influenza Type B (PCR) Not detected 12/17/22 13:25: PT 11.5, INR 1.07 12/18/22 06:49: WBC 4.6 L, RBC 3.11 L, Hgb 9.5 L, Hct 29.7 L, MCV 95.5, MCH 30.5, MCHC 31.9, RDW 14.0, Plt Count 312, MPV 8.1, Neut % (Auto) 61.0, Lymph % (Auto) 26.1, [place] % (Auto) 6.5, Eos % (Auto) 5.4, Baso % (Auto) 1.0, Neut # (Auto) 2.8, Lymph # (Auto) 1.2, [place] # (Auto) 0.3, Eos # (Auto) 0.3, Baso # (Auto) 0.1 12/18/22 06:49: Sodium 138, Potassium 4.1, Chloride 105, Carbon Dioxide 31 H, Anion Gap 6.1, BUN 16, Creatinine 0.90, Estimated Creat Clear 56, Estimated GFR 60, Est GFR ( Amer) 73, Glucose 94, Calcium 8.5, Magnesium 2.0, Total Bilirubin 0.4, AST 21 D, ALT 13, Alkaline Phosphatase 89, Total Protein 5.7 L, Albumin 3.2 L D, Globulin 2.5, Albumin/Globulin Ratio 1.3 I & O for Labs for Last 24 Hours: Intake & Output 12/15/22 12/16/22 12/17/22 12/18/22 23:59 23:59 23:59 23:59 Intake Total 240 / 240 350 / 350 Output Total 0 / 0 0 / 0 Balance 240 / 240 350 / 350 Weight 77.621 kg 80.484 kg Constitutional: Present no acute distress, obese and chronically ill appearing Head: Present atraumatic and normocephalic Neck: Present normal inspection Respiratory: Present CTA bilaterally; Absent accessory muscle use, rhonchi, wheezes or crackles Cardiac: Present Reg Rate and Rhythm, Regular Rate and S1/S2 GI: Present soft; Absent tenderness Extremities: Absent normal inspection or tenderness Comment:: Mild erythema, no redness beyond leading edge jessica around surgical incision; no drainage or weeping. Skin: Present intact and dry Neuro: Present Grossly Intact, alert, awake and oriented x 3 Assessment and Plan *Assessment and plan (1) Cellulitis: Status: Acute Category: Medical Code(s): L03.90 - Cellulitis, unspecified (2) Closed left hip fracture: Status: Acute Category: Medical Code(s): S72.002A - Fracture of unspecified part of neck
[2022-12-18 15:11] VITALS: BP 116/52; PULSE 70; RESP 16; TEMP 37.1; O2SAT 98
[2022-12-18 20:00] VITALS: BP 120/51; PULSE 67; RESP 17; TEMP 37.1; O2SAT 97
[2022-12-19] VITALS (20 sets, daily range): BP systolic 81–127; BP diastolic 35–71; PULSE 69–87; RESP 12–18; TEMP 36.1–43; O2SAT 96–100; BMI 29.5
--- NOTE | 2022-12-19 05:38 | PC.NURSE ---
pt rested well through the night. complaints of pain in left hip. prn med given. npo at midnight for procedure today. a&ox4. 2L NC BL. redness noted to left hip, walter c/d/i. vss.
--- NOTE | 2022-12-19 06:33 | PC.NURSE ---
PT LEFT FLOOR AT THIS TIME
--- NOTE | 2022-12-19 06:35 | PC.NURSE ---
Addendum entered by Ludivina Duffy RN 12/19/22 06:36: pt just went off the floor for surgery with or staff and anesthesia Original Note: pt just went off the floor for surgery
--- NOTE | 2022-12-19 06:44 | EXP.ORTH.CON ---
History of Present Illness *Admission Date: 12/17/22 *History of present illness: 82-year-old female with a past medical history that is positive for CHF, Atrial Fibrillation on chronic anticoagulation, h/o Lung Cancer s/p Pneumonectomy, Chronic Hypoxic Respiratory Failure, wears home oxygen at 2L at night, SSS s/p PPM. She presented earlier this month after a ground-level fall where she sustained a left femoral neck fracture. Underwent left hemiarthroplasty on 11/26. Has been doing well in rehab and [facility]. Has completed a course of oral antibiotics due to concern for infection with incision. Wound was looking better until the past few days, came in for reevaluation today with orthopedics and has findings concerning for cellulitis. Patient denies any fever, chest pain, shortness of breath beyond baseline, nausea or vomiting. Pain in hip is tolerable and she is able to participate with therapy. Redness is only around proximal end of surgical incision, accompanied by edema present since surgery. Orthopedics consulted medicine for admission for treatment of cellulitis and planned washout over the weekend. On arrival to the floor, patient is at baseline level of function and health. Stable on 2 L nasal cannula. Denies cough, fever, rigors. [facility] Disclaimer: The information contained in this section may have been updated after the patient was seen, as this information can be updated by other users. Medical History Acute infective cystitis Atrial fibrillation Community acquired pneumonia COVID Gallbladder disease History of lung cancer Influenza Ischemic cardiomyopathy Lung cancer Non-ST elevation [place] (NSTEMI) Paroxysmal atrial fibrillation Pneumonia Respiratory failure with hypoxia Sick sinus syndrome Typical angina Surgical History History of cholecystectomy History of left hip hemiarthroplasty Hx of pneumonectomy Stented coronary artery Family History Family history of myocardial infarction Lung cancer Social History Smoking Status: Never smoker second hand exposure: No alcohol intake: never substance use type: denies use current occupational status: retired Travel in the last 8 weeks: [place] the [place] household members: other housing: house lives independently: No marital status: current occupational exposures/hazards: No 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) Review of Systems Review of Systems Review of systems:: unable to obtain Constitutional Constitutional: Reports system reviewed and no additional complaints, except as documented Eyes Eyes: Reports system reviewed and no additional complaints, except as documented ENT Ears, Nose, Mouth, and Throat: Reports system reviewed and no additional complaints, except as documented *Cardiovascular Cardiovascular: Reports system reviewed and no additional complaints, except as documented *Respiratory Respiratory: Reports system reviewed and no additional complaints, except as documented *Gastrointestinal Gastrointestinal: Reports system reviewed and no additional complaints, except as documented *Genitourinary Genitourinary: Reports system reviewed and no additional complaints, except as documented *Musculoskeletal Musculoskeletal: Reports arthralgias Integumentary/Breasts Skin/Breast: Reports system reviewed and no additional complaints, except as documented *Neurologic Neurologic: Reports system reviewed and no additional complaints, except as documented Psychiatric Psychiatric: Reports system reviewed and no additional complaints, except as documented Endocrine Endocrine: Reports system reviewed and no additional complaints, except as documented Hematologic/Lymphatic Hematologic/Lymphatic: Reports system reviewed and n
--- NOTE | 2022-12-19 07:36 | EXP.ACUTE.PN ---
Subjective *Date: 12/19/22 *Time: 13:47 Interval history: Seen after returning from surgery. Tolerated procedure well. Complaining of some mild pain at surgical site. Otherwise stable on baseline 2 L oxygen. No nausea or vomiting. Wanting something to eat. No chest pain or confusion. Has wound VAC in place on left hip. Wound irrigated, deep drain left in place for the time being. Remains afebrile and hemodynamically stable. Medical Exam Vital signs and Labs for Last 24 Hours: Vital Signs Temp Pulse Resp BP Pulse Ox FiO2 12/19/22 03:47 97.8 F 70 16 121/60 99 12/18/22 20:00 98.7 F 67 17 120/51 L 97 12/18/22 19:32 28 12/18/22 15:11 98.8 F 70 16 116/52 L 98 Intake and Output 12/18/22 12/18/22 12/19/22 15:59 23:59 07:59 Intake Total 300 / 990 240 / 990 100 / 100 Output Total 0 / 0 0 / 0 0 / 0 Balance 300 / 990 240 / 990 100 / 100 Intake: Intake, Oral Amount 300 / 840 240 / 840 Intake, Total IV Amount 100 / 100 Cefepime HCl 1 gm In 0.9 % 100 / 100 Sodium Chloride 50 ml @ 100 mls /hr IV 0900,2100 [facility] Rx#: [id number] Output: Output, Urine Amount 0 / 0 0 / 0 0 / 0 Other: Number of Unmeasured Voids 1 1 1 Weight 78.517 kg Patient Weight 12/19/22 23:59 Weight 78.517 kg I & O for Labs for Last 24 Hours: Intake & Output 12/16/22 12/17/22 12/18/22 12/19/22 23:59 23:59 23:59 23:59 Intake Total 240 / 240 890 / 990 100 / 100 Output Total 0 / 0 0 / 0 0 / 0 Balance 240 / 240 890 / 990 100 / 100 Weight 77.621 kg 80.484 kg 78.517 kg Constitutional: Present no acute distress, obese and chronically ill appearing Head: Present atraumatic and normocephalic Neck: Present normal inspection Respiratory: Present CTA bilaterally; Absent accessory muscle use, rhonchi, wheezes or crackles Cardiac: Present Reg Rate and Rhythm, Regular Rate and S1/S2 GI: Present soft; Absent tenderness Extremities: Absent normal inspection Comment:: Left hip with overlying wound VAC in deep drain with serosanguineous drainage. Improving erythema. Mild tenderness. Skin: Present intact and dry Neuro: Present Grossly Intact, alert, awake and oriented x 3 Assessment and Plan *Assessment and plan (1) Cellulitis: Status: Acute Category: Medical Code(s): L03.90 - Cellulitis, unspecified (2) Closed left hip fracture: Status: Acute Category: Medical Code(s): S72.002A - Fracture of unspecified part of neck of left femur, initial encounter for closed fracture (3) Presence of permanent cardiac pacemaker: Status: Acute Category: Medical Code(s): Z95.0 - Presence of cardiac pacemaker (4) HTN (hypertension): Status: Chronic Qualifiers: Hypertension type: essential hypertension Qualified Code(s): I10 - Essential (primary) hypertension Category: Medical Code(s): I10 - Essential (primary) hypertension (5) CAD (coronary artery disease): Status: Chronic Qualifiers: Associated angina: without angina Coronary Disease-Associated Artery/Lesion type: [place] artery [place] vs. transplanted heart: [place] heart Qualified Code(s): I25.10 - Atherosclerotic heart disease of [place] coronary artery without angina pectoris Category: Medical Code(s): I25.10 - Atherosclerotic heart disease of [place] coronary artery without angina pectoris (6) Atrial fibrillation: Status: Acute Category: Medical Code(s): I48.91 - Unspecified atrial fibrillation (7) Chronic respiratory failure with hypoxia: Status: Chronic Category: Medical Code(s): J96.11 - Chronic respiratory failure with hypoxia (8) CHF (congestive heart failure): Status: Chronic Qualifiers: Heart failure chronicity: chronic Heart failure type: diastolic Qualified Code(s): I50.32 - Chronic diastolic (congestive) heart failure Category: Medica
--- NOTE | 2022-12-19 08:09 | EXP.OP.NOTE ---
Date of procedure: 12/19/22 Pre-op Diagnosis:: Left hip cellulitis, seroma versus abscess Post-op Diagnosis:: Same Procedure performed:: 90161: Debridement irrigation of surgical site infection 01320: Antibiotic bead placement 52740: Wound vacuum-assisted closure Surgeon:: Theodore Bridges JR, MD [employer]KER:: Alexander Schmid Anesthesia: GETA Estimated blood loss (mL): 50 Clinical Note:: 82-year-old female status post left cemented hip hemiarthroplasty. She had a blister adjacent to her incision a couple of weeks ago, this resolved but after stopping oral antibiotics, she was noted to have some serous appearing drainage. She is admitted to the hospital Tuesday, kept off of blood thinners until today, made NPO. I had a discussion with her and her regarding further management, recommended left hip wound debridement irrigation, wound vacuum-assisted closure. They were amenable with the plan. We discussed the risk and benefits of surgery. Risks included but were not limited to pain, bleeding, infection, damage to adjacent structures, need for further surgery, wound healing complications, loss of limb, . Patient expressed verbal consent and written consent was obtained for the above procedure. Operative findings:: No gross purulence, large fluid collection of what appeared to be a seroma, rent in the deep fascial layer. Operative note:: Patient was identified in preoperative holding. Operative site was marked in indelible ink. History, physical, consent were reviewed and updated. Patient was surrendered to the anesthesia team, taken to the operative suite. Anesthesia was induced. Patient was then placed in the lateral decubitus position on a well-padded operative table. All bony prominences were padded and an axillary roll was placed. The operative extremity was prepped and draped in the usual sterile fashion. The operative team donned sterile gowns and gloves and a timeout was called. All in attendance agreed regarding the patient's identity, procedure, operative site. Weight-based dose of antibiotics was given prior to incision. I opened her previous incision, removed absorbable suture from the subcutaneous tissue layer. I noted serosanguineous appearing fluid that was grossly nonpurulent. I sent swab specimen of this for culture. I copiously irrigated the subcutaneous area with Pulsavac, then I dissected more deeply, bluntly probing with a finger, and when I grasped the deep barbed suture at the fascial layer, it was apparent there was a rent in the fascia. As such, I opened the deep layer as well. I took a tissue specimen deep to fascia which I also sent for culture. I copiously irrigated the deeper layer with saline, then the entire wound with Irrisept, then with saline once again. I placed antibiotic beads impregnated with vancomycin and gentamicin both deep to fascia and superficial fascia. I placed a drain exiting superior anterior and the subcutaneous layer. I closed in anatomic layers with monofilament suture, also placed antibiotic beads and vancomycin powder into the subcutaneous tissue. I placed an incisional wound vacuum-assisted closure device, incorporating the drain in the subcutaneous layer into the wound VAC, with a goal of preventing recurrent seroma. Counts were correct x2. There were no apparent complications. I was present and scrubbed for the entire case. Postoperatively plan to follow cultures. Would prefer aggressive antibiotic regimen, as she would be at risk of prosthetic joint infection. Would recommend evaluation by Dr. Femi Marsh in [place], infectious disease. I agree with broad-spectrum antibiotics currently, de-escalate pending culture results. Plan to leave the incisional wound VAC and deep drain for 5 days, then consider removing pending output at that time. Condition: stable Disposition: PACU Specimens:: Swab and tissue specimen sent for culture Complications:: None apparent
--- NOTE | 2022-12-19 08:10 | EXP.ANES.I ---
[facility] Anesthesia Record Part I Anesthesia Record I Intake, IV Amount: 800 Estimated blood loss (mL): 0 Urine output (mL): 0 Blood Pressure: 100/64 SaO2: 96 Pulse Rate: 87 Respiratory Rate: 12 Temperature: 97.5 F Patient is:: Awake and Stable Stable to PACU at:: 08:05
--- NOTE | 2022-12-19 08:49 | SUR.PHASEI ---
Detailed report called to Bella Rodriguez RN
[2022-12-19 10:43] LABS: Alanine Aminotransferase 13 U/L (12-78); Albumin Level 3.4 g/dl (3.5-5.0); Albumin/Globulin Ratio 1.3 (1.1-1.8); Alkaline Phosphatase 97 U/L (38-126); Anion Gap 8.8 mEq/L (5-15); Aspartate Amino Transferase 23 U/L (14-36); Bilirubin,Total 0.5 mg/dl (0.2-1.3); Blood Urea Nitrogen 13 mg/dl (7-17); Calcium 8.8 mg/dl (8.4-10.2); Carbon Dioxide 31 mmol/L (22.0-30.0); Chloride 104 mmol/L (98-107); Creatinine Clearance Estimated 55 mL/min (50-200); Estimated Glomerular Filt Rate 69 ml/min (>60); GFR (African American) 83 ML/MIN (>60); Globulin 2.6 g/dL (1.3-3.2); Glucose 95 mg/dl (74-100); Potassium 3.8 mmoL/L (3.5-5.1); Sodium 140 mmol/L (136-145)
[2022-12-19 10:48] LABS: Basophils # 0.1 K/mm3 (0-0.2); Basophils % 0.8 % (0.1-2.0); Eosinophils # 0.3 K/mm3 (0.0-0.4); Eosinophils % 4.8 % (0.1-12.0); Hematocrit 32.9 % (37.0-47.0); Hemoglobin 10.3 g/dL (12.2-16.2); Lymphocytes # 1.1 K/mm3 (0.7-4.5); Lymphocytes % 17.5 % (10-50); Mean Corpuscular HGB Conc 31.4 g/dL (31.8-35.4); Mean Corpuscular Hemoglobin 30.2 pg (27.0-31.2); Mean Corpuscular Volume 96.1 fl (81-99); Mean Platelet Volume 8.5 fl (7.4-10.4); Monocytes # 0.4 K/mm3 (0.1-1.0); Monocytes % 5.7 % (1.7-9.3); Neutrophils # 4.6 K/mm3 (1.8-7.8); Neutrophils % 71.2 % (37.0-80.0); Platelet Count 339 K/mm3 (142-424); Red Blood Count 3.42 M/mm3 (4.20-5.40); Red Cell Distribution Width 13.7 % (11.5-17.5); White Blood Count 6.5 K/mm3 (4.8-10.8)
[2022-12-19 11:39] LABS: INR 1.02 (0.9-1.1)
--- NOTE | 2022-12-19 17:10 | PC.NURSE ---
Pain reported mainly with movement while repositioning in bed. Wound vac still in place, dressing clean, dry, and intact. Sanguineous drainage noted. VS stable and patient remained on 2LNC. Chloraseptic spray ordered for sore throat, prn pain medication given for pain.
[2022-12-20 04:00] VITALS: BMI 27.5
--- NOTE | 2022-12-20 06:25 | PC.NURSE ---
pt is a&ox4. 2LNC pt baseline. VSS. patient is having picc line placed today for iv abx. dressing to left hip with some drainage on the gauze with wound vac present. will continue to monitor.
[2022-12-20 06:53] LABS: Basophils % 0.5 % (0.1-2.0); Eosinophils # 0.3 K/mm3 (0.0-0.4); Lymphocytes # 1.1 K/mm3 (0.7-4.5); Mean Platelet Volume 8.5 fl (7.4-10.4); Monocytes # 0.4 K/mm3 (0.1-1.0); Red Cell Distribution Width 13.9 % (11.5-17.5)
[2022-12-20 06:59] LABS: Eosinophils % 6.1 % (0.1-12.0); Hematocrit 28.2 % (37.0-47.0); Lymphocytes % 21.3 % (10-50); Mean Corpuscular HGB Conc 31.1 g/dL (31.8-35.4); Mean Corpuscular Hemoglobin 29.6 pg (27.0-31.2); Mean Corpuscular Volume 95.1 fl (81-99); Monocytes % 7.2 % (1.7-9.3); Neutrophils # 3.2 K/mm3 (1.8-7.8); Neutrophils % 64.9 % (37.0-80.0); Platelet Count 290 K/mm3 (142-424); Red Blood Count 2.97 M/mm3 (4.20-5.40)
[2022-12-20 07:04] LABS: Hemoglobin 8.8 g/dL (12.2-16.2)
[2022-12-20 07:30] LABS: Chloride 105 mmol/L (98-107); Potassium 3.8 mmoL/L (3.5-5.1); Sodium 136 mmol/L (136-145)
[2022-12-20 07:33] LABS: Alanine Aminotransferase 11 U/L (12-78); Albumin Level 3.1 g/dl (3.5-5.0); Albumin/Globulin Ratio 1.2 (1.1-1.8); Alkaline Phosphatase 83 U/L (38-126); Anion Gap 8.8 mEq/L (5-15); Aspartate Amino Transferase 23 U/L (14-36); Bilirubin,Total 0.4 mg/dl (0.2-1.3); Blood Urea Nitrogen 17 mg/dl (7-17); Calcium 8.5 mg/dl (8.4-10.2); Carbon Dioxide 26 mmol/L (22.0-30.0); Creatinine Clearance Estimated 51 mL/min (50-200); Estimated Glomerular Filt Rate 60 ml/min (>60); GFR (African American) 73 ML/MIN (>60); Globulin 2.6 g/dL (1.3-3.2); Glucose 99 mg/dl (74-100); Magnesium 1.8 mg/dl (1.6-2.3); Total Protein,Serum 5.7 g/dl (6.3-8.2)
[2022-12-20 07:40] VITALS: BP 86/50; PULSE 70; RESP 17; TEMP 36.6; O2SAT 97
--- NOTE | 2022-12-20 07:53 | P.PNANES_ITS ---
[facility] Anesthesia Record Part II Anesthesia Record Part II Discharge Time: 08:35 Destination: floor PACU nurse assessment reviewed?: Yes Patient Condition:: Good Anesthesia Complications:: None Swallowing reflex intact?: Yes Cyanosis?: No Blood Pressure: 107/50 Pulse Rate: 71 Temperature: 97.6 F Mental Status: Alert & Oriented Pain level:: 0 Nausea and/or vomitting:: None Intake, IV Amount: 1,000
[2022-12-20 07:55] VITALS: BP 107/50; PULSE 71; TEMP 36.4
[2022-12-20 08:00] VITALS: O2SAT 97
--- NOTE | 2022-12-20 08:00 | XR_ITS ---
FINAL REPORT CLINICAL HISTORY: Confirm PICC line placement COMPARISON: 11/24/2022 FINDINGS: A single portable view of the chest was obtained. A new right-sided PICC line is present with its tip in the lower SVC. A left subclavian pacemaker is present. The heart size and pulmonary vascularity are within normal limits. The mediastinum is within normal limits. There is mild scarring in the right lung base. There are postoperative changes in the left thorax. IMPRESSION: New right-sided PICC line with its tip in the lower SVC. Mild scarring in the right lung base. Reviewed, Interpreted and Dictated by Braydon Milner III, MD Transcribed by Patti Ortiz Authenticated and [facility]
--- NOTE | 2022-12-20 08:15 | SW/DCPLANNER ---
Addendum entered by Lavern Mcgrath 12/21/22 10:09: Patient will discharge to [facility] level of care today. Svetlana Pike has brought wound vac and therapy has placed. Svetlana has also stated that patient will NOT need a COVID swab prior to discharge. Addendum entered by Lavern Mcgrath 12/20/22 10:00: Svetlana has stated that [facility] has ordered a wound vac and will be in tomorrow. [facility] will hold the bed for this patient due to delay because of wound vac. Addendum entered by Lavern Mcgrath 12/20/22 08:30: Per Svetlana Pike this patient will NOT need a COVID swab prior to discharge. Original Note: This patient currently resides at [facility] level of care. I have faxed updated patient information to Svetlana Pike. Patient will require a wound vac, PICC placement and IV antibiotics (Cefepime and Vanc) x two weeks at discharge. I will discuss this with Ed Pike. Patient could return to [facility] later today.
--- NOTE | 2022-12-20 08:59 | EXP.PHA.PN ---
Subjective *Date: 12/20/22 *Time: 08:59 Medical Exam Vital signs and Labs for Last 24 Hours: Vital Signs Temp Pulse Pulse Resp BP BP Pulse Ox 12/20/22 07:40 97.8 F 70 17 86/50 L 97 12/19/22 23:42 99.3 F 70 16 103/47 L 96 12/19/22 18:45 12/19/22 13:00 70 17 81/36 L 97 12/19/22 12:00 70 18 90/36 L 98 12/19/22 11:30 97.9 F 70 15 91/39 L 97 12/19/22 11:00 69 15 94/35 L 97 12/19/22 10:30 98.3 F 70 15 108/44 L 97 12/19/22 10:00 70 16 113/50 L 97 12/19/22 09:45 70 16 117/42 L 97 12/19/22 09:30 71 15 113/55 L 98 12/19/22 09:15 97.9 F 69 16 123/43 L 97 12/19/22 09:05 97.3 F L 70 16 100/48 L 98 12/20/22 07:55 97.6 F 71 107/50 L FiO2 12/20/22 07:40 12/19/22 23:42 12/19/22 18:45 28 12/19/22 13:00 12/19/22 12:00 12/19/22 11:30 12/19/22 11:00 12/19/22 10:30 12/19/22 10:00 12/19/22 09:45 12/19/22 09:30 12/19/22 09:15 12/19/22 09:05 12/20/22 07:55 Intake and Output 12/19/22 12/20/22 12/20/22 23:59 07:59 15:59 Intake Total 240 / 1440 1240 / 1240 Output Total 0 / 0 0 / 0 Balance 240 / 1440 1240 / 1240 Intake: Intake, Oral Amount 240 / 540 240 / 240 Intake, Total IV Amount 1000 / 1000 Output: Output, Urine Amount 0 / 0 0 / 0 Other: Number of Unmeasured Voids 0 1 Weight 73.113 kg Patient Weight 12/20/22 23:59 Weight 73.113 kg Laboratory Results - last 24 hr 12/19/22 10:30: WBC 6.5 D, RBC 3.42 L, Hgb 10.3 L, Hct 32.9 L, MCV 96.1, MCH 30.2, MCHC 31.4 L, RDW 13.7, Plt Count 339, MPV 8.5, Neut % (Auto) 71.2, Lymph % (Auto) 17.5, [place] % (Auto) 5.7, Eos % (Auto) 4.8, Baso % (Auto) 0.8, Neut # (Auto) 4.6, Lymph # (Auto) 1.1, [place] # (Auto) 0.4, Eos # (Auto) 0.3, Baso # (Auto) 0.1 12/19/22 10:30: Sodium 140, Potassium 3.8, Chloride 104, Carbon Dioxide 31 H, Anion Gap 8.8, BUN 13, Creatinine 0.80, Estimated Creat Clear 55, Estimated GFR 69, Est GFR ( Amer) 83, Glucose 95, Calcium 8.8, Magnesium 2.0, Total Bilirubin 0.5, AST 23, ALT 13, Alkaline Phosphatase 97, Total Protein 6.0 L, Albumin 3.4 L, Globulin 2.6, Albumin/Globulin Ratio 1.3 12/19/22 11:12: PT 11.0, INR 1.02 12/20/22 06:09: WBC 5.0, RBC 2.97 L, Hgb 8.8 L D, Hct 28.2 L, MCV 95.1, MCH 29.6, MCHC 31.1 L, RDW 13.9, Plt Count 290, MPV 8.5, Neut % (Auto) 64.9, Lymph % (Auto) 21.3, [place] % (Auto) 7.2, Eos % (Auto) 6.1, Baso % (Auto) 0.5, Neut # (Auto) 3.2, Lymph # (Auto) 1.1, [place] # (Auto) 0.4, Eos # (Auto) 0.3, Baso # (Auto) 0.0 12/20/22 06:09: Sodium 136, Potassium 3.8, Chloride 105, Carbon Dioxide 26, Anion Gap 8.8, BUN 17 D, Creatinine 0.90, Estimated Creat Clear 51, Estimated GFR 60, Est GFR ( Amer) 73, Glucose 99, Calcium 8.5, Magnesium 1.8, Total Bilirubin 0.4, AST 23, ALT 11 L, Alkaline Phosphatase 83, Total Protein 5.7 L, Albumin 3.1 L, Globulin 2.6, Albumin/Globulin Ratio 1.2 I & O for Labs for Last 24 Hours: Intake & Output 12/17/22 12/18/22 12/19/22 12/20/22 23:59 23:59 23:59 23:59 Intake Total 240 / 240 890 / 990 1440 / 1440 1240 / 1240 Output Total 0 / 0 0 / 0 0 / 0 0 / 0 Balance 240 / 240 890 / 990 1440 / 1440 1240 / 1240 Weight 77.621 kg 80.484 kg 78.5 kg 73.113 kg Microbiology Reports for the Last 24 Hours: Microbiology 12/19/22 07:15 Hand,Left - Left Gram Stain - Final 12/19/22 07:15 Hand,Left - Left Wound Culture - Preliminary NO GROWTH AFTER 24 HOURS 12/19/22 07:20 Hand,Left - Left Surgical Biopsy Culture - Preliminary NO GROWTH AFTER 24 HOURS The patient's infection will respond to the chosen ABx?: Yes (LEFT HIP CULTURE PENDING, LEFT HAND CULTURE NEGATIVE) Is the patient receiving the right drug, dose, and route?: Yes Could a more targeted ABx be ordered?: No
--- NOTE | 2022-12-20 10:07 | HMH.OTEV ---
OT Inpatient Evaluation Rehab OT IP Evaluation Start: 12/20/22 07:35 Freq: ONCE Status: Active Protocol: Document 12/20/22 09:59 VIOLETLEONOR (Rec: 12/20/22 10:07 [id number]) Rehab OT IP Assessment Subjective History Left hip cellulitis, seroma versus abscess Clinical Note:: 82-year-old female status post left cemented hip hemiarthroplasty. She had a blister adjacent to her incision a couple of weeks ago , this resolved but after stopping oral antibiotics, she was noted to have some serous appearing drainage. She is admitted to the hospital Tuesday, kept off of blood thinners until today, made NPO . I had a discussion with her and her regarding further management, recommended left hip wound debridement irrigation, wound vacuum-assisted closure. They were amenable with the plan. We discussed the risk and benefits of surgery. Risks included but were not limited to pain, bleeding, infection, damage to adjacent structures, need for further surgery, wound healing complications, loss of limb, . Patient expressed verbal consent and written consent was obtained for the above procedure. Patient lives in 1 story home with no DAT; however does have a basement that she does not use. Lives with . Was independent with ADLs and fx'l mobility prior to fx hip. [facility]. [facility] is planned [facility] to [facility] after medical d/c. Subjective I can get up.
--- NOTE | 2022-12-20 10:10 | HMH.PTEV ---
Physical Therapy Evaluation Rehab PT IP Evaluation Start: 12/20/22 07:35 Freq: ONCE Status: Active Protocol: Document 12/20/22 09:50 PHORNE (Rec: 12/20/22 10:09 PHORNE [id number]) Subjective/History History History 82 yowf adm to [facility] with poss L hip post-op infection S/P L hip LY. She was adm from [facility] where she was undergoing rehab. She reports ambulating with RW at rehab prior to adm. Currently has Wound VAC dressing in place over incision. Subjective Subjective Pt c/o pain in the L hip with movement this am. Rehab PT IP Eval Objective Appearance Patient Behavior Appropriate Patient Orientation Person,Place,Time Difficulty following instructions none Speech Pattern Clear Ambulation Patient Able to Ambulate Yes Ambulation Observation IP General Gait Pattern Observation Antalgic Gait Ambulation Distance (feet) 20 Ambulation Assistive Device Rolling Walker Ambulation Ability Contact Guard/Hand Hold Balance Ability to Arise Able, uses arms to help Sitting Balance Steady, safe Standing Balance Steady, wide stance Dynamic Sitting Balance Ability Good Dynamic Standing Balance Ability Fair Transfers Bed Transfer Ability Contact Guard/Hand Hold Chair Transfer Ability Contact Guard/Hand Hold Sit to Stand Bed Transfer Ability Contact Guard/Hand Hold Sit to Stand Chair Transfer Ability Contact Guard/Hand Hold ROM All Extremities PT ROM Status WFL MMT All Extremities PT MMT WFL Abnormal MMT Grade L LE grossly 3/5 Rehab PT IP prob,goals,plan Problems Date of Evaluation: 12/20/22 PT IP Problems Bed Mobility,Transfers,Gait Rehab Potential Rehab Potential Good Plan PT Intervention Plan Bed Mobility,Transfers,Gait, Therapeutic Exercise PT Plan Frequency BID Duration LOS Discharge Goals Bed Transfer Ability Supervision/Stand by Sit to Stand Chair Transfer Ability Supervision/Stand by Ambulation Assistive Device Rolling Walker Ambulation Distance (feet) 30 Discharge Plan PT Discharge Plan Pt most appropriate to return to rehab once medically stable . G -code Required No Eval Complexity Eval Charge Codes 21425 - Moderate Complexity
--- NOTE | 2022-12-20 10:38 | EXP.ACUTE.PN ---
Subjective *Date: 12/20/22 *Time: 10:38 Interval history: Patient did well overnight. Blood pressure little soft this morning. Making adjustments to blood pressure regimen. Tolerating p.o. intake. Evaluation by PT today. PICC being placed this morning. Wound VAC with serosanguineous drainage. Discussed case with orthopedics. Patient remains afebrile, stable on 2 L nasal cannula oxygen. No chest pain, worsening shortness of breath, nausea or vomiting. No diarrhea. Medical Exam Vital signs and Labs for Last 24 Hours: Vital Signs Temp Pulse Pulse Resp BP BP Pulse Ox 12/20/22 07:40 97.8 F 70 17 86/50 L 97 12/19/22 23:42 99.3 F 70 16 103/47 L 96 12/19/22 18:45 12/19/22 13:00 70 17 81/36 L 97 12/19/22 12:00 70 18 90/36 L 98 12/19/22 11:30 97.9 F 70 15 91/39 L 97 12/19/22 11:00 69 15 94/35 L 97 12/20/22 07:55 97.6 F 71 107/50 L FiO2 12/20/22 07:40 12/19/22 23:42 12/19/22 18:45 28 12/19/22 13:00 12/19/22 12:00 12/19/22 11:30 12/19/22 11:00 12/20/22 07:55 Intake and Output 12/19/22 12/20/22 12/20/22 23:59 07:59 15:59 Intake Total 240 / 1440 1240 / 1240 Output Total 0 / 0 0 / 0 Balance 240 / 1440 1240 / 1240 Intake: Intake, Oral Amount 240 / 540 240 / 240 Intake, Total IV Amount 1000 / 1000 Output: Output, Urine Amount 0 / 0 0 / 0 Other: Number of Unmeasured Voids 0 1 Weight 73.113 kg Patient Weight 12/20/22 23:59 Weight 73.113 kg Laboratory Results - last 24 hr 12/19/22 10:30: WBC 6.5 D, RBC 3.42 L, Hgb 10.3 L, Hct 32.9 L, MCV 96.1, MCH 30.2, MCHC 31.4 L, RDW 13.7, Plt Count 339, MPV 8.5, Neut % (Auto) 71.2, Lymph % (Auto) 17.5, [place] % (Auto) 5.7, Eos % (Auto) 4.8, Baso % (Auto) 0.8, Neut # (Auto) 4.6, Lymph # (Auto) 1.1, [place] # (Auto) 0.4, Eos # (Auto) 0.3, Baso # (Auto) 0.1 12/19/22 10:30: Sodium 140, Potassium 3.8, Chloride 104, Carbon Dioxide 31 H, Anion Gap 8.8, BUN 13, Creatinine 0.80, Estimated Creat Clear 55, Estimated GFR 69, Est GFR ( Amer) 83, Glucose 95, Calcium 8.8, Magnesium 2.0, Total Bilirubin 0.5, AST 23, ALT 13, Alkaline Phosphatase 97, Total Protein 6.0 L, Albumin 3.4 L, Globulin 2.6, Albumin/Globulin Ratio 1.3 12/19/22 11:12: PT 11.0, INR 1.02 12/20/22 06:09: WBC 5.0, RBC 2.97 L, Hgb 8.8 L D, Hct 28.2 L, MCV 95.1, MCH 29.6, MCHC 31.1 L, RDW 13.9, Plt Count 290, MPV 8.5, Neut % (Auto) 64.9, Lymph % (Auto) 21.3, [place] % (Auto) 7.2, Eos % (Auto) 6.1, Baso % (Auto) 0.5, Neut # (Auto) 3.2, Lymph # (Auto) 1.1, [place] # (Auto) 0.4, Eos # (Auto) 0.3, Baso # (Auto) 0.0 12/20/22 06:09: Sodium 136, Potassium 3.8, Chloride 105, Carbon Dioxide 26, Anion Gap 8.8, BUN 17 D, Creatinine 0.90, Estimated Creat Clear 51, Estimated GFR 60, Est GFR ( Amer) 73, Glucose 99, Calcium 8.5, Magnesium 1.8, Total Bilirubin 0.4, AST 23, ALT 11 L, Alkaline Phosphatase 83, Total Protein 5.7 L, Albumin 3.1 L, Globulin 2.6, Albumin/Globulin Ratio 1.2 I & O for Labs for Last 24 Hours: Intake & Output 12/17/22 12/18/22 12/19/22 12/20/22 23:59 23:59 23:59 23:59 Intake Total 240 / 240 890 / 990 1440 / 1440 1240 / 1240 Output Total 0 / 0 0 / 0 0 / 0 0 / 0 Balance 240 / 240 890 / 990 1440 / 1440 1240 / 1240 Weight 77.621 kg 80.484 kg 78.5 kg 73.113 kg Microbiology Reports for the Last 24 Hours: Microbiology 12/19/22 07:15 Hand,Left - Left Gram Stain - Final 12/19/22 07:15 Hand,Left - Left Wound Culture - Preliminary 12/19/22 07:20 Hand,Left - Left Surgical Biopsy Culture - Preliminary NO GROWTH AFTER 24 HOURS Constitutional: Present no acute distress, obese and chronically ill appearing Head: Present atraumatic and normocephalic Neck: Present normal inspection Respiratory: Present CTA bilaterally; Absent accessory muscle use, rhonchi, wheezes or crackles Cardiac: Present Reg Rate and Rhythm, Regular Rate and S1/S2 GI: Present soft; Absent tenderness Extremities
--- NOTE | 2022-12-20 10:50 | EXP.ORTH.PN ---
Subjective *Date: 12/20/22 *Time: 11:01 Interval history: Mrs. Alejo is an 82-year-old female patient admitted to the inpatient service who underwent debridement and irrigation with antibiotic bead placement and wound vacuum-assisted closure of the left hip performed by Dr. Bridges yesterday 12/19/2022. Today the patient is postop day #1. This morning she is lying comfortably in bed and her is present at the bedside. She reports left hip pain as to be expected but states that it is well controlled with as needed pain medication and rest. She states that she has ambulated a little today. No history of any distal tingling/numbness, fevers, chills, or rigors. She denies any other symptoms or concerns at this time. Ortho Exam (Inpt) Vital signs and Labs for Last 24 Hours: Temp Pulse Resp BP Pulse Ox FiO2 97.6 F 71 17 107/50 L 97 28 12/20/22 07:55 12/20/22 07:55 12/20/22 07:40 12/20/22 07:55 12/20/22 07:40 12/19/22 18:45 Laboratory Results - last 24 hr 12/19/22 10:30: WBC 6.5 D, RBC 3.42 L, Hgb 10.3 L, Hct 32.9 L, MCV 96.1, MCH 30.2, MCHC 31.4 L, RDW 13.7, Plt Count 339, MPV 8.5, Neut % (Auto) 71.2, Lymph % (Auto) 17.5, [place] % (Auto) 5.7, Eos % (Auto) 4.8, Baso % (Auto) 0.8, Neut # (Auto) 4.6, Lymph # (Auto) 1.1, [place] # (Auto) 0.4, Eos # (Auto) 0.3, Baso # (Auto) 0.1 12/19/22 11:12: PT 11.0, INR 1.02 12/20/22 06:09: WBC 5.0, RBC 2.97 L, Hgb 8.8 L D, Hct 28.2 L, MCV 95.1, MCH 29.6, MCHC 31.1 L, RDW 13.9, Plt Count 290, MPV 8.5, Neut % (Auto) 64.9, Lymph % (Auto) 21.3, [place] % (Auto) 7.2, Eos % (Auto) 6.1, Baso % (Auto) 0.5, Neut # (Auto) 3.2, Lymph # (Auto) 1.1, [place] # (Auto) 0.4, Eos # (Auto) 0.3, Baso # (Auto) 0.0 12/20/22 06:09: Sodium 136, Potassium 3.8, Chloride 105, Carbon Dioxide 26, Anion Gap 8.8, BUN 17 D, Creatinine 0.90, Estimated Creat Clear 51, Estimated GFR 60, Est GFR ( Amer) 73, Glucose 99, Calcium 8.5, Magnesium 1.8, Total Bilirubin 0.4, AST 23, ALT 11 L, Alkaline Phosphatase 83, Total Protein 5.7 L, Albumin 3.1 L, Globulin 2.6, Albumin/Globulin Ratio 1.2 I & O for Labs for Last 24 Hours: Intake & Output 12/17/22 12/18/22 12/19/22 12/20/22 23:59 23:59 23:59 23:59 Intake Total 240 / 240 890 / 990 1440 / 1440 1240 / 1240 Output Total 0 / 0 0 / 0 0 / 0 0 / 0 Balance 240 / 240 890 / 990 1440 / 1440 1240 / 1240 Weight 171 lb 2 oz 177 lb 7 oz 173 lb 1.006 oz 161 lb 3 oz Microbiology Reports for the Last 24 Hours: Microbiology 12/19/22 07:15 Hand,Left - Left Gram Stain - Final 12/19/22 07:15 Hand,Left - Left Wound Culture - Preliminary 12/19/22 07:20 Hand,Left - Left Surgical Biopsy Culture - Preliminary NO GROWTH AFTER 24 HOURS Head: Present normocephalic and atraumatic Eyes: Present as per HPI ENT: Present normal exam Neck: Present normal inspection, full ROM and trachea midline; Absent lymphadenopathy Respiratory: Present normal respiratory effort, able to speak in complete sentences and symmetric chest movement; Absent accessory muscle use Cardiac: Present Reg Rate and Rhythm GI: Present soft; Absent tenderness Comment:: Upon examination of the left hip: Wound VAC is in place with good seal and minimal serosanguineous output present in the tubing and canister. The left hip and proximal femur are somewhat tender to palpation. Thigh and calf are soft and nontender; Homans' sign is negative. No clinical evidence of DVT or compartment syndrome noted. Posterior tibial pulse 2+; capillary refill is brisk. Sensation to light touch is grossly intact throughout. Patient is actively mobilizing the foot, ankle, and toes. Skin: Present intact, warm and normal turgor; Absent cyanosis, erythema, lesions or jaundice Neuro: Present Cranial Nerve 2-12 Intact, Motor Function Intact, Sensory Function Intact, alert, awake, oriented x 3, tone normal and moves all extremities; Absent Numbness or Tingling Assessment and Plan *Assessment and plan (1) Cellulitis
[2022-12-20 11:10] VITALS: BP 98/48; PULSE 71; RESP 18; TEMP 36.7; O2SAT 95
[2022-12-20 13:01] LABS: Vancomycin,Trough 17.1 ug/mL (5.0-10.0)
[2022-12-20 15:22] VITALS: BP 90/45; PULSE 70; RESP 18; TEMP 36.7; O2SAT 99
--- NOTE | 2022-12-20 18:06 | PC.NURSE ---
pt has rested some this shift, PICC line placed this shift, has complained of pain one time and was treated per JAN, remains on 2L NC, no complaints of SOA, wound vac in place
[2022-12-20 18:36] LABS: Vancomycin,Peak 34.6 ug/ml (11-39)
[2022-12-20 20:00] VITALS: BP 98/62; PULSE 92; RESP 16; TEMP 36.7; O2SAT 97
[2022-12-21] VITALS (14 sets, daily range): BP systolic 87–123; BP diastolic 35–69; PULSE 68–77; RESP 16–19; TEMP 36.6–37.1; O2SAT 98–100; BMI 30.3
[2022-12-21 06:01] LABS: Eosinophils # 0.5 K/mm3 (0.0-0.4); Eosinophils % 11.2 % (0.1-12.0); Mean Corpuscular Hemoglobin 30.4 pg (27.0-31.2); Monocytes # 0.3 K/mm3 (0.1-1.0); Neutrophils # 2.4 K/mm3 (1.8-7.8); White Blood Count 4.7 K/mm3 (4.8-10.8)
[2022-12-21 06:08] LABS: Anion Gap 5.9 mEq/L (5-15); Blood Urea Nitrogen 18 mg/dl (7-17); Calcium 9.1 mg/dl (8.4-10.2); Carbon Dioxide 29 mmol/L (22.0-30.0); Chloride 105 mmol/L (98-107); Creatinine Clearance Estimated 56 mL/min (50-200); Estimated Glomerular Filt Rate 53 ml/min (>60); GFR (African American) 64 ML/MIN (>60); Glucose 90 mg/dl (74-100); Potassium 3.9 mmoL/L (3.5-5.1); Sodium 136 mmol/L (136-145)
[2022-12-21 06:13] LABS: Basophils % 0.9 % (0.1-2.0); Hematocrit 24.2 % (37.0-47.0); Lymphocytes # 1.4 K/mm3 (0.7-4.5); Lymphocytes % 29.9 % (10-50); Mean Corpuscular HGB Conc 31.5 g/dL (31.8-35.4); Mean Corpuscular Volume 96.4 fl (81-99); Monocytes % 6.6 % (1.7-9.3); Neutrophils % 51.5 % (37.0-80.0); Platelet Count 237 K/mm3 (142-424); Red Blood Count 2.51 M/mm3 (4.20-5.40); Red Cell Distribution Width 14.2 % (11.5-17.5)
[2022-12-21 06:14] LABS: Hemoglobin 7.6 g/dL (12.2-16.2)
--- NOTE | 2022-12-21 06:43 | PC.NURSE ---
pt rested well through the night. a&ox4. lungs clear. complaints of pain in left hip at beginning of shift. picc line GEORGE.
--- NOTE | 2022-12-21 07:02 | EXP.DC.SUM ---
General Admission date:: 12/17/22 Discharge date: 12/21/22 HPI HPI HPI: 82-year-old female with a past medical history that is positive for CHF, Atrial Fibrillation on chronic anticoagulation, h/o Lung Cancer s/p Pneumonectomy, Chronic Hypoxic Respiratory Failure, wears home oxygen at 2L at night, SSS s/p PPM. She presented earlier this month after a ground-level fall where she sustained a left femoral neck fracture. Underwent left hemiarthroplasty on 11/26. Has been doing well in rehab and [facility]. Has completed a course of oral antibiotics due to concern for infection with incision. Wound was looking better until the past few days, came in for reevaluation today with orthopedics and has findings concerning for cellulitis. Patient denies any fever, chest pain, shortness of breath beyond baseline, nausea or vomiting. Pain in hip is tolerable and she is able to participate with therapy. Redness is only around proximal end of surgical incision, accompanied by edema present since surgery. Orthopedics consulted medicine for admission for treatment of cellulitis and planned washout over the weekend. On arrival to the floor, patient is at baseline level of function and health. Stable on 2 L nasal cannula. Denies cough, fever, rigors. Hospital Course Hospital Course Hospital Course: 82-year-old female status post left hip hemiarthroplasty on 11/26.? Has been doing well in rehab at [facility].? Ambulating with walker.? Unfortunately has developed redness at surgical site concerning for cellulitis.? Ortho consulted medicine for admission, wound washed out Tuesday. Plan to continue antibiotics. Problems addressed as follows: Cellulitis Status post left hip hemiarthroplasty Surgical site complication -Patient admitted for concern for cellulitis and failure of outpatient therapy for her surgical wound. Orthopedics was consulted. Taken to the OR on 12/19 for washout. Deep drain left in place along with superficial incisional wound VAC. Patient will need 2 weeks of IV antibiotics for which a PICC line was placed on 12/20. Plan to complete 14 days total of vancomycin and cefepime. Needs 10 more days of IV antibiotics via PICC at discharge. Dosage as follows: Vancomycin 1250 mg daily; cefepime 1 g twice daily -Wound VAC exchanged on day of discharge to cork VAC. Needs follow-up on Tuesday with orthopedics for reevaluation of wound and removal of deep drain. Would like referral to infectious disease after discharge. - White cell count has normalized. -Resumed Eliquis, continue at discharge. CAD Hypertension Hyperlipidemia Chronic diastolic heart failure - Continue Entresto, isosorbide, bisoprolol.? Discontinued amlodipine due to low blood pressures. Decreased dose of Entresto per med rec. COPD Chronic hypoxemic respiratory failure -Continue supplemental oxygen as needed, goal saturation 88 to 94% Continue doxepin for mood Patient stable for discharge. PICC placed 12/20, okay to remove after finishing IV antibiotics. Will complete IV antibiotics as above. Return Tuesday to orthopedics for reevaluation of surgical incision and removal of deep drain. Further use of wound VAC to be determined at that time. Controlled substances sent electronically to [facility] pharmacy Exam Data for Last 24 hours Vital signs and Labs for Last 24 Hours: Temp Pulse Resp BP Pulse Ox FiO2 98.2 F 70 17 123/51 L 100 28 12/21/22 04:00 12/21/22 04:00 12/21/22 04:00 12/21/22 04:00 12/21/22 04:00 12/19/22 18:45 Laboratory Results - last 24 hr 12/20/22 06:09: WBC 5.0, RBC 2.97 L, Hgb 8.8 L D, Hct 28.2 L, MCV 95.1, MCH 29.6, MCHC 31.1 L, RDW 13.9, Plt Count 290, MPV 8.5, Neut % (Auto) 64.9, Lymph % (Auto) 21.3, [place] % (Auto) 7.2, Eos % (Auto) 6.1, Baso % (Auto) 0.5, Neut # (Auto) 3.2, Lymph # (Auto) 1.1, [place] # (Auto) 0.4, Eos # (Auto) 0.3, Baso # (Auto) 0.0 12/20/22 06:09: Sodium 136, Potassium 3.8, Chloride 105, Carbon Gamaliel
--- NOTE | 2022-12-21 07:43 | EXP.PHA.CONS ---
Pharmacy Consult Date: 12/21/22 Time: 07:43 Referring provider: DR. TA Reason for Consult:: VANCOMYCIN DOSING Allergies Allergy/AdvReac Type Severity Reaction Status Date / Time levofloxacin [From LEVAQUIN] Allergy Unknown MAKES SICK Verified 12/17/22 11:29 tetracycline [TETRACYCLINE] Allergy Unknown SWELLING, Verified 12/17/22 11:29 ITCHING aspirin AdvReac Intermediate Verified 12/17/22 11:29 Home Medications Medication Instructions Recorded Confirmed Type albuterol sulfate 90 mcg/actuation 2 puff inhalation Q6HP PRN 05/20/20 12/17/22 History aerosol inhaler Shortness Of Breath doxepin 10 mg capsule 10 mg PO DAILY mood/sleep 02/11/22 12/17/22 History apixaban 5 mg tablet (Eliquis) 5 mg PO BID Blood thinner/atrial 08/18/22 12/17/22 History fib bisoprolol fumarate 10 mg tablet 10 mg PO BID Hypertension 11/25/22 12/17/22 History isosorbide mononitrate 30 mg 30 mg PO DAILY Hypertension 11/25/22 12/17/22 History tablet,extended release 24 hr ondansetron 4 mg disintegrating 4 mg PO Q6HP PRN Nausea And 12/17/22 12/17/22 History tablet Vomiting cefepime 1 gram solution for 1 g IV 0900,2100 10 days #20 ea 12/21/22 Rx injection hydrocodone 5 mg-acetaminophen 325 1 tab PO Q6HP PRN MODERATE TO 12/21/22 Rx mg tablet SEVERE PAIN 3 days #12 tabs vits no.130-ferrous fum 1 tab PO 1700 #30 tabs 12/21/22 Rx 27 mg iron-folic acid 800 mcg tablet ( Vitamin) sacubitril 49 mg-valsartan 51 mg 1 tab PO BID 30 days #60 tabs 12/21/22 Rx tablet vancomycin 1.25 gram/250 mL in 1.25 g (250 mL) IV 1300 10 days 12/21/22 Rx diluent combination IV piggyback #2,500 mL New Prescriptions to Start Prescriptions: hydrocodone-acetaminophen Bebo Ta cefepime Bebo Ta vit [id number] [ Vitamin] Bebo Ta sacubitril-valsartan Bebo Ta vancomycin-diluent combo no.1 Bebo Ta Height: 1.63 m Weight: 80.558 kg Laboratory Results:: Laboratory Results - last 24 hr 12/20/22 12:25: Vancomycin Trough 17.1 H 12/20/22 17:30: Vancomycin Peak 34.6 12/21/22 05:50: WBC 4.7 L, RBC 2.51 L, Hgb 7.6 L D, Hct 24.2 L, MCV 96.4, MCH 30.4, MCHC 31.5 L, RDW 14.2, Plt Count 237, MPV 8.0, Neut % (Auto) 51.5, Lymph % (Auto) 29.9, [place] % (Auto) 6.6, Eos % (Auto) 11.2, Baso % (Auto) 0.9, Neut # (Auto) 2.4, Lymph # (Auto) 1.4, Wol[place] # (Auto) 0.3, Eos # (Auto) 0.5 H, Baso # (Auto) 0.0 12/21/22 05:50: Sodium 136, Potassium 3.9, Chloride 105, Carbon Dioxide 29, Anion Gap 5.9, BUN 18 H, Creatinine 1.00, Estimated Creat Clear 56, Estimated GFR 53 L, Est GFR ( Amer) 64, Glucose 90, Calcium 9.1 Medical History: Medical History (Updated 12/17/22 @ 16:14 by Bebo Ta MD) Acute infective cystitis Atrial fibrillation Community acquired pneumonia COVID Gallbladder disease History of lung cancer Influenza Ischemic cardiomyopathy Lung cancer Non-ST elevation [place] (NSTEMI) Paroxysmal atrial fibrillation Pneumonia Respiratory failure with hypoxia Sick sinus syndrome Typical angina Assessment and Plan Assessment and plan all Dx Assessment and Plan for all problems:: BASED ON PATIENT FACTORS AND VANCOMYCIN PEAK/TROUGH OF 34.6/17.1 RESPECTIVELY, RECOMMEND CONTINUING CURRENT DOSE OR VANCOMYCIN AT 1,250MG IV EVERY 24 HOURS. PHARMACY WILL CONTINUE TO MONITOR AND WILL MAKE ADJUSTMENTS APPROPRIATE. -VINCENT ALEXANDRE PHARMD
--- NOTE | 2022-12-21 08:52 | EXP.ORTH.PN ---
Subjective *Date: 12/21/22 *Time: 08:57 Interval history: Mrs. Alejo is an 82-year-old female patient admitted to the inpatient service who underwent debridement and irrigation with antibiotic bead placement and wound vacuum-assisted closure of the left hip performed by Dr. Bridges on 12/19/2022. Today the patient is postop day #2. This morning she is lying comfortably in bed and her is present at the bedside. She reports left hip pain as to be expected but states that it is well controlled with as needed pain medication and rest. She states that she has been ambulating with the use of a walker and that this is been going well. She had a PICC line placed yesterday. No history of any distal tingling/numbness, fevers, chills, or rigors. She denies any other symptoms or concerns at this time. Ortho Exam (Inpt) Vital signs and Labs for Last 24 Hours: Temp Pulse Resp BP Pulse Ox FiO2 98.8 F 70 19 103/47 L 99 28 12/21/22 07:18 12/21/22 07:18 12/21/22 07:18 12/21/22 07:18 12/21/22 07:18 12/19/22 18:45 Laboratory Results - last 24 hr 12/20/22 12:25: Vancomycin Trough 17.1 H 12/20/22 17:30: Vancomycin Peak 34.6 12/21/22 05:50: WBC 4.7 L, RBC 2.51 L, Hgb 7.6 L D, Hct 24.2 L, MCV 96.4, MCH 30.4, MCHC 31.5 L, RDW 14.2, Plt Count 237, MPV 8.0, Neut % (Auto) 51.5, Lymph % (Auto) 29.9, [place] % (Auto) 6.6, Eos % (Auto) 11.2, Baso % (Auto) 0.9, Neut # (Auto) 2.4, Lymph # (Auto) 1.4, [place] # (Auto) 0.3, Eos # (Auto) 0.5 H, Baso # (Auto) 0.0 12/21/22 05:50: Sodium 136, Potassium 3.9, Chloride 105, Carbon Dioxide 29, Anion Gap 5.9, BUN 18 H, Creatinine 1.00, Estimated Creat Clear 56, Estimated GFR 53 L, Est GFR ( Amer) 64, Glucose 90, Calcium 9.1 12/21/22 08:20: Crossmatch (AHG) See Detail I & O for Labs for Last 24 Hours: Intake & Output 12/18/22 12/19/22 12/20/22 12/21/22 23:59 23:59 23:59 23:59 Intake Total 890 / 990 1440 / 1440 2140 / 2190 410 / 410 Output Total 0 / 0 0 / 0 0 / 0 / Balance 890 / 990 1440 / 1440 2140 / 2190 409 / 409 Weight 177 lb 7 oz 173 lb 1.006 oz 161 lb 3 oz 177 lb 9.6 oz Microbiology Reports for the Last 24 Hours: Microbiology 12/19/22 07:20 Hand,Left - Left Gram Stain - Final 12/19/22 07:20 Hand,Left - Left Surgical Biopsy Culture - Preliminary NO GROWTH AFTER 48 HOURS 12/19/22 07:15 Hand,Left - Left Gram Stain - Final 12/19/22 07:15 Hand,Left - Left Wound Culture - Preliminary Gram Negative Rods Head: Present normocephalic and atraumatic Eyes: Present as per HPI ENT: Present normal exam Neck: Present normal inspection, full ROM and trachea midline; Absent lymphadenopathy Respiratory: Present normal respiratory effort, able to speak in complete sentences and symmetric chest movement; Absent accessory muscle use Cardiac: Present Reg Rate and Rhythm GI: Present soft; Absent tenderness Comment:: Upon examination of the left hip: Wound VAC is in place with good seal. Approximately 15 cc serosanguineous output present in the tubing and canister. The left hip and proximal femur are somewhat tender to palpation. Thigh and calf are soft and nontender; Homans' sign is negative. No clinical evidence of DVT or compartment syndrome noted. Posterior tibial pulse 2+; capillary refill is brisk. Sensation to light touch is grossly intact throughout. Patient is actively mobilizing the foot, ankle, and toes. Skin: Present intact, warm and normal turgor; Absent cyanosis, erythema, lesions or jaundice Neuro: Present Cranial Nerve 2-12 Intact, Motor Function Intact, Sensory Function Intact, alert, awake, oriented x 3, tone normal and moves all extremities; Absent Numbness or Tingling Assessment and Plan *Assessment and plan (1) Cellulitis: Status: Acute Category: Medical Code(s): L03.90 - Cellulitis, unspecified Plan I have discussed the clinical findings and progress with the patient and her husb
--- NOTE | 2022-12-21 09:34 | HMH.PTWOUND ---
Rehab Inpt Wound Evaluation Rehab IP Wound Evaluation Start: 12/20/22 08:12 Freq: ONCE Status: Active Protocol: Document 12/21/22 09:30 SPIKE (Rec: 12/21/22 09:34 SPIKE [id number]) Rehab PT Wound Assessment Subjective Subjective 82 yowf adm to [facility] after I&D of L hip incision ~ 1 wk S/P L hip LY. VAC dressing in place after OR. Ortho specifically ordered to leave foam in place and only change outer transparent drape to initiate different VAC pump. Wound Left hip Wound Type Incision Is This a Chronic Wound No Packing Type Woundvac Sponge Primary Dressing Transparent Drape Wound Debridement Amount of Tissue None Removed Dressing Change Patient Tolerance Tolerated Well Plan/Recommendation Comment Plan is for VAC dressing to remain in place until Ortho follow-up appt on Sunday 12/24 . No further wound care needs prior to d/c to rehab. Eval Complexity Eval Charge Codes 68345 - Low Complexity PHYSICIAN CERTIFICATION: I certify the specified therapy services for Abigail Alejo are required, authorized, and reviewed every 30 days.
[2022-12-21 14:41] LABS: Hematocrit 27.6 % (37.0-47.0)
[2022-12-21 14:49] LABS: Hemoglobin 10.1 g/dL (12.2-16.2)
== END 2022-12-21 15:28 | disposition home or self-care (01) | DRG 862 ==
PROVIDERS: Orthopaedic Surgery; Admitting Provider Internal Medicine Adolescent Medicine; Visit Provider Internal Medicine Adolescent Medicine
PROC: 0J9M00Z Drainage of Left Upper Leg Subcutaneous Tissue and Fascia with Drainage Device, Open Approach (ICD-10-PCS; principal; 2022-12-19 06:30)
DX: T81.49XA Infection following a procedure, other surgical site, initial encounter (principal); S72.002A Fracture of unspecified part of neck of left femur, initial encounter for closed fracture; L03.116 Cellulitis of left lower limb; J96.11 Chronic respiratory failure with hypoxia; I50.32 Chronic diastolic (congestive) heart failure; B96.5 Pseudomonas (aeruginosa) (mallei) (pseudomallei) as the cause of diseases classified elsewhere; I25.10 Atherosclerotic heart disease of native coronary artery without angina pectoris; J44.9 Chronic obstructive pulmonary disease, unspecified; D64.9 Anemia, unspecified; I49.5 Sick sinus syndrome; Z95.0 Presence of cardiac pacemaker; I11.0 Hypertensive heart disease with heart failure; I25.5 Ischemic cardiomyopathy; Z85.118 Personal history of other malignant neoplasm of bronchus and lung; I48.0 Paroxysmal atrial fibrillation; Z96.642 Presence of left artificial hip joint; Z99.81 Dependence on supplemental oxygen
CPT/HCPCS: 11043; 36415; 36569; 71045; 73701; 80048; 80053; 80202; 83735; 85014; 85018; 85025; 85610; 86850; 87070; 87075; 87077; 87186; 87205; 97110; 97116; 97162; 97165; 97530; C1751; C9803; J0692; J2405; J3370; P9016; Q9967; U0003; U0005

== ENCOUNTER → 2022-12-24 14:13 | Outpatient (CLI) | payer MEDICARE, MEDICAID, SELFPAY ==
--- NOTE | 2022-12-24 14:19 | XR_ITS ---
FINAL REPORT CLINICAL HISTORY: hip fx - f/u COMPARISON: 12/07/2022 FINDINGS: RIGHT HIP Three views of the right hip were obtained. There are postoperative changes from left hip arthroplasty. There is a nondisplaced fracture of the superior greater trochanter. A drain is noted in the lateral soft tissues. The visualized bony structures are well aligned. IMPRESSION: No acute bony abnormality. Reviewed, Interpreted and Dictated by Braydon Milner III, MD Transcribed by Jennifer Callaway Authenticated and [facility]
== END ==
PROVIDERS: PCP Family Medicine; Visit Provider Orthopaedic Surgery
DX: L03.90 Cellulitis, unspecified (principal); S72.002A Fracture of unspecified part of neck of left femur, initial encounter for closed fracture
CPT/HCPCS: 73502

== ENCOUNTER → 2022-12-28 11:44 | Outpatient (CLI) | payer MEDICARE, MEDICAID, SELFPAY ==
[2022-12-28 12:44] LABS: Basophils # 0.1 K/mm3 (0-0.2); Basophils % 0.7 % (0.1-2.0); Eosinophils # 0.2 K/mm3 (0.0-0.4); Eosinophils % 3.1 % (0.1-12.0); Hematocrit 32.1 % (37.0-47.0); Hemoglobin 10.7 g/dL (12.2-16.2); Lymphocytes # 1.7 K/mm3 (0.7-4.5); Lymphocytes % 23.7 % (10-50); Mean Corpuscular HGB Conc 33.5 g/dL (31.8-35.4); Mean Corpuscular Hemoglobin 31.2 pg (27.0-31.2); Mean Corpuscular Volume 93.2 fl (81-99); Mean Platelet Volume 8.3 fl (7.4-10.4); Monocytes # 0.4 K/mm3 (0.1-1.0); Monocytes % 5.9 % (1.7-9.3); Neutrophils # 4.7 K/mm3 (1.8-7.8); Neutrophils % 66.7 % (37.0-80.0); Platelet Count 276 K/mm3 (142-424); Red Blood Count 3.44 M/mm3 (4.20-5.40); Red Cell Distribution Width 14.5 % (11.5-17.5); White Blood Count 7.1 K/mm3 (4.8-10.8)
[2022-12-28 13:01] LABS: Chloride 105 mmol/L (98-107); Sodium 141 mmol/L (136-145)
[2022-12-28 13:03] LABS: Alanine Aminotransferase 12 U/L (12-78); Aspartate Amino Transferase 37 U/L (14-36); Blood Urea Nitrogen 12 mg/dl (7-17); Estimated Glomerular Filt Rate 60 ml/min (>60); GFR (African American) 73 ML/MIN (>60)
[2022-12-28 13:04] LABS: Albumin Level 3.4 g/dl (3.5-5.0); Albumin/Globulin Ratio 1.4 (1.1-1.8); Alkaline Phosphatase 87 U/L (38-126); Bilirubin,Total 0.5 mg/dl (0.2-1.3); Calcium 9.1 mg/dl (8.4-10.2); Carbon Dioxide 33 mmol/L (22.0-30.0); Globulin 2.5 g/dL (1.3-3.2); Glucose 109 mg/dl (74-100); Total Protein,Serum 5.9 g/dl (6.3-8.2)
[2022-12-28 13:17] LABS: C-Reactive Protein 13.9 mg/L (0-4)
[2022-12-28 13:33] LABS: Erythrocyte Sedimentation Rate 51 mm/hr (0-30)
== END ==
PROVIDERS: PCP Family Medicine; Visit Provider Physician Assistant Surgical
DX: C50.919 Malignant neoplasm of unspecified site of unspecified female breast (principal); A49.8 Other bacterial infections of unspecified site
CPT/HCPCS: 80053; 85025; 85651; 86140

== ENCOUNTER → 2023-01-03 11:17 | Outpatient (CLI) | payer MEDICARE, MEDICAID, SELFPAY ==
[2023-01-03 11:37] LABS: Basophils # 0.1 K/mm3 (0-0.2); Basophils % 0.8 % (0.1-2.0); Eosinophils # 0.2 K/mm3 (0.0-0.4); Eosinophils % 3.9 % (0.1-12.0); Hematocrit 29.5 % (37.0-47.0); Hemoglobin 9.7 g/dL (12.2-16.2); Lymphocytes # 1.7 K/mm3 (0.7-4.5); Lymphocytes % 27.1 % (10-50); Mean Corpuscular HGB Conc 32.7 g/dL (31.8-35.4); Mean Corpuscular Hemoglobin 30.1 pg (27.0-31.2); Monocytes # 0.3 K/mm3 (0.1-1.0); Monocytes % 4.2 % (1.7-9.3); Neutrophils # 3.9 K/mm3 (1.8-7.8); Neutrophils % 64.1 % (37.0-80.0); Platelet Count 226 K/mm3 (142-424); Red Blood Count 3.21 M/mm3 (4.20-5.40); Red Cell Distribution Width 14.6 % (11.5-17.5); White Blood Count 6.1 K/mm3 (4.8-10.8)
[2023-01-03 11:45] LABS: Alanine Aminotransferase 11 U/L (12-78); Albumin Level 3.4 g/dl (3.5-5.0); Albumin/Globulin Ratio 1.4 (1.1-1.8); Alkaline Phosphatase 77 U/L (38-126); Anion Gap 4.9 mEq/L (5-15); Aspartate Amino Transferase 25 U/L (14-36); Bilirubin,Total 0.4 mg/dl (0.2-1.3); Blood Urea Nitrogen 14 mg/dl (7-17); Calcium 8.5 mg/dl (8.4-10.2); Carbon Dioxide 35 mmol/L (22.0-30.0); Chloride 104 mmol/L (98-107); Estimated Glomerular Filt Rate 53 ml/min (>60); GFR (African American) 64 ML/MIN (>60); Globulin 2.4 g/dL (1.3-3.2); Glucose 103 mg/dl (74-100); Potassium 3.9 mmoL/L (3.5-5.1); Sodium 140 mmol/L (136-145); Total Protein,Serum 5.8 g/dl (6.3-8.2)
[2023-01-03 11:50] LABS: C-Reactive Protein 10.6 mg/L (0-4)
[2023-01-03 12:13] LABS: Erythrocyte Sedimentation Rate 56 mm/hr (0-30)
== END ==
PROVIDERS: PCP Family Medicine; Visit Provider Physician Assistant Surgical
DX: A49.8 Other bacterial infections of unspecified site (principal); S72.002A Fracture of unspecified part of neck of left femur, initial encounter for closed fracture
CPT/HCPCS: 80053; 85025; 85651; 86140

== ENCOUNTER 2023-01-10 11:04 | Emergency (ER) | payer MEDICARE, MEDICAID, SELFPAY ==
[2023-01-10 11:05] VITALS: BP 189/88; PULSE 67; RESP 17; TEMP 36.6; O2SAT 96; BMI 29.3
--- NOTE | 2023-01-10 11:08 | HMH.EDGENADL ---
Discharge Plan Disposition Patient Disposition: Home, Self-Care Prescriptions Prescriptions: No Action albuterol sulfate 90 mcg/actuation HFA aerosol inhaler 2 puff IH Q6HP PRN (Reason: Shortness Of Breath) cefepime 1 gram recon soln 2 g IV Q8H 35 Days Qty: 20 0RF doxepin 10 MG capsule 10 mg PO DAILY Eliquis 5 mg tablet 5 mg PO BID isosorbide mononitrate 30 mg tablet extended release 24 hr 30 mg PO DAILY Hold Instructions: Resume on 12/06/22. Label Comments: HOLD FOR SBP <100, DBP <60 Rx Instructions: HOLD FOR SBP <100, DBP <60 bisoprolol fumarate 10 mg tablet 10 mg PO BID Label Comments: HOLD FOR SBP <100, DBP <60, OR HR <60 Rx Instructions: HOLD FOR SBP <100, DBP <60, OR HR <60 ondansetron 4 mg Tablet,Disintegrating 4 mg PO Q6HP PRN (Reason: Nausea And Vomiting) sacubitril-valsartan 49-51 mg tablet 1 tab PO BID 30 Days Qty: 60 0RF Vitamin 27 mg iron- 800 mcg Tablet 1 tab PO 1700 Qty: 30 0RF vancomycin-diluent combo no.1 1.25 gram/250 mL Piggyback 1.25 g IV 1300 10 Days Qty: 2500 0RF hydrocodone-acetaminophen 5-325 mg Tablet 1 tab PO Q6HP PRN (Reason: MODERATE TO SEVERE PAIN) 3 Days Qty: 12 0RF Referrals Follow up/Referrals: Jai Pierre MD [Primary Care Provider] - See instructions Activity Restrictions/Add. Instructions Additional Instructions/Restrictions: Today you had evidence of hypertension without any evidence clinically of any endorgan damage. There is no emergency indication for testing or rapid blood pressure management in the situations, in fact we can cause significant harm by acutely lowering her blood pressure in the situations. Please return to the emergency department with any chest pain shortness of breath changes in mental status strokelike symptoms or decreased urinary output. Otherwise you need to slowly manage your hypertension with oral antihypertensive medications and this needs to be discussed with your primary care physician. In this situation is important to remember that we do not treat the number but we treat the patient so your symptoms are what matters most from an emergency standpoint. Your hypertension does need to be better controlled chronically but this needs to be managed in an outpatient capacity. Clinical Impressions Clinical Impression: Asymptomatic hypertension Discharge ED Provider: Keith Blackburn General Adult HPI General Stated complaint: high blood pressure Time Seen by Provider: 01/10/23 11:09 History of Present Illness HPI narrative: Patient is an 82-year-old female presents today with hypertension. She recently had her hip operated on and has a PICC line for antibiotic infusion went to the orthopedic surgery clinic for wound management and reevaluation. She was found to be hypertensive and sent to the emergency department. Patient denies any acute symptoms specifically any changes in mental status any strokelike symptoms and chest pain any shortness of breath or any changes in urinary output. She is on oral antihypertensive medications but she is unaware of which ones. She has not had any changes in medications to her knowledge recently. Related Data Home Medications Medication Instructions Recorded Confirmed albuterol sulfate 90 mcg/actuation 2 puff inhalation Q6HP PRN 05/20/20 01/10/23 aerosol inhaler Shortness Of Breath doxepin 10 mg capsule 10 mg PO DAILY mood/sleep 02/11/22 01/10/23 apixaban 5 mg tablet (Eliquis) 5 mg PO BID Blood thinner/atrial 08/18/22 01/10/23 fib bisoprolol fumarate 10 mg tablet 10 mg PO BID Hypertension 11/25/22 01/10/23 isosorbide mononitrate 30 mg 30 mg PO DAILY Hypertension 11/25/22 01/10/23 tablet,extended release 24 hr ondansetron 4 mg disintegrating 4 mg PO Q6HP PRN Nausea And 12/17/22 01/10/23 tablet Vomiting Previous Rx's Medication Instructions Recorded hydrocodone 5 mg-acetaminophen 325 1 tab PO Q6HP PRN MODER
[2023-01-10 11:13] VITALS: BP 189/88; PULSE 79; RESP 20; O2SAT 94
[2023-01-10 11:30] VITALS: BP 175/86; PULSE 72; RESP 20; O2SAT 94
[2023-01-10 11:40] VITALS: BP 175/86; PULSE 72; RESP 17; TEMP 36.6; O2SAT 97
[2023-01-10 11:41] VITALS: O2SAT 94
== END 2023-01-10 11:40 | disposition home or self-care (01) ==
LOC: ER 11:23
PROVIDERS: Emergency Provider Student in an Organized Health Care Education/Training Program; PCP Family Medicine
DX: I10 Essential (primary) hypertension (principal); Z86.16 Personal history of COVID-19; I25.2 Old myocardial infarction; I25.5 Ischemic cardiomyopathy; I48.0 Paroxysmal atrial fibrillation; Z90.49 Acquired absence of other specified parts of digestive tract; Z80.1 Family history of malignant neoplasm of trachea, bronchus and lung
CPT/HCPCS: 99283

== ENCOUNTER → 2023-01-10 12:16 | Outpatient (CLI) | payer MEDICARE, MEDICAID, SELFPAY ==
[2023-01-10 12:37] LABS: Basophils # 0.1 K/mm3 (0-0.2); Basophils % 1.1 % (0.1-2.0); Eosinophils # 0.4 K/mm3 (0.0-0.4); Eosinophils % 6.6 % (0.1-12.0); Hematocrit 30.5 % (37.0-47.0); Hemoglobin 9.8 g/dL (12.2-16.2); Lymphocytes # 1.4 K/mm3 (0.7-4.5); Lymphocytes % 25.1 % (10-50); Mean Corpuscular HGB Conc 32.1 g/dL (31.8-35.4); Mean Corpuscular Volume 93.3 fl (81-99); Mean Platelet Volume 8.4 fl (7.4-10.4); Monocytes # 0.4 K/mm3 (0.1-1.0); Monocytes % 7.1 % (1.7-9.3); Neutrophils # 3.4 K/mm3 (1.8-7.8); Platelet Count 180 K/mm3 (142-424); Red Blood Count 3.27 M/mm3 (4.20-5.40); Red Cell Distribution Width 14.9 % (11.5-17.5); White Blood Count 5.7 K/mm3 (4.8-10.8)
[2023-01-10 12:42] LABS: Chloride 107 mmol/L (98-107); Potassium 3.6 mmoL/L (3.5-5.1)
[2023-01-10 12:44] LABS: Alanine Aminotransferase 12 U/L (12-78); Aspartate Amino Transferase 26 U/L (14-36); Blood Urea Nitrogen 14 mg/dl (7-17); Estimated Glomerular Filt Rate 53 ml/min (>60); GFR (African American) 64 ML/MIN (>60)
[2023-01-10 12:45] LABS: Albumin Level 3.5 g/dl (3.5-5.0); Albumin/Globulin Ratio 1.3 (1.1-1.8); Alkaline Phosphatase 75 U/L (38-126); Bilirubin,Total 0.6 mg/dl (0.2-1.3); Calcium 8.8 mg/dl (8.4-10.2); Carbon Dioxide 30 mmol/L (22.0-30.0); Globulin 2.7 g/dL (1.3-3.2); Glucose 106 mg/dl (74-100); Total Protein,Serum 6.2 g/dl (6.3-8.2)
[2023-01-10 12:51] LABS: C-Reactive Protein 10.2 mg/L (0-4)
[2023-01-10 13:23] LABS: Anion Gap 7.6 mEq/L (5-15); Sodium 141 mmol/L (136-145)
[2023-01-10 13:48] LABS: Erythrocyte Sedimentation Rate 72 mm/hr (0-30)
== END ==
PROVIDERS: PCP Family Medicine; Visit Provider Orthopaedic Surgery
DX: A49.8 Other bacterial infections of unspecified site (principal); L03.90 Cellulitis, unspecified; C50.919 Malignant neoplasm of unspecified site of unspecified female breast
CPT/HCPCS: 80053; 85025; 85651; 86140

== ENCOUNTER → 2023-01-18 09:37 | Outpatient (CLI) | payer MEDICARE, MEDICAID, SELFPAY ==
--- NOTE | 2023-01-18 09:43 | XR_ITS ---
FINAL REPORT CLINICAL HISTORY: s/p lt hip COMPARISON: 12/24/2022 FINDINGS: AP and frog leg views of the left hip were obtained. There are postoperative changes from left hip arthroplasty. The hardware appears intact. There is no acute fracture or dislocation. There is a subtle irregularity at the tip of the greater trochanter is unchanged. The surgical drain and surgical skin sondra have been removed. IMPRESSION: Postoperative changes as above. Reviewed, Interpreted and Dictated by Lisa Gonsales MD Transcribed by Patti Ortiz Authenticated and [facility]
[2023-01-18 11:19] LABS: Chloride 106 mmol/L (98-107)
[2023-01-18 11:20] LABS: Potassium 3.5 mmoL/L (3.5-5.1); Sodium 141 mmol/L (136-145)
[2023-01-18 11:22] LABS: Alanine Aminotransferase 13 U/L (12-78); Albumin Level 3.5 g/dl (3.5-5.0); Albumin/Globulin Ratio 1.4 (1.1-1.8); Alkaline Phosphatase 73 U/L (38-126); Anion Gap 7.5 mEq/L (5-15); Aspartate Amino Transferase 27 U/L (14-36); Bilirubin,Total 0.5 mg/dl (0.2-1.3); Blood Urea Nitrogen 16 mg/dl (7-17); Calcium 8.6 mg/dl (8.4-10.2); Carbon Dioxide 31 mmol/L (22.0-30.0); Estimated Glomerular Filt Rate 69 ml/min (>60); GFR (African American) 83 ML/MIN (>60); Globulin 2.5 g/dL (1.3-3.2); Glucose 112 mg/dl (74-100)
[2023-01-18 11:28] LABS: C-Reactive Protein 8.9 mg/L (0-4)
[2023-01-18 11:54] LABS: Basophils % 0.7 % (0.1-2.0); Eosinophils # 0.2 K/mm3 (0.0-0.4); Eosinophils % 4.6 % (0.1-12.0); Hematocrit 30.4 % (37.0-47.0); Lymphocytes # 1.1 K/mm3 (0.7-4.5); Lymphocytes % 22.4 % (10-50); Mean Corpuscular Hemoglobin 30.9 pg (27.0-31.2); Mean Corpuscular Volume 93.9 fl (81-99); Mean Platelet Volume 8.7 fl (7.4-10.4); Monocytes # 0.3 K/mm3 (0.1-1.0); Neutrophils # 3.2 K/mm3 (1.8-7.8); Neutrophils % 65.3 % (37.0-80.0); Platelet Count 174 K/mm3 (142-424); Red Blood Count 3.24 M/mm3 (4.20-5.40); Red Cell Distribution Width 15.1 % (11.5-17.5); White Blood Count 4.9 K/mm3 (4.8-10.8)
[2023-01-18 12:02] LABS: Erythrocyte Sedimentation Rate 71 mm/hr (0-30)
== END ==
PROVIDERS: PCP Family Medicine; Visit Provider Physician Assistant Surgical
DX: M25.552 Pain in left hip (principal); S72.002A Fracture of unspecified part of neck of left femur, initial encounter for closed fracture; C50.919 Malignant neoplasm of unspecified site of unspecified female breast
CPT/HCPCS: 73502; 80053; 85025; 85651; 86140

== ENCOUNTER 2023-01-20 11:22 | Outpatient (CLI) | payer MEDICARE, MEDICAID, SELFPAY ==
--- NOTE | 2023-01-20 12:03 | PC.NURSE ---
AT 1041 RN FROM [facility]1983 REPORTED PICC HAS NOT BEEN ABLE TO BE FLUSHED TODAY. REPORTED THIS WAS THE FIRST DAY IT HASNT WORKED. INSTRUCTED TO BRING PT TO [facility] FOR POSSIBLE CATHFLO/FURTHER INVESTIGATION.
--- NOTE | 2023-01-20 12:06 | PC.NURSE ---
This RN was not able to get picc to flush with 10ml NS. after several attempts, picc was able to be flushed but was very sluggish. this RN contacted [facility] office and was given order for cathflo. Cathflo was instilled at 1145. will wait an hour to try to flush picc again.
--- NOTE | 2023-01-20 13:47 | PC.NURSE ---
at 1220, cathflo was removed. PICC line flushes easily and blood return noted. PICC drsg change aseptically.
== END 2023-01-20 12:35 | disposition home or self-care (01) ==
LOC: INF 11:24
PROVIDERS: PCP Family Medicine; Visit Provider Family Medicine
DX: Z45.2 Encounter for adjustment and management of vascular access device (principal)
CPT/HCPCS: 36593

== ENCOUNTER → 2023-01-25 09:29 | Outpatient (CLI) | payer MEDICARE, MEDICAID, SELFPAY ==
[2023-01-25 09:51] LABS: Chloride 103 mmol/L (98-107); Potassium 3.3 mmoL/L (3.5-5.1); Sodium 140 mmol/L (136-145)
[2023-01-25 09:53] LABS: Alanine Aminotransferase 17 U/L (12-78); Aspartate Amino Transferase 26 U/L (14-36); Bilirubin,Total 0.5 mg/dl (0.2-1.3); Blood Urea Nitrogen 15 mg/dl (7-17); Estimated Glomerular Filt Rate 60 ml/min (>60); GFR (African American) 73 ML/MIN (>60)
[2023-01-25 09:54] LABS: Albumin Level 3.7 g/dl (3.5-5.0); Albumin/Globulin Ratio 1.4 (1.1-1.8); Alkaline Phosphatase 67 U/L (38-126); Anion Gap 5.3 mEq/L (5-15); Calcium 8.8 mg/dl (8.4-10.2); Carbon Dioxide 35 mmol/L (22.0-30.0); Globulin 2.6 g/dL (1.3-3.2); Glucose 139 mg/dl (74-100); Total Protein,Serum 6.3 g/dl (6.3-8.2)
[2023-01-25 09:58] LABS: Basophils % 0.7 % (0.1-2.0); Eosinophils # 0.2 K/mm3 (0.0-0.4); Hematocrit 31.9 % (37.0-47.0); Hemoglobin 10.4 g/dL (12.2-16.2); Lymphocytes % 21.6 % (10-50); Mean Corpuscular HGB Conc 32.7 g/dL (31.8-35.4); Mean Corpuscular Hemoglobin 30.2 pg (27.0-31.2); Mean Corpuscular Volume 92.4 fl (81-99); Mean Platelet Volume 8.5 fl (7.4-10.4); Monocytes # 0.3 K/mm3 (0.1-1.0); Monocytes % 6.5 % (1.7-9.3); Neutrophils # 3.2 K/mm3 (1.8-7.8); Neutrophils % 66.1 % (37.0-80.0); Platelet Count 189 K/mm3 (142-424); Red Blood Count 3.45 M/mm3 (4.20-5.40); Red Cell Distribution Width 15.1 % (11.5-17.5); White Blood Count 4.8 K/mm3 (4.8-10.8)
[2023-01-25 10:00] LABS: C-Reactive Protein 7.9 mg/L (0-4)
[2023-01-25 10:21] LABS: Erythrocyte Sedimentation Rate 26 mm/hr (0-30)
== END ==
PROVIDERS: PCP Family Medicine; Visit Provider Physician Assistant Surgical
DX: S72.002A Fracture of unspecified part of neck of left femur, initial encounter for closed fracture (principal); C50.919 Malignant neoplasm of unspecified site of unspecified female breast
CPT/HCPCS: 36415; 80053; 85025; 85651; 86140

== ENCOUNTER 2023-02-02 11:41 | Outpatient (CLI) | payer MEDICARE, MEDICAID, SELFPAY ==
[2023-02-02 11:46] VITALS: BMI 28.6
[2023-02-02 12:03] LABS: Basophils # 0.1 K/mm3 (0-0.2); Basophils % 0.9 % (0.1-2.0); Eosinophils # 0.2 K/mm3 (0.0-0.4); Eosinophils % 3.2 % (0.1-12.0); Hematocrit 33.4 % (37.0-47.0); Hemoglobin 10.7 g/dL (12.2-16.2); Lymphocytes # 1.2 K/mm3 (0.7-4.5); Lymphocytes % 23.5 % (10-50); Mean Corpuscular HGB Conc 32.2 g/dL (31.8-35.4); Mean Corpuscular Hemoglobin 30.3 pg (27.0-31.2); Mean Corpuscular Volume 94.2 fl (81-99); Mean Platelet Volume 8.8 fl (7.4-10.4); Monocytes # 0.3 K/mm3 (0.1-1.0); Monocytes % 6.2 % (1.7-9.3); Neutrophils # 3.3 K/mm3 (1.8-7.8); Neutrophils % 66.2 % (37.0-80.0); Platelet Count 169 K/mm3 (142-424); Red Blood Count 3.54 M/mm3 (4.20-5.40); Red Cell Distribution Width 15.2 % (11.5-17.5)
[2023-02-02 12:12] LABS: Albumin Level 3.8 g/dl (3.5-5.0); Anion Gap 9.1 mEq/L (5-15); Blood Urea Nitrogen 15 mg/dl (7-17); Calcium 8.5 mg/dl (8.4-10.2); Carbon Dioxide 33 mmol/L (22.0-30.0); Chloride 100 mmol/L (98-107); Creatinine Clearance Estimated 53 mL/min (50-200); Estimated Glomerular Filt Rate 69 ml/min (>60); GFR (African American) 83 ML/MIN (>60); Glucose 153 mg/dl (74-100); Phosphorous 2.3 mg/dl (2.5-4.5); Potassium 3.1 mmoL/L (3.5-5.1); Sodium 139 mmol/L (136-145)
[2023-02-02 12:17] LABS: C-Reactive Protein 8.1 mg/L (0-4)
[2023-02-02 12:36] LABS: Erythrocyte Sedimentation Rate 18 mm/hr (0-30)
== END 2023-02-02 11:55 | disposition home or self-care (01) ==
LOC: INF 11:43
PROVIDERS: PCP Physician Assistant Surgical; Visit Provider Internal Medicine Infectious Disease
DX: M25.552 Pain in left hip (principal); T84.52XA Infection and inflammatory reaction due to internal left hip prosthesis, initial encounter
CPT/HCPCS: 36592; 80069; 82565; 85025; 85651; 86140

== ENCOUNTER → 2023-02-11 11:38 | Outpatient (CLI) | payer MEDICARE, MEDICAID, SELFPAY ==
[2023-02-11 12:05] LABS: Basophils % 0.7 % (0.1-2.0); Eosinophils # 0.1 K/mm3 (0.0-0.4); Eosinophils % 2.6 % (0.1-12.0); Hematocrit 32.1 % (37.0-47.0); Hemoglobin 10.5 g/dL (12.2-16.2); Lymphocytes # 1.5 K/mm3 (0.7-4.5); Lymphocytes % 28.6 % (10-50); Mean Corpuscular HGB Conc 32.7 g/dL (31.8-35.4); Mean Corpuscular Hemoglobin 30.6 pg (27.0-31.2); Mean Corpuscular Volume 93.7 fl (81-99); Mean Platelet Volume 8.1 fl (7.4-10.4); Monocytes # 0.4 K/mm3 (0.1-1.0); Monocytes % 7.3 % (1.7-9.3); Neutrophils # 3.3 K/mm3 (1.8-7.8); Neutrophils % 60.8 % (37.0-80.0); Platelet Count 189 K/mm3 (142-424); Red Blood Count 3.43 M/mm3 (4.20-5.40); Red Cell Distribution Width 15.3 % (11.5-17.5); White Blood Count 5.4 K/mm3 (4.8-10.8)
[2023-02-11 12:28] LABS: Alanine Aminotransferase 16 U/L (12-78); Albumin Level 3.6 g/dl (3.5-5.0); Albumin/Globulin Ratio 1.6 (1.1-1.8); Alkaline Phosphatase 88 U/L (38-126); Anion Gap 7.4 mEq/L (5-15); Aspartate Amino Transferase 30 U/L (14-36); Bilirubin,Total 0.6 mg/dl (0.2-1.3); Blood Urea Nitrogen 15 mg/dl (7-17); Calcium 8.5 mg/dl (8.4-10.2); Carbon Dioxide 34 mmol/L (22.0-30.0); Chloride 101 mmol/L (98-107); Estimated Glomerular Filt Rate 60 ml/min (>60); GFR (African American) 73 ML/MIN (>60); Globulin 2.3 g/dL (1.3-3.2); Glucose 110 mg/dl (74-100); Potassium 3.4 mmoL/L (3.5-5.1); Sodium 139 mmol/L (136-145); Total Protein,Serum 5.9 g/dl (6.3-8.2)
[2023-02-11 12:33] LABS: C-Reactive Protein 9.2 mg/L (0-4)
[2023-02-11 16:02] LABS: Erythrocyte Sedimentation Rate 18 mm/hr (0-30)
== END ==
PROVIDERS: PCP Family Medicine; Visit Provider Physician Assistant Surgical
DX: A49.8 Other bacterial infections of unspecified site (principal); C50.919 Malignant neoplasm of unspecified site of unspecified female breast
CPT/HCPCS: 80053; 85025; 85651; 86140

== ENCOUNTER → 2023-03-18 09:58 | Outpatient (CLI) | payer MEDICARE, MEDICAID, SELFPAY ==
--- NOTE | 2023-03-18 10:05 | XR_ITS ---
FINAL REPORT CLINICAL HISTORY: hip fracture, sx years ago, pt states sometimes pops out of place COMPARISON: 01/18/2023 FINDINGS: LEFT HIP: Two views of the left hip demonstrate postoperative changes from left hip arthroplasty. There is a chronic fracture of the greater trochanter with adjacent soft tissue calcification. The visualized bony structures are well aligned. IMPRESSION: No acute process. Reviewed, Interpreted and Dictated by Braydon Milner III, MD Transcribed by Jennifer Callaway Authenticated and [facility]
--- NOTE | 2023-03-18 10:27 | XR_ITS ---
FINAL REPORT CLINICAL HISTORY: right knee pain COMPARISON: 08/13/2020 FINDINGS: Three views of the right knee reveal no evidence of fracture. There is lateral subluxation of the proximal tibia by approximately 5 mm. Moderate to severe degenerative change with medial compartment narrowing. There is a moderate joint effusion. No localized soft tissue abnormality is identified. IMPRESSION: Lateral subluxation proximal tibia. Moderate to severe degenerative change with moderate joint effusion. Reviewed, Interpreted and Dictated by Braydon Milner III, MD Transcribed by Jennifer Callaway Authenticated and [facility]
== END ==
PROVIDERS: PCP Family Medicine; Visit Provider Orthopaedic Surgery
DX: S72.002A Fracture of unspecified part of neck of left femur, initial encounter for closed fracture (principal); M25.552 Pain in left hip; M25.561 Pain in right knee
CPT/HCPCS: 73502; 73562

== ENCOUNTER 2023-04-15 16:24 | Emergency (ER) | payer MEDICARE, MEDICAID, SELFPAY ==
[2023-04-15 16:25] VITALS: BP 114/53; PULSE 71; RESP 18; TEMP 36.7; O2SAT 96; BMI 28.3
--- NOTE | 2023-04-15 17:05 | EXP.UTC ---
Discharge Plan Disposition Patient Disposition: Home, Self-Care Condition: Good Prescriptions Prescriptions: New methylprednisolone [Medrol (Christian)] 4 mg tablets,dose pack 4 mg PO DIRECTED Qty: 21 0RF Rx Instructions: Start Tuesday morning No Action isosorbide mononitrate 30 mg tablet extended release 24 hr 30 mg PO DAILY amlodipine 10 mg tablet 10 mg PO DAILY furosemide 20 mg tablet 20 mg PO DAILY Eliquis 5 mg tablet 5 mg PO DAILY Entresto 97-103 mg tablet 1 tab PO DAILY Referrals Follow up/Referrals: Jai Lowe MD [Primary Care Provider] - See instructions Activity Restrictions/Add. Instructions Additional Instructions/Restrictions: Return to ER if chest pain, shortness of breath, fever, etc Follow up with Dr lowe next week Clinical Impressions Clinical Impression: Pleurisy Discharge ED Provider: Karen Warner [facility] [place] HPI General Stated complaint: R SHOULDER PAIN Mode of Arrival: Ambulatory Source of Information: Patient and Spouse Limitations: No Limitations Time Seen by Provider: 04/15/23 17:11 Description of Symptoms (Recalled from Triage Doc. by RN): PATIENT C/O COUGH, CHEST CONGESTION, AND PAIN TO RIGHT LUNG AREA WITH BREATHING X 2 DAYS HEENT Symptoms (Recalled from RN notes): No Resp Symptoms (Recalled from RN notes): Yes Skin Symptoms (Recalled from RN notes): No MS Symptoms (Recalled from RN notes): No Functional Status (Recalled from RN notes): WNL History of Present Illness Provider Complaint: Patient has cough, congestion, pain in right upper chest with inspiration X 2 days. No fever. History of pseudomonas infection in hip joint, A-fib History of pleurisy Onset (ago): day(s) (2) Location: chest Related Data Home Medications Medication Instructions Recorded Confirmed amlodipine 10 mg tablet 10 mg PO DAILY Hypertension 04/15/23 04/15/23 apixaban 5 mg tablet (Eliquis) 5 mg PO DAILY . 04/15/23 04/15/23 furosemide 20 mg tablet 20 mg PO DAILY Fluid 04/15/23 04/15/23 isosorbide mononitrate 30 mg 30 mg PO DAILY Hypertension 04/15/23 04/15/23 tablet,extended release 24 hr sacubitril 97 mg-valsartan 103 mg 1 tab PO DAILY . 04/15/23 04/15/23 tablet (Entresto) Previous Rx's Medication Instructions Recorded methylprednisolone 4 mg tablets in 4 mg PO DIRECTED #21 tabs 04/15/23 a dose pack (Medrol (Christian)) Allergies Allergy/AdvReac Type Severity Reaction Status Date / Time levofloxacin [From LEVAQUIN] Allergy Unknown MAKES SICK Verified 03/18/23 11:42 tetracycline [TETRACYCLINE] Allergy Unknown SWELLING, Verified 03/18/23 11:42 ITCHING aspirin AdvReac Intermediate Verified 03/18/23 11:42 Worker's Comp Is this a Worker's Comp case?: No [facility] Disclaimer: The information contained in this section may have been updated after the patient was seen, as this information can be updated by other users. Medical History Acute infective cystitis Atrial fibrillation Community acquired pneumonia COVID Gallbladder disease History of lung cancer Influenza Ischemic cardiomyopathy Lung cancer Non-ST elevation [place] (NSTEMI) Paroxysmal atrial fibrillation Pneumonia Lower lobe and right middle lobe Respiratory failure with hypoxia Sick sinus syndrome Typical angina Surgical History History of cholecystectomy History of left hip hemiarthroplasty Hx of pneumonectomy Stented coronary artery Family History Other Family history of myocardial infarction Lung cancer Social History Smoking Status: Never smoker second hand exposure: No alcohol intake: never substance use type: denies use current occupational status: retired Travel in the last 8 weeks: Inside the [place] household member
[2023-04-15 17:14] VITALS: BP 114/53; PULSE 71; RESP 18; TEMP 36.7; O2SAT 96
== END 2023-04-15 17:30 | disposition home or self-care (01) ==
PROVIDERS: Emergency Provider Physician Assistant; PCP Family Medicine
DX: R09.1 Pleurisy (principal); R05.9 Cough, unspecified; I10 Essential (primary) hypertension; E78.5 Hyperlipidemia, unspecified
CPT/HCPCS: 96372; 99212; 99214; G0463; J1040

== ENCOUNTER 2023-04-18 08:22 | Emergency (ER) | payer MEDICARE, MEDICAID, SELFPAY ==
[2023-04-18 08:23] VITALS: BP 121/77; PULSE 73; RESP 17; TEMP 36.6; O2SAT 97; BMI 27.4
--- NOTE | 2023-04-18 08:38 | XR_ITS ---
PROCEDURE INFORMATION: Exam: XR Chest Exam date and time: 04/18/2023 8:44 AM Age: 82 years old Clinical indication: Pain; Chest pressure and on breathing; Additional info: Right chest pain TECHNIQUE: Imaging protocol: Radiologic exam of the chest. Views: 1 view. COMPARISON: CR XR CHEST PORTABLE PICC PLAC 12/20/2022 10:51 AM FINDINGS: Tubes, catheters and devices: Transvenous pacemaker leads in the heart Lungs: Hyperexpanded lung nunes consistent with COPD. No focal consolidation.. Pleural spaces: Unremarkable. No pleural effusion. No pneumothorax. Heart/Mediastinum: Stable cardiac silhouette Bones/joints: Unremarkable. IMPRESSION: No focal consolidation..
--- NOTE | 2023-04-18 08:39 | HMH.EDGENADL ---
Discharge Plan Disposition Patient Disposition: Home, Self-Care Condition: Good Prescriptions Prescriptions: No Action isosorbide mononitrate 30 mg tablet extended release 24 hr 30 mg PO DAILY amlodipine 10 mg tablet 10 mg PO DAILY furosemide 20 mg tablet 20 mg PO DAILY Eliquis 5 mg tablet 5 mg PO DAILY Entresto 97-103 mg tablet 1 tab PO DAILY methylprednisolone [Medrol (Christian)] 4 mg tablets,dose pack 4 mg PO DIRECTED Qty: 21 0RF Rx Instructions: Start Tuesday morning Referrals Follow up/Referrals: Jai Pierre MD [Primary Care Provider] - See instructions Activity Restrictions/Add. Instructions Additional Instructions/Restrictions: Tylenol as needed for discomfort. Follow-up with a primary care provider for consideration of physical therapy and/or outpatient pain management. Clinical Impressions Clinical Impression: Acute chest wall pain Instructions Patient Instructions: DI for Atypical Chest Pain Discharge ED Provider: Jayme Willard General Adult HPI General Chief complaint: PAIN Stated complaint: hurts to breathe, Rt shoulder pain Time Seen by Provider: 04/18/23 08:35 History of Present Illness HPI narrative: Patient presents with a 3-week history of right-sided chest discomfort she reportedly was seen here recently for the same thing and diagnosed with pleurisy and states her symptoms have not improved despite taking a Medrol Dosepak. She describes the pain as moderate and worse with deep breaths. She is on Eliquis. Related Data Home Medications Medication Instructions Recorded Confirmed amlodipine 10 mg tablet 10 mg PO DAILY Hypertension 04/15/23 04/15/23 apixaban 5 mg tablet (Eliquis) 5 mg PO DAILY . 04/15/23 04/15/23 furosemide 20 mg tablet 20 mg PO DAILY Fluid 04/15/23 04/15/23 isosorbide mononitrate 30 mg 30 mg PO DAILY Hypertension 04/15/23 04/15/23 tablet,extended release 24 hr sacubitril 97 mg-valsartan 103 mg 1 tab PO DAILY . 04/15/23 04/15/23 tablet (Entresto) Previous Rx's Medication Instructions Recorded methylprednisolone 4 mg tablets in 4 mg PO DIRECTED #21 tabs 04/15/23 a dose pack (Medrol (Christian)) Allergies Allergy/AdvReac Type Severity Reaction Status Date / Time levofloxacin [From LEVAQUIN] Allergy Unknown MAKES SICK Verified 03/18/23 11:42 tetracycline [TETRACYCLINE] Allergy Unknown SWELLING, Verified 03/18/23 11:42 ITCHING aspirin AdvReac Intermediate Verified 03/18/23 11:42 PFSH PFS Disclaimer: The information contained in this section may have been updated after the patient was seen, as this information can be updated by other users. Medical History Acute infective cystitis Atrial fibrillation Community acquired pneumonia COVID Gallbladder disease History of lung cancer Influenza Ischemic cardiomyopathy Lung cancer Non-ST elevation [place] (NSTEMI) Paroxysmal atrial fibrillation Pneumonia Respiratory failure with hypoxia Sick sinus syndrome Typical angina Surgical History History of cholecystectomy History of left hip hemiarthroplasty Hx of pneumonectomy Stented coronary artery Family History Other Family history of myocardial infarction Lung cancer Social History Smoking Status: Never smoker second hand exposure: No alcohol intake: never substance use type: denies use current occupational status: retired Travel in the last 8 weeks: Inside the [place] household members: other housing: house lives independently: No marital status: current occupational exposures/hazards: No 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
--- NOTE | 2023-04-18 08:43 | PC.NURSE ---
rad notified of xray order.
--- NOTE | 2023-04-18 08:51 | PC.NURSE ---
Pt drover herself to Hospital for HR visit. pt parked under awning and used walker to go to registration. I moved patients care to parking space (1st space, backed in beside Ambulance entrance) brought keys in and gave back to patient.
[2023-04-18 09:00] VITALS: BP 113/52; PULSE 70; O2SAT 96
--- NOTE | 2023-04-18 09:09 | ECG_ITS ---
APPROVED REPORT Exam: Resting ECG HR:70 bpm ECG Measurements Heart Rate 70 AXES AK 246 P -65 QRSd 88 QRS 8 QT 408 T 56 QTc 428 Conclusion ELECTRONIC ATRIAL PACEMAKER ABNORMAL RHYTHM ECG UNCONFIRMED REPORT Electronically signed by : Tacho Arreguin MD 04/19/2023 17:32:03
[2023-04-18 09:30] VITALS: BP 118/61; PULSE 71; O2SAT 95
[2023-04-18 10:04] VITALS: BP 118/61; PULSE 70; RESP 17; TEMP 36.4; O2SAT 98
== END 2023-04-18 10:07 | disposition home or self-care (01) ==
PROVIDERS: Emergency Provider Emergency Medicine; PCP Family Medicine
DX: R07.89 Other chest pain (principal); M25.511 Pain in right shoulder; I48.0 Paroxysmal atrial fibrillation; I25.2 Old myocardial infarction
CPT/HCPCS: 71045; 93005; 99284; 99285

== ENCOUNTER → 2023-09-27 08:11 | Outpatient (CLI) | payer MEDICARE, MEDICAID, SELFPAY ==
--- NOTE | 2023-09-27 08:17 | XR_ITS ---
FINAL REPORT CLINICAL HISTORY: left hip pain FINDINGS: AP and frog leg views of the left hip were obtained. There is no prior exam for comparison. There are changes from left total hip arthroplasty. The hardware appears intact. There is no acute fracture or dislocation. Calcifications adjacent to the greater trochanter likely chronic. No acute soft tissue abnormality is seen. IMPRESSION: Postoperative changes with no acute osseous abnormality of the left hip. If pain persists, MR is recommended. Reviewed, Interpreted and Dictated by Lisa Gonsales MD Transcribed by Pina Us Authenticated and . [facility]
== END ==
PROVIDERS: PCP Family Medicine; Visit Provider Orthopaedic Surgery
DX: S72.002A Fracture of unspecified part of neck of left femur, initial encounter for closed fracture (principal); M25.552 Pain in left hip
CPT/HCPCS: 73502

== ENCOUNTER → 2023-10-17 10:50 | Outpatient (POV) | payer MEDICARE, MEDICAID, SELFPAY ==
--- NOTE | 2023-10-17 11:38 | EXP.PAIN.OV ---
HPI Data of Consult Patient: new to practice Consult date: 10/17/23 Requesting Physician: Malini Woodruff APRN Primary Care Provider: Jai Pierre MD Consult Narrative Reason for consult: Right knee pain History of present illness: Ms. Alejo is a 83 year old female who presents today as a new patient. She is a referral from Dimitry Woodruff's office. Today she rates her pain a 9 out of 10. Patient states her pain is all in her right knee. Patient describes this as a aching, throbbing, sharp sensation that is worse with increased activity. Patient states this has been going on for at least 2 years unrelated to any specific injury or trauma. Patient does state it is worse with increased ambulation or activity and does interfere with her ability to perform activities of daily living such as cooking and cleaning. She states that she has had multiple steroid injections into her knee with minimal relief. She states that he has [id number]. Patient does state that she uses a walker for help with ambulation at home. Patient has tried Tylenol along with heat and ice and topicals with minimal relief. Patient does state that she has a history of CHF with stents placed and a pacemaker. She is on a daily blood thinner that is written by Dr. Hollingsworth's office. Patient also states she has a history of lung cancer. Her Bryn has been reviewed and is appropriate. CC: Malini Woodruff APRN [facility] Disclaimer: The information contained in this section may have been updated after the patient was seen, as this information can be updated by other users. Medical History Acute infective cystitis Atrial fibrillation Community acquired pneumonia COVID Gallbladder disease History of lung cancer Influenza Ischemic cardiomyopathy Lung cancer Non-ST elevation [place] (NSTEMI) Paroxysmal atrial fibrillation Pneumonia Lower lobe and right middle lobe Respiratory failure with hypoxia Sick sinus syndrome Typical angina Surgical History History of cholecystectomy History of left hip hemiarthroplasty Hx of pneumonectomy Stented coronary artery Family History Other Family history of myocardial infarction Lung cancer Social History Smoking Status: Never smoker second hand exposure: No alcohol intake: never substance use type: denies use current occupational status: retired Travel in the last 8 weeks: Inside the [place] household members: other housing: house lives independently: No marital status: current occupational exposures/hazards: No 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) Review of Systems Review of Systems Review of systems:: pertinent systems reviewed and negative unless documented below Review of systems (narrative): Review of Systems: General: No recent weight changes, no fever, no sleep disturbances Respiratory: No cough, no shortness of air, no recurring pulmonary infections Cardiovascular/peripheral vascular: No chest pain, no palpitations, no edema, no shortness of breath Gastrointestinal: No new onset incontinence, normal bowel movements reported Genitourinary: No new onset incontinence Musculoskeletal: Right knee pain Psychiatric: [Normal mood/affect] Neurological: [Denies weakness in extremities], [denies balance issues] Meds Home Medications and Allergies Home Medications Medication Instructions Recorded Confirmed Type sacubitril 97 mg-valsartan 103 mg 1 tab PO DAILY . 04/15/23 09/27/23 History tablet (Entresto) isosorbide mononitrate 30 mg 30 mg PO DAILY Hypertension #90 09/12/23 09/27/23 Rx tablet,extended release 24 hr tabs amlodipine 10 mg tablet See Rx Instructions .Route 09/21/23 09/27/23 Rx .COMPLEX #90 tabs apixaban 5 mg tablet (Eliquis) See Rx Inst
[2023-10-17 13:39] VITALS: BP 110/55; PULSE 70; RESP 18; O2SAT 95; BMI 28.3
== END ==
PROVIDERS: PCP Family Medicine; Visit Provider Nurse Practitioner Family
DX: M25.561 Pain in right knee (principal)
CPT/HCPCS: 99202; 99212; G0463

== ENCOUNTER 2023-11-17 20:20 | Observation (INO) | payer MEDICARE, MEDICAID, SELFPAY ==
[2023-11-17 20:21] VITALS: BP 136/64; PULSE 79; RESP 16; TEMP 36.6; O2SAT 99; BMI 27.8
--- NOTE | 2023-11-17 20:28 | ECG_ITS ---
APPROVED REPORT Exam: Resting ECG HR:84 bpm ECG Measurements Heart Rate 84 AXES ID 205 P 75 QRSd 93 QRS 51 QT 389 T 67 QTc 430 Conclusion ELECTRONIC ATRIAL PACEMAKER LOW QRS VOLTAGE IN PRECORDIAL LEADS [QRS DEFLECTION < 1.0 mV IN CHEST LEADS] ABNORMAL RHYTHM ECG UNCONFIRMED REPORT Electronically signed by : Tacho Arreguin MD 11/18/2023 07:46:10
[2023-11-17 20:31] VITALS: BP 120/52; PULSE 68; RESP 14; O2SAT 98
--- NOTE | 2023-11-17 20:41 | XR_ITS ---
PROCEDURE INFORMATION: Exam: XR Chest Exam date and time: 11/17/2023 8:41 PM Age: 83 years old Clinical indication: Dyspnea TECHNIQUE: Imaging protocol: Radiologic exam of the chest. Views: 1 view. COMPARISON: 1. CR XR CHEST PORTABLE 04/18/2023 8:44 AM 2. CR XR CHEST PORTABLE 11/24/2022 6:49 PM FINDINGS: Tubes, catheters and devices: Left subclavian transvenous atrioventricular pacemaker is in position. Right atrial lead is directed inferiorly, displaced when compared to prior exam in November. Left hilar surgical clips are noted. Lungs: Lungs are hyperinflated. Clear parenchyma. Pleural spaces: No pleural effusion. No pneumothorax. Heart/Mediastinum: Cardiac silhouette is normal in size for technique. Bones/joints: Age appropriate. IMPRESSION: 1. Hyperinflated but clear lungs. No other acute cardiopulmonary abnormality. 2. Displaced right atrial pacemaker lead. Correlate with EKG.
--- NOTE | 2023-11-17 20:41 | PC.NURSE ---
Pt shows sinus arrhythmia with PJCs occasionally with some pacing at times, MD aware
--- NOTE | 2023-11-17 20:43 | ED_ITS ---
Discharge Plan Disposition Patient Disposition: Admitted Prescriptions Prescriptions: No Action isosorbide mononitrate 30 mg tablet extended release 24 hr 30 mg PO DAILY Qty: 90 1RF Entresto 97-103 mg tablet 1 tab PO DAILY albuterol sulfate 90 mcg/actuation HFA aerosol inhaler 2 puff INHALATION Q6HP PRN (Reason: shortness of air) amlodipine 10 mg tablet 10 mg PO DAILY furosemide 20 mg tablet 20 mg PO DAILY Eliquis 5 mg tablet 5 mg PO BID Referrals Follow up/Referrals: Jai Pierre MD [Primary Care Provider] - See instructions Lonnie Hollingsworth MD [Staff Physician] - See instructions (tomorrow 1030 am ) Activity Restrictions/Add. Instructions Additional Instructions/Restrictions: Your symptoms tonight are almost certainly secondary to your abrupt discontinuation of beta-malu which you been taking for years. You were given 100 mg of metoprolol tartrate to temporize the situation and Dr. Hollingsworth would like to see you tomorrow in his clinic to be evaluated by someone on his team at 10:30 AM. Clinical Impressions Clinical Impression: Chest discomfort, Heart palpitations, EARLE (acute kidney injury) Discharge ED Provider: Bill Blackburn General Adult HPI General Chief complaint: Arrhythmia/Palpitations Stated complaint: HBP, palpitations Time Seen by Provider: 11/17/23 20:35 Mode of Arrival: Wheelchair Source of Information: Patient Limitations: No Limitations Description of Symptoms (Recalled from ER Triage Doc. by RN): pt reports feels as if she has a extra beat with her heart, denies CP,SOA or N/V, reports started happening yesterday, reports has a pacemaker and sees Dr Hollingsworth regularly History of Present Illness HPI narrative: Patient is an 83-year-old female with an extensive past cardiac history followed by Dr. Hollingsworth has a history of coronary artery disease sick sinus syndrome atrial fibrillation has a [employer] pacemaker that was placed last year but Dr. Hollingsworth who presents today with palpitations and what she describes as discomfort in her chest. When asked to articulate this further she feels as if her heart is skipping beats or having extra beats. She has had NSTEMI's in the past and has known vascular disease. Denies any recent exertional chest discomfort shortness of breath cough fevers chills or any other symptoms. Related Data Home Medications Medication Instructions Recorded Confirmed sacubitril 97 mg-valsartan 103 mg 1 tab PO DAILY . 04/15/23 11/17/23 tablet (Entresto) albuterol sulfate 90 mcg/actuation 2 puff inhalation Q6HP PRN 11/17/23 11/17/23 aerosol inhaler shortness of air amlodipine 10 mg tablet 10 mg PO DAILY 11/17/23 11/17/23 apixaban 5 mg tablet (Eliquis) 5 mg PO BID 11/17/23 11/17/23 furosemide 20 mg tablet 20 mg PO DAILY 11/17/23 11/17/23 Previous Rx's Medication Instructions Recorded isosorbide mononitrate 30 mg 30 mg PO DAILY Hypertension #90 09/12/23 tablet,extended release 24 hr tabs Allergies Allergy/AdvReac Type Severity Reaction Status Date / Time levofloxacin [From LEVAQUIN] Allergy Unknown MAKES SICK Verified 09/27/23 08:52 tetracycline [TETRACYCLINE] Allergy Unknown SWELLING, Verified 09/27/23 08:52 ITCHING aspirin AdvReac Intermediate Verified 09/27/23 08:52 PFS PFS Disclaimer: The information contained in this section may have been updated after the patient was seen, as this information can be updated by other users. Medical History Acute infective cystitis Atrial fibrillation Community acquired pneumonia COVID Gallbladder disease History of lung cancer Influenza Ischemic cardiomyopathy Lung cancer Non-ST elevation [place] (NSTEMI) Paroxysmal atrial fibrillation Pneumonia Lower lobe and right middle lobe Respiratory failure with hypoxia Sick sinus syndrome Typical angina Surgical History History of cholecystectomy History of left hip hemiarthroplasty Hx of pneumonectomy Stented coronary artery Family History Other Family history of myocardial infarction Lung cancer Social History (Updated 10/17/23 @ 13:51 by Rona Cadet RN) Smoking Status: Former smoker tobacco type: cigarettes packs per day: 1 second hand exposure: No alcohol intake: never substance use type: denies use current occupational status: retired Travel in the last 8 weeks: None household members: other housing: house lives independently: No marital status: current occupational exposures/hazards: No 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 and in no apparent distress Respiratory Respiratory exam: Present normal lung sounds bilaterally; Absent respiratory distress Cardiovascular Cardiovascular exam: Present tachycardia and irregular rhythm Neurological Exam Neurological exam: Present alert and oriented X3 Medical Decision Making Bryn Inquiry Pt receiving controlled substance: No Vital Signs: 11/17/23 20:21 11/17/23 20:31 11/17/23 21:00 Temperature 97.8 F Temperature Source Oral Pulse Rate 68 81 Pulse Rate [Right] 79 Respiratory Rate 16 14 17 Blood Pressure 120/52 L 121/51 L Blood Pressure [Right Arm] 136/64 Blood Pressure Mean [Right Arm] 88 Blood Pressure Source [Right Arm] Automatic Cuff Blood Pressure Position [Right Arm] Supine 02 Sat by Pulse Oximetry 99 98 91 L Oxygen Delivery Method Room Air Lab Data Lab results reviewed: Yes I reviewed the patient's lab results. Lab Results 11/17/23 20:23: WBC 9.5, RBC 3.77 L, Hgb 11.9 L, Hct 36.1 L, MCV 95.6, MCH 31.6 H, MCHC 33.1, RDW 13.1, Plt Count 246, MPV 8.4, Neut % (Auto) 56.5, Lymph % (Auto) 37.7, [place] % (Auto) 4.2, Eos % (Auto) 0.9, Baso % (Auto) 0.6, Neut # (Auto) 5.4, Lymph # (Auto) 3.6, [place] # (Auto) 0.4, Eos # (Auto) 0.1, Baso # (Auto) 0.1, Sodium 142, Potassium 3.5, Chloride 105, Carbon Dioxide 24, Anion Gap 16.5 H, BUN 30 H, Creatinine 1.80 H, Estimated Creat Clear 28, Estimated GFR 27 L, Est GFR ( Amer) 33 L, Glucose 181 H, Calcium 9.0, Magnesium 2.2, Total Bilirubin 0.5, AST 30, ALT 22, Alkaline Phosphatase 110, Troponin I < 0.01, Total Protein 7.5 D, Albumin 4.5, Globulin 3.0, Albumin/Globulin Ratio 1.5 11/17/23 20:23 11/17/23 20:23 Orders (Tests/Meds): ED MEDICATIONS Generic Name Dose Route Start Last Admin Trade Name Freq PRN Reason Stop Dose Admin Sodium Chloride 10 ml 11/17/23 20:41 Sodium Chloride 0.9% 10ml Flush Syringe IV 12/17/23 20:40 NEEDED PRN Maintain IV Site Discontinued Medications Generic Name Dose Route Start Last Admin Trade Name Freq PRN Reason Stop Dose Admin Metoprolol Tartrate 100 mg 11/17/23 21:06 11/17/23 21:17 Metoprolol Tartrate 50mg Tablet PO 11/17/23 21:07 100 mg ONCE ONE Administration ORDERS Category Date Time Status CXR --portable [XR chest portable] Stat Exams 11/17/23 20:41 Completed CBC w/Auto Diff [Complete Blood Count Auto Diff] Stat Lab 11/17/23 20:23 Completed CMP [Comprehensive Metabolic Panel] Stat Lab 11/17/23 20:23 Results Magnesium Stat Lab 11/17/23 20:23 Results TSH [Thyroid Stimulating Hormone] Stat Lab 11/17/23 20:23 Results Trop I [Troponin I] Stat Lab 11/17/23 20:23 Results Troponin I Q3H Lab 11/17/23 23:45 Ordered Troponin I Q3H Lab 11/18/23 02:45 Ordered Medical Decision Narrative: Patient is a very well-appearing 83-year-old female with extensive cardiac history. She has a known history of ischemic cardiomyopathy and has been diagnosed with depressed ejection fraction in the past but resolved on medical therapy with an echo subsequently showing an EF of 55%. She had a pacemaker that was placed in 2021 for sick sinus syndrome [employer] which we will attempt to get interrogated. Also has a history of paroxysmal atrial fibrill ation and is anticoagulated on Eliquis. EKG was performed which I personally interpreted shows a ventricular rate of 84, there is evidence of atrial pacing but intermittent junctional beats that are regular no acute ischemic changes noted otherwise normal axis. No other significant conduction abnormalities noted there is low voltage QRS in the precordial leads. Will check electrolytes TSH serial troponins and reassess. Reassessment 9:01 PM I spent time reviewing patient's old cardiology notes it seems as if she had previously been on a beta-malu and had similar presentations to their clinic in the past with this and she has been chronically on bisoprolol I went discussed this with the patient and she states that she had been on this for years but yesterday was her last dose because she went to get it filled and they were told that the insurance would no longer cover it. So she has been without a beta-malu for the last 24 hours. Also discussing further with her she states that she has not in fact had any discomfort and she states she is only had some skipped beats no chest pain no exertional symptoms which incredibly unlikely this is acute coronary syndrome and I will be okay with not doing serial troponins in this particular case after initial blood tests are back I will discuss the case with Dr. Hollingsworth and see what plan he would like to have. Reassessment 9:08 PM I spoke with Dr. Hollingsworth regarding the situation. We will give the patient 100 mg of metoprolol tartrate and she will follow-up with Dr. Hollingsworth tomorrow morning at 1030 in his clinic which point they will figure out the issue with the insurance company and her need for continued beta-blockade. Assessment 9:38 PM patient's labs have returned troponin is undetectably low however patient does have a creatinine of 1.8 which is twice her baseline of 0.9. I went back and looked at the trend of her creatinine over the last several years and this is the highest its ever been. It is possible this is from poor perfusion from cardiac feeling standpoint but that is unlikely she had no other preceding symptoms nausea vomiting diarrhea or changes in medications other than stopping her beta-malu. I discussed with her that it would be reasonable to closely follow-up with primary care doctor in addition to Dr. Hollingsworth or to be admitted in the hospital with this acute kidney injury and she opted to be admitted in the hospital which I think is reasonable. I spoke with Geovany with hospital medicine who will admit the patient for further evaluation and treatment. I also updated Dr. Hollingsworth that the patient will not be seeing him in clinic tomorrow. Critical Care Critical Care Time Critical Care Time: No
--- NOTE | 2023-11-17 20:45 | PC.NURSE ---
RAD in room at this time.
[2023-11-17 20:51] LABS: Basophils # 0.1 K/mm3 (0-0.2); Basophils % 0.6 % (0.1-2.0); Eosinophils # 0.1 K/mm3 (0.0-0.4); Eosinophils % 0.9 % (0.1-12.0); Hematocrit 36.1 % (37.0-47.0); Hemoglobin 11.9 g/dL (12.2-16.2); Lymphocytes # 3.6 K/mm3 (0.7-4.5); Lymphocytes % 37.7 % (10-50); Mean Corpuscular HGB Conc 33.1 g/dL (31.8-35.4); Mean Corpuscular Hemoglobin 31.6 pg (27.0-31.2); Mean Corpuscular Volume 95.6 fl (81-99); Mean Platelet Volume 8.4 fl (7.4-10.4); Monocytes # 0.4 K/mm3 (0.1-1.0); Monocytes % 4.2 % (1.7-9.3); Neutrophils # 5.4 K/mm3 (1.8-7.8); Neutrophils % 56.5 % (37.0-80.0); Platelet Count 246 K/mm3 (142-424); Red Blood Count 3.77 M/mm3 (4.20-5.40); Red Cell Distribution Width 13.1 % (11.5-17.5); White Blood Count 9.5 K/mm3 (4.8-10.8)
[2023-11-17 20:56] LABS: Chloride 105 mmol/L (98-107)
[2023-11-17 20:57] LABS: Potassium 3.5 mmoL/L (3.5-5.1); Sodium 142 mmol/L (136-145)
--- NOTE | 2023-11-17 20:58 | PC.NURSE ---
in room talking with patient at this time.
[2023-11-17 20:59] LABS: Alanine Aminotransferase 22 U/L (12-78); Aspartate Amino Transferase 30 U/L (14-36); Blood Urea Nitrogen 30 mg/dl (7-17); Creatinine Clearance Estimated 28 mL/min (50-200); Estimated Glomerular Filt Rate 27 ml/min (>60); GFR (African American) 33 ML/MIN (>60)
[2023-11-17 21:00] VITALS: BP 121/51; PULSE 81; RESP 17; O2SAT 91
[2023-11-17 21:00] LABS: Albumin Level 4.5 g/dl (3.5-5.0); Albumin/Globulin Ratio 1.5 (1.1-1.8); Alkaline Phosphatase 110 U/L (38-126); Anion Gap 16.5 mEq/L (5-15); Bilirubin,Total 0.5 mg/dl (0.2-1.3); Carbon Dioxide 24 mmol/L (22.0-30.0); Glucose 181 mg/dl (74-100); Magnesium 2.2 mg/dl (1.6-2.3); Total Protein,Serum 7.5 g/dl (6.3-8.2)
--- NOTE | 2023-11-17 21:04 | PC.NURSE ---
talking with at this time.
[2023-11-17] MEDS: METOPROLOL TARTRATE 50MG TABLET 100 MG PO (21:17)
[2023-11-17 21:20] LABS: Troponin I < 0.01 ng/ml (0.00-0.034)
--- NOTE | 2023-11-17 21:33 | PC.NURSE ---
in room talking with patient at this time.
--- NOTE | 2023-11-17 21:36 | PC.NURSE ---
on phone with hospitalist. notified supervisor housecleaner of admission
--- NOTE | 2023-11-17 21:37 | PC.NURSE ---
OBSERVATION ADMISSION TO WITH DX OF EARLE TO SERVICE OF THE HOSPITALIST.
[2023-11-17 21:46] VITALS: BP 124/98; PULSE 85; RESP 14; TEMP 36.6; O2SAT 96
--- NOTE | 2023-11-17 21:50 | EXP.HP ---
History of Present Illness *Admission Date: 11/17/23 *Reason for visit:: palpitation *History of present illness: This is a 83-year-old female with an extensive past cardiac history, including history of coronary artery disease sick sinus syndrome atrial fibrillation has a [employer] pacemaker that was placed last year; COPD, HLD, brest cancer who presented today with palpitations and what she describes as discomfort in her chest. Patient described as a palpitation and not regular, denied chest pain, however can not be excluded. Patient recently ran out metoprolol, due to insurance issues. She has had NSTEMI's in the past and has known vascular disease. Denies any recent exertional chest discomfort shortness of breath cough fevers chills or any other symptoms. Admitted for further work up and treatment. [facility] Disclaimer: The information contained in this section may have been updated after the patient was seen, as this information can be updated by other users. Medical History (Updated 11/18/23 @ 09:48 by Birgit Durham APRN) Acute infective cystitis Atrial fibrillation Community acquired pneumonia COVID Gallbladder disease History of lung cancer Influenza Ischemic cardiomyopathy Lung cancer Non-ST elevation NM (NSTEMI) Pacemaker Paroxysmal atrial fibrillation Pneumonia Respiratory failure with hypoxia Sick sinus syndrome Typical angina Surgical History (Updated 11/17/23 @ 22:20 by Leann Peters RN) History of cholecystectomy History of left hip hemiarthroplasty History of surgery on upper extremity Hx of pneumonectomy Stented coronary artery Family History Other Family history of myocardial infarction Lung cancer Social History (Updated 11/17/23 @ 22:22 by Leann Peters RN) Smoking Status: Former smoker tobacco type: cigarettes packs per day: 1 smoking status start date: 1960 how long ago did patient quit smokin years ago second hand exposure: No alcohol intake: never substance use type: denies use current occupational status: retired Travel in the last 8 weeks: None household members: other housing: house lives independently: No marital status: current occupational exposures/hazards: No 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) Review of Systems Review of Systems Review of systems:: pertinent systems reviewed and negative unless documented below Meds Home Medications and Allergies Home Medications Medication Instructions Recorded Confirmed Type sacubitril 97 mg-valsartan 103 mg 1 tab PO BID Heart Failure 04/15/23 11/18/23 History tablet (Entresto) isosorbide mononitrate 30 mg 30 mg PO DAILY Hypertension #90 09/12/23 11/18/23 Rx tablet,extended release 24 hr tabs albuterol sulfate 90 mcg/actuation 2 puff inhalation Q6HP PRN 11/17/23 11/18/23 History aerosol inhaler Shortness Of Breath apixaban 5 mg tablet (Eliquis) 5 mg PO BID Blood thinner/Afib 11/17/23 11/18/23 History amlodipine 10 mg tablet 5 mg PO DAILY High Blood Pressure 11/18/23 11/18/23 Rx 30 days #0 tabs bisoprolol fumarate 10 mg tablet 10 mg PO DAILY #30 tabs 11/18/23 Rx New Prescriptions to Start Prescriptions: Allergies Allergy/AdvReac Type Severity Reaction Status Date / Time levofloxacin [From LEVAQUIN] Allergy Unknown MAKES SICK Verified 09/27/23 08:52 tetracycline [TETRACYCLINE] Allergy Unknown SWELLING, Verified 09/27/23 08:52 ITCHING aspirin AdvReac Intermediate Verified 09/27/23 08:52 Exam Data for Last 24 hours Vital signs and Labs for Last 24 Hours: Temp Pulse Resp BP Pulse Ox O2 Del Method 97.9 F 85 14 124/98 H 91 L Room Air 11/17/23 21:46 11/17/23 21:46 11/17/23 21:46 11/17/23 21:46 11/17/23 21:00 11/17/23 21:46 Laboratory Results - last 24 hr 11/17/23 20:23: WBC 9.5, RBC 3.77 L, Hgb 11.9 L, Hct 36.1 L, MCV 95.6, MCH 31.6 H, MCHC 33.1, RDW 13.1, Plt Count 246, MPV 8.4, Neut % (Auto) 56.5, Lymph % (Auto) 37.7, [place] % (Auto) 4.2, Eos % (Auto) 0.9, Baso % (Auto) 0.6, Neut # (Auto) 5.4, Lymph # (Auto) 3.6, [place] # (Auto) 0.4, Eos # (Auto) 0.1, Baso # (Auto) 0.1, Sodium 142, Potassium 3.5, Chloride 105, Carbon Dioxide 24, Anion Gap 16.5 H, BUN 30 H, Creatinine 1.80 H, Estimated Creat Clear 28, Estimated GFR 27 L, Est GFR ( Amer) 33 L, Glucose 181 H, Calcium 9.0, Magnesium 2.2, Total Bilirubin 0.5, AST 30, ALT 22, Alkaline Phosphatase 110, Troponin I < 0.01, Total Protein 7.5 D, Albumin 4.5, Globulin 3.0, Albumin/Globulin Ratio 1.5 I & O for Last 24 hours: Intake & Output 11/14/23 11/15/23 11/16/23 11/17/23 23:59 23:59 23:59 23:59 Weight 73.482 kg Constitutional Constitutional: no acute distress and cooperative *Routine HEENT Exam Head: Present normocephalic and atraumatic Eye: Present EOMI, PERRL and normal accommodation ENT: Present mucous membranes moist *Routine Neck Exam Neck: Present supple, full ROM and trachea midline *Routine Respiratory Exam Respiratory: Present normal respiratory effort, able to speak in complete sentences and symmetric chest movement; Absent respiratory distress *Routine Cardiovascular Exam Cardiovascular: Present Normal S1, Normal S2 and bradycardia *Routine Abdominal Exam Abdominal: Present soft and normoactive bowel sounds; Absent organomegaly *Routine Rectal Exam Rectal:: deferred *Routine Genitalia Exam Genitalia:: deferred *Routine Extremities Exam Extremities: Present full ROM and pulses intact; Absent cyanosis, clubbing or edema *Routine Skin Exam Skin: Present intact, dry and warm *Routine Neurological Exam Neurological: Present alert, oriented X3, normal reflexes, moving all extremities and normal speech Routine Psychiatric Exam Psychiatric: Present normal thought process, cooperative and good judgment H&P: Result Imaging and Cardiology EKG: Status: image reviewed by me and Preliminary report Chest x-ray: Status: image reviewed by me, Preliminary report and final report Assessment and Plan *Assessment and plan (1) Heart palpitations: Status: Acute Category: Medical Code(s): R00.2 - Palpitations (2) Elevated troponin: Status: Resolved Category: Medical Code(s): R74.8 - Abnormal levels of other serum enzymes (3) EARLE (acute kidney injury): Status: Acute Category: Medical Code(s): N17.9 - Acute kidney failure, unspecified (4) Atrial fibrillation: Status: Acute Qualifiers: Atrial fibrillation type: unspecified chronic Qualified Code(s): I48.20 - Chronic atrial fibrillation, unspecified Category: Medical Code(s): I48.91 - Unspecified atrial fibrillation (5) CHF (congestive heart failure): Status: Chronic Qualifiers: Heart failure chronicity: chronic Heart failure type: diastolic Qualified Code(s): I50.32 - Chronic diastolic (congestive) heart failure Category: Medical Code(s): I50.9 - Heart failure, unspecified (6) HTN (hypertension): Status: Chronic Qualifiers: Hypertension type: essential hypertension Qualified Code(s): I10 - Essential (primary) hypertension Category: Medical Code(s): I10 - Essential (primary) hypertension (7) CAD (coronary artery disease): Status: Chronic Qualifiers: Associated angina: without angina Coronary Disease-Associated Artery/Lesion type: [place] artery [place] vs. transplanted heart: [place] heart Qualified Code(s): I25.10 - Atherosclerotic heart disease of [place] coronary artery without angina pectoris Category: Medical Code(s): I25.10 - Atherosclerotic heart disease of [place] coronary artery without angina pectoris (8) COPD (chronic obstructive pulmonary disease): Status: Chronic Qualifiers: COPD type: unspecified COPD Qualified Code(s): J44.9 - Chronic obstructive pulmonary disease, unspecified Category: Medical Code(s): J44.9 - Chronic obstructive pulmonary disease, unspecified (9) Hyperlipidemia: Status: Chronic Qualifiers: Hyperlipidemia type: mixed hyperlipidemia Qualified Code(s): E78.2 - Mixed hyperlipidemia Category: Medical Code(s): E78.5 - Hyperlipidemia, unspecified (10) Status post placement of cardiac pacemaker: Status: Acute Category: Surgical Code(s): Z95.0 - Presence of cardiac pacemaker Plan 83-year-old female with an extensive past cardiac history, including history of coronary artery disease sick sinus syndrome atrial fibrillation has a [employer] pacemaker that was placed last year; COPD, HLD, brest cancer who presented today with palpitations and what she describes as discomfort in her chest. On arrival patient evaluation included, EKG, which is not showing any specific ST changes. Lab work was drawn. There is significant for slightly elevated troponin and creatinine. Diminished eGFR. Discussion was made with cardiology and ER provider. I reviewed and agree for admission. Plan as follow: -Palpitation and chest discomfort, with elevated troponin: Admitted to rule out non-STEMI. This is a MedSurg Start continuous cardiac telemetry. 100 mg of metoprolol p.o. given at ER Cardiology consult Serial troponin Monitor for chest pain. EKG chest x-ray reviewed. No acute process Monitor vital signs per unit protocol. -Acute kidney injury: Likely secondary to prerenal. Gentle IV hydration. Normal saline at 50 MLS per hour. Repeat labs in the morning, Monitor CMP CBC. Monitor renal output and third fluid spacing hold lasix Other chronic conditions: -History of atrial fibrillation, on chronic Eliquis. -Sinus sick node status post pacemaker. Hypertension, CAD CHF hyperlipidemia. Condition reviewed. Its seems to be stable. not on fluid overload Home medications reviewed On Entresto, amlodipine, isosorbide -- COPD: Monitor for O2 saturation Albuterol for shortness of breath or wheezing. SCD for DVT prophylaxis. On Protonix Full code Rounded on patient after nurse practitioner. Personally examined and interviewed patient. Agree with exam findings and care plan as documented.
--- NOTE | 2023-11-17 21:58 | PC.NURSE ---
[id number] RECEIVED PHONE REPORT FROM FLOR RN/ED. 83 YO FEMALE. ADM DIAGNOSIS EARLE.
[2023-11-17 21:59] LABS: Thyroid Stimulating Hormone 2.25 uIU/mL (0.465-4.68)
--- NOTE | 2023-11-17 22:05 | PC.NURSE ---
pt arrived to floor via wheelchair @ 22:04
[2023-11-17] MEDS: 0.9 % SODIUM CHLORIDE 1000ML 1,000 ML 50 ML IV (22:16)
[2023-11-17] MEDS: APIXABAN 5 MG PO (22:16)
[2023-11-17 22:30] VITALS: BP 117/53; PULSE 86; RESP 16; TEMP 36.7; O2SAT 95; BMI 27.8
[2023-11-17 22:32] VITALS: O2SAT 98
[2023-11-18] VITALS: BP 121/57; PULSE 54; PULSE 82; RESP 16; TEMP 36.9; O2SAT 96
[2023-11-18 00:19] LABS: Troponin I < 0.01 ng/ml (0.00-0.034)
[2023-11-18 03:28] LABS: Troponin I < 0.01 ng/ml (0.00-0.034)
[2023-11-18 04:00] VITALS: BP 122/53; PULSE 57; PULSE 81; RESP 16; TEMP 36.9; O2SAT 93; BMI 28.7
--- NOTE | 2023-11-18 04:19 | PC.NURSE ---
RESTING QUIETLY IN BED. NAD. NO COMPLAINTS.
[2023-11-18 06:25] LABS: Basophils % 0.4 % (0.1-2.0); Eosinophils # 0.1 K/mm3 (0.0-0.4); Eosinophils % 0.9 % (0.1-12.0); Hematocrit 32.4 % (37.0-47.0); Hemoglobin 10.8 g/dL (12.2-16.2); Lymphocytes # 1.7 K/mm3 (0.7-4.5); Lymphocytes % 27.9 % (10-50); Mean Corpuscular HGB Conc 33.2 g/dL (31.8-35.4); Mean Corpuscular Hemoglobin 31.2 pg (27.0-31.2); Mean Corpuscular Volume 94.2 fl (81-99); Mean Platelet Volume 8.3 fl (7.4-10.4); Monocytes # 0.3 K/mm3 (0.1-1.0); Neutrophils # 4.1 K/mm3 (1.8-7.8); Neutrophils % 65.8 % (37.0-80.0); Platelet Count 225 K/mm3 (142-424); Red Blood Count 3.44 M/mm3 (4.20-5.40); Red Cell Distribution Width 13.2 % (11.5-17.5); White Blood Count 6.2 K/mm3 (4.8-10.8)
[2023-11-18 06:31] LABS: Chloride 108 mmol/L (98-107); Potassium 3.5 mmoL/L (3.5-5.1); Sodium 141 mmol/L (136-145)
[2023-11-18 06:33] LABS: Alanine Aminotransferase 17 U/L (12-78); Aspartate Amino Transferase 26 U/L (14-36); Blood Urea Nitrogen 27 mg/dl (7-17); Creatinine Clearance Estimated 40 mL/min (50-200); Estimated Glomerular Filt Rate 39 ml/min (>60); GFR (African American) 47 ML/MIN (>60)
[2023-11-18 06:34] LABS: Albumin Level 3.9 g/dl (3.5-5.0); Albumin/Globulin Ratio 1.6 (1.1-1.8); Alkaline Phosphatase 83 U/L (38-126); Anion Gap 11.5 mEq/L (5-15); Bilirubin,Total 0.6 mg/dl (0.2-1.3); Calcium 8.7 mg/dl (8.4-10.2); Carbon Dioxide 25 mmol/L (22.0-30.0); Globulin 2.5 g/dL (1.3-3.2); Glucose 100 mg/dl (74-100); Magnesium 2.2 mg/dl (1.6-2.3); Total Protein,Serum 6.4 g/dl (6.3-8.2)
--- NOTE | 2023-11-18 07:08 | HMH.PHAINT1 ---
Pharmacy Intervention Comments: MEDICATION RECONCILIATION COMPLETED ON PATIENT USING EXTERNAL FILL HISTORY FROM PHARMACY. -VINCENT ALEXANDRE, BOBBID
[2023-11-18 08:00] VITALS: BP 113/46; PULSE 69; PULSE 70; RESP 18; TEMP 36.4; O2SAT 95
[2023-11-18] MEDS: AMLODIPINE 10 MG PO (08:36)
[2023-11-18] MEDS: PANTOPRAZOLE 40MG TABLET 40 MG PO (08:36)
[2023-11-18] MEDS: SACUBITRIL/VALSARTAN 24-26MG TABLET 4 EACH PO (08:36)
[2023-11-18] MEDS: APIXABAN 5 MG PO (08:36)
[2023-11-18] MEDS: ISOSORBIDE MONO 30 MG PO (08:36)
--- NOTE | 2023-11-18 09:40 | P.CONCA_ITS ---
History of Present Illness History of Present Illness Consult date: 11/18/23 Requesting physician: Bebo Siegel Chief complaint: Palpitations History of present illness: This is a 83-year-old female with PMH of coronary artery disease, sick sinus syndrome/atrial fibrillation s/p pacemaker that was placed last year, HFimpEF, COPD, HLD and hx of breast cancer who presented to ED yesterday with complaints of palpitations. Patient reports she has been on beta-blockers for long period of time and recently ran out due to insurance not covering a refill. Symptoms started after last dose of beta-malu. Upon presentation to emergency de partment EKG showed electronic atrial pacemaker at a rate of 84 with intermittent junctional beats and no acute ischemic changes noted. Labs as follow WBC 9.5, hemoglobin 11.9, sodium 142, potassium 3.5, creatinine 1.8, magnesium 2.2 serial troponins negative. Patient was given metoprolol 100 mg p.o. in ER and admitted for EARLE. This morning patient denies any further episodes of palpitations, chest pain, shortness of breath. Reports is feeling good and would like to go home. Creatinine improved this morning to 1.3. [facility] Disclaimer: The information contained in this section may have been updated after the patient was seen, as this information can be updated by other users. Medical History (Updated 11/18/23 @ 09:48 by Birgit Durham APRN) Acute infective cystitis Atrial fibrillation Community acquired pneumonia COVID Gallbladder disease History of lung cancer Influenza Ischemic cardiomyopathy Lung cancer Non-ST elevation [place] (NSTEMI) Pacemaker Paroxysmal atrial fibrillation Pneumonia Respiratory failure with hypoxia Sick sinus syndrome Typical angina Surgical History (Updated 11/17/23 @ 22:20 by Leann Peters RN) History of cholecystectomy History of left hip hemiarthroplasty History of surgery on upper extremity Hx of pneumonectomy Stented coronary artery Family History Other Family history of myocardial infarction Lung cancer Social History (Updated 11/17/23 @ 22:22 by Leann Peters RN) Smoking Status: Former smoker tobacco type: cigarettes packs per day: 1 smoking status start date: 1960 how long ago did patient quit smokin years ago second hand exposure: No alcohol intake: never substance use type: denies use current occupational status: retired Travel in the last 8 weeks: None household members: other housing: house lives independently: No marital status: current occupational exposures/hazards: No 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) Review of Systems Review of Systems Review of systems:: pertinent systems reviewed and negative unless documented below *Cardiovascular Comments: palpitations Exam Data for Last 24 hours Vital signs and Labs for Last 24 Hours: Temp Pulse Resp BP Pulse Ox O2 Del Method 97.6 F 69 18 113/46 L 95 Room Air 11/18/23 08:00 11/18/23 08:00 11/18/23 08:00 11/18/23 08:00 11/18/23 08:00 11/18/23 08:41 Laboratory Results - last 24 hr 11/17/23 20:23: WBC 9.5, RBC 3.77 L, Hgb 11.9 L, Hct 36.1 L, MCV 95.6, MCH 31.6 H, MCHC 33.1, RDW 13.1, Plt Count 246, MPV 8.4, Neut % (Auto) 56.5, Lymph % (Auto) 37.7, [place] % (Auto) 4.2, Eos % (Auto) 0.9, Baso % (Auto) 0.6, Neut # (Auto) 5.4, Lymph # (Auto) 3.6, [place] # (Auto) 0.4, Eos # (Auto) 0.1, Baso # (Auto) 0.1, Sodium 142, Potassium 3.5, Chloride 105, Carbon Dioxide 24, Anion Gap 16.5 H, BUN 30 H, Creatinine 1.80 H, Estimated Creat Clear 28, Estimated GFR 27 L, Est GFR ( Amer) 33 L, Glucose 181 H, Calcium 9.0, Magnesium 2.2, Total Bilirubin 0.5, AST 30, ALT 22, Alkaline Phosphatase 110, Troponin I < 0.01, Total Protein 7.5 D, Albumin 4.5, Globulin 3.0, Albumin/Globulin Ratio 1.5, TSH 2.25 11/17/23 23:45: Troponin I < 0.01 11/18/23 02:55: Troponin I < 0.01 11/18/23 05:58: WBC 6.2 D, RBC 3.44 L, Hgb 10.8 L, Hct 32.4 L, MCV 94.2, MCH 31.2, MCHC 33.2, RDW 13.2, Plt Count 225, MPV 8.3, Neut % (Auto) 65.8, Lymph % (Auto) 27.9, [place] % (Auto) 5.0, Eos % (Auto) 0.9, Baso % (Auto) 0.4, Neut # (Auto) 4.1, Lymph # (Auto) 1.7, [place] # (Auto) 0.3, Eos # (Auto) 0.1, Baso # (Auto) 0.0, Sodium 141, Potassium 3.5, Chloride 108 H, Carbon Dioxide 25, Anion Gap 11.5, BUN 27 H, Creatinine 1.30 H D, Estimated Creat Clear 40, Estimated GFR 39 L, Est GFR ( Amer) 47 L D, Glucose 100 D, Calcium 8.7, Magnesium 2.2, Total Bilirubin 0.6, AST 26, ALT 17, Alkaline Phosphatase 83, Total Protein 6.4, Albumin 3.9 D, Globulin 2.5, Albumin/Globulin Ratio 1.6 I & O for Last 24 hours: Intake & Output 11/15/23 11/16/23 11/17/23 11/18/23 23:59 23:59 23:59 23:59 Intake Total 622 / 622 Output Total 450 / 450 Balance 172 / 172 Weight 163 lb 2.273 oz 168 lb 3.403 oz Constitutional Constitutional: no acute distress *Routine Respiratory Exam Respiratory: Present CTA bilaterally and symmetric chest movement *Routine Cardiovascular Exam Cardiovascular: Present RRR, Normal S1 and Normal S2 *Routine Abdominal Exam Abdominal: Present soft and normoactive bowel sounds; Absent tenderness *Routine Extremities Exam Extremities: Present full ROM and normal capillary refill; Absent edema *Routine Skin Exam Skin: Present intact, dry and warm Detailed Neck Exam: Thyroids Thyroid: Absent bruit Meds Home Medications and Allergies Home Medications Medication Instructions Recorded Confirmed Type sacubitril 97 mg-valsartan 103 mg 1 tab PO BID Heart Failure 04/15/23 11/18/23 History tablet (Entresto) isosorbide mononitrate 30 mg 30 mg PO DAILY Hypertension #90 09/12/23 11/18/23 Rx tablet,extended release 24 hr tabs albuterol sulfate 90 mcg/actuation 2 puff inhalation Q6HP PRN 11/17/23 11/18/23 History aerosol inhaler Shortness Of Breath amlodipine 10 mg tablet 10 mg PO DAILY High Blood Pressure 11/17/23 11/18/23 History apixaban 5 mg tablet (Eliquis) 5 mg PO BID Blood thinner/Afib 11/17/23 11/18/23 History furosemide 20 mg tablet 20 mg PO DAILY Fluid 11/17/23 11/18/23 History bisoprolol fumarate 10 mg tablet 10 mg PO DAILY #30 tabs 11/18/23 Rx New Prescriptions to Start Prescriptions: Allergies Allergy/AdvReac Type Severity Reaction Status Date / Time levofloxacin [From LEVAQUIN] Allergy Unknown MAKES SICK Verified 09/27/23 08:52 tetracycline [TETRACYCLINE] Allergy Unknown SWELLING, Verified 09/27/23 08:52 ITCHING aspirin AdvReac Intermediate Verified 09/27/23 08:52 Assessment and Plan *Assessment and plan (1) Sick sinus syndrome: Status: Acute Category: Medical Code(s): I49.5 - Sick sinus syndrome (2) Presence of permanent cardiac pacemaker: Status: Chronic Category: Medical Code(s): Z95.0 - Presence of cardiac pacemaker (3) Heart failure with improved ejection fraction (HFimpEF): Status: Acute Category: Medical Code(s): I50.32 - Chronic diastolic (congestive) heart failure (4) EARLE (acute kidney injury): Status: Acute Category: Medical Code(s): N17.9 - Acute kidney failure, unspecified (5) CAD (coronary artery disease): Status: Chronic Qualifiers: Associated angina: without angina Coronary Disease-Associated Artery/Lesion type: [place] artery [place] vs. transplanted heart: [place] heart Qualified Code(s): I25.10 - Atherosclerotic heart disease of [place] coronary artery without angina pectoris Category: Medical Code(s): I25.10 - Atherosclerotic heart disease of [place] coronary artery without angina pectoris Plan Palpitations History of sick sinus syndrome History of paroxysmal atrial fibrillation Status post [place] pacemaker -Palpitations resolved with metoprolol 100 mg p.o. x 1 -Continue home dose of bisoprolol 10 mg p.o. daily, refill sent to pharmacy -Continue Eliquis 5 mg p.o. twice daily History of ischemic cardiomyopathy/HFimpEF -Ischemic cardiomyopathy with ejection fraction of 20% noted in 2018. Ejection fraction has recovered to 55% as of November 2022 -Patient has no symptoms of heart failure exacerbation -Continue guideline directed medical therapy with Entresto 97/103 mg p.o. twice daily, Lasix 20 mg p.o. daily, bisoprolol 10 mg p.o. daily. Consider addition of Jardiance and aldactone at next office follow up given current EARLE. Coronary artery disease -Patient denies chest pain -Troponin negative -No ischemic changes noted to EKG -WOOD placed to left main in 2018 -Recommend outpatient ischemic evaluation as needed EARLE -Creatinine 1.8 trending to 1.3 CV summary 11/18/2023: Patient is CV stable for discharge home. Please continue medications as listed above and have patient follow-up in cardiology clinic in 1 week for reevaluation.
--- NOTE | 2023-11-18 11:53 | EXP.DC.SUM ---
General Admission date:: 11/17/23 Discharge date: 11/18/23 HPI HPI HPI: This is a 83-year-old female with an extensive past cardiac history, including history of coronary artery disease sick sinus syndrome atrial fibrillation has a [employer] pacemaker that was placed last year; COPD, HLD, brest cancer who presented today with palpitations and what she describes as discomfort in her chest. Patient described as a palpitation and not regular, denied chest pain, however can not be excluded. Patient recently ran out metoprolol, due to insurance issues. She has had NSTEMI's in the past and has known vascular disease. Denies any recent exertional chest discomfort shortness of breath cough fevers chills or any other symptoms. Admitted for further work up and treatment. Hospital Course Hospital Course Hospital Course: 83-year-old female admitted for palpitations and EARLE. No tachycardia or arrhythmia during admission. Tolerated beta-blockade well. Kidney function improving. Meeting discharge criteria. Problems addressed as follows: Palpitations History of sick sinus syndrome History of paroxysmal atrial fibrillation Status post Likely pacemaker -Cardiology consulted, appreciate their recommendations. Patient received metoprolol 100 mg p.o. x 1 in the ER with resolution of her palpitations. Resume home bisoprolol 10 mg daily. Continue her Eliquis 5 mg twice daily for A-fib. Clinically stable for discharge with outpatient follow-up with cardiology History of ischemic cardiomyopathy/HFimpEF -Ischemic cardiomyopathy with ejection fraction of 20% noted in 2018. Ejection fraction has recovered to 55% as of November 2022. Patient has no symptoms of heart failure exacerbation. Continue guideline directed medical therapy with Entresto 97/103 mg p.o. twice daily, bisoprolol 10 mg p.o. daily. Will hold Lasix at this time given EARLE and euvolemic status. Reevaluate for resumption of follow-up with cardiology. Consider addition of Jardiance and aldactone at next office follow up given current EARLE. EARLE -Creatinine 1.8 on admission. Improved overnight with morning creatinine 1.3. Recommend repeat labs at follow-up. Stable for discharge home. Follow-up with cardiology in 1 week. Exam Data for Last 24 hours Vital signs and Labs for Last 24 Hours: Temp Pulse Resp BP Pulse Ox O2 Del Method 97.6 F 69 18 113/46 L 95 Room Air 11/18/23 08:00 11/18/23 08:00 11/18/23 08:00 11/18/23 08:00 11/18/23 08:00 11/18/23 11:00 Laboratory Results - last 24 hr 11/17/23 20:23: WBC 9.5, RBC 3.77 L, Hgb 11.9 L, Hct 36.1 L, MCV 95.6, MCH 31.6 H, MCHC 33.1, RDW 13.1, Plt Count 246, MPV 8.4, Neut % (Auto) 56.5, Lymph % (Auto) 37.7, [place] % (Auto) 4.2, Eos % (Auto) 0.9, Baso % (Auto) 0.6, Neut # (Auto) 5.4, Lymph # (Auto) 3.6, [place] # (Auto) 0.4, Eos # (Auto) 0.1, Baso # (Auto) 0.1, Sodium 142, Potassium 3.5, Chloride 105, Carbon Dioxide 24, Anion Gap 16.5 H, BUN 30 H, Creatinine 1.80 H, Estimated Creat Clear 28, Estimated GFR 27 L, Est GFR ( Amer) 33 L, Glucose 181 H, Calcium 9.0, Magnesium 2.2, Total Bilirubin 0.5, AST 30, ALT 22, Alkaline Phosphatase 110, Troponin I < 0.01, Total Protein 7.5 D, Albumin 4.5, Globulin 3.0, Albumin/Globulin Ratio 1.5, TSH 2.25 11/17/23 23:45: Troponin I < 0.01 11/18/23 02:55: Troponin I < 0.01 11/18/23 05:58: WBC 6.2 D, RBC 3.44 L, Hgb 10.8 L, Hct 32.4 L, MCV 94.2, MCH 31.2, MCHC 33.2, RDW 13.2, Plt Count 225, MPV 8.3, Neut % (Auto) 65.8, Lymph % (Auto) 27.9, [place] % (Auto) 5.0, Eos % (Auto) 0.9, Baso % (Auto) 0.4, Neut # (Auto) 4.1, Lymph # (Auto) 1.7, [place] # (Auto) 0.3, Eos # (Auto) 0.1, Baso # (Auto) 0.0, Sodium 141, Potassium 3.5, Chloride 108 H, Carbon Dioxide 25, Anion Gap 11.5, BUN 27 H, Creatinine 1.30 H D, Estimated Creat Clear 40, Estimated GFR 39 L, Est GFR ( Amer) 47 L D, Glucose 100 D, Calcium 8.7, Magnesium 2.2, Total Bilirubin 0.6, AST 26, ALT 17, Alkaline Phosphatase 83, Total Protein 6.4, Albumin 3.9 D, Globulin 2.5, Albumin/Globulin Ratio 1.6 I & O for Last 24 hours: Intake & Output 11/15/23 11/16/23 11/17/23 11/18/23 23:59 23:59 23:59 23:59 Intake Total 622 / 622 Output Total 450 / 450 Balance 172 / 172 Weight 74 kg 76.3 kg Constitutional Constitutional: no acute distress, average body habitus and chronically ill appearing *Routine HEENT Exam Head: Present normocephalic Eye: Present EOMI and PERRL ENT: Present mucous membranes moist *Routine Neck Exam Neck: Present supple; Absent lymphadenopathy *Routine Respiratory Exam Respiratory: Present CTA bilaterally; Absent rhonchi or wheezes *Routine Cardiovascular Exam Cardiovascular: Present RRR *Routine Abdominal Exam Abdominal: Present soft and normoactive bowel sounds; Absent tenderness *Routine Extremities Exam Extremities: Absent cyanosis, clubbing or edema *Routine Skin Exam Skin: Present warm; Absent rash *Routine Neurological Exam Neurological: Present alert, oriented X3 and moving all extremities; Absent altered mental status Results Data Completed and Pending Labs on day of discharge: Labs from last 24 hours 11/18/23 11/18/23 11/17/23 05:58 02:55 23:45 WBC 6.2 D RBC 3.44 L Hgb 10.8 L Hct 32.4 L MCV 94.2 MCH 31.2 MCHC 33.2 RDW 13.2 Plt Count 225 MPV 8.3 Neut % (Auto) 65.8 Lymph % (Auto) 27.9 [place] % (Auto) 5.0 Eos % (Auto) 0.9 Baso % (Auto) 0.4 Neut # (Auto) 4.1 Lymph # (Auto) 1.7 [place] # (Auto) 0.3 Eos # (Auto) 0.1 Baso # (Auto) 0.0 Sodium 141 Potassium 3.5 Chloride 108 H Carbon Dioxide 25 Anion Gap 11.5 BUN 27 H Creatinine 1.30 H D Estimated Creat Clear 40 Estimated GFR 39 L Est GFR ( Amer) 47 L D Glucose 100 D Calcium 8.7 Magnesium 2.2 Total Bilirubin 0.6 AST 26 ALT 17 Alkaline Phosphatase 83 Troponin I < 0.01 < 0.01 Total Protein 6.4 Albumin 3.9 D Globulin 2.5 Albumin/Globulin Ratio 1.6 TSH 11/17/23 20:23 WBC 9.5 RBC 3.77 L Hgb 11.9 L Hct 36.1 L MCV 95.6 MCH 31.6 H MCHC 33.1 RDW 13.1 Plt Count 246 MPV 8.4 Neut % (Auto) 56.5 Lymph % (Auto) 37.7 [place] % (Auto) 4.2 Eos % (Auto) 0.9 Baso % (Auto) 0.6 Neut # (Auto) 5.4 Lymph # (Auto) 3.6 [place] # (Auto) 0.4 Eos # (Auto) 0.1 Baso # (Auto) 0.1 Sodium 142 Potassium 3.5 Chloride 105 Carbon Dioxide 24 Anion Gap 16.5 H BUN 30 H Creatinine 1.80 H Estimated Creat Clear 28 Estimated GFR 27 L Est GFR ( Amer) 33 L Glucose 181 H Calcium 9.0 Magnesium 2.2 Total Bilirubin 0.5 AST 30 ALT 22 Alkaline Phosphatase 110 Troponin I < 0.01 Total Protein 7.5 D Albumin 4.5 Globulin 3.0 Albumin/Globulin Ratio 1.5 TSH 2.25 DS: Diagnosis Discharge Diagnosis (1) Sick sinus syndrome: Status: Acute Code(s): I49.5 - Sick sinus syndrome (2) Presence of permanent cardiac pacemaker: Status: Chronic Code(s): Z95.0 - Presence of cardiac pacemaker (3) Heart failure with improved ejection fraction (HFimpEF): Status: Acute Code(s): I50.32 - Chronic diastolic (congestive) heart failure (4) EARLE (acute kidney injury): Status: Acute Code(s): N17.9 - Acute kidney failure, unspecified (5) CAD (coronary artery disease): Status: Chronic Code(s): I25.10 - Atherosclerotic heart disease of [place] coronary artery without angina pectoris Qualifiers: Associated angina: without angina Coronary Disease-Associated Artery/Lesion type: [place] artery [place] vs. transplanted heart: [place] heart Qualified Code(s): I25.10 - Atherosclerotic heart disease of [place] coronary artery without angina pectoris Meds Home Medications and Allergies Home Medications Medication Instructions Recorded Confirmed Type sacubitril 97 mg-valsartan 103 mg 1 tab PO BID Heart Failure 04/15/23 11/18/23 History tablet (Entresto) isosorbide mononitrate 30 mg 30 mg PO DAILY Hypertension #90 09/12/23 11/18/23 Rx tablet,extended release 24 hr tabs albuterol sulfate 90 mcg/actuation 2 puff inhalation Q6HP PRN 11/17/23 11/18/23 History aerosol inhaler Shortness Of Breath apixaban 5 mg tablet (Eliquis) 5 mg PO BID Blood thinner/Afib 11/17/23 11/18/23 History amlodipine 10 mg tablet 5 mg PO DAILY High Blood Pressure 11/18/23 11/18/23 Rx 30 days #0 tabs bisoprolol fumarate 10 mg tablet 10 mg PO DAILY #30 tabs 11/18/23 Rx New Prescriptions to Start Prescriptions: Allergies Allergy/AdvReac Type Severity Reaction Status Date / Time levofloxacin [From LEVAQUIN] Allergy Unknown MAKES SICK Verified 09/27/23 08:52 tetracycline [TETRACYCLINE] Allergy Unknown SWELLING, Verified 09/27/23 08:52 ITCHING aspirin AdvReac Intermediate Verified 09/27/23 08:52 Discharge Plan Disposition Patient Disposition: Home, Self-Care Condition: Fair Follow up Plan Follow up with: Jai Pierre MD [Primary Care Provider] - 11/23/23 10:30 am Murtaza Salinas MD [Staff Physician] - 11/30/23 10:00 am Prescriptions/Medication Reconciliation: Continued isosorbide mononitrate 30 mg tablet extended release 24 hr 30 mg PO DAILY Qty: 90 1RF bisoprolol fumarate 10 mg tablet 10 mg PO DAILY Qty: 30 2RF Entresto 97-103 mg tablet 1 tab PO BID albuterol sulfate 90 mcg/actuation HFA aerosol inhaler 2 puff INHALATION Q6HP PRN (Reason: Shortness Of Breath) Eliquis 5 mg tablet 5 mg PO BID Changed amlodipine 10 mg tablet 5 mg PO DAILY 30 Days Qty: 0 0RF Discontinued furosemide 20 mg tablet 20 mg PO DAILY Problem Reconciliation Problems Reviewed?: Yes Patient Discharge Instructions ACTIVITY: Continue current activity DIET: continue same diet Patient Instructions: DI for Acute Kidney Injury Providers Primary Care Provider: Jai Pierre Admit Provider: Bebo Siegel Attending Provider: Bebo Siegel
[2023-11-18 12:00] VITALS: BP 114/45; PULSE 66; RESP 16; TEMP 36.6; O2SAT 94
--- NOTE | 2023-11-22 14:42 | CARE MANAGER ---
Called and spoke with patient in regards to recent discharge. Patient states that she is doing better and has made all changes to medications that were prescribed at discharge. No concerns voiced at time of call.
== END 2023-11-18 12:42 | disposition home or self-care (01) ==
LOC: ER 21:37 → 2ND 21:38
PROVIDERS: Nurse Practitioner Family; Admitting Provider Internal Medicine Adolescent Medicine; Emergency Provider Student in an Organized Health Care Education/Training Program; PCP Family Medicine; Visit Provider Internal Medicine Adolescent Medicine
DX: R00.2 Palpitations (principal); R74.8 Abnormal levels of other serum enzymes; N17.9 Acute kidney failure, unspecified; I48.20 Chronic atrial fibrillation, unspecified; I50.32 Chronic diastolic (congestive) heart failure; I11.0 Hypertensive heart disease with heart failure; I25.10 Atherosclerotic heart disease of native coronary artery without angina pectoris; J44.9 Chronic obstructive pulmonary disease, unspecified; E78.2 Mixed hyperlipidemia; Z95.0 Presence of cardiac pacemaker; I49.5 Sick sinus syndrome; I25.5 Ischemic cardiomyopathy; Z79.01 Long term (current) use of anticoagulants; Z79.899 Other long term (current) drug therapy; Z87.891 Personal history of nicotine dependence
CPT/HCPCS: 36415; 71045; 80053; 83735; 84443; 84484; 85025; 93005; 99285; G0378

== ENCOUNTER 2023-12-05 23:27 | Observation (INO) | payer MEDICARE, MEDICAID, SELFPAY ==
[2023-12-05 23:28] VITALS: BP 147/74; PULSE 79; RESP 15; TEMP 36.7; O2SAT 97; BMI 28.5
--- NOTE | 2023-12-05 23:33 | ECG_ITS ---
APPROVED REPORT Exam: Resting ECG HR:95 bpm ECG Measurements Heart Rate 95 AXES HI 230 P 240 QRSd 89 QRS 76 QT 406 T 70 QTc 459 Conclusion ELECTRONIC ATRIAL PACEMAKER LOW QRS VOLTAGE IN PRECORDIAL LEADS [QRS DEFLECTION < 1.0 mV IN CHEST LEADS] ST DEVIATION AND MODERATE T-WAVE ABNORMALITY, CONSIDER ANTERIOR ISCHEMIA [-0.1+ mV T-WAVE IN V3/V4] ABNORMAL ECG UNCONFIRMED REPORT Electronically signed by : Tacho Arreguin MD 12/07/2023 08:39:15
--- NOTE | 2023-12-05 23:39 | XR_ITS ---
PROCEDURE INFORMATION: Exam: XR Chest Exam date and time: 12/05/2023 11:37 PM Age: 83 years old Clinical indication: Other: Palpatations TECHNIQUE: Imaging protocol: Radiologic exam of the chest. Views: 2 views. COMPARISON: CR XR CHEST PORTABLE 11/17/2023 8:41 PM FINDINGS: Tubes, catheters and devices: Pacer leads terminate in the right atrium and right ventricle. Pacer is positioned in the left chest wall. Lungs: Hyperinflated lungs. Mild bibasilar scar versus atelectasis. Pleural spaces: Normal No pleural effusion. No pneumothorax. Heart/Mediastinum: Mild cardiomegaly is unchanged. Vasculature: Tortuous atherosclerotic thoracic aorta. Bones/joints: Osteopenia. Mild thoracic spine degenerative change. Mild compression deformities of 2 lower thoracic vertebral bodies appear chronic. IMPRESSION: 1. Hyperinflated lungs. Mild bibasilar scar versus atelectasis. 2. Mild cardiomegaly is unchanged.
--- NOTE | 2023-12-05 23:40 | HMH.EDCP ---
Discharge Plan Disposition Patient Disposition: Admitted Condition: Good Clinical Impressions Clinical Impression: Heart palpitations Discharge ED Provider: Radha Cardenas HPI General Chief Complaint: Arrhythmia/Palpitations Stated Complaint: heart racing, High BP Time Seen by Provider: 12/05/23 23:29 History of Present Illness HPI narrative: Patient is an 83-year-old female with past medical history CHF status post pacemaker placement, hypertension, CAD, COPD, A-fib, palpitations presenting with palpitations. Patient states that earlier this evening she took her blood pressure and it read as high with a reading of 167 systolic, notes her heart rate was 70 at the time. When her blood pressure reading was high she said that she started to feel some palpitations in her chest, states she no longer feels this but given her high blood pressure about 1 hour prior to arrival she took another dose of her bisoprolol. She is prescribed bisoprolol and is supposed to take 2 tablets but she says she decreased the dose herself and only takes 1 tablet normally but did take her second tablet this evening given her symptoms. She denies ever having chest pain throughout any of this, never had shortness of breath, does not have leg swelling, denies headache, nausea, vomiting. Related Data Home Medications Medication Instructions Recorded Confirmed sacubitril 97 mg-valsartan 103 mg 1 tab PO BID Heart Failure 04/15/23 12/06/23 tablet (Entresto) albuterol sulfate 90 mcg/actuation 2 puff inhalation Q6HP PRN 11/17/23 12/06/23 aerosol inhaler Shortness Of Breath apixaban 5 mg tablet (Eliquis) 5 mg PO BID Blood thinner/Afib 11/17/23 12/06/23 Previous Rx's Medication Instructions Recorded isosorbide mononitrate 30 mg 30 mg PO DAILY Hypertension #90 09/12/23 tablet,extended release 24 hr tabs amlodipine 10 mg tablet 5 mg PO DAILY High Blood Pressure 11/18/23 30 days #0 tabs bisoprolol fumarate 10 mg tablet 10 mg PO DAILY #30 tabs 11/18/23 Allergies Allergy/AdvReac Type Severity Reaction Status Date / Time levofloxacin [From LEVAQUIN] Allergy Unknown MAKES SICK Verified 09/27/23 08:52 tetracycline [TETRACYCLINE] Allergy Unknown SWELLING, Verified 09/27/23 08:52 ITCHING aspirin AdvReac Intermediate Verified 09/27/23 08:52 [facility] Disclaimer: The information contained in this section may have been updated after the patient was seen, as this information can be updated by other users. Medical History (Updated 12/06/23 @ 03:11 by Radha Cardenas MD) Acute infective cystitis Atrial fibrillation Breast cancer Community acquired pneumonia COVID Gallbladder disease History of lung cancer Influenza Ischemic cardiomyopathy Lung cancer Non-ST elevation VT (NSTEMI) Pacemaker Paroxysmal atrial fibrillation Pneumonia Respiratory failure with hypoxia Sick sinus syndrome Typical angina Surgical History (Updated 11/22/23 @ 00:02 by Marta Barnes) History of cholecystectomy History of left hip hemiarthroplasty History of surgery on upper extremity Hx of pneumonectomy Stented coronary artery Family History Other Family history of myocardial infarction Lung cancer Social History (Updated 11/17/23 @ 22:22 by Leann Peters RN) Smoking Status: Unknown if ever smoked smoking status start date: 1960 how long ago did patient quit smokin years ago second hand exposure: No alcohol intake: never substance use type: denies use current occupational status: retired Travel in the last 8 weeks: None household members: other housing: house lives independently: No marital status: current occupational exposures/hazards: No 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 and in no apparent distress Head Head exam: atraumatic and normocephalic ENT ENT exam: Present mucous membranes moist Neck Neck exam: Present normal inspection Chest Chest inspection: Present normal inspection and symmetric chest wall rise Respiratory Respiratory exam: Present normal lung sounds bilaterally; Absent respiratory distress Cardiovascular Cardiovascular exam: Present normal rhythm and irregular rhythm Abdominal Exam Abdominal exam: Present soft; Absent tenderness Extremities Exam Extremities exam: Present normal inspection; Absent edema Neurological Exam Neurological exam: Present alert and oriented X3 Skin Skin exam: Present warm and dry HEART Score HEART Score HEART Score assessment performed?: Yes History (anamnesis): Slightly suspicious ECG: Non-specific disturbance Age: >65 years Risk factors: Atherosclerosis history Troponin: </= normal limit HEART Score: 5 Critical Care Critical Care Time Critical Care Time: No Medical Decision Making Medical Records Medical records reviewed: Yes I reviewed the patient's medical records. Bryn Inquiry Pt receiving controlled substance: No Vital Signs Vital Signs: 12/05/23 23:28 12/06/23 00:00 12/06/23 00:36 Temperature 98.1 F Temperature Source Oral Pulse Rate 51 L 65 Pulse Rate [Left Radial] 79 Respiratory Rate 15 13 18 Blood Pressure 137/53 L Blood Pressure [Right Arm] 147/74 H Blood Pressure Mean [Right Arm] 98 Blood Pressure Source [Right Arm] Automatic Cuff Blood Pressure Position [Right Arm] Sitting 02 Sat by Pulse Oximetry 97 96 96 Oxygen Delivery Method Room Air 12/06/23 01:00 12/06/23 01:30 12/06/23 02:00 Temperature Temperature Source Pulse Rate 54 L 67 69 Pulse Rate [Left Radial] Respiratory Rate 14 15 11 L Blood Pressure 133/61 123/61 120/57 L Blood Pressure [Right Arm] Blood Pressure Mean [Right Arm] Blood Pressure Source [Right Arm] Blood Pressure Position [Right Arm] 02 Sat by Pulse Oximetry 94 L 95 96 Oxygen Delivery Method 12/06/23 03:00 Temperature Temperature Source Pulse Rate 61 Pulse Rate [Left Radial] Respiratory Rate 20 Blood Pressure 134/63 Blood Pressure [Right Arm] Blood Pressure Mean [Right Arm] Blood Pressure Source [Right Arm] Blood Pressure Position [Right Arm] 02 Sat by Pulse Oximetry 95 Oxygen Delivery Method Lab Data Lab results reviewed: Yes I reviewed the patient's lab results. Labs: Lab Results 12/05/23 23:36: WBC 7.2, RBC 3.78 L, Hgb 12.0 L, Hct 37.1, MCV 98.0, MCH 31.7 H, MCHC 32.4, RDW 13.8, Plt Count 196, MPV 8.8, Neut % (Auto) 52.7, Lymph % (Auto) 39.8, [place] % (Auto) 5.3, Eos % (Auto) 1.6, Baso % (Auto) 0.7, Neut # (Auto) 3.8, Lymph # (Auto) 2.9, [place] # (Auto) 0.4, Eos # (Auto) 0.1, Baso # (Auto) 0.1, Sodium 139, Potassium 4.2, Chloride 106, Carbon Dioxide 26, Anion Gap 11.2, BUN 26 H, Creatinine 1.10 H, Estimated Creat Clear 47, Estimated GFR 48 L, Est GFR ( Amer) 58 L, Glucose 114 H, Calcium 9.0, Total Bilirubin 0.6, AST 30, ALT 18, Alkaline Phosphatase 113, Troponin I < 0.01, NT-Pro-B Natriuret Pep 1370 H, Total Protein 7.4, Albumin 4.5, Globulin 2.9, Albumin/Globulin Ratio 1.6 12/06/23 02:30: Troponin I 0.02 12/05/23 23:36 12/05/23 23:36 Response Orders (Tests/Meds): ED MEDICATIONS Generic Name Dose Route Start Last Admin Trade Name Cheo PRN Reason Stop Dose Admin Acetaminophen 650 mg 12/06/23 03:11 Acetaminophen 325mg Tab PO 01/05/24 03:10 Q4HP PRN Fever or Mild Pain (1-3) Al Hydrox/Mg Hydrox/Simethicone 30 ml 12/06/23 03:11 Aluminum/Magnesium/Simethicone 30ml Udc PO 01/05/24 03:10 QIDP PRN Dyspepsia Ondansetron HCl 4 mg 12/06/23 03:11 Ondansetron 4mg/2ml Vial IV 01/05/24 03:10 Q8HP PRN Nausea Pantoprazole Sodium 40 mg 12/06/23 09:00 Pantoprazole 40mg Tablet PO 01/05/24 08:59 DAILY JOSLYN Discontinued Medications Generic Name Dose Route Start Last Admin Trade Name Cheo PRN Reason Stop Dose Admin Acetaminophen 1,000 mg 12/06/23 01:10 12/06/23 01:13 Acetaminophen 500mg Tab PO 12/06/23 01:11 1,000 mg ONCE ONE Administration ORDERS Category Date Time Status Cardiology Consult [Consult to Cardiology] [CONS] Cons 12/06/23 03:11 Active Routine XR chest 2V Stat Exams 12/05/23 23:39 Completed BNP [Brain Natriuretic Peptide] Stat Lab 12/05/23 23:36 Completed Complete Blood Count Auto Diff AMLAB Lab 12/06/23 06:00 Ordered Complete Blood Count Auto Diff Stat Lab 12/05/23 23:36 Completed Comprehensive Metabolic Panel AMLAB Lab 12/06/23 06:00 Ordered Comprehensive Metabolic Panel Stat Lab 12/05/23 23:36 Completed Magnesium AMLAB Lab 12/06/23 06:00 Ordered Troponin I Stat Lab 12/05/23 23:36 Completed Troponin I Stat Lab 12/06/23 02:30 Completed ECG initial [place] Routine Y 12/05/23 23:33 Completed MDM Narrative Medical Decision Narrative: Patient is an 83 year old female with PMH CHF s/p pacemaker, CAD, COPD, sick sinus syndrome, afib on Eliquis presenting with episode of palpatations and high blood pressure prior to arrival. Patient is notably a very poor historian, notes that she never had chest pain and denies any current symptoms but does note when she took her blood pressure this evening around 4-5 hours prior to arrival that it was elevated prompting her to take a second dose of bisoprolol that she is notably prescribed to take 2 doses of daily (but states she is not compliant with the two-doses and normally only takes one). Denies other symptoms and exam is overall unremarkable, does have pacemaker in place but hemodynamically stable on arrival. ECG on my review at a rate of 95, irregular with occasional atrial pacing without acute ischemia or infarction. CBC and CMP nonactionable and Cr actually improved from upon discharge on 11/08 of 1.3 now to 1.1. Troponin negative but was obtained within 6 hours of onset. Chest xray without acute process and showing stable cardiomegaly. Patient did have headache for which she was given Tylenol. Given onset within 6 hours of presentation and patient without pain but with significant cardiac history and recent hospitalization, did obtain repeat troponin 6 hours from reported onset and while still negative at 0.02, did technically change from <0.01 to 0.02 which would be a significant delta troponin and patient HEART score 5. For this reason, I spoke with integration solution architect Hospitalist who did agree with admission to his service at this time.
[2023-12-05 23:47] LABS: Basophils # 0.1 K/mm3 (0-0.2); Basophils % 0.7 % (0.1-2.0); Eosinophils # 0.1 K/mm3 (0.0-0.4); Eosinophils % 1.6 % (0.1-12.0); Hematocrit 37.1 % (37.0-47.0); Lymphocytes # 2.9 K/mm3 (0.7-4.5); Lymphocytes % 39.8 % (10-50); Mean Corpuscular HGB Conc 32.4 g/dL (31.8-35.4); Mean Corpuscular Hemoglobin 31.7 pg (27.0-31.2); Mean Platelet Volume 8.8 fl (7.4-10.4); Monocytes # 0.4 K/mm3 (0.1-1.0); Monocytes % 5.3 % (1.7-9.3); Neutrophils # 3.8 K/mm3 (1.8-7.8); Neutrophils % 52.7 % (37.0-80.0); Platelet Count 196 K/mm3 (142-424); Red Blood Count 3.78 M/mm3 (4.20-5.40); Red Cell Distribution Width 13.8 % (11.5-17.5); White Blood Count 7.2 K/mm3 (4.8-10.8)
[2023-12-05 23:52] LABS: Chloride 106 mmol/L (98-107); Potassium 4.2 mmoL/L (3.5-5.1); Sodium 139 mmol/L (136-145)
[2023-12-05 23:55] LABS: Alanine Aminotransferase 18 U/L (12-78); Albumin Level 4.5 g/dl (3.5-5.0); Albumin/Globulin Ratio 1.6 (1.1-1.8); Alkaline Phosphatase 113 U/L (38-126); Anion Gap 11.2 mEq/L (5-15); Aspartate Amino Transferase 30 U/L (14-36); Bilirubin,Total 0.6 mg/dl (0.2-1.3); Blood Urea Nitrogen 26 mg/dl (7-17); Carbon Dioxide 26 mmol/L (22.0-30.0); Creatinine Clearance Estimated 47 mL/min (50-200); Estimated Glomerular Filt Rate 48 ml/min (>60); GFR (African American) 58 ML/MIN (>60); Globulin 2.9 g/dL (1.3-3.2); Total Protein,Serum 7.4 g/dl (6.3-8.2)
[2023-12-05 23:56] LABS: Glucose 114 mg/dl (74-100)
[2023-12-06] VITALS (12 sets, daily range): BP systolic 120–172; BP diastolic 53–79; PULSE 51–80; RESP 11–20; TEMP 36.5–36.8; O2SAT 93–96; BMI 27.8
[2023-12-06 00:06] LABS: NT Pro Brain Natriuretic Pep. 1370 pg/mL (0-450)
[2023-12-06 00:09] LABS: Troponin I < 0.01 ng/ml (0.00-0.034)
--- NOTE | 2023-12-06 00:48 | PC.NURSE ---
in room talking with patient at this time.
[2023-12-06] MEDS: ACETAMINOPHEN 500MG TAB 1000 MG PO (01:13)
--- NOTE | 2023-12-06 01:13 | PC.NURSE ---
lights turned out for comfort
--- NOTE | 2023-12-06 02:46 | PC.NURSE ---
2nd trop drawn and sent to lab
[2023-12-06 03:00] LABS: Troponin I 0.02 ng/ml (0.00-0.034)
--- NOTE | 2023-12-06 03:07 | PC.NURSE ---
ED doctor on phone with hospitalist
--- NOTE | 2023-12-06 03:16 | P.HP_ITS ---
History of Present Illness *Admission Date: 12/06/23 *Reason for visit:: palpitation *History of present illness: This is a 83-year-old female with an extensive past cardiac history, including history of coronary artery disease sick sinus syndrome atrial fibrillation has a [place] [employer] pacemaker that was placed last year; COPD, HLD, brest cancer who presented today with palpitations and what she describes as discomfort in her chest. Patient described as a palpitation and not regular, denied chest pain, however can not be excluded. Patient recently ran out metoprolol, due to insurance issues, ending on recent hospitalization for overnight cardiac monitoring. Today patient referred been high blood pressure and that is when she said that she started to feel some palpitations in her chest, then she took an extra dose of bisoprolol before arrival. She was prescribed bisoprolol BID but but she was taking only one tablet per day until this evening given her symptoms. She denies ever having chest pain throughout any of this, never had shortness of breath, does not have leg swelling, denies headache, nausea, vomiting. She has had NSTEMI's in the past and has known vascular disease. Denies any recent exertional chest discomfort shortness of breath cough fevers chills or any other symptoms. Admitted for further management. [facility] Disclaimer: The information contained in this section may have been updated after the patient was seen, as this information can be updated by other users. Medical History Acute infective cystitis Atrial fibrillation Breast cancer Community acquired pneumonia COVID Gallbladder disease History of lung cancer Influenza Ischemic cardiomyopathy Lung cancer Non-ST elevation [place] (NSTEMI) Pacemaker Paroxysmal atrial fibrillation Pneumonia Respiratory failure with hypoxia Sick sinus syndrome Typical angina Surgical History History of cholecystectomy History of left hip hemiarthroplasty History of surgery on upper extremity Hx of pneumonectomy Stented coronary artery Family History Other Family history of myocardial infarction Lung cancer Social History (Updated 12/06/23 @ 04:48 by Leann Peters RN) Smoking Status: Former smoker tobacco type: cigarettes packs per day: 1 smoking status start date: 1961 how long ago did patient quit smokin years ago second hand exposure: No alcohol intake: never substance use type: denies use current occupational status: retired Travel in the last 8 weeks: None household members: other housing: house lives independently: No marital status: current occupational exposures/hazards: No 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) Review of Systems Review of Systems Review of systems:: pertinent systems reviewed and negative unless documented below Meds Home Medications and Allergies Home Medications Medication Instructions Recorded Confirmed Type sacubitril 97 mg-valsartan 103 mg 1 tab PO BID 04/15/23 12/06/23 History tablet (Entresto) isosorbide mononitrate 30 mg 30 mg PO DAILY Hypertension #90 09/12/23 12/06/23 Rx tablet,extended release 24 hr tabs albuterol sulfate 90 mcg/actuation 2 puff inhalation Q6H PRN 11/17/23 12/06/23 History aerosol inhaler Shortness Of Breath apixaban 5 mg tablet (Eliquis) 5 mg PO BID 11/17/23 12/06/23 History amlodipine 5 mg tablet 5 mg PO DAILY 12/06/23 12/06/23 History bisoprolol fumarate 10 mg tablet 10 mg PO BID 30 days #30 tabs 12/06/23 12/06/23 Rx doxepin 10 mg capsule 10 mg PO DAILY 12/06/23 12/06/23 History empagliflozin 10 mg tablet 10 mg PO DAILY 30 days #30 tabs 12/06/23 Rx (Jardiance) furosemide 20 mg tablet 20 mg PO DAILY 12/06/23 12/06/23 History pantoprazole 40 mg tablet,delayed 40 mg PO DAILY 30 days #30 tabs 12/06/23 Rx release spironolactone 25 mg tablet 25 mg PO DAILY 30 days #30 tabs 12/06/23 Rx New Prescriptions to Start Prescriptions: empagliflozin [Jardiance] Bebe Acosta pantoprazole Dave,Bebe spironolactone Dave,Marian Allergies Allergy/AdvReac Type Severity Reaction Status Date / Time levofloxacin [From LEVAQUIN] Allergy Unknown MAKES SICK Verified 09/27/23 08:52 tetracycline [TETRACYCLINE] Allergy Unknown SWELLING, Verified 09/27/23 08:52 ITCHING aspirin AdvReac Intermediate Verified 09/27/23 08:52 Exam Data for Last 24 hours Vital signs and Labs for Last 24 Hours: Temp Pulse Resp BP Pulse Ox O2 Del Method 98.1 F 61 20 134/63 95 Room Air 12/05/23 23:28 12/06/23 03:00 12/06/23 03:00 12/06/23 03:00 12/06/23 03:00 12/05/23 23:28 Laboratory Results - last 24 hr 12/05/23 23:36: WBC 7.2, RBC 3.78 L, Hgb 12.0 L, Hct 37.1, MCV 98.0, MCH 31.7 H, MCHC 32.4, RDW 13.8, Plt Count 196, MPV 8.8, Neut % (Auto) 52.7, Lymph % (Auto) 39.8, [place] % (Auto) 5.3, Eos % (Auto) 1.6, Baso % (Auto) 0.7, Neut # (Auto) 3.8, Lymph # (Auto) 2.9, [place] # (Auto) 0.4, Eos # (Auto) 0.1, Baso # (Auto) 0.1, Sodium 139, Potassium 4.2, Chloride 106, Carbon Dioxide 26, Anion Gap 11.2, BUN 26 H, Creatinine 1.10 H, Estimated Creat Clear 47, Estimated GFR 48 L, Est GFR ( Amer) 58 L, Glucose 114 H, Calcium 9.0, Total Bilirubin 0.6, AST 30, ALT 18, Alkaline Phosphatase 113, Troponin I < 0.01, NT-Pro-B Natriuret Pep 1370 H, Total Protein 7.4, Albumin 4.5, Globulin 2.9, Albumin/Globulin Ratio 1.6 12/06/23 02:30: Troponin I 0.02 I & O for Last 24 hours: Intake & Output 12/03/23 12/04/23 12/05/23 12/06/23 23:59 23:59 23:59 23:59 Weight 75.296 kg Constitutional Constitutional: no acute distress and cooperative *Routine HEENT Exam Head: Present normocephalic and atraumatic Eye: Present EOMI, PERRL and normal accommodation ENT: Present mucous membranes moist *Routine Neck Exam Neck: Present supple, full ROM and trachea midline *Routine Respiratory Exam Respiratory: Present normal respiratory effort, able to speak in complete sentences and symmetric chest movement; Absent respiratory distress *Routine Cardiovascular Exam Cardiovascular: Present Normal S1, Normal S2 and bradycardia *Routine Abdominal Exam Abdominal: Present soft and normoactive bowel sounds; Absent organomegaly *Routine Rectal Exam Rectal:: deferred *Routine Genitalia Exam Genitalia:: deferred *Routine Extremities Exam Extremities: Present full ROM and pulses intact; Absent cyanosis, clubbing or edema *Routine Skin Exam Skin: Present intact, dry and warm *Routine Neurological Exam Neurological: Present alert, oriented X3, normal reflexes, moving all extremities and normal speech Routine Psychiatric Exam Psychiatric: Present normal thought process, cooperative and good judgment Assessment and Plan *Assessment and plan (1) Sick sinus syndrome: Status: Acute Category: Medical Code(s): I49.5 - Sick sinus syndrome (2) Presence of permanent cardiac pacemaker: Status: Chronic Category: Medical Code(s): Z95.0 - Presence of cardiac pacemaker (3) Heart failure with improved ejection fraction (HFimpEF): Status: Acute Category: Medical Code(s): I50.32 - Chronic diastolic (congestive) heart failure (4) CAD (coronary artery disease): Status: Chronic Qualifiers: Associated angina: without angina Coronary Disease-Associated Artery/Lesion type: [place] artery [place] vs. transplanted heart: [place] heart Qualified Code(s): I25.10 - Atherosclerotic heart disease of [place] coronary artery without angina pectoris Category: Medical Code(s): I25.10 - Atherosclerotic heart disease of [place] coronary artery without angina pectoris Plan 83-year-old female with an extensive past cardiac history, including history of coronary artery disease sick sinus syndrome atrial fibrillation has a [place] [employer] pacemaker that was placed last year; COPD, HLD, brest cancer who presented today with palpitations and what she describes as discomfort in her chest. On arrival, patient has asymptomatic. Labs are negative. EKG reviewed. no acute changes. Patient does not feel well enough to go home. Due to a high risk of rapidly decompensation. discussion was made with ER provider for admission. Plan as follow: Palpitations History of sick sinus syndrome History of paroxysmal atrial fibrillation Status post [place] pacemaker Palpitations apparently resolved with her normal prescribed dose of bisoprolol Continue home dose of bisoprolol 10 mg p.o. BID Continue Eliquis 5 mg p.o. twice daily cardiac telemetry History of ischemic cardiomyopathy/HFimpEF Ischemic cardiomyopathy with ejection fraction of 20% noted in 2018. Ejection fraction has recovered to 55% as of November 2022 Patient has no symptoms of heart failure exacerbation Continue guideline directed medical therapy with Entresto 97/103 mg p.o. twice daily, bisoprolol 10 mg p.o. daily. Consider addition of Jardiance and aldactone at next office follow up given current Coronary artery disease Patient denies chest pain Troponin negative No ischemic changes noted to EKG WOOD placed to left main in 2018 Recommend outpatient ischemic evaluation as needed Suspected social admission, patient need to follow up with cardiology and be medically complaint with re recommended doses . Unclear if will need placement vs for medication management. SCD for DVT ppx. On protonix Full code Attending attestation Patient was seen and evaluated at the bedside myself, agree with GURJIT note.
--- NOTE | 2023-12-06 03:30 | PC.NURSE ---
Nurse to nurse report given to Bella PERRIN
[2023-12-06 06:58] LABS: Basophils % 0.5 % (0.1-2.0); Eosinophils % 0.8 % (0.1-12.0); Hematocrit 34.3 % (37.0-47.0); Lymphocytes # 1.6 K/mm3 (0.7-4.5); Lymphocytes % 29.8 % (10-50); Mean Corpuscular HGB Conc 32.1 g/dL (31.8-35.4); Mean Corpuscular Hemoglobin 31.7 pg (27.0-31.2); Mean Corpuscular Volume 98.8 fl (81-99); Mean Platelet Volume 8.4 fl (7.4-10.4); Monocytes # 0.3 K/mm3 (0.1-1.0); Monocytes % 5.9 % (1.7-9.3); Neutrophils # 3.3 K/mm3 (1.8-7.8); Neutrophils % 63.2 % (37.0-80.0); Platelet Count 177 K/mm3 (142-424); Red Blood Count 3.47 M/mm3 (4.20-5.40); Red Cell Distribution Width 13.8 % (11.5-17.5); White Blood Count 5.2 K/mm3 (4.8-10.8)
[2023-12-06 07:06] LABS: Alanine Aminotransferase 15 U/L (12-78); Albumin Level 3.9 g/dl (3.5-5.0); Albumin/Globulin Ratio 1.8 (1.1-1.8); Alkaline Phosphatase 88 U/L (38-126); Anion Gap 8.9 mEq/L (5-15); Aspartate Amino Transferase 22 U/L (14-36); Bilirubin,Total 0.5 mg/dl (0.2-1.3); Blood Urea Nitrogen 20 mg/dl (7-17); Calcium 8.5 mg/dl (8.4-10.2); Carbon Dioxide 26 mmol/L (22.0-30.0); Chloride 109 mmol/L (98-107); Creatinine Clearance Estimated 46 mL/min (50-200); Estimated Glomerular Filt Rate 48 ml/min (>60); GFR (African American) 58 ML/MIN (>60); Globulin 2.2 g/dL (1.3-3.2); Glucose 104 mg/dl (74-100); Magnesium 2.1 mg/dl (1.6-2.3); Potassium 3.9 mmoL/L (3.5-5.1); Sodium 140 mmol/L (136-145); Total Protein,Serum 6.1 g/dl (6.3-8.2)
--- NOTE | 2023-12-06 07:25 | HMH.PHAINT1 ---
Pharmacy Intervention Comments: Home med list verified with patient at bedside and with external pharmacy.
--- NOTE | 2023-12-06 08:31 | CA_ITS ---
APPROVED REPORT EXAM: Comprehensive 2D, Doppler, and color-flow Echocardiogram Professor Of Art History: Gisela Hardy, RCS, RVS Ht: 5 ft 4 in Wt: 162lbs BSA: 1.79 BP: 134/63 mmHg Indications: Afib, Pacer, Palpitations,NSTEMI, PHTN, Ex-smoker, Hx-lung cancer, chf 2D Dimensions Left Atrium 4.36 cm F: 2.7 - 3.8 LA Volume 56.00 mL LA Volume Index 31.839316 mL/m2 (M/F) 16-34 M-Mode Dimensions RVDd 2.93 cm (0.9-2.6) LA Diam 4.24 cm (1.9-4.0) LVDd 4.61 cm (3.5-5.7) LVDs 3.40 cm (3.5-5.7) IVSd 1.01 cm (0.6-1.1) PWd 0.91 cm (0.6-1.1) EF (Teich) 51.50% EPSs 1.11 cm FS 26.20% EDV (Teich) 97.80 mL TAPSE 2.02 (<1.7) ESV (Teich) 47.40 mL LV Diastology E Decel Time 163 (160-240 msec) E/A Ratio 0.82 MED A' 7.50 cm/s LAT A' 7.30 cm/s Aortic Valve SRINI Index 1.08 cm2/m2 AoV Peak Hema. 122.0 (50-130 cm/s) AO Peak GR. 6.00 mmHg AO Mean GR. 3.00 (<5 mmHg) AO VTI 31.0 (18-25 cm) SRINI (VTI) 1.97 (2.5-4.5 cm2) Mitral Valve MV A Velocity 98.0 (40-130 cm/s) E/A Ratio 0.82 MV Mean Gr. 2.00 (<2mmHg) Pulmonary Valve SC End VMAX 165.0 cm/s Tricuspid Valve TR P. Velocity 286.00 cm/s RAP Estimate 10.00 mmHg RVSP 42.80 mmHg Left Ventricle The left ventricle is normal size. Left ventricular systolic function is mildly decreased. There is normal left ventricular wall thickness. There is mild global hypokinesis present. The septal and anteroseptal LV reich are moderately hypokinetic. Grade 1 diastolic dysfunction is present. LVEF is 40-45%. Right Ventricle The right ventricle is mildly dilated. Right ventricle is mildly hypokinetic. Device lead present in the right ventricle. Atria The left atrium size is normal. The right atrium size is normal. There is no Doppler evidence of interatrial shunt. Aortic Valve The aortic valve is mildly thickened. There is no aortic valvular stenosis. Trace aortic regurgitation. Mitral Valve The mitral valve leaflets are mildly thickened. No evidence of mitral valve stenosis. Mild mitral regurgitation. Tricuspid Valve The tricuspid valve leaflets are thin and pliable. Moderate tricuspid regurgitation. RVSP is 30-35 mmHg. Pulmonic Valve The pulmonary valve is normal in structure. Mild pulmonic regurgitation. Great Vessels The aortic root is normal in size. The ascending aorta is normal in size. IVC is normal in size and collapses >50% with inspiration. Pericardium There is no pericardial effusion. Other Information Study Quality: Fair Conclusion Mild reduction in LV systolic function (LVEF 40-45%). Moderate hypokinesis of the septal and anteroseptal LV reich. Mild RV dilation with mild reduction in RV function. Mild MR. Moderate TR. Elevated RVSP 30-35 mmHg. Electronically signed by : Shavonne Salinas MD 12/07/2023 03:57:30
[2023-12-06] MEDS: PANTOPRAZOLE 40MG TABLET 40 MG PO (09:37)
[2023-12-06] MEDS: APIXABAN 5MG TABLET 5 MG PO (09:37)
[2023-12-06] MEDS: AMLODIPINE 5MG TABLET 5 MG PO (09:37)
[2023-12-06] MEDS: ISOSORBIDE MONO 30MG TAB.ER.24H 30 MG PO (09:37)
[2023-12-06] MEDS: SACUBITRIL/VALSARTAN 24-26MG TABLET 4 EACH PO (09:37)
[2023-12-06] MEDS: BISOPROLOL 5MG TABLET 10 MG PO (09:38)
--- NOTE | 2023-12-06 09:42 | HMH.PTEV ---
Physical Therapy Evaluation Rehab PT IP Evaluation Start: 12/06/23 07:46 Freq: ONCE Status: Active Protocol: Document 12/06/23 09:38 SPIKE (Rec: 12/06/23 09:41 SPIKE [id number]) Subjective/History History History 83 yowf adm to [facility] with palpitations. She has PMH of NSTEMI, CAD, SSS, a-fib, pacemaker, COPD, HLD, breast CA. She reports she lives with her , no steps to enter the home, and she is generally independent with all mobility and ADLs with RW at baseline. Subjective Subjective Pt with no c/o this am. I was driving last night. New diagnosis of cancer in past 12 No months? Rehab PT IP Eval Objective Appearance Patient Behavior Appropriate Patient Orientation Person,Place,Time Difficulty following instructions none Speech Pattern Clear Ambulation Patient Able to Ambulate Yes Ambulation Observation IP General Gait Pattern Observation Wide Based Gait Ambulation Distance (feet) 100 Ambulation Assistive Device Rolling Walker Ambulation Ability Independent Balance Ability to Arise Able, uses arms to help Sitting Balance Steady, safe Standing Balance Steady, wide stance Dynamic Sitting Balance Ability Good Dynamic Standing Balance Ability Good Transfers Bed Transfer Ability Independent Chair Transfer Ability Independent Sit to Stand Bed Transfer Ability Independent Sit to Stand Chair Transfer Ability Independent Rehab PT IP prob,goals,plan Problems Date of Evaluation: 12/06/23 Discharge Plan PT Discharge Plan Pt is appropriate to return home once medically stable for d/c. No current inpatient therapy needs at this time. Eval Complexity Eval Charge Codes 66502 - High Complexity PHYSICIAN CERTIFICATION: I certify the specified therapy services for Abigail Alejo are required, authorized, and reviewed every 30 days.
--- NOTE | 2023-12-06 09:48 | HMH.OTEV ---
OT Inpatient Evaluation Rehab OT IP Evaluation Start: 12/06/23 07:46 Freq: ONCE Status: Active Protocol: Document 12/06/23 09:44 [place]ISE (Rec: 12/06/23 09:48 [id number][facility] Rehab OT IP Assessment Subjective History Pt oriented x 3 on arrival. Pt agreeable to engage in therapy evaulation. Pt admitted on 12/06/23 due to palpatations. History and physical report: This is a 83-year-old female with an extensive past cardiac history, including history of coronary artery disease sick sinus syndrome atrial fibrillation has a [place] [employer] pacemaker that was placed last year; COPD, HLD, brest cancer who presented today with palpitations and what she describes as discomfort in her chest. Patient described as a palpitation and not regular, denied chest pain, however can not be excluded. Patient recently ran out metoprolol, due to insurance issues, ending on recent hospitalization for overnight cardiac monitoring. Today patient referred been high blood pressure and that is when she said that she started to feel some palpitations in her chest, then she took an extra dose of bisoprolol before arrival. She was prescribed bisoprolol BID but but she was taking only one tablet per day until this evening given her symptoms. She denies ever having chest pain throughout any of this, never had shortness of breath, does not have leg swelling, denies headache, nausea, vomiting. She has had NSTEMI's in the past and has known vascular disease. Denies any recent exertional chest discomfort shortness of breath cough fevers chills or any other symptoms. Admitted for further management. 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 Pt reports prior to coming to the hospital, she lived at home with her . Pt claims she is normally independent with all ADLs and IADLs. She also reports she uses a rolling walker during functional transfers. She also still drives. Objective Patient Orientation Person,Place,Birthday Right Upper Extremity Gross ROM WFL Left Upper Extremity Gross ROM WFL Bed Mobility bed mobility-scooting,bed mobility - supine/sit Assist Level Supervision/Stand by Transfer Training Sit/Stand/Step Transfer Assist Level Supervision/Stand by Lower Body Dressing Ability Standby Assistance Rehab OT IP prob,goals,plan Problems Date of Evaluation: 12/06/23 OT IP Problems Bed Mobility,Transfers,Balance ,Self care,Safety Rehab Potential Rehab Potential Innapropriate for Skilled Therapy Discharge Plan OT Discharge Plan Pt appears to be at her baseline with functional transfers and ADL independence . Pt can return home with her once she is medically stable per physician. Eval Complexity Eval Charge Codes 45460 - Moderate Complexity PHYSICIAN CERTIFICATION: I certify the specified therapy services for Abigail Alejo are required, authorized, and reviewed every 30 days.
--- NOTE | 2023-12-06 10:53 | SW/DCPLANNER ---
I received a consult on this patient regarding assistance w/ discharge plans. PT/OT evaluated patient this AM and stated that patient is fine to return home and no services needed at this time. I will continue to follow up w/ this patient regarding any needs/questions. Patient may discharge home later this afternoon.
--- NOTE | 2023-12-06 10:54 | P.CONCA_ITS ---
History of Present Illness History of Present Illness Consult date: 12/06/23 Requesting physician: Bebo Siegel Chief complaint: palpitations History of present illness: This is a 83-year-old female with PMH of coronary artery disease, sick sinus syndrome/atrial fibrillation s/p pacemaker that was placed last year, HFimpEF, COPD, HLD and hx of breast cancer who presented to ED today with complaints of palpitations. Patient reports she was in her usual state of health when she checked her blood pressure last night and she had a systolic reading of 167 and a heart rate of 70. Reports when blood pressure was that high she developed p alpitations for which she took an additional dose of bisoprolol. Patient reports she is supposed to be taking bisoprolol twice a day but she decreased it to once a day herself and only takes an extra tablet as needed for symptoms. Patient denies any chest pain, shortness of breath or dizziness. Patient denies any symptoms since being in hospital. EKG on arrival to ED showed an irregular rhythm with occasional atrial pacing without acute ischemic changes noted with a rate of 95. Labs as follow: WBC 5.2, hemoglobin 11, sodium 140, potassium 3.9, BUN 20, creatinine 1.1 serial troponins negative, proBNP 1370. Chest x-ray performed shows hyperinflated lungs with mild bibasilar scars and mild cardiomegaly which is unchanged. Patient was admitted for further evaluation per cardiology. [facility] Disclaimer: The information contained in this section may have been updated after the patient was seen, as this information can be updated by other users. Medical History Acute infective cystitis Atrial fibrillation Breast cancer Community acquired pneumonia COVID Gallbladder disease History of lung cancer Influenza Ischemic cardiomyopathy Lung cancer Non-ST elevation IA (NSTEMI) Pacemaker Paroxysmal atrial fibrillation Pneumonia Respiratory failure with hypoxia Sick sinus syndrome Typical angina Surgical History History of cholecystectomy History of left hip hemiarthroplasty History of surgery on upper extremity Hx of pneumonectomy Stented coronary artery Family History Other Family history of myocardial infarction Lung cancer Social History (Updated 12/06/23 @ 04:48 by Leann Peters RN) Smoking Status: Former smoker tobacco type: cigarettes packs per day: 1 smoking status start date: 1960 how long ago did patient quit smokin years ago second hand exposure: No alcohol intake: never substance use type: denies use current occupational status: retired Travel in the last 8 weeks: None household members: other housing: house lives independently: No marital status: current occupational exposures/hazards: No 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) Review of Systems Review of Systems Review of systems:: pertinent systems reviewed and negative unless documented below *Cardiovascular Comments: Palpitations Exam Data for Last 24 hours Vital signs and Labs for Last 24 Hours: Temp Pulse Resp BP Pulse Ox O2 Del Method 97.7 F 62 18 172/79 H 93 L Room Air 12/06/23 08:00 12/06/23 08:00 12/06/23 08:00 12/06/23 08:00 12/06/23 08:00 12/06/23 08:00 Laboratory Results - last 24 hr 12/05/23 23:36: WBC 7.2, RBC 3.78 L, Hgb 12.0 L, Hct 37.1, MCV 98.0, MCH 31.7 H, MCHC 32.4, RDW 13.8, Plt Count 196, MPV 8.8, Neut % (Auto) 52.7, Lymph % (Auto) 39.8, [place] % (Auto) 5.3, Eos % (Auto) 1.6, Baso % (Auto) 0.7, Neut # (Auto) 3.8, Lymph # (Auto) 2.9, [place] # (Auto) 0.4, Eos # (Auto) 0.1, Baso # (Auto) 0.1, Sodium 139, Potassium 4.2, Chloride 106, Carbon Dioxide 26, Anion Gap 11.2, BUN 26 H, Creatinine 1.10 H, Estimated Creat Clear 47, Estimated GFR 48 L, Est GFR ( Amer) 58 L, Glucose 114 H, Calcium 9.0, Total Bilirubin 0.6, AST 30, ALT 18, Alkaline Phosphatase 113, Troponin I < 0.01, NT-Pro-B Natriuret Pep 1370 H, Total Protein 7.4, Albumin 4.5, Globulin 2.9, Albumin/Globulin Ratio 1.6 12/06/23 02:30: Troponin I 0.02 12/06/23 06:19: WBC 5.2 D, RBC 3.47 L, Hgb 11.0 L, Hct 34.3 L, MCV 98.8, MCH 31.7 H, MCHC 32.1, RDW 13.8, Plt Count 177, MPV 8.4, Neut % (Auto) 63.2, Lymph % (Auto) 29.8, [place] % (Auto) 5.9, Eos % (Auto) 0.8, Baso % (Auto) 0.5, Neut # (Auto) 3.3, Lymph # (Auto) 1.6, [place] # (Auto) 0.3, Eos # (Auto) 0.0, Baso # (Auto) 0.0, Sodium 140, Potassium 3.9, Chloride 109 H, Carbon Dioxide 26, Anion Gap 8.9, BUN 20 H, Creatinine 1.10 H, Estimated Creat Clear 46, Estimated GFR 48 L, Est GFR ( Amer) 58 L, Glucose 104 H, Calcium 8.5, Magnesium 2.1, Total Bilirubin 0.5, AST 22 D, ALT 15, Alkaline Phosphatase 88, Total Protein 6.1 L, Albumin 3.9 D, Globulin 2.2, Albumin/Globulin Ratio 1.8 I & O for Last 24 hours: Intake & Output 12/03/23 12/04/23 12/05/23 12/06/23 23:59 23:59 23:59 23:59 Output Total 0 / 0 Balance 0 / 0 Weight 166 lb 162 lb 12.8 oz Constitutional Constitutional: no acute distress *Routine Respiratory Exam Respiratory: Present CTA bilaterally and symmetric chest movement *Routine Cardiovascular Exam Cardiovascular: Present Normal S1 and Normal S2 Comments: A-fib *Routine Abdominal Exam Abdominal: Present soft and normoactive bowel sounds; Absent tenderness *Routine Extremities Exam Extremities: Present full ROM and normal capillary refill; Absent edema *Routine Skin Exam Skin: Present intact, dry and warm Detailed Neck Exam: Thyroids Thyroid: Absent bruit Meds Home Medications and Allergies Home Medications Medication Instructions Recorded Confirmed Type sacubitril 97 mg-valsartan 103 mg 1 tab PO BID 04/15/23 12/06/23 History tablet (Entresto) isosorbide mononitrate 30 mg 30 mg PO DAILY Hypertension #90 09/12/23 12/06/23 Rx tablet,extended release 24 hr tabs albuterol sulfate 90 mcg/actuation 2 puff inhalation Q6H PRN 11/17/23 12/06/23 History aerosol inhaler Shortness Of Breath apixaban 5 mg tablet (Eliquis) 5 mg PO BID 11/17/23 12/06/23 History amlodipine 5 mg tablet 5 mg PO DAILY 12/06/23 12/06/23 History bisoprolol fumarate 10 mg tablet 10 mg PO DAILY 12/06/23 12/06/23 History doxepin 10 mg capsule 10 mg PO DAILY 12/06/23 12/06/23 History furosemide 20 mg tablet 20 mg PO DAILY 12/06/23 12/06/23 History New Prescriptions to Start Prescriptions: Allergies Allergy/AdvReac Type Severity Reaction Status Date / Time levofloxacin [From LEVAQUIN] Allergy Unknown MAKES SICK Verified 09/27/23 08:52 tetracycline [TETRACYCLINE] Allergy Unknown SWELLING, Verified 09/27/23 08:52 ITCHING aspirin AdvReac Intermediate Verified 09/27/23 08:52 Assessment and Plan *Assessment and plan (1) Heart failure with improved ejection fraction (HFimpEF): Status: Acute Category: Medical Code(s): I50.32 - Chronic diastolic (congestive) heart failure (2) HTN (hypertension): Status: Chronic Qualifiers: Hypertension type: essential hypertension Qualified Code(s): I10 - Essential (primary) hypertension Category: Medical Code(s): I10 - Essential (primary) hypertension (3) CAD (coronary artery disease): Status: Chronic Qualifiers: Associated angina: without angina Coronary Disease-Associated Artery/Lesion type: [place] artery [place] vs. transplanted heart: [place] heart Qualified Code(s): I25.10 - Atherosclerotic heart disease of [place] coronary artery without angina pectoris Category: Medical Code(s): I25.10 - Atherosclerotic heart disease of [place] coronary artery without angina pectoris (4) COPD (chronic obstructive pulmonary disease): Status: Chronic Qualifiers: COPD type: unspecified COPD Qualified Code(s): J44.9 - Chronic obstructive pulmonary disease, unspecified Category: Medical Code(s): J44.9 - Chronic obstructive pulmonary disease, unspecified (5) Status post placement of cardiac pacemaker: Status: Acute Category: Surgical Code(s): Z95.0 - Presence of cardiac pacemaker (6) Atrial fibrillation: Status: Acute Qualifiers: Atrial fibrillation type: unspecified chronic Qualified Code(s): I48.20 - Chronic atrial fibrillation, unspecified Category: Medical Code(s): I48.91 - Unspecified atrial fibrillation (7) Sick sinus syndrome: Status: Acute Category: Medical Code(s): I49.5 - Sick sinus syndrome Plan Palpitations History of sick sinus syndrome History of paroxysmal atrial fibrillation Status post [place] pacemaker -Palpitations resolved with additional dose of bisoprolol 10 mg -Continue home dose of bisoprolol 10 mg p.o. twice daily -Device interrogation unremarkable -Continue Eliquis 5 mg p.o. twice daily History of ischemic cardiomyopathy/HFimpEF -Ischemic cardiomyopathy with ejection fraction of 20% noted in 2018. Ejection fraction has recovered to 55% as of November 2022. Preliminary echo from today shows a reduced ejection fraction of 40-45, septal and anteroseptal LV hyokinesis, mild MR, moderate TR, RVSP 25-30. -Patient denies increased shortness of breath, orthopnea or lower extremity edema -Continue guideline directed medical therapy with Entresto 97/103 mg p.o. twice daily, Lasix 20 mg p.o. daily, bisoprolol 10 mg p.o. twice daily. Add Aldactone 25 mg daily and Jardiance 10 mg p.o. daily. Coronary artery disease -Patient denies chest pain -Troponin negative -No ischemic changes noted to EKG -WOOD placed to left main in 2018 -Per Dr. Hollingsworth would like patient to be set up for outpatient LHC next week to further evaluate CAD in the setting of reduced EF. EARLE -Creatinine 1.1 12/06/2023: Patient is to have outpatient LHC to further eval reduced EF per Dr. Hollingsworth. Please schedule an office visit for Tuesday so we can set her up outpatient. Otherwise, please send patient home on above outlined meds.
--- NOTE | 2023-12-06 14:23 | P.DS_ITS ---
General Admission date:: 12/06/23 Discharge date: 12/06/23 HPI HPI HPI: This is a 83-year-old female with an extensive past cardiac history, including history of coronary artery disease sick sinus syndrome atrial fibrillation has a [employer] pacemaker that was placed last year; COPD, HLD, brest cancer who presented today with palpitations and what she describes as discomfort in her chest. Patient described as a palpitation and not regular, denied chest pain, however can not be excluded. Patient recently ran out metoprolol, due to insurance issues, ending on recent hospitalization for overnight cardiac monitoring. Today patient referred been high blood pressure and that is when she said that she started to feel some palpitations in her chest, then she took an extra dose of bisoprolol before arrival. She was prescribed bisoprolol BID but but she was taking only one tablet per day until this evening given her symptoms. She denies ever having chest pain throughout any of this, never had shortness of breath, does not have leg swelling, denies headache, nausea, vomiting. She has had NSTEMI's in the past and has known vascular disease. Denies any recent exertional chest discomfort shortness of breath cough fevers chills or any other symptoms. Admitted for further management. Hospital Course Hospital Course Hospital Course: Patient was seen and evaluated at the bedside on the day of discharge. Patient is stable for discharge. Patient wishes to be discharged. All patient questions were answered and patient was given time to ask questions. Patient was discharged in stable condition. Patient understands that she can return to ER in case of any sudden changes in health. Total time spent on DC - 38 mins 83-year-old female with an extensive past cardiac history, including history of coronary artery disease sick sinus syndrome atrial fibrillation has a [employer] pacemaker that was placed last year; COPD, HLD, brest cancer who presented today with palpitations and what she describes as discomfort in her chest. On arrival, patient has asymptomatic. Labs are negative. EKG reviewed. no acute changes. Patient does not feel well enough to go home. Due to a high risk of rapidly decompensation. discussion was made with ER provider for admission. Plan as follow: Palpitations - resolved History of sick sinus syndrome History of paroxysmal atrial fibrillation Status post [place] pacemaker History of ischemic cardiomyopathy/HFimpEF - stable started on meds per cardiology recs Coronary artery disease Patient denies chest pain Troponin negative No ischemic changes noted to EKG WOOD placed to left main in 2018 Recommend outpatient ischemic evaluation as needed, f/u with cardiology as OP Exam Data for Last 24 hours Vital signs and Labs for Last 24 Hours: Temp Pulse Resp BP Pulse Ox O2 Del Method 98.3 F 70 16 127/57 L 94 L Room Air 12/06/23 11:27 12/06/23 12:00 12/06/23 11:27 12/06/23 11:27 12/06/23 11:27 12/06/23 11:27 Laboratory Results - last 24 hr 12/05/23 23:36: WBC 7.2, RBC 3.78 L, Hgb 12.0 L, Hct 37.1, MCV 98.0, MCH 31.7 H, MCHC 32.4, RDW 13.8, Plt Count 196, MPV 8.8, Neut % (Auto) 52.7, Lymph % (Auto) 39.8, [place] % (Auto) 5.3, Eos % (Auto) 1.6, Baso % (Auto) 0.7, Neut # (Auto) 3.8, Lymph # (Auto) 2.9, [place] # (Auto) 0.4, Eos # (Auto) 0.1, Baso # (Auto) 0.1, Sodium 139, Potassium 4.2, Chloride 106, Carbon Dioxide 26, Anion Gap 11.2, BUN 26 H, Creatinine 1.10 H, Estimated Creat Clear 47, Estimated GFR 48 L, Est GFR ( Amer) 58 L, Glucose 114 H, Calcium 9.0, Total Bilirubin 0.6, AST 30, ALT 18, Alkaline Phosphatase 113, Troponin I < 0.01, NT-Pro-B Natriuret Pep 1370 H, Total Protein 7.4, Albumin 4.5, Globulin 2.9, Albumin/Globulin Ratio 1.6 12/06/23 02:30: Troponin I 0.02 12/06/23 06:19: WBC 5.2 D, RBC 3.47 L, Hgb 11.0 L, Hct 34.3 L, MCV 98.8, MCH 31.7 H, MCHC 32.1, RDW 13.8, Plt Count 177, MPV 8.4, Neut % (Auto) 63.2, Lymph % (Auto) 29.8, [place] % (Auto) 5.9, Eos % (Auto) 0.8, Baso % (Auto) 0.5, Neut # (Auto) 3.3, Lymph # (Auto) 1.6, [place] # (Auto) 0.3, Eos # (Auto) 0.0, Baso # (Auto) 0.0, Sodium 140, Potassium 3.9, Chloride 109 H, Carbon Dioxide 26, Anion Gap 8.9, BUN 20 H, Creatinine 1.10 H, Estimated Creat Clear 46, Estimated GFR 48 L, Est GFR ( Amer) 58 L, Glucose 104 H, Calcium 8.5, Magnesium 2.1, Total Bilirubin 0.5, AST 22 D, ALT 15, Alkaline Phosphatase 88, Total Protein 6.1 L, Albumin 3.9 D, Globulin 2.2, Albumin/Globulin Ratio 1.8 I & O for Last 24 hours: Intake & Output 12/03/23 12/04/23 12/05/23 12/06/23 23:59 23:59 23:59 23:59 Intake Total 240 / 240 Output Total 0 / 0 Balance 240 / 240 Weight 75.296 kg 73.845 kg Constitutional Constitutional: no acute distress *Routine HEENT Exam Head: Present normocephalic Eye: Present EOMI and PERRL ENT: Present mucous membranes moist *Routine Neck Exam Neck: Present supple; Absent lymphadenopathy *Routine Respiratory Exam Respiratory: Present CTA bilaterally *Routine Cardiovascular Exam Cardiovascular: Present RRR *Routine Abdominal Exam Abdominal: Present soft and normoactive bowel sounds; Absent tenderness *Routine Extremities Exam Extremities: Absent cyanosis, clubbing or edema *Routine Skin Exam Skin: Present warm; Absent rash *Routine Neurological Exam Neurological: Present alert and oriented X3 Results Data Completed and Pending Labs on day of discharge: Labs from last 24 hours 12/06/23 12/06/23 12/05/23 06:19 02:30 23:36 WBC 5.2 D 7.2 RBC 3.47 L 3.78 L Hgb 11.0 L 12.0 L Hct 34.3 L 37.1 MCV 98.8 98.0 MCH 31.7 H 31.7 H MCHC 32.1 32.4 RDW 13.8 13.8 Plt Count 177 196 MPV 8.4 8.8 Neut % (Auto) 63.2 52.7 Lymph % (Auto) 29.8 39.8 [place] % (Auto) 5.9 5.3 Eos % (Auto) 0.8 1.6 Baso % (Auto) 0.5 0.7 Neut # (Auto) 3.3 3.8 Lymph # (Auto) 1.6 2.9 [place] # (Auto) 0.3 0.4 Eos # (Auto) 0.0 0.1 Baso # (Auto) 0.0 0.1 Sodium 140 139 Potassium 3.9 4.2 Chloride 109 H 106 Carbon Dioxide 26 26 Anion Gap 8.9 11.2 BUN 20 H 26 H Creatinine 1.10 H 1.10 H Estimated Creat Clear 46 47 Estimated GFR 48 L 48 L Est GFR ( Amer) 58 L 58 L Glucose 104 H 114 H Calcium 8.5 9.0 Magnesium 2.1 Total Bilirubin 0.5 0.6 AST 22 D 30 ALT 15 18 Alkaline Phosphatase 88 113 Troponin I 0.02 < 0.01 NT-Pro-B Natriuret Pep 1370 H Total Protein 6.1 L 7.4 Albumin 3.9 D 4.5 Globulin 2.2 2.9 Albumin/Globulin Ratio 1.8 1.6 DS: Diagnosis Discharge Diagnosis (1) Heart failure with improved ejection fraction (HFimpEF): Status: Acute Code(s): I50.32 - Chronic diastolic (congestive) heart failure (2) HTN (hypertension): Status: Chronic Code(s): I10 - Essential (primary) hypertension Qualifiers: Hypertension type: essential hypertension Qualified Code(s): I10 - Essential (primary) hypertension (3) CAD (coronary artery disease): Status: Chronic Code(s): I25.10 - Atherosclerotic heart disease of [place] coronary artery without angina pectoris Qualifiers: Associated angina: without angina Coronary Disease-Associated Artery/Lesion type: [place] artery [place] vs. transplanted heart: [place] heart Qualified Code(s): I25.10 - Atherosclerotic heart disease of [place] coronary artery without angina pectoris (4) COPD (chronic obstructive pulmonary disease): Status: Chronic Code(s): J44.9 - Chronic obstructive pulmonary disease, unspecified Qualifiers: COPD type: unspecified COPD Qualified Code(s): J44.9 - Chronic obstructive pulmonary disease, unspecified (5) Status post placement of cardiac pacemaker: Status: Acute Code(s): Z95.0 - Presence of cardiac pacemaker (6) Atrial fibrillation: Status: Acute Code(s): I48.91 - Unspecified atrial fibrillation Qualifiers: Atrial fibrillation type: unspecified chronic Qualified Code(s): I48.20 - Chronic atrial fibrillation, unspecified (7) Sick sinus syndrome: Status: Acute Code(s): I49.5 - Sick sinus syndrome Meds Home Medications and Allergies Home Medications Medication Instructions Recorded Confirmed Type sacubitril 97 mg-valsartan 103 mg 1 tab PO BID 04/15/23 12/06/23 History tablet (Entresto) isosorbide mononitrate 30 mg 30 mg PO DAILY Hypertension #90 09/12/23 12/06/23 Rx tablet,extended release 24 hr tabs albuterol sulfate 90 mcg/actuation 2 puff inhalation Q6H PRN 11/17/23 12/06/23 History aerosol inhaler Shortness Of Breath apixaban 5 mg tablet (Eliquis) 5 mg PO BID 11/17/23 12/06/23 History amlodipine 5 mg tablet 5 mg PO DAILY 12/06/23 12/06/23 History bisoprolol fumarate 10 mg tablet 10 mg PO BID 30 days #30 tabs 12/06/23 12/06/23 Rx doxepin 10 mg capsule 10 mg PO DAILY 12/06/23 12/06/23 History empagliflozin 10 mg tablet 10 mg PO DAILY 30 days #30 tabs 12/06/23 Rx (Jardiance) furosemide 20 mg tablet 20 mg PO DAILY 12/06/23 12/06/23 History pantoprazole 40 mg tablet,delayed 40 mg PO DAILY 30 days #30 tabs 12/06/23 Rx release spironolactone 25 mg tablet 25 mg PO DAILY 30 days #30 tabs 12/06/23 Rx New Prescriptions to Start Prescriptions: empagliflozin [Jardiance] Dave,Irfan pantoprazole Dave,Irfan spironolactone Dave,Irfan Allergies Allergy/AdvReac Type Severity Reaction Status Date / Time levofloxacin [From LEVAQUIN] Allergy Unknown MAKES SICK Verified 09/27/23 08:52 tetracycline [TETRACYCLINE] Allergy Unknown SWELLING, Verified 09/27/23 08:52 ITCHING aspirin AdvReac Intermediate Verified 09/27/23 08:52 Discharge Plan Disposition Patient Disposition: Home, Self-Care Condition: Good Follow up Plan Follow up with: Lonnie Hollingsworth MD [Staff Physician] - 1 week Prescriptions/Medication Reconciliation: New Jardiance 10 mg Tablet 10 mg PO DAILY 30 Days Qty: 30 0RF spironolactone 25 mg Tablet 25 mg PO DAILY 30 Days Qty: 30 0RF pantoprazole 40 mg Tablet,Delayed Release (Dr/Ec) 40 mg PO DAILY 30 Days Qty: 30 0RF Continued isosorbide mononitrate 30 mg tablet extended release 24 hr 30 mg PO DAILY Qty: 90 1RF Entresto 97-103 mg tablet 1 tab PO BID albuterol sulfate 90 mcg/actuation HFA aerosol inhaler 2 puff INHALATION Q6H PRN (Reason: Shortness Of Breath) Eliquis 5 mg tablet 5 mg PO BID amlodipine 5 mg tablet 5 mg PO DAILY doxepin 10 mg capsule 10 mg PO DAILY furosemide 20 mg tablet 20 mg PO DAILY Changed bisoprolol fumarate 10 mg Tablet 10 mg PO BID 30 Days Qty: 30 0RF Problem Reconciliation Problems Reviewed?: Yes Patient Discharge Instructions ACTIVITY: Ambulate as tolerated DIET: continue same diet Patient Instructions: Recommendations to Help Prevent High Blood Pressure, DI for Anxiety -- Adult, DI for Palpitations Providers Primary Care Provider: Jai Pierre Admit Provider: Bebo Siegel Attending Provider: Bebo Siegel
--- NOTE | 2023-12-07 12:45 | SW/DCPLANNER ---
Follow up phone call w/ this patient: patient stated that she is doing well at home at this time. Patient did not have any further questions/needs.
== END 2023-12-06 14:50 | disposition home or self-care (01) ==
LOC: ER 12-06 03:11 → 2ND 12-06 03:24
PROVIDERS: Nurse Practitioner Family; Admitting Provider Internal Medicine Adolescent Medicine; Emergency Provider Emergency Medicine; PCP Family Medicine; Visit Provider Internal Medicine Adolescent Medicine
DX: I50.32 Chronic diastolic (congestive) heart failure (principal); I11.0 Hypertensive heart disease with heart failure; I25.10 Atherosclerotic heart disease of native coronary artery without angina pectoris; J44.9 Chronic obstructive pulmonary disease, unspecified; Z95.0 Presence of cardiac pacemaker; I48.20 Chronic atrial fibrillation, unspecified; I49.5 Sick sinus syndrome; I25.2 Old myocardial infarction; Z79.899 Other long term (current) drug therapy
CPT/HCPCS: 71046; 80053; 83735; 83880; 84484; 85025; 93005; 93306; 97163; 97166; 99285; G0378

== ENCOUNTER 2023-12-13 07:37 | Day surgery (SDC) | payer MEDICARE, MEDICAID, SELFPAY ==
[2023-12-13] VITALS (26 sets, daily range): BP systolic 82–159; BP diastolic 50–82; PULSE 62–73; RESP 16–19; TEMP 37.1; O2SAT 92–98; BMI 27.4
--- NOTE | 2023-12-13 07:13 | IR_ITS ---
APPROVED REPORT Patient Location: Outpatient Spray Technician: AURELIA Young RT (R) PROCEDURES Left heart catheterization Left ventriculogram Selective coronary angiogram INDICATION New onset cardiomyopathy ejection fraction 20% Informed consent was obtained prior to the procedure. COMPLICATIONS NONE Estimated Blood Loss: LESS THAN 10 ML TECHNIQUE One percent lidocaine was used to anesthetize the right groin. The right femoral artery was accessed via the Seldinger technique. A 4-[place] sheath was placed in the right femoral artery. The JL-4 and JR-4 catheter was also used to perform left heart catheterization left ventriculogram and selective coronary angiogram. At the end of the procedure the patient was transferred to the post-op holding area in stable condition for arterial sheath removal. ANGIOGRAPHIC RESULTS The left main artery Has an ostial proximal mid and distal stent which is widely patent free of in-stent restenosis with excellent proximal distal transitioning The left anterior descending artery Has proximal calcified 30 to 40% stenoses. The midportion is widely patent with mild atheromatous plaque with excellent BETH-3 flow The circumflex artery Is nondominant with proximal smooth 20 to 30% stenosis The right coronary artery Is a dominant vessel with an ostial stent which is widely patent free of in-stent restenosis. The remaining vessel has mild diffuse calcific 10 to 20% stenoses The RIDLEY ventriculogram reveals Ejection fraction 40 to 45% during ventricular ectopy The left ventricular end-diastolic pressure 15 mmHg IMPRESSION Widely patent stents as described above Reduced ejection fraction suggestive of pacemaker induced cardiomyopathy. Interrogation of pacemaker is warranted. Patient is a likely candidate for SOIL EXPERT P/D PLAN 1. Evaluate patient for SOIL EXPERT-D/P 2. Risk factor modification 3. Standard therapy for ischemic heart disease Electronically signed by : Lonnie Hollingsworth MD 12/13/2023 10:55:42
[2023-12-13 08:07] LABS: Basophils % 0.7 % (0.1-2.0); Eosinophils # 0.1 K/mm3 (0.0-0.4); Eosinophils % 2.1 % (0.1-12.0); Hemoglobin 11.5 g/dL (12.2-16.2); Lymphocytes # 1.7 K/mm3 (0.7-4.5); Mean Platelet Volume 8.3 fl (7.4-10.4); Monocytes # 0.3 K/mm3 (0.1-1.0); Neutrophils # 3.2 K/mm3 (1.8-7.8); Neutrophils % 59.3 % (37.0-80.0); Platelet Count 210 K/mm3 (142-424); Red Blood Count 3.61 M/mm3 (4.20-5.40); Red Cell Distribution Width 13.9 % (11.5-17.5); White Blood Count 5.4 K/mm3 (4.8-10.8)
[2023-12-13 08:13] LABS: Chloride 106 mmol/L (98-107)
[2023-12-13 08:14] LABS: Potassium 3.8 mmoL/L (3.5-5.1); Sodium 139 mmol/L (136-145)
[2023-12-13 08:16] LABS: Blood Urea Nitrogen 19 mg/dl (7-17); Creatinine Clearance Estimated 50 mL/min (50-200); Estimated Glomerular Filt Rate 53 ml/min (>60); GFR (African American) 64 ML/MIN (>60)
[2023-12-13 08:17] LABS: Anion Gap 9.8 mEq/L (5-15); Calcium 8.5 mg/dl (8.4-10.2); Carbon Dioxide 27 mmol/L (22.0-30.0); Glucose 104 mg/dl (74-100)
[2023-12-13] MEDS: NITROGLYCERIN 800MCG/8ML SYR (CATH LAB) 800 MCG IA (10:22)
[2023-12-13] MEDS: LIDOCAINE 1% 10ML MDV 20 ML IJ (10:22)
[2023-12-13] MEDS: HEPARIN 1,000 UNITS/500ML NS (CATH LAB) 3000 UNIT IV (10:22)
[2023-12-13] MEDS: VERAPAMIL 2.5MG/ML 2ML VIAL 2.5 MG IV (10:22)
[2023-12-13] MEDS: diphenhydrAMINE 50MG/ML VIAL 50 MG IV (10:22)
[2023-12-13] MEDS: 0.9 % SODIUM CHLORIDE 500 ML 25 ML IV (10:23)
[2023-12-13] MEDS: MIDAZOLAM HCL 1MG/1ML 5ML VIAL 1 MG IV (10:53)
[2023-12-13] MEDS: HEPARIN 1,000 UNITS/ML 10ML VIAL (CATH LAB) 10000 UNIT IV (10:54)
[2023-12-13] MEDS: FENTANYL 100MCG/2ML VIAL 50 MCG IV (10:54)
[2023-12-13] MEDS: PROTAMINE SULFATE 50MG/5ML VIAL (CATH LAB) 50 MG IV (11:01)
[2023-12-13] MEDS: IOPAMIDOL-370 (76%);100ML BOTTLE 60 ML IV (11:27)
[2023-12-13 11:41] LABS: CATHL Activated Clotting Time 161 SEC (74-125)
[2023-12-13 11:41] LABS: CATHL Activated Clotting Time 295 SEC (74-125)
== END 2023-12-13 15:20 | disposition home or self-care (01) ==
PROVIDERS: PCP Family Medicine; Visit Provider Internal Medicine
DX: I25.5 Ischemic cardiomyopathy; I25.10 Atherosclerotic heart disease of native coronary artery without angina pectoris; Z95.0 Presence of cardiac pacemaker; I11.0 Hypertensive heart disease with heart failure; I50.32 Chronic diastolic (congestive) heart failure; I48.0 Paroxysmal atrial fibrillation; J44.9 Chronic obstructive pulmonary disease, unspecified; E78.5 Hyperlipidemia, unspecified; I25.2 Old myocardial infarction; I49.5 Sick sinus syndrome; Z79.899 Other long term (current) drug therapy
CPT/HCPCS: 80048; 85025; 85347; 93458; 99152; C1725; C1769; J1644; J2720; Q9967

== ENCOUNTER 2024-03-05 07:27 | Outpatient (CLI) | payer MEDICARE, MEDICAID, SELFPAY ==
--- NOTE | 2024-03-05 | CA_ITS ---
APPROVED REPORT EXAM: Limited 2D Echocardiogram Banquet Lead: Na Su CRT Ht: 5 ft 1 in Wt: 125lbs BSA: 1.55 BP: 144/68 mmHg Indications: Atrial Fibrillation I48.0, copd, ef 40-45% 24 M-Mode Dimensions RVDd 3.04 cm (0.9-2.6) LA Diam 4.30 cm (1.9-4.0) LVDd 5.22 cm (3.5-5.7) LVDs 3.64 cm (3.5-5.7) IVSd 1.32 cm (0.6-1.1) PWd 0.57 cm (0.6-1.1) EF (Teich) 57.20% FS 30.30% EDV (Teich) 130.70 mL ESV (Teich) 55.90 mL Other Information Study Quality: Fair Conclusion This is a limited TTE to evaluate for LVEF. Limited windows were obtained. The left ventricle is normal in size. There is normal LV wall thickness. The left ventricle systolic function is mildly reduced. There is mild global hypokinesis present. LVEF is 45%. The right ventricle is grossly normal in size and function. Trivial pericardial effusion is present. No echo indications of tamponade. There is a prior study from 11/2023, the LVEF appears unchanged. The RV size and function are improved. Electronically signed by : Shavonne Salinas MD 03/07/2024 12:25:39
== END 2024-03-05 23:59 | disposition home or self-care (01) ==
LOC: RT 07:27
PROVIDERS: PCP Family Medicine; Visit Provider Physician Assistant
DX: I25.10 Atherosclerotic heart disease of native coronary artery without angina pectoris (principal); I48.91 Unspecified atrial fibrillation
CPT/HCPCS: 93308

== ENCOUNTER 2024-06-21 08:17 | Outpatient (CLI) | payer MEDICARE, MEDICAID, SELFPAY ==
--- NOTE | 2024-06-21 08:28 | XR_ITS ---
FINAL REPORT CLINICAL HISTORY: Left knee pain COMPARISON: None FINDINGS: LEFT KNEE 3 views of the left knee were obtained. There is no acute fracture or dislocation. There is mild medial compartment and patellofemoral joint space narrowing consistent with osteoarthritis. The bones are osteopenic. Soft tissues are unremarkable. IMPRESSION: Osteoarthritic changes. Reviewed, Interpreted and Dictated by Oz Meade MD Transcribed by Jennifer Callaway Authenticated and [facility]
== END 2024-06-21 23:59 | disposition home or self-care (01) ==
LOC: RAD 08:18
PROVIDERS: PCP Family Medicine; Visit Provider Physician Assistant Surgical
DX: M25.562 Pain in left knee (principal)
CPT/HCPCS: 73562

== ENCOUNTER 2024-10-04 17:04 | Emergency (ER) | payer MEDICARE, MEDICAID, SELFPAY ==
[2024-10-04 17:30] VITALS: BP 134/55; PULSE 71; RESP 18; TEMP 36.9; O2SAT 96; BMI 28.5
--- NOTE | 2024-10-04 17:55 | EXP.UTC ---
Discharge Plan Disposition Patient Disposition: Home, Self-Care Condition: Good Prescriptions Prescriptions: New lidocaine 4 % adhesive patch,medicated 1 patch topical DAILY PRN (Reason: pain) Qty: 15 0RF Rx Instructions: Apply to most painful area for 12 hours then remove for 12 hours No Action isosorbide mononitrate 30 mg tablet extended release 24 hr 30 mg PO DAILY Qty: 90 1RF bisoprolol fumarate 10 mg tablet See Rx Instructions .ROUTE .COMPLEX Qty: 30 5RF Dose Instruction: TAKE 1 TABLET BY MOUTH ONCE DAILY Rx Instructions: TAKE 1 TABLET BY MOUTH ONCE DAILY Eliquis 5 mg tablet See Rx Instructions .ROUTE .COMPLEX Qty: 180 3RF Dose Instruction: TAKE ONE TABLET BY MOUTH TWICE A DAY Rx Instructions: TAKE ONE TABLET BY MOUTH TWICE A DAY Entresto 97-103 mg tablet 1 tab PO BID albuterol sulfate 90 mcg/actuation HFA aerosol inhaler 2 puff INHALATION Q6H PRN (Reason: Shortness Of Breath) amlodipine 5 mg tablet 5 mg PO DAILY Referrals Follow up/Referrals: Jai Linares MD [Primary Care Provider] - See instructions Activity Restrictions/Add. Instructions Additional Instructions/Restrictions: Try taking medication on a full stomach Over the counter Muscle rubs may help also, make sure to speak with pharmacist so you do not get one that contains asprin Warm compresses may help with muscle pain Use topical lidocaine patches as prescribed Follow up with your Family Doctor if no improvement or any worsening of symptoms Straight to ER if any life threatening symptoms Clinical Impressions Clinical Impression: Back pain Instructions Patient Instructions: Lidocaine Transdermal Patch, DI for Muscle Spasm Print Language Print Language: Russian Discharge ED Provider: Sarah Traylor [facility] HPI General Stated complaint: lower back pain Mode of Arrival: Ambulatory Source of Information: Patient Time Seen by Provider: 10/04/24 17:55 Description of Symptoms (Recalled from Triage Doc. by RN): HURT UPPER BACK 5 DAYS AGO CLEANING THE HOUSE AND WENT TO DR. LINARES WHO GAVE HER A STERIOD SHOT AND TRAMADOL 50MG BUT SAYS IT MAKES HER VOMIT. BURNING IN UPPER SHOULDER/RIB CAGE AREA WHEN TILTING TO THE SIDE HEENT Symptoms (Recalled from RN notes): No Resp Symptoms (Recalled from RN notes): No Skin Symptoms (Recalled from RN notes): No MS Symptoms (Recalled from RN notes): Yes Functional Status (Recalled from RN notes): WNL History of Present Illness Provider Complaint: Patient state that she was mopping at home about 5 days ago and pulled a muscle in her back States that she seen her PCP and they give her a steriod shot and some pain medication but the medication makes her sick at her stomach and she vomits States that she wanted to come in and see if there was something else she could use to help her since she cant take the pain medication and cant take muscle relaxers because they make her crazy Related Data Home Medications ?Medication ?Instructions ?Recorded ?Confirmed sacubitril 97 mg-valsartan 103 mg 1 tab PO BID 04/15/23 10/04/24 tablet (Entresto) albuterol sulfate 90 mcg/actuation 2 puff inhalation Q6H PRN 11/17/23 08/28/24 aerosol inhaler Shortness Of Breath amlodipine 5 mg tablet 5 mg PO DAILY 12/06/23 10/04/24 Previous Rx's ?Medication ?Instructions ?Recorded isosorbide mononitrate 30 mg 30 mg PO DAILY Hypertension #90 09/12/23 tablet,extended release 24 hr tabs bisoprolol fumarate 10 mg tablet See Rx Instructions .Route 12/06/23 .COMPLEX #30 tabs apixaban 5 mg tablet (Eliquis) See Rx Instructions .Route 09/27/24 .COMPLEX #180 tabs lidocaine 4 % topical patch 1 patch topical DAILY PRN pain #15 10/04/24 ea Allergies Allergy/AdvReac Type Severity Reaction Status Date / Time levofloxacin (From LEVAQUIN) Allergy Unknown MAKES SICK Verified 08/28/24 08:28 tetracycline (TETRACYCLINE) Allergy Unknown SWELLING, Verified 08/28/24 08:28 ITCHING aspirin AdvReac Intermediate Verified 08/28/24 08:28 Worker's Comp Is this a Worker's Comp case?: No [facility] Disclaimer: The information contained in this section may have been updated after the patient was seen, as this information can be updated by other users. Medical History HFrEF (heart failure with reduced ejection fraction) Heart failure with improved ejection fraction (HFimpEF) Pacemaker EARLE (acute kidney injury) Heart palpitations Chest discomfort Presence of permanent cardiac pacemaker Lung cancer Sick sinus syndrome Chronic respiratory failure with hypoxia CHF (congestive heart failure) Atrial fibrillation Sick sinus syndrome History of lung cancer Gallbladder disease Atrial fibrillation Acute infective cystitis COVID Respiratory failure with hypoxia Community acquired pneumonia Carotid artery stenosis Hyperlipidemia Typical angina Ischemic cardiomyopathy Paroxysmal atrial fibrillation Non-ST elevation [place] (NSTEMI) COPD (chronic obstructive pulmonary disease) Anemia Influenza Pneumonia Lower lobe and right middle lobe CAD (coronary artery disease) HTN (hypertension) Breast cancer Surgical History History of surgery on upper extremity rods in place History of left hip hemiarthroplasty Status post placement of cardiac pacemaker Hx of pneumonectomy History of cholecystectomy Stented coronary artery Family History Other Family history of myocardial infarction Lung cancer Social History Smoking Status: Former smoker tobacco type: cigarettes packs per day: 1 smoking status start date: 1960 how long ago did patient quit smokin years ago second hand exposure: No alcohol intake: never substance use type: denies use current occupational status: retired Travel in the last 8 weeks: None household members: other housing: house lives independently: No marital status: current occupational exposures/hazards: No 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) ROS Obtained: Yes All systems reviewed & no additional complaints except as documented and Yes Systems reviewed as appropriate & no additional complaints except as documented Constitutional Constitutional: Reports system reviewed and no additional complaints, except as documented and Reports as per HPI ENT Ears, Nose, Mouth, and Throat: Reports system reviewed and no additional complaints, except as documented and Reports as per HPI Cardiovascular Cardiovascular: Reports system reviewed and no additional complaints, except as documented and Reports as per HPI Respiratory Respiratory: Reports system reviewed and no additional complaints, except as documented and Reports as per HPI Gastrointestinal Gastrointestingal: Reports system reviewed and no additional complaints, except as documented and as per HPI Musculoskeletal Musculoskeletal: Reports system reviewed and no additional complaints, except as documented, Reports as per HPI and Reports back pain (muscle spasm pain in right mid back area) Physical Exam General General appearance: alert and in no apparent distress Respiratory Respiratory exam: Present normal lung sounds bilaterally; Absent respiratory distress or wheezes Cardiovascular Cardiovascular exam: Present regular rate, normal rhythm and normal heart sounds Back Exam Back exam: Present tenderness and muscle spasm Back 1 view image: 1. reports spasm like feeling worse with movement Denies loss of control of bowel or bladder denies falling Neurological Exam Neurological exam: Present alert, oriented X3 and normal gait Medical Decision Making Medical Records Screening: Per USPSTF and CDC recommendations, given the prevalence of disease in our region, it is our hospital?s policy to screen for HIV and viral Hepatitis for all patients aged 18 and over and those with ongoing risk factors. Bryn Inquiry Pt receiving controlled substance: No Bryn was queried for this patient: No Vital Signs: 10/04/24 17:30 Temperature 98.5 F Temperature Source Oral Pulse Rate [Left Radial] 71 Respiratory Rate 18 Blood Pressure [Left Arm] 134/55 L Blood Pressure Mean [Left Arm] 81 02 Sat by Pulse Oximetry 96 Medical Decision Narrative: Discussed xray and patient declined Discussed muscle relaxer and patient states that they make her crazy will try Lidocaine patch and have patient follow up with PCP if no improvement
[2024-10-04] MEDS: LIDOCAINE 5% TRANSDERMAL PATCH 1 EACH TP (18:10)
[2024-10-04 18:15] VITALS: BP 134/55; PULSE 71; RESP 18; TEMP 36.9
== END 2024-10-04 18:19 | disposition home or self-care (01) ==
PROVIDERS: Emergency Provider Nurse Practitioner; PCP Family Medicine
DX: M54.50 Low back pain, unspecified (principal)
CPT/HCPCS: 99213; G0381

== ENCOUNTER 2024-10-06 12:46 | Emergency (ER) | payer MEDICARE, MEDICAID, SELFPAY ==
[2024-10-06 12:47] VITALS: BP 110/71; PULSE 70; RESP 18; TEMP 36.8; O2SAT 95; BMI 28.5
--- NOTE | 2024-10-06 13:00 | ED_ITS ---
Discharge Plan Disposition Patient Disposition: Home, Self-Care Prescriptions Prescriptions: New ondansetron 4 mg tablet,disintegrating 4 mg PO Q6H PRN (Reason: nausea and vomiting) Qty: 14 0RF No Action isosorbide mononitrate 30 mg tablet extended release 24 hr 30 mg PO DAILY Qty: 90 1RF bisoprolol fumarate 10 mg tablet See Rx Instructions .ROUTE .COMPLEX Qty: 30 5RF Dose Instruction: TAKE 1 TABLET BY MOUTH ONCE DAILY Rx Instructions: TAKE 1 TABLET BY MOUTH ONCE DAILY Eliquis 5 mg tablet See Rx Instructions .ROUTE .COMPLEX Qty: 180 3RF Dose Instruction: TAKE ONE TABLET BY MOUTH TWICE A DAY Rx Instructions: TAKE ONE TABLET BY MOUTH TWICE A DAY lidocaine 4 % adhesive patch,medicated 1 patch topical DAILY PRN (Reason: pain) Qty: 15 0RF Rx Instructions: Apply to most painful area for 12 hours then remove for 12 hours Entresto 97-103 mg tablet 1 tab PO BID albuterol sulfate 90 mcg/actuation HFA aerosol inhaler 2 puff INHALATION Q6H PRN (Reason: Shortness Of Breath) amlodipine 5 mg tablet 5 mg PO DAILY Referrals Follow up/Referrals: Jai Pierre MD [Primary Care Provider] - See instructions Activity Restrictions/Add. Instructions Additional Instructions/Restrictions: Continue pain regiment at home as previously prescribed. Use Zofran as needed for nausea and vomiting. Follow-up with primary care doctor. Clinical Impressions Clinical Impression: Muscle strain Print Language Print Language: Macanese Discharge ED Provider: Manjeet Parikh General Adult HPI General Chief complaint: PAIN Stated complaint: Pain R side back Time Seen by Provider: 10/06/24 12:52 Mode of Arrival: Ambulatory Source of Information: Patient and Spouse Limitations: No Limitations History of Present Illness HPI narrative: This is an 84-year-old female with a history of CHF and hypertension, A-fib on Eliquis, who presents with right sided back pain. States that she was mopping 1 week ago and strained a muscle in her back. Denies any other new injuries. States that she has had persistent back pain despite treatment at home with Tylenol, lidocaine patches, and tramadol. States that the tramadol makes her sick so she does not want to continue to take it. States that she cannot have muscle relaxers because they make her crazy. No other new complaints. Denies any urinary symptoms. Related Data Home Medications ?Medication ?Instructions ?Recorded ?Confirmed sacubitril 97 mg-valsartan 103 mg 1 tab PO BID 04/15/23 10/04/24 tablet (Entresto) albuterol sulfate 90 mcg/actuation 2 puff inhalation Q6H PRN 11/17/23 08/28/24 aerosol inhaler Shortness Of Breath amlodipine 5 mg tablet 5 mg PO DAILY 12/06/23 10/04/24 Previous Rx's ?Medication ?Instructions ?Recorded isosorbide mononitrate 30 mg 30 mg PO DAILY Hypertension #90 09/12/23 tablet,extended release 24 hr tabs bisoprolol fumarate 10 mg tablet See Rx Instructions .Route 12/06/23 .COMPLEX #30 tabs apixaban 5 mg tablet (Eliquis) See Rx Instructions .Route 09/27/24 .COMPLEX #180 tabs lidocaine 4 % topical patch 1 patch topical DAILY PRN pain #15 10/04/24 ea ondansetron 4 mg disintegrating 4 mg PO Q6H PRN nausea and 10/06/24 tablet vomiting #14 tabs Allergies Allergy/AdvReac Type Severity Reaction Status Date / Time levofloxacin (From LEVAQUIN) Allergy Unknown MAKES SICK Verified 08/28/24 08:28 tetracycline (TETRACYCLINE) Allergy Unknown SWELLING, Verified 08/28/24 08:28 ITCHING aspirin AdvReac Intermediate Verified 08/28/24 08:28 [facility] Disclaimer: The information contained in this section may have been updated after the patient was seen, as this information can be updated by other users. Medical History HFrEF (heart failure with reduced ejection fraction) Heart failure with improved ejection fraction (HFimpEF) Pacemaker EARLE (acute kidney injury) Heart palpitations Chest discomfort Presence of permanent cardiac pacemaker Lung cancer Sick sinus syndrome Chronic respiratory failure with hypoxia CHF (congestive heart failure) Atrial fibrillation Sick sinus syndrome History of lung cancer Gallbladder disease Atrial fibrillation Acute infective cystitis COVID Respiratory failure with hypoxia Community acquired pneumonia Carotid artery stenosis Hyperlipidemia Typical angina Ischemic cardiomyopathy Paroxysmal atrial fibrillation Non-ST elevation [place] (NSTEMI) COPD (chronic obstructive pulmonary disease) Anemia Influenza Pneumonia Lower lobe and right middle lobe CAD (coronary artery disease) HTN (hypertension) Breast cancer Surgical History History of surgery on upper extremity rods in place History of left hip hemiarthroplasty Status post placement of cardiac pacemaker Hx of pneumonectomy History of cholecystectomy Stented coronary artery Family History Other Family history of myocardial infarction Lung cancer Social History Smoking Status: Never smoker smoking status start date: 1960 how long ago did patient quit smokin years ago second hand exposure: No alcohol intake: never substance use type: denies use current occupational status: retired Travel in the last 8 weeks: None household members: other housing: house lives independently: No marital status: current occupational exposures/hazards: No 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) Other Medical History Have you received the Flu Vaccine for this season: No Have you received the Pneumonia Vaccine: Yes ROS Obtained: Yes All systems reviewed & no additional complaints except as documented Physical Exam General General appearance: alert and in no apparent distress Eye Eye exam: Present normal appearance, PERRL and EOMI Respiratory Respiratory exam: Present normal lung sounds bilaterally; Absent respiratory distress Cardiovascular Cardiovascular exam: Present regular rate and normal rhythm Abdominal Exam Abdominal exam: Present soft and distention; Absent tenderness, guarding or rebound Extremities Exam Extremities exam: Present normal inspection Back Exam Comment: Tenderness to paraspinal musculature in the mid thoracic area on the right side Neurological Exam Neurological exam: Present alert and oriented X3 Skin Skin exam: Present warm and dry Medical Decision Making Medical Records Medical records reviewed: Yes I reviewed the patient's medical records. Screening: Per USPSTF and CDC recommendations, given the prevalence of disease in our region, it is our hospital?s policy to screen for HIV and viral Hepatitis for all patients aged 18 and over and those with ongoing risk factors. Bryn Inquiry Pt receiving controlled substance: No Vital Signs: 10/06/24 12:47 10/06/24 13:02 Temperature 98.2 F 98.2 F Temperature Source Oral Pulse Rate 70 Pulse Rate [Right] 70 Respiratory Rate 18 18 Blood Pressure 110/71 Blood Pressure [Right Arm] 110/71 Blood Pressure Mean [Right Arm] 84 02 Sat by Pulse Oximetry 95 Oxygen Delivery Method Room Air Orders (Tests/Meds): ED MEDICATIONS Discontinued Medications Generic Name Dose Route Start Last Admin Trade Name Freq PRN Reason Stop Dose Admin Ondansetron HCl 4 mg 10/06/24 12:58 10/06/24 13:02 Ondansetron 4mg Odt SL 10/06/24 12:59 4 mg ONCE ONE Administration Medical Decision Narrative: In summary, this 84-year-old female with a history of heart failure and hyperten tara presents to the emergency department today with atraumatic right back pain that began 1 week ago while mopping. On initial evaluation patient is patient in no acute distress, ambulatory, no focal neurological deficits, no red flag symptoms for back pain. Differential diagnosis includes but is not limited to musculoskeletal injury, compression fracture, kidney stone. Clinical presentation was most consistent with a muscle strain given the area of patient's tenderness, absence of urinary symptoms, and onset of symptoms while doing house chores. Patient was already taking Tylenol, using lidocaine patches, and previously prescribed tramadol during a previous visit. She stated the tramadol made her sick and that she did not like to take it. Did not want anything stronger such as oxycodone and stated that she could not tolerate muscle relaxers, regardless of the formulation. Discussed that this significantly limited the therapies that we could offer the patient in the setting of her muscle strain given that she was on Eliquis and could not take NSAIDs either. Offered the patient Zofran to help her tolerate the tramadol which she accepted. No other indications for diagnostic workup at this time. Patient ambulatory and ultimately discharged in stable condition with a prescription for Zofran. Critical Care Critical Care Time Critical Care Time: No
[2024-10-06 13:02] VITALS: BP 110/71; PULSE 70; RESP 18; TEMP 36.8; O2SAT 95
[2024-10-06] MEDS: ONDANSETRON 4MG ODT 4 MG SL (13:02)
== END 2024-10-06 13:07 | disposition home or self-care (01) ==
PROVIDERS: Emergency Provider Student in an Organized Health Care Education/Training Program; PCP Family Medicine
DX: M54.9 Dorsalgia, unspecified (principal); T14.8XXA Other injury of unspecified body region, initial encounter; X50.0XXA Overexertion from strenuous movement or load, initial encounter; Y93.E5 Activity, floor mopping and cleaning; Y92.009 Unspecified place in unspecified non-institutional (private) residence as the place of occurrence of the external cause
CPT/HCPCS: 99283; Q0162

== ENCOUNTER 2024-10-15 16:08 | Emergency (ER) | payer MEDICARE, MEDICAID, SELFPAY ==
[2024-10-15] VITALS (9 sets, daily range): BP systolic 104–129; BP diastolic 48–74; PULSE 66–76; RESP 16–18; TEMP 36.6–36.7; O2SAT 90–97; BMI 28.5
--- NOTE | 2024-10-15 16:11 | CT_ITS ---
PROCEDURE INFORMATION: Exam: CTA Abdomen and Pelvis With Contrast Exam date and time: 10/15/2024 6:52 PM Age: 84 years old Clinical indication: Other: Gen abd pain, nausea/vom, coffee emesis TECHNIQUE: Imaging protocol: Computed tomographic angiography of the abdomen and pelvis with contrast. Exam focused on the arteries. 3D rendering (Not supervised by radiologist): MIP and/or 3D reconstructed images were created by the technologist. Radiation optimization: All CT scans at this facility use at least one of these dose optimization techniques: automated exposure control; mA and/or kV adjustment per patient size (includes targeted exams where dose is matched to clinical indication); or iterative reconstruction. Contrast material: ISOVUE 370; Contrast volume: 80 ml; Contrast route: INTRAVENOUS (IV); COMPARISON: CT [facility] PELVIS 11/24/2022 6:27 PM FINDINGS: Aorta: No aortic aneurysm. No aortic dissection. Celiac trunk and mesenteric arteries: No occlusion or significant stenosis. Renal arteries: No occlusion or significant stenosis. Right iliac arteries: No occlusion or significant stenosis. Left iliac arteries: No occlusion or significant stenosis. Liver: The liver appears within normal limits. Gallbladder and biliary ducts: The common bile duct is dilated to approximately 14 mm near the gabriella hepatis. However it tapers normally towards the ampulla. This dilation is felt to be within the range of normal and related to reservoir effect from prior cholecystectomy. Pancreas: The pancreas is normal. Spleen: The spleen is normal. Adrenal glands: The adrenal glands appear within normal limits. Kidneys and ureters: The kidneys are normal. Stomach and bowel: The stomach appears within normal limits. No wall thickening or inflammatory change. Mild bowel wall edema within the distal transverse and descending colon extending down to the upper sigmoid colon region consistent with mild acute colitis. Numerous sigmoid diverticula identified. Appendix: No evidence of appendicitis. Intraperitoneal space: No free air. No evidence for focal fluid collection or ascites. No evidence for omental thickening. Lymph nodes: Unremarkable. No pathologically enlarged lymph nodes are identified. Unremarkable. No pathologically enlarged lymph nodes are identified. Urinary bladder: The bladder appears within normal limits. No wall thickening. Reproductive: The uterus and adnexal structures appear normal. Bones/joints: Grade 1 degenerative anterolisthesis identified at L5. mild old compression fracture at the level of T12. Subacute versus chronic fracture at the level of T9 with about 50% vertebral body height loss.. Correlate for back pain. A follow-up MRI could be performed to distinguish . Soft tissues: The visualize subcutaneous soft tissues and abdominal wall and flank wall appear unremarkable. IMPRESSION: 1. Mild bowel wall edema within the distal transverse and descending colon extending down to the upper sigmoid colon region consistent with mild acute colitis. 2. Numerous sigmoid diverticula identified. 3. Subacute versus chronic fracture at the level of T9 with about 50% vertebral body height loss.. Correlate for back pain. A follow-up MRI could be performed to distinguish .
--- NOTE | 2024-10-15 16:13 | ED_ITS ---
Discharge Plan Disposition Patient Disposition: Home, Self-Care Condition: Good Prescriptions Prescriptions: New sennosides [senna] 8.6 mg tablet 8.6 mg PO HS PRN (Reason: constipation) Qty: 30 0RF polyethylene glycol 3350 [Miralax] 17 gram/dose powder 17 g PO DAILY Qty: 510 0RF No Action isosorbide mononitrate 30 mg tablet extended release 24 hr 30 mg PO DAILY Qty: 90 1RF bisoprolol fumarate 10 mg tablet See Rx Instructions .ROUTE .COMPLEX Qty: 30 5RF Dose Instruction: TAKE 1 TABLET BY MOUTH ONCE DAILY Rx Instructions: TAKE 1 TABLET BY MOUTH ONCE DAILY Eliquis 5 mg tablet See Rx Instructions .ROUTE .COMPLEX Qty: 180 3RF Dose Instruction: TAKE ONE TABLET BY MOUTH TWICE A DAY Rx Instructions: TAKE ONE TABLET BY MOUTH TWICE A DAY lidocaine 4 % adhesive patch,medicated 1 patch topical DAILY PRN (Reason: pain) Qty: 15 0RF Rx Instructions: Apply to most painful area for 12 hours then remove for 12 hours ondansetron 4 mg tablet,disintegrating 4 mg PO Q6H PRN (Reason: nausea and vomiting) Qty: 14 0RF Entresto 97-103 mg tablet 1 tab PO BID albuterol sulfate 90 mcg/actuation HFA aerosol inhaler 2 puff INHALATION Q6H PRN (Reason: Shortness Of Breath) amlodipine 5 mg tablet 5 mg PO DAILY Referrals Follow up/Referrals: Jai Pierre MD [Primary Care Provider] - See instructions Activity Restrictions/Add. Instructions Additional Instructions/Restrictions: You were evaluated in the emergency department today. Your CT scan is concerning for mild colitis, but your labs are reassuring. For your constipation, you were given an enema as well as laxatives. We are also sending you home with prescription for laxatives. Please follow-up with your primary care provider over the next 48 hours. Return to the emergency department right away for new or worsening symptoms, such as fever greater than 100.4 ?F, significant worsening in abdominal pain, intractable nausea and vomiting, or other concerns. Please note that you did not provide a urine sample, so we were not able to rule out urinary tract infection at this time. You were found to have a T9 fracture, which is a closed fracture of your spine. It looks like it is old on scan and does not appear to be new. Please follow-up close with your primary care provider for this as well. Clinical Impressions Clinical Impression: Constipation, Colitis, Closed fracture of T9 vertebra Instructions Patient Instructions: DI for Constipation, DI for Acute Abdominal Pain, DI for Colitis Print Language Print Language: Surinamese Discharge ED Provider: Malini Dunaway General Adult HPI General Chief complaint: Abdominal Pain Stated complaint: ABD Pain Time Seen by Provider: 10/15/24 16:10 History of Present Illness HPI narrative: This patient is an 84-year-old female with a history of hypertension, hyperlipidemia, CAD, CHF, atrial fibrillation on Eliquis, prior cholecystectomy presenting to the emergency department for evaluation with concern for lower abdominal pain, nausea, and vomiting. Patient notes that she has not had a bowel movement in 5 days and is not sure if she is passing gas or not. No prior history of bowel obstructions, but she has had prior history of cholecystectomy. No fevers, chills, urinary symptoms, chest pain, shortness of breath, or other concerns noted. She arrives by EMS who noted that they witnessed coffee-ground emesis and give the patient 4 mg of IV Zofran prior to arrival. Patient hemodynamically stable en route Related Data Home Medications ?Medication ?Instructions ?Recorded ?Confirmed sacubitril 97 mg-valsartan 103 mg 1 tab PO BID 04/15/23 10/04/24 tablet (Entresto) albuterol sulfate 90 mcg/actuation 2 puff inhalation Q6H PRN 11/17/23 08/28/24 aerosol inhaler Shortness Of Breath amlodipine 5 mg tablet 5 mg PO DAILY 12/06/23 10/04/24 Previous Rx's ?Medication ?Instructions ?Recorded isosorbide mononitrate 30 mg 30 mg PO DAILY Hypertension #90 09/12/23 tablet,extended release 24 hr tabs bisoprolol fumarate 10 mg tablet See Rx Instructions .Route 12/06/23 .COMPLEX #30 tabs apixaban 5 mg tablet (Eliquis) See Rx Instructions .Route 09/27/24 .COMPLEX #180 tabs lidocaine 4 % topical patch 1 patch topical DAILY PRN pain #15 10/04/24 ea ondansetron 4 mg disintegrating 4 mg PO Q6H PRN nausea and 10/06/24 tablet vomiting #14 tabs polyethylene glycol 3350 17 17 g PO DAILY #510 grams 10/15/24 gram/dose oral powder (Miralax) sennosides 8.6 mg tablet (senna) 8.6 mg PO HS PRN constipation #30 10/15/24 tabs Allergies Allergy/AdvReac Type Severity Reaction Status Date / Time levofloxacin (From LEVAQUIN) Allergy Unknown MAKES SICK Verified 08/28/24 08:28 tetracycline (TETRACYCLINE) Allergy Unknown SWELLING, Verified 08/28/24 08:28 ITCHING aspirin AdvReac Intermediate Verified 08/28/24 08:28 [facility] Disclaimer: The information contained in this section may have been updated after the patient was seen, as this information can be updated by other users. Medical History HFrEF (heart failure with reduced ejection fraction) Heart failure with improved ejection fraction (HFimpEF) Pacemaker EARLE (acute kidney injury) Heart palpitations Chest discomfort Presence of permanent cardiac pacemaker Lung cancer Sick sinus syndrome Chronic respiratory failure with hypoxia CHF (congestive heart failure) Atrial fibrillation Sick sinus syndrome History of lung cancer Gallbladder disease Atrial fibrillation Acute infective cystitis COVID Respiratory failure with hypoxia Community acquired pneumonia Carotid artery stenosis Hyperlipidemia Typical angina Ischemic cardiomyopathy Paroxysmal atrial fibrillation Non-ST elevation NH (NSTEMI) COPD (chronic obstructive pulmonary disease) Anemia Influenza Pneumonia CAD (coronary artery disease) HTN (hypertension) Breast cancer Surgical History History of surgery on upper extremity History of left hip hemiarthroplasty Status post placement of cardiac pacemaker Hx of pneumonectomy History of cholecystectomy Stented coronary artery Family History Other Family history of myocardial infarction Lung cancer Social History Smoking Status: Former smoker tobacco type: cigarettes packs per day: 1 smoking status start date: 1960 how long ago did patient quit smokin years ago second hand exposure: No alcohol intake: never substance use type: denies use current occupational status: retired household members: other housing: house lives independently: No marital status: current occupational exposures/hazards: No 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) Other Medical History Have you received the Flu Vaccine for this season: No Have you received the Pneumonia Vaccine: Yes ROS Obtained: Yes All systems reviewed & no additional complaints except as documented Physical Exam General General appearance: alert and in no apparent distress Head Head exam: atraumatic and normocephalic Eye Eye exam: Present normal appearance, PERRL and EOMI ENT ENT exam: Present normal exam, normal oropharynx, mucous membranes moist and normal external ear exam Neck Neck exam: Present normal inspection, full ROM and trachea midline; Absent tenderness Chest Chest inspection: Present normal inspection and symmetric chest wall rise; Absent tenderness Respiratory Respiratory exam: Present normal lung sounds bilaterally; Absent respiratory distress, wheezes, stridor or accessory muscle use Cardiovascular Cardiovascular exam: Present regular rate and normal rhythm Abdominal Exam Abdominal exam: Present soft, tenderness (mild generalized) and normal bowel sounds; Absent distention, guarding, rebound or rigidity Extremities Exam Extremities exam: Present normal inspection, full ROM and normal capillary refill; Absent tenderness or edema Back Exam Back exam: Present normal inspection and full ROM; Absent tenderness Neurological Exam Neurological exam: Present alert, oriented X3, CN II-XII intact and normal gait; Absent motor sensory deficit Psychiatric Psychiatric exam: Present normal affect and normal mood Skin Skin exam: Present warm and dry Medical Decision Making Medical Records Medical records reviewed: Yes I reviewed the patient's medical records. Screening: Per USPSTF and CDC recommendations, given the prevalence of disease in our region, it is our hospital?s policy to screen for HIV and viral Hepatitis for all patients aged 18 and over and those with ongoing risk factors. Bryn Inquiry Pt receiving controlled substance: No Vital Signs: 10/15/24 16:09 10/15/24 16:30 10/15/24 17:00 Temperature 98.0 F Temperature Source Oral Pulse Rate 66 71 Pulse Rate [Right Radial] 72 Respiratory Rate 18 Blood Pressure 118/54 L 129/55 L Blood Pressure [Right Arm] 120/55 L Blood Pressure Mean [Right Arm] 76 Blood Pressure Source Blood Pressure Source [Right Arm] Automatic Cuff Blood Pressure Position Blood Pressure Position [Right Arm] Sitting 02 Sat by Pulse Oximetry 93 L 93 L 91 L Oxygen Delivery Method Room Air Room Air Room Air 10/15/24 17:30 10/15/24 17:36 10/15/24 18:00 Temperature Temperature Source Pulse Rate 68 70 67 Pulse Rate [Right Radial] Respiratory Rate 16 Blood Pressure 108/50 L 108/50 L 104/48 L Blood Pressure [Right Arm] Blood Pressure Mean [Right Arm] Blood Pressure Source Automatic Cuff Blood Pressure Source [Right Arm] Blood Pressure Position Sitting Blood Pressure Position [Right Arm] 02 Sat by Pulse Oximetry 92 L 90 L 92 L Oxygen Delivery Method Room Air Room Air Room Air 10/15/24 18:04 10/15/24 19:13 10/15/24 21:34 Temperature 98.0 F Temperature Source Oral Pulse Rate 70 70 68 Pulse Rate [Right Radial] Respiratory Rate 18 18 Blood Pressure 105/51 L 122/52 L 114/74 Blood Pressure [Right Arm] Blood Pressure Mean [Right Arm] Blood Pressure Source Automatic Cuff Automatic Cuff Blood Pressure Source [Right Arm] Blood Pressure Position Sitting Sitting Blood Pressure Position [Right Arm] 02 Sat by Pulse Oximetry 92 L 94 L Oxygen Delivery Method Room Air Room Air Room Air 10/15/24 21:34 Temperature 98 F Temperature Source Tympanic Pulse Rate 76 Pulse Rate [Right Radial] Respiratory Rate 18 Blood Pressure 119/59 L Blood Pressure [Right Arm] Blood Pressure Mean [Right Arm] Blood Pressure Source Automatic Cuff Blood Pressure Source [Right Arm] Blood Pressure Position Sitting Blood Pressure Position [Right Arm] 02 Sat by Pulse Oximetry Oxygen Delivery Method Room Air Lab Data Lab results reviewed: Yes I reviewed the patient's lab results. Lab Results 10/15/24 16:14: WBC 10.6, RBC 3.74 L, Hgb 12.0 L, Hct 36.9 L, MCV 98.7, MCH 32.2 H, MCHC 32.7, RDW 13.4, Plt Count 232, MPV 7.8, Neut % (Auto) 91.1 H, Lymph % (Auto) 6.5 L, [place] % (Auto) 0.8 L, Eos % (Auto) 1.3, Baso % (Auto) 0.3, Neut # (Auto) 9.6 H, Lymph # (Auto) 0.7, [place] # (Auto) 0.1, Eos # (Auto) 0.1, Baso # (Auto) 0.0, Total Counted 100, Neutrophils % (Manual) 87 H, Band Neutrophils % 4.0, Lymphocytes % (Manual) 5 L, Monocytes % (Manual) 1 L, Eosinophils % (Manual) 3, Platelet Estimate Normal, Giant Platelets 1+, Anisocytosis 1+, Macrocytosis 1+, Tear Drop Cells 1+, PT 10.9, INR 0.97, APTT 28.5, Sodium 139, Potassium 4.1, Chloride 106, Carbon Dioxide 25, Anion Gap 12.1, BUN 22 H, C reatinine 1.10 H, Estimated Creat Clear 46, Estimated GFR 47 L, Est GFR ( Amer) 57 L, Glucose 140 H, Calcium 8.7, Total Bilirubin 1.0, AST 33, ALT 18, Alkaline Phosphatase 92, Troponin I < 0.01, Total Protein 6.4, Albumin 4.0, Globulin 2.4, Albumin/Globulin Ratio 1.7, Lipase 53, HIV 1&2 Antibody Rapid Nonreactive 10/15/24 16:44: Lactate 1.6 10/15/24 19:26: Troponin I < 0.01 10/15/24 16:14 10/15/24 16:14 Orders (Tests/Meds): ED MEDICATIONS Discontinued Medications Generic Name Dose Route Start Last Admin Trade Name Freq PRN Reason Stop Dose Admin Pantoprazole Sodium 80 mg/ 100 mls @ 100 mls/hr 10/15/24 16:12 10/15/24 16:21 Sodium Chloride IV 10/15/24 17:11 100 mls/hr ONCE ONE Administration Iopamidol 80 ml 10/15/24 18:52 10/15/24 18:53 Iopamidol-370 (76%);100ml Bottle IV 10/15/24 18:53 80 ml ONCE ONE Administration Morphine Sulfate 4 mg 10/15/24 17:14 10/15/24 17:15 Morphine 4mg/Ml Syringe IV 10/15/24 17:15 4 mg ONCE ONE Administration Ondansetron HCl 4 mg 10/15/24 17:14 10/15/24 17:15 Ondansetron 4mg/2ml Vial IV 10/15/24 17:15 4 mg ONCE ONE Administration Ondansetron HCl 4 mg 10/15/24 20:41 10/15/24 20:44 Ondansetron 4mg/2ml Vial IV 10/15/24 20:42 4 mg ONCE ONE Administration Polyethylene Glycol 17 gm 10/15/24 19:43 10/15/24 20:03 Polyethylene Glycol 3350 17 Gm Packet PO 10/15/24 19:44 17 gm ONCE ONE Administration Senna/Docusate Sodium 2 tab 10/15/24 19:42 10/15/24 20:04 Sennosides 8.6mg/Docusate 50mg Tablet PO 10/15/24 19:43 2 tab ONCE ONE Administration Sodium Chloride 10 ml 10/15/24 18:52 10/15/24 18:53 Sodium Chloride 0.9% 10ml Syr (Rad Only) IV 10/15/24 18:53 10 ml ONCE ONE Administration Sodium Chloride 50 ml 10/15/24 18:52 10/15/24 18:52 0.9 % Sodium Chloride 50 Ml Vial IV 10/15/24 18:53 50 ml ONCE ONE Administration ORDERS Category Date Time Status CT angio abdomen pelvis Stat Cat Scan 10/15/24 16:11 Completed Activated Partial Thrombo Time Stat Lab 10/15/24 16:14 Completed Complete Blood Count Auto Diff Stat Lab 10/15/24 16:14 Completed Comprehensive Metabolic Panel Stat Lab 10/15/24 16:14 Completed HIV (1&2) Antibody Rapid Stat Lab 10/15/24 16:14 Completed Hep C Ab with Reflex to RNA Stat Lab 10/15/24 16:14 Received Lactic Acid Stat Lab 10/15/24 16:44 Completed Lipase Stat Lab 10/15/24 16:14 Completed Prothrombin Time INR Stat Lab 10/15/24 16:14 Completed Trop I [Troponin I] Stat Lab 10/15/24 16:14 Completed Troponin I Q3H Lab 10/15/24 19:26 Completed ECG Data Tracing #1: I reviewed this ECG and interpreted as documented below: Atrially paced at a ventricular rate of [address] changes concerning for ischemia. Normal axis and intervals ECG initial impression date: 10/15/24 ECG initial impression time: 16:21 Medical Decision Narrative: In summary, this patient is a 84-year-old female presenting to the Emergency Department for evaluation of abdominal pain, nausea, vomiting, with reported coffee-ground emesis by EMS. She also has not had a bowel movement in 5 days. Differential diagnoses considered include but are not limited to bowel obstruction, constipation, ileus, gastritis, upper GI bleed, lower GI bleed, diverticulitis. Ruling out the most morbid conditions drove assessment. It should be noted patient's history includes extensive cardiovascular history as well as atrial fibrillation on Eliquis which may not be at goal therapy. This complicates all aspects of care by increasing patient's risk for morbidity. I reviewed patient's past medical records and noted multiple previous cardiology evaluations in the past as well as ED evaluation recently for muscle strain/back pain. On exam, the patient is sitting upright in bed in no acute distress and is nontoxic-appearing with normal vital signs on cardiac telemetry. She is not hypotensive or tachycardic. She has generalized abdominal tenderness but no rebound or guarding. Workup included CBC, CMP, lipase, lactic acid, urinalysis, PT, PTT, troponin, EKG, CTA abdomen/pelvis. She was given 80 of IV pantoprazole. I independently interpreted CT scan prior to the radiologist read and noted moderate to large stool burden, especially in the rectum and descending colon. No obstructive process or air-fluid levels. Please see their read for final interpretation. They note subacute T9 fracture but the patient has no significant back pain or other concerns. They noted possible mild colitis of the transverse and descending colon. Labs were obtained that demonstrated reassuring CBC with no significant leukocytosis or anemia, reassuring chemistry with no significant elevation in BUN, creatinine around her baseline, normal lactic acid. No other acutely concerning abnormalities noted. Troponin negative x 2.. On reassessment, patient had good improvement after administration of IV morphine, Zofran, pantoprazole. She is feeling a lot better and is requesting to drink. She was given ice water. Ultimately, I feel that her story is more consistent with constipation, as she has not had a bowel movement in 5 days and has moderate to large stool burden on CT scan. She is agreeable to receive enema as well as MiraLAX and senna here, which were given. Patient had very large bowel movements after this and improvement in pain. She did not provide a urine specimen, but she states she does not want to stay to do this. She states she wants to go home to rest in bed. Ultimately, I feel patient is appropriate for discharge home via patient directed discharge. Prescriptions for MiraLAX and senna for bowel cleanout were given as well as instruction for supportive management of possible colitis that was diagnosed on CT scan, however I do not feel that it fits his clinical picture and feel constipation is more likely. Strict return precautions were given as well as instructions for close outpatient follow-up. Critical Care Critical Care Time Critical Care Time: No
--- NOTE | 2024-10-15 16:20 | ECG_ITS ---
APPROVED REPORT Exam: Resting ECG HR:70 bpm ECG Measurements Heart Rate 70 AXES IN 199 P -53 QRSd 93 QRS 58 QT 402 T 77 QTc 422 Conclusion ELECTRONIC ATRIAL PACEMAKER LOW QRS VOLTAGE IN PRECORDIAL LEADS [QRS DEFLECTION < 1.0 mV IN CHEST LEADS] ABNORMAL RHYTHM ECG Electronically signed by : ANTOINETTE ONEILL, 10/15/2024 23:28:45
[2024-10-15] MEDS: PANTOPRAZOLE SODIUM 80 MG in 0.9 % SODIUM CHLORIDE 100 ML 100 MG IV (16:21)
[2024-10-15 16:25] LABS: Basophils % 0.3 % (0.1-2.0); Eosinophils # 0.1 K/mm3 (0.0-0.4); Eosinophils % 1.3 % (0.1-12.0); Hematocrit 36.9 % (37.0-47.0); Lymphocytes # 0.7 K/mm3 (0.7-4.5); Lymphocytes % 6.5 % (10-50); Mean Corpuscular HGB Conc 32.7 g/dL (31.8-35.4); Mean Corpuscular Hemoglobin 32.2 pg (27.0-31.2); Mean Corpuscular Volume 98.7 fl (81-99); Mean Platelet Volume 7.8 fl (7.4-10.4); Monocytes # 0.1 K/mm3 (0.1-1.0); Monocytes % 0.8 % (1.7-9.3); Neutrophils # 9.6 K/mm3 (1.8-7.8); Neutrophils % 91.1 % (37.0-80.0); Platelet Count 232 K/mm3 (142-424); Red Blood Count 3.74 M/mm3 (4.20-5.40); Red Cell Distribution Width 13.4 % (11.5-17.5); White Blood Count 10.6 K/mm3 (4.8-10.8)
[2024-10-15 16:28] LABS: MANUAL DIFFERENTIAL MANUAL DIFFERENTIAL (MANUAL DIFF)
[2024-10-15 16:38] LABS: Activated Partial Thrombo Time 28.5 seconds (22.8-30.6); INR 0.97 (0.9-1.1); Prothrombin Time 10.9 seconds (10.1-12.5)
[2024-10-15 16:59] LABS: Lactic Acid 1.6 mmol/L (0.7-2.1)
[2024-10-15 17:02] LABS: Eosinophils % 3 % (0-3); Lymphocytes % 5 % (10-50); Monocytes % 1 % (2-9); Neutrophils % 87 % (42-76); Total Cells Counted 100
[2024-10-15 17:03] LABS: Anisocytosis 1+; Giant Platelets 1+; Macrocytosis 1+; Platelet Estimate Normal; Tear Drop Cells 1+
--- NOTE | 2024-10-15 17:10 | PC.NURSE ---
Called Lab to check the status of chemistry results, Lab states it will be 5 min
[2024-10-15] MEDS: ONDANSETRON 4MG/2ML VIAL 4 MG IV ×2 (17:15→20:44)
[2024-10-15] MEDS: MORPHINE 4MG/ML SYRINGE 4 MG IV (17:15)
--- NOTE | 2024-10-15 17:20 | PC.NURSE ---
Called lab to check status of chemistry results again, lab now states that they could not find 1 green top sample and will run the 2nd green top. Dr. Dunaway aware of lab delay.
[2024-10-15 17:44] LABS: HIV (1&2) Antibody Rapid NONREACTIVE (NONREACTIVE)
--- NOTE | 2024-10-15 17:55 | PC.NURSE ---
Called Lab to check on the status of cmp, as we are waiting for GFR/creatine results before pt can go to ct scan, lab states the sample has 5 min remaining.
[2024-10-15 18:00] LABS: Chloride 106 mmol/L (98-107)
[2024-10-15 18:01] LABS: Potassium 4.1 mmoL/L (3.5-5.1); Sodium 139 mmol/L (136-145)
[2024-10-15 18:03] LABS: Alanine Aminotransferase 18 U/L (12-78); Alkaline Phosphatase 92 U/L (38-126); Anion Gap 12.1 mEq/L (5-15); Aspartate Amino Transferase 33 U/L (14-36); Blood Urea Nitrogen 22 mg/dl (7-17); Carbon Dioxide 25 mmol/L (22.0-30.0); Creatinine Clearance Estimated 46 mL/min (50-200); Estimated Glomerular Filt Rate 47 ml/min (>60); GFR (African American) 57 ML/MIN (>60)
[2024-10-15 18:04] LABS: Albumin/Globulin Ratio 1.7 (1.1-1.8); Calcium 8.7 mg/dl (8.4-10.2); Globulin 2.4 g/dL (1.3-3.2); Glucose 140 mg/dl (74-100); Lipase 53 U/L (23-300); Total Protein,Serum 6.4 g/dl (6.3-8.2)
[2024-10-15 18:17] LABS: Troponin I < 0.01 ng/ml (0.00-0.034)
--- NOTE | 2024-10-15 18:34 | PC.NURSE ---
[place] is declining d/t weather. Calling [facility]- [facility]
[2024-10-15] MEDS: 0.9 % SODIUM CHLORIDE 50 ML VIAL IV (18:52)
[2024-10-15] MEDS: SODIUM CHLORIDE 0.9% 10ML SYR (RAD ONLY) 10 ML IV (18:53)
[2024-10-15] MEDS: IOPAMIDOL-370 (76%);100ML BOTTLE 80 ML IV (18:53)
[2024-10-15] MEDS: POLYETHYLENE GLYCOL 3350 17 GM PACKET PO (20:03)
[2024-10-15] MEDS: SENNOSIDES 8.6MG/DOCUSATE 50MG TABLET 2 TAB PO (20:04)
[2024-10-15 20:10] LABS: Troponin I < 0.01 ng/ml (0.00-0.034)
--- NOTE | 2024-10-15 20:36 | PC.NURSE ---
Enema complete with large amount of stool burden expelled
[2024-10-16 07:27] LABS: HCV Ab Non Reactive (Non Reactive)
== END 2024-10-15 21:34 | disposition home or self-care (01) ==
PROVIDERS: Emergency Provider Emergency Medicine; PCP Family Medicine
DX: K59.00 Constipation, unspecified (principal); K52.9 Noninfective gastroenteritis and colitis, unspecified; S22.079A Unspecified fracture of T9-T10 vertebra, initial encounter for closed fracture; R10.30 Lower abdominal pain, unspecified; R11.2 Nausea with vomiting, unspecified
CPT/HCPCS: 36415; 74174; 80053; 83605; 83690; 84484; 85007; 85025; 85027; 85610; 85730; 86803; 87389; 93005; 96365; 96374; 96375; 99285; J2270; J2405; Q9967

== ENCOUNTER 2025-05-14 08:09 | Day surgery (SDC) | payer MEDICARE, MEDICAID, SELFPAY ==
[2025-05-13 11:36] VITALS: BMI 26.7
[2025-05-14] MEDS: PHENYLEPHRINE 2.5% OPHTH SOLN 2ML OP ×3 (09:11→09:16)
[2025-05-14] MEDS: TETRACAINE 0.5% OPTH SOL 15ML OP ×3 (09:11→09:16)
[2025-05-14] MEDS: CYCLOPENTOLATE 2% OPHTH SOLN 2ML BOTTLE OP ×3 (09:11→09:16)
[2025-05-14 09:18] VITALS: BP 163/76; PULSE 71; RESP 18; TEMP 36.3; O2SAT 97
[2025-05-14 09:40] VITALS: BP 179/84; PULSE 70; RESP 16; O2SAT 100
[2025-05-14] MEDS: MIDAZOLAM 2MG/2ML VIAL 1 MG IV (09:40)
[2025-05-14] MEDS: LIDOCAINE 1% PF 2ML AMPULE 2 ML IJ (09:42)
[2025-05-14] MEDS: SODIUM CHLORIDE 0.9% 10ML FLUSH SYRINGE 10 ML IV (09:42)
[2025-05-14] MEDS: TOBRAMYCIN/DEX OPTH SUSP 2.5ML OP (09:43)
[2025-05-14] MEDS: TIMOLOL 0.5% OPTH SOLN 5ML OP (09:43)
[2025-05-14 09:45] VITALS: BP 158/72; PULSE 70; RESP 16; O2SAT 100
[2025-05-14 09:50] VITALS: BP 150/68; PULSE 71; RESP 16; O2SAT 100
[2025-05-14 09:55] VITALS: BP 155/70; PULSE 69; RESP 16; O2SAT 100
[2025-05-14 09:57] VITALS: BP 145/86; PULSE 70; RESP 16; TEMP 36.4; O2SAT 99
--- NOTE | 2025-05-14 10:57 | P.PCN_ITS ---
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 The patient reports that this interferes with ADLs such as reading, watching TV and/or driving or the vision is like looking through a foggy haze and is very troubling. The patient was examined and found to have a visually significant cataract with best corrected vision of [20/400] by refraction and/or glare testing. Treatment options, risks and benefits were explained and the patient elected to have cataract surgery in an attempt to improve their vision. The patient had the eye anesthetized with topical tetracaine, the eye ways prepped and draped in the usual fashion for cataract surgery. A paracentesis and a temporal keratotomy were made. 0.2cc of 1% lidocaine PF was placed into the anterior chamber. And aqueous/viscoelastic exchange was done and a 360 degree capsulorexis was performed. Through hydrodissection and delineation with BSS on a cannula was done. The lens nucleus was phecoemulsified with CDE of [12.41]. Residual cortical material was removed using automated I&A The capsular bag was deepened with viscoelastica and a PCIOL was placed in the capsular bag with good centration and stability. Residual viscoelastic was removed using automated I&A. The keratotomy incision was hydrated with BSS on a cannula. The wound were checked and found to be water tight. IOP was checked digitally and adjusted as needed so as not to be too high. 1 drop of timolol 0.5%, ofloxacin, prednisolone acetate and ketorolac was instilled and eye shield taped over the eye. The patient was taken to recovery in good condition and will be seen postoperatively.
== END 2025-05-14 10:09 | disposition home or self-care (01) ==
PROVIDERS: PCP Family Medicine; Visit Provider Ophthalmology
PROC: (CPT 66984; principal; 2025-05-14 10:30)
DX: H25.812 Combined forms of age-related cataract, left eye (principal); I48.0 Paroxysmal atrial fibrillation; I49.5 Sick sinus syndrome; I11.0 Hypertensive heart disease with heart failure; I25.10 Atherosclerotic heart disease of native coronary artery without angina pectoris; I50.42 Chronic combined systolic (congestive) and diastolic (congestive) heart failure; I25.2 Old myocardial infarction; E78.5 Hyperlipidemia, unspecified; I25.5 Ischemic cardiomyopathy; Z88.1 Allergy status to other antibiotic agents; Z88.6 Allergy status to analgesic agent; Z87.891 Personal history of nicotine dependence; Z95.0 Presence of cardiac pacemaker; Z79.899 Other long term (current) drug therapy; Z79.01 Long term (current) use of anticoagulants
CPT/HCPCS: 66984; J2250; V2632

== ENCOUNTER 2025-05-28 07:32 | Day surgery (SDC) | payer MEDICARE, MEDICAID, SELFPAY ==
[2025-05-21 13:39] VITALS: BMI 27.8
[2025-05-28 07:45] VITALS: BP 161/56; PULSE 71; RESP 16; TEMP 36.2; O2SAT 96
[2025-05-28] MEDS: PHENYLEPHRINE 2.5% OPHTH SOLN 2ML OP ×3 (07:51→07:52)
[2025-05-28] MEDS: TETRACAINE 0.5% OPTH SOL 15ML OP ×2 (07:51→07:52)
[2025-05-28] MEDS: CYCLOPENTOLATE 2% OPHTH SOLN 2ML BOTTLE OP ×3 (07:51→07:52)
[2025-05-28 08:41] VITALS: BP 169/75; PULSE 71; RESP 17; TEMP 36.7; O2SAT 95
[2025-05-28] MEDS: MIDAZOLAM 2MG/2ML VIAL 1 MG IV (08:41)
[2025-05-28] MEDS: SODIUM CHLORIDE 0.9% 10ML FLUSH SYRINGE 10 ML IV (08:41)
[2025-05-28 08:46] VITALS: BP 152/66; PULSE 69; RESP 17; TEMP 36.7; O2SAT 95
[2025-05-28] MEDS: TIMOLOL 0.5% OPTH SOLN 5ML OP (08:50)
[2025-05-28] MEDS: TOBRAMYCIN/DEX OPTH SUSP 2.5ML OP (08:50)
[2025-05-28] MEDS: LIDOCAINE 1% PF 2ML VIAL 2 ML IJ (08:50)
[2025-05-28 08:51] VITALS: BP 147/65; PULSE 70; RESP 17; TEMP 36.7; O2SAT 94
[2025-05-28 08:56] VITALS: BP 137/63; PULSE 69; RESP 17; TEMP 36.7; O2SAT 96
[2025-05-28 09:02] VITALS: BP 134/68; PULSE 70; RESP 18; TEMP 36.6; O2SAT 96
--- NOTE | 2025-05-28 11:03 | [facility].PROCNOTE ---
[facility] Procedure Note Date: 05/28/25 Time: 11:03 Procedure Note:: Preoperative Diagnosis: Cataract combined NS Cortical Complex [Right] Eye Postop diagnosis: same Operation: Microscopic phacoemulsification with intraocular lens implant [Right] Eye Specimen: None Blood Loss: None The patient was examined in the office with a complaint of poor vision in the [right] eye. The patient reports that this interferes with ADLs such as reading, watching TV and/or driving or the vision is like looking through a foggy haze and is very troubling. The patient was examined and found to have a visually significant cataract with best corrected vision of [20/400] by refraction and/or glare testing. Treatment options, risks and benefits were explained and the patient elected to have cataract surgery in an attempt to improve their vision. The patient had the eye anesthetized with topical tetracaine, the eye ways prepped and draped in the usual fashion for cataract surgery. A paracentesis and a temporal keratotomy were made. 0.2cc of 1% lidocaine PF was placed into the anterior chamber. And aqueous/viscoelastic exchange was done and a 360 degree capsulorexis was performed. Through hydrodissection and delineation with BSS on a cannula was done. The lens nucleus was phecoemulsified with CDE of [15.78]. Residual cortical material was removed using automated I&A The capsular bag was deepened with viscoelastica and a PCIOL was placed in the capsular bag with good centration and stability. Residual viscoelastic was removed using automated I&A. The keratotomy incision was hydrated with BSS on a cannula. The wound were checked and found to be water tight. IOP was checked digitally and adjusted as needed so as not to be too high. 1 drop of timolol 0.5%, ofloxacin, prednisolone acetate and ketorolac was instilled and eye shield taped over the eye. The patient was taken to recovery in good condition and will be seen postoperatively.
== END 2025-05-28 09:11 | disposition home or self-care (01) ==
PROVIDERS: PCP Family Medicine; Visit Provider Ophthalmology
PROC: (CPT 66984; principal; 2025-05-28 09:00)
DX: H25.811 Combined forms of age-related cataract, right eye (principal); I11.0 Hypertensive heart disease with heart failure; I50.42 Chronic combined systolic (congestive) and diastolic (congestive) heart failure; I25.10 Atherosclerotic heart disease of native coronary artery without angina pectoris; I25.5 Ischemic cardiomyopathy; I48.0 Paroxysmal atrial fibrillation; J44.9 Chronic obstructive pulmonary disease, unspecified; I25.2 Old myocardial infarction; I49.5 Sick sinus syndrome; Z87.891 Personal history of nicotine dependence; Z79.899 Other long term (current) drug therapy; Z79.01 Long term (current) use of anticoagulants; Z88.1 Allergy status to other antibiotic agents; Z88.6 Allergy status to analgesic agent; Z95.0 Presence of cardiac pacemaker; Z96.1 Presence of intraocular lens
CPT/HCPCS: 66984; J2250; V2632

== ENCOUNTER 2025-06-27 08:05 | Outpatient (CLI) | payer MEDICARE, MEDICAID, SELFPAY ==
--- NOTE | 2025-06-27 08:08 | XR_ITS ---
FINAL REPORT CLINICAL HISTORY: right knee pain COMPARISON: 03/18/2023 FINDINGS: RIGHT KNEE Three views demonstrate no acute fracture or dislocation. There is advanced medial compartment joint space narrowing. Subchondral sclerosis is noted. There are osteophytes along the undersurface of the patella. No acute soft tissue abnormality is seen. 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 Reviewed, Interpreted and Dictated by Oz Meade MD Transcribed by Ingrid Elder Authenticated and [facility]
== END 2025-06-27 23:59 | disposition home or self-care (01) ==
LOC: RAD 08:06
PROVIDERS: PCP Family Medicine; Visit Provider Physician Assistant
DX: M17.11 Unilateral primary osteoarthritis, right knee (principal)
CPT/HCPCS: 73562